=== PATIENT | female | born 1960 | race Caucasian/White ===

== ENCOUNTER 2016-09-18 09:10 | Inpatient (IN) | payer MEDICAID ==
[~2016-09-18] VITALS: Ht 170.2 cm; Wt 150.8 kg
[2016-09-19] MEDS ORDERED: NEOSTIGMINE 3 MG/3 ML SYR IV ONE (09:10)
[2016-09-19] MEDS ORDERED: PROPOFOL 200 MG/20 ML AMP IV ONE (09:10)
[2016-09-19] MEDS ORDERED: NORMOSOL R INJ 1,000 ML IV ONE (09:10)
[2016-09-19] MEDS ORDERED: LACTATED RINGER'S 1000 ML INJ 1,000 ML IV ONE (09:10)
[2016-09-19] MEDS ORDERED: BUPIVACAINE HCL PF 0.5% 30 ML VIAL ONE (12:40)
[2016-09-19] MEDS ORDERED: GELFOAM SIZE 100 ONE (12:41)
[2016-09-19] MEDS ORDERED: THROMBIN (TOPICAL) 5,000 UNIT VIAL ONE (12:41)
--- NOTE | 2016-09-19 12:58 | PD.HP.UP ---
H&P Update Note The Pre-Admit History and Physical Examination regarding the above named patient was reviewed (including, but not limited to, vital signs, heart, lungs, co-morbid conditions), and upon re-examination it is noted that: the patient's condition has not significantly changed since the last examination. Justo Mendoza MD Sep 19, 2016 12:58
[2016-09-19] MEDS ORDERED: METOPROLOL TARTRATE 25 MG TAB PO PRN (14:00)
[2016-09-19] MEDS ORDERED: INSULIN HUMAN REGULAR 1,000 UNITS/10 ML VIAL SQ PRN (14:00)
[2016-09-19] MEDS: DEXT 5%-NACL 0.9% 1000 ML INJ 1,000 ML IV SCH ×2 (14:00→22:00)
[2016-09-19] MEDS ORDERED: LACTATED RINGER'S 1000 ML IV SCH (14:00)
[2016-09-19] MEDS ORDERED: ceFAZolin 1,000 MG/NS 100 ML IV SCH ×2 (14:00)
[2016-09-19] MEDS ORDERED: METRONIDAZOLE 500 MG/100 ML ISONTONIC SOLN IV SCH (14:00)
[2016-09-19] MEDS ORDERED: SODIUM CHLORID 0.9% 500 ML IV SCH (14:00)
--- NOTE | 2016-09-19 14:07 | EKG ---
Date Performed: 09/19/2016 Time Performed: 12:53:55 PTAGE: 56 years EKG: SINUS TACHYCARDIA ABNORMAL RHYTHM ECG COMPARED TO PRIOR ELECTROCARDIOGRAM, Rate has increas ed. PREVIOUS TRACING : 06/14/2016 19.20 DOCTOR: Ean Nobles Interpretating Date/Time 09/19/2016 14:05:34
[2016-09-19] MEDS ORDERED: APREPITANT 40 MG CAP ONE (14:35)
[2016-09-19] MEDS ORDERED: ONDANSETRON HCL 4 MG/2 ML VIAL ONE (14:36)
[2016-09-19] MEDS ORDERED: MIDAZOLAM HCL 5 MG/5 ML VIAL ONE (14:36)
[2016-09-19] MEDS ORDERED: FAMOTIDINE 20 MG/2 ML VIAL ONE (14:36)
[2016-09-19] MEDS ORDERED: ACETAMINOPHEN 1000 MG/100 ML VIAL IV ONE (14:36)
[2016-09-19] MEDS ORDERED: ceFAZolin INJ 1,000 MG VIAL IV ONE (16:51)
[2016-09-19] MEDS ORDERED: HYDROmorphone HCL PF 2 MG/ML VIAL ONE (17:06)
[2016-09-19] MEDS ORDERED: fentaNYL CITRATE 250 MCG/5 ML AMP ONE (18:32)
[2016-09-19 19:00] VITALS: BP 130/68; PULSE 79; RESP 21; TEMP 97.8; O2SAT 97
[2016-09-19] MEDS ORDERED: POTASSIUM CHLOR 40 MEQ PREMIX 100 ML IV PRN (19:00)
[2016-09-19] MEDS ORDERED: ENALAPRILAT 2.5 MG/2 ML VIAL IV PRN (19:00)
[2016-09-19] MEDS ORDERED: SODIUM CHLORIDE 0.9% FLUSH 5 ML FLUSH IVF PRN (19:00)
[2016-09-19] MEDS ORDERED: ACETAMINOPHEN/HYDROcodone 325 MG/5 MG TAB PO PRN (19:00)
[2016-09-19] MEDS ORDERED: ENALAPRILAT 1.25 MG/ML VIAL IV PRN (19:00)
[2016-09-19] MEDS ORDERED: Post-op Orders (for Pharmacy) MISC XX ONE (19:00)
[2016-09-19] MEDS ORDERED: POTASSIUM CHLOR 20 MEQ PREMIX 100 ML IV PRN (19:00)
[2016-09-19] MEDS ORDERED: ACETAMINOPHEN 325 MG TAB PO PRN (19:00)
[2016-09-19] MEDS ORDERED: NALOXONE HCL 0.4 MG/ML AMP IV PRN (19:00)
[2016-09-19] MEDS ORDERED: BENZOCAINE 6 MG/MENTHOL 10 MG LOZENGE SUCK-ON PRN (19:00)
[2016-09-19] MEDS ORDERED: DO NOT ADM ANY ANTICOAGULANT DRUGS XX PRN (19:01)
[2016-09-19] MEDS ORDERED: *morphine SULFATE 8 MG/ML PERIprocedure ONLY ONE (19:46)
[2016-09-19] MEDS: D5-NS + KCL 20 MEQ INJ 1,000 ML IV SCH (20:00)
[2016-09-19] MEDS: MORPHINE SULFATE 30 MG/30 ML PCA IV SCH (20:22)
[2016-09-19] MEDS: ONDANSETRON HCL 4 MG/2 ML VIAL IV PRN (20:54)
[2016-09-19] MEDS: METOCLOPRAMIDE HCL 10 MG/2 ML VIAL IVS SCH (20:55)
[2016-09-19] MEDS: SODIUM CHLORIDE 0.9% FLUSH 5 ML FLUSH IVF SCH (20:56)
[2016-09-19 22:00] VITALS: PULSE 72; RESP 21
[2016-09-19] MEDS: PCA - TOTAL MG MORPHINE DELIVERED PER SHIFT SCH (22:00)
[2016-09-19 23:00] VITALS: BP 119/59; PULSE 73; PULSE 76; RESP 16; TEMP 98.3; O2SAT 97
[2016-09-19] MEDS: metroNIDAZOLE 500 MG INJ 100 ML IV SCH (23:03)
[2016-09-20] VITALS (28 sets, daily range): BP systolic 105–152; BP diastolic 66–84; PULSE 54–92; RESP 17–19; TEMP 97.5–98.2; O2SAT 94–97
[2016-09-20] MEDS: KETOROLAC TROMETHAMINE 30 MG/ML (IVP) VIAL IVP PRN ×2 (00:53→14:07)
[2016-09-20] MEDS: D5-NS + KCL 20 MEQ INJ 1,000 ML IV SCH ×3 (00:57→14:41)
[2016-09-20] MEDS: ONDANSETRON HCL 4 MG/2 ML VIAL IV PRN (03:40)
[2016-09-20 04:10] LABS: BASOPHIL # 0.1 TH/MM3 (0-0.2); BASOPHIL % 0.5 % (0.0-2.0); HEMATOCRIT 40.7 % (35.0-46.0); HEMO FLAGS DIFF FINAL; LYMPH % 3.4 % (9.0-44.0); LYMPHOCYTE # 0.4 TH/MM3 (1.0-4.8); MEAN CORPUSCULAR HEMOGLOBIN 30.7 PG (27.0-34.0); MEAN CORPUSCULAR HGB CONC 32.7 % (32.0-36.0); MONO % 3.3 % (0.0-8.0); NEUT % 92.8 % (16.0-70.0); PLATELET COUNT 163 TH/MM3 (150-450); RED BLOOD COUNT 4.33 MIL/MM3 (4.00-5.30); RED CELL DISTRIBUTION WIDTH 14.8 % (11.6-17.2); WHITE BLOOD COUNT 10.8 TH/MM3 (4.0-11.0)
[2016-09-20 04:34] LABS: BICARBONATE 25.3 MEQ/L (21.0-32.0); POTASSIUM 4.6 MEQ/L (3.5-5.1)
[2016-09-20] MEDS: DEXT 5%-NACL 0.9% 1000 ML INJ 1,000 ML IV SCH ×3 (05:38→22:00)
[2016-09-20] MEDS: metroNIDAZOLE 500 MG INJ 100 ML IV SCH ×2 (05:38→14:39)
[2016-09-20] MEDS: PCA - TOTAL MG MORPHINE DELIVERED PER SHIFT SCH ×3 (05:39→21:14)
[2016-09-20] MEDS: MORPHINE SULFATE 30 MG/30 ML PCA IV SCH (07:17)
[2016-09-20] MEDS: METOCLOPRAMIDE HCL 10 MG/2 ML VIAL IVS SCH ×2 (08:35→21:14)
[2016-09-20] MEDS: PANTOPRAZOLE SODIUM 40 MG VIAL IVP SCH (08:35)
[2016-09-20] MEDS: SODIUM CHLORIDE 0.9% FLUSH 5 ML FLUSH IVF SCH ×2 (08:35→21:00)
[2016-09-20] MEDS: PANTOPRAZOLE SOD 40 MG DELAYED RELEASE TAB PO SCH (08:42)
--- NOTE | 2016-09-20 20:54 | HHI.PR ---
Subjective Remarks C/R Surg POD #1 afebrile, VSS UO good Objective - Vital Signs Date Time Temp Pulse Resp B/P Pulse Ox O2 Delivery O2 Flow Rate FiO2 09/20/16 18:00 71 09/20/16 15:12 19 09/20/16 15:00 98.2 130/84 94 09/19/16 19:58 Nasal Cannula 4 Result Diagram: 09/20/16 0330 09/20/16 0330 Objective Remarks PE alert Abd - soft, wound dry A/P Assessment and Plan Imp: stable post-op OOB decr IVF start PO tx to floor Justo Mendoza MD Sep 20, 2016 20:54
[2016-09-20] MEDS: ALVIMOPAN 12 MG CAPSULE PO SCH (21:14)
[2016-09-21] VITALS (21 sets, daily range): BP systolic 140–174; BP diastolic 66–89; PULSE 55–93; RESP 17–20; TEMP 97.9–98.7; O2SAT 92–95
[2016-09-21 05:47] LABS: RED BLOOD COUNT 3.87 MIL/MM3 (4.00-5.30); WHITE BLOOD COUNT 10.4 TH/MM3 (4.0-11.0)
[2016-09-21 05:48] LABS: AUTOMATED NEUTROPHIL # 8.3 TH/MM3 (1.8-7.7); BASOPHIL # 0.1 TH/MM3 (0-0.2); BASOPHIL % 0.7 % (0.0-2.0); EOSINOPHIL # 0.4 TH/MM3 (0-0.4); EOSINOPHIL % 4.1 % (0.0-4.0); HEMATOCRIT 36.6 % (35.0-46.0); HEMO FLAGS DIFF FINAL; LYMPH % 10.5 % (9.0-44.0); LYMPHOCYTE # 1.1 TH/MM3 (1.0-4.8); MEAN CELL VOLUME 94.4 FL (80.0-100.0); MEAN CORPUSCULAR HEMOGLOBIN 31.4 PG (27.0-34.0); MEAN CORPUSCULAR HGB CONC 33.3 % (32.0-36.0); NEUT % 79.7 % (16.0-70.0); PLATELET COUNT 150 TH/MM3 (150-450); RED CELL DISTRIBUTION WIDTH 14.9 % (11.6-17.2)
[2016-09-21] MEDS: PCA - TOTAL MG MORPHINE DELIVERED PER SHIFT SCH (06:00)
[2016-09-21] MEDS: DEXT 5%-NACL 0.9% 1000 ML INJ 1,000 ML IV SCH ×3 (06:00→22:00)
--- NOTE | 2016-09-21 06:06 | MP ---
cc: NONA CASTANON M.D. DATE OF PROCEDURE September 19, 2016 PREOPERATIVE DIAGNOSIS History of colon cancer with liver metastasis. PROCEDURE 1. Exploratory laparotomy with segmental hepatectomy of segment 8. 2. Two wedge excisions, metastasis segment 7. POSTOPERATIVE DIAGNOSIS 1. Three liver metastases. 2. History of colon cancer. 3. Postop adhesions. SURGEON Dr. Castanon PROCEDURE The patient was placed in the supine position. After adequate general anesthesia, her abdomen was prepped with Betadine solution and draped in the usual sterile fashion. The abdomen was opened through a right intercostal incision, dividing the rectus muscles with electrocautery. Adhesions were noted quite densely adherent to the parietal peritoneum and these were sharply taken down with both sharp and blunt dissection. Exploration finally identified the edge of the liver and adhesions were released mobilizing the liver. Several adhesions between the liver and the diaphragm were also taken down mobilizing the right lobe of the liver. Palpation revealed a rather large metastasis in the anterior segment of segment 8 as well as two smaller lesions in the posterior segment of segment 7. No other lesions were palpated throughout the liver. There was a very hard nodule in the falciform attached to a loop of small bowel and this was dissected free and sent for frozen section which showed only fibrous tissue, no sign of any malignancy. The remainder of the abdomen was palpated and felt to be pretty unremarkable for any metastatic disease. There were fairly dense adhesions throughout the small bowel loops. First our attention was turned to the two smaller lesions in segment 7 and these were elliptically excised cauterizing the base of the lesions with electrocautery. There did appear to be fairly adequate resection of these small lesions, each one measuring 1-2 cm in diameter. Next, the larger lesion in the anterior segment of section 8 was dressed and an elliptical incision was made around the tumor mass with an least a 1-cm margin, excising through the liver with electrocautery. The lesion did appear to fracture into several pieces. The margin below the lesion was obtained with healthy, normal liver tissue being visualized after complete piecemeal excision. The base of the lesion was again cauterized rather extensively for hemostasis. After adequate debridement, no visible tumor was present in the excision site. Tisseel was then sprayed over the liver edges for additional hemostasis. The abdomen was then irrigated copiously with normal saline, adequate hemostasis achieved. The subcostal incision was closed anatomically in two layers using #1 PDS sutures to reapproximate the respective fascial layers. The subcutaneous tissue was irrigated copiously and the skin closed with a row of surgical lois. The wound area washed with normal saline and dried, sterile dressing of Telfa and gauze applied. The patient tolerated the procedure quite well and was brought to the recovery room in stable condition. Sponge and needle counts were correct at the end of the procedure. MD NIRAV Stearns/SHALINI /10:55 PM /5:54 AM
[2016-09-21 06:10] LABS: BICARBONATE 28.9 MEQ/L (21.0-32.0); POTASSIUM 4.4 MEQ/L (3.5-5.1)
[2016-09-21] MEDS: PANTOPRAZOLE SODIUM 40 MG VIAL IVP SCH (09:00)
[2016-09-21] MEDS: SODIUM CHLORIDE 0.9% FLUSH 5 ML FLUSH IVF SCH ×2 (09:03→21:49)
[2016-09-21] MEDS: METOCLOPRAMIDE HCL 10 MG/2 ML VIAL IVS SCH ×2 (09:04→21:49)
[2016-09-21] MEDS: PANTOPRAZOLE SOD 40 MG DELAYED RELEASE TAB PO SCH (09:04)
[2016-09-21] MEDS: ALVIMOPAN 12 MG CAPSULE PO SCH ×2 (09:04→21:49)
[2016-09-21] MEDS ORDERED: diphenhydrAMINE HCL 25 MG CAP PO ONE (10:45)
[2016-09-21] MEDS: ACETAMINOPHEN/HYDROcodone 325 MG/5 MG TAB PO PRN ×2 (10:53→16:26)
[2016-09-21] MEDS: D5-NS + KCL 20 MEQ INJ 1,000 ML IV SCH ×3 (11:00→23:07)
--- NOTE | 2016-09-21 19:42 | HHI.PR ---
Subjective Remarks C/R Surg POD #2 afebrile, VSS UO good Objective - Vital Signs Date Time Temp Pulse Resp B/P Pulse Ox O2 Delivery O2 Flow Rate FiO2 09/21/16 18:00 93 09/21/16 15:45 98.2 17 157/89 94 09/19/16 19:58 Nasal Cannula 4 Result Diagram: 09/21/16 0514 09/21/16 0514 Objective Remarks PE alert Abd - soft, wound dry, min tympany A/P Assessment and Plan Imp: OOB decr IVF start PO, adv dc Justo Hoskins MD Sep 21, 2016 19:42
[2016-09-22 00:56] VITALS: BP 138/80; PULSE 87; RESP 20; TEMP 97.8; O2SAT 93
[2016-09-22] MEDS: ACETAMINOPHEN/HYDROcodone 325 MG/5 MG TAB PO PRN (06:35)
[2016-09-22 06:45] VITALS: BP 140/78; PULSE 82; RESP 20; TEMP 97.9; O2SAT 92
[2016-09-22 07:00] VITALS: BP 142/84; PULSE 78; PULSE 80; RESP 17; TEMP 99.1; O2SAT 95
[2016-09-22 08:00] VITALS: PULSE 70
[2016-09-22 09:00] VITALS: PULSE 82
[2016-09-22] MEDS: METOCLOPRAMIDE HCL 10 MG/2 ML VIAL IVS SCH (09:00)
[2016-09-22] MEDS: PANTOPRAZOLE SODIUM 40 MG VIAL IVP SCH (09:00)
[2016-09-22] MEDS: PANTOPRAZOLE SOD 40 MG DELAYED RELEASE TAB PO SCH (09:37)
[2016-09-22] MEDS: ALVIMOPAN 12 MG CAPSULE PO SCH (09:38)
[2016-09-22 10:00] VITALS: PULSE 91
[2016-09-22] MEDS ORDERED: HYDR-3516 PO (10:21)
--- NOTE | 2016-10-24 10:41 | MD ---
cc: AIMEE MONET M.D., ANDREW H. M.D. ADMISSION DATE: 09/19/2016 DISCHARGE DATE: 09/22/2016 ADMISSION DIAGNOSIS History of colon cancer with liver metastasis. PROCEDURE September 19, 2016, exploratory laparotomy with segmental hepatectomy segment eight of the liver, two wedge excisions hepatic metastasis segment seven of the liver. POSTOPERATIVE DIAGNOSIS History of colon cancer, three hepatic metastasis. HISTORY OF PRESENT ILLNESS Ms. Flores is a 56-year-old female who had been found to have a cancer of the rectosigmoid with liver metastasis. During the first surgery one of the lesions was resected. She went on postop chemotherapy and has been doing quite well, noting shrinkage of the remaining metastasis but has never really disappeared. Recently two new metastasis have been identified in the apex of the liver. No other metastatic disease has been identified in the abdomen. The patient was admitted at this time for exploratory laparotomy and hepatic resection. Please see the admitting history and physical for more complete past medical and surgical history. PERTINENT PHYSICAL A very pleasant heavy-set female in no acute distress. Abdomen was really soft and doughy, not really distended, previous transverse incision was well-healed. No induration or thickening. No masses noted. Anal inspection revealed benign canal. Digital exam revealed good tone. No masses or tenderness palpable. HOSPITAL COURSE After admission, the patient was taken to the operating room on September 19, 2016, at which point she underwent an exploratory laparotomy, lysis of adhesions, segmental resection of metastasis from segment eight and two wedge excisions from segment seven. She had fair amount of adhesions in the parietal peritoneum and one nodule in the falciform ligament which proved not to be a metastasis. She tolerated the procedure quite well. Postoperatively she was initially stabilized in the intensive care unit. Her GI tract function returned quite promptly and her diet was advanced accordingly. She was able to ambulate with some assistance. The patient was eating well, tolerating oral pain medication and considered ready for discharge home on September 22, 2016. Final pathology report revealed segments of liver with extensively necrotic well-differentiated mucin producing adenocarcinoma. Margins were indeterminate due to the piecemeal excision of the specimen. DISCHARGE INSTRUCTIONS The patient was discharged eating a regular diet. She was encouraged to ambulate daily avoiding any heavy lifting or straining. All preop medications were to be resumed. The patient will be seen in the office in one weeks' time for routine follow-up. Any problems prior to the scheduled office visit she was instructed to call for more urgent attention. MD NIRAV Stearns/SANDY /2:11 PM /10:21 AM
== END 2016-09-22 12:01 | disposition home or self-care (01) | DRG 422 ==
LOC: HSDI 09-19 12:22 → HCIN 09-19 20:12
PROVIDERS: ADMIT Colon & Rectal Surgery; ATTEND Colon & Rectal Surgery
PROC: 0FN00ZZ Release Liver, Open Approach (ICD-10-PCS; 2016-09-19)
PROC: 0FB00ZX Excision of Liver, Open Approach, Diagnostic (ICD-10-PCS; principal; 2016-09-19 16:24)
DX: C78.7 Secondary malignant neoplasm of liver and intrahepatic bile duct (principal); I10 Essential (primary) hypertension; K66.0 Peritoneal adhesions (postprocedural) (postinfection); K21.9 Gastro-esophageal reflux disease without esophagitis; Z85.038 Personal history of other malignant neoplasm of large intestine; Z88.1 Allergy status to other antibiotic agents; Z91.040 Latex allergy status; Z92.21 Personal history of antineoplastic chemotherapy
CPT/HCPCS: 80048; 85025; 86850; 86900; 86901; 86920; 88305; 88307; 93005; 94150; C9113; J0131; J0690; J1170; J1885; J2250; J2270; J2405; J2710; J2765; J3010; J3480; J7042; J7120; J8501

== ENCOUNTER 2016-10-23 06:25 | Day surgery (SDC) | payer MEDICAID ==
[~2016-10-23] VITALS: Ht 170.2 cm; Wt 144.0 kg
[~2016-10-23 06:25] MED LIST: HYDR-3516 PO
[2016-10-23] MEDS ORDERED: AMLO5TAB2 PO (06:45)
[2016-10-23 06:54] VITALS: BP 135/112; PULSE 97; RESP 20; TEMP 99.4; O2SAT 95
[2016-10-23] MEDS ORDERED: SODIUM CHLORIDE 0.9% 1000 ML IV SCH (07:00)
[2016-10-23] MEDS ORDERED: CHLORHEXIDINE GLUCONATE 2 % 1 PACK (2 CLOTHS) TOPICAL SCH (07:00)
[2016-10-23] MEDS ORDERED: ceFAZolin 2 GM PREMIX 50 ML - implanted port/tunneled catheter insertion IV SCH (07:00)
[2016-10-23] MEDS ORDERED: VANCOMYCIN 1000 MG/NS 250 ML - implanted port/tunneled catheter IV SCH ×2 (07:00)
[2016-10-23] MEDS ORDERED: POVIDONE IODINE 5% (ANTISEPSIS KIT) 4 APPLICATIONS EACH NARE SCH (07:00)
[2016-10-23 07:25] LABS: AUTOMATED NEUTROPHIL # 7.5 TH/MM3 (1.8-7.7); BASOPHIL # 0.1 TH/MM3 (0-0.2); BASOPHIL % 0.9 % (0.0-2.0); EOSINOPHIL # 0.3 TH/MM3 (0-0.4); EOSINOPHIL % 2.8 % (0.0-4.0); HEMATOCRIT 44.4 % (35.0-46.0); HEMO FLAGS DIFF FINAL; LYMPH % 20.7 % (9.0-44.0); LYMPHOCYTE # 2.3 TH/MM3 (1.0-4.8); MEAN CORPUSCULAR HEMOGLOBIN 29.5 PG (27.0-34.0); MEAN CORPUSCULAR HGB CONC 33.1 % (32.0-36.0); MONO % 6.5 % (0.0-8.0); NEUT % 69.1 % (16.0-70.0); PLATELET COUNT 233 TH/MM3 (150-450); RED BLOOD COUNT 4.99 MIL/MM3 (4.00-5.30); RED CELL DISTRIBUTION WIDTH 14.9 % (11.6-17.2); WHITE BLOOD COUNT 10.9 TH/MM3 (4.0-11.0)
[2016-10-23 07:37] LABS: APTT (PATIENT) 27.1 SEC (24.3-30.1); INTERNATIONAL NORMALIZED RATIO 0.9 RATIO; PROTHROMBIN TIME - PATIENT 9.9 SEC (9.8-11.6)
[2016-10-23] MEDS ORDERED: fentaNYL CITRATE 250 MCG/5 ML AMP ONE (07:53)
[2016-10-23] MEDS ORDERED: MIDAZOLAM HCL 5 MG/5 ML VIAL ONE (07:53)
[2016-10-23] MEDS ORDERED: LIDOCAINE 1%/EPINEPHrine 1:100,000 SOLN 30 ML VIAL ONE (08:24)
[2016-10-23] MEDS ORDERED: HYDROmorphone HCL PF 2 MG/ML VIAL ONE (08:48)
[2016-10-23] MEDS ORDERED: MIDAZOLAM HCL 2 MG/2 ML VIAL ONE (09:01)
[2016-10-23] MEDS ORDERED: ONDANSETRON HCL 4 MG/2 ML VIAL ONE (09:35)
[2016-10-23 09:40] VITALS: BP 144/90; PULSE 98; RESP 18; RESP 20; TEMP 97.6; TEMP 97.8; O2SAT 92
[2016-10-23 09:55] VITALS: BP 129/95; PULSE 95; RESP 18; O2SAT 97
[2016-10-23 10:25] VITALS: BP 152/87; PULSE 91; RESP 18; O2SAT 94
[2016-10-23 10:45] VITALS: BP 164/94; PULSE 67; RESP 18; TEMP 97.6; O2SAT 99
--- NOTE | 2016-10-23 10:56 | PD.RAD ---
Post Procedure Progress Note Pre Procedure Diagnosis: (1) Colon cancer Post Procedure Diagnosis: (1) Colon cancer Procedure Date: Oct 23, 2016 Supervising Radiologist: Barrett Love Anesthesia: Conscious Sedation Plan of Activity Patient to Unit: ROPU Patient Condition: Good See PACS Report for procedural detail/treatment Central Venous Access Device Procedure 1 Left Internal Jugular Infusaport single lumen Barrett Love MD Oct 23, 2016 10:56
[2016-10-23] MEDS ORDERED: SODIUM CHLORIDE 0.9% FLUSH 5 ML FLUSH IVF PRN (11:00)
== END 2016-10-23 11:55 | disposition home or self-care (01) ==
LOC: HROP 06:25 → HRIP 06:26 → HROP 11:55
PROVIDERS: ATTEND Internal Medicine Hematology & Oncology
DX: C18.9 Malignant neoplasm of colon, unspecified (principal); C78.7 Secondary malignant neoplasm of liver and intrahepatic bile duct; I10 Essential (primary) hypertension
CPT/HCPCS: 36561; 76937; 77001; 85025; 85610; 85730; 99152; 99153; C1769; C1788; C1887; C1894; J0690; J1170; J1642; J2250; J2405; J3010; J3370; J7030; J7050

== ENCOUNTER 2017-01-18 14:59 | Observation (INO) | payer MEDICAID, OTHER ==
[~2017-01-18] VITALS: Ht 170.2 cm; Wt 141.0 kg
[~2017-01-18 14:59] MED LIST changes: -DIPH2.5T14 PO; -IOHEXOL 350 MG/ML 10 ML VIAL (for RAD DIAG) IV ONE; -LACTCHW3 CHEW; -LEVA750T PO; -LISI10TA3 PO; -LOPE2TAB PO; -OXYC-395 PO; -PANT40TA3 PO
[2017-01-18 15:01] VITALS: BP 142/81; PULSE 84; RESP 16; TEMP 97.7; O2SAT 99
[2017-01-18] MEDS ORDERED: SODIUM CHLOR 0.9% 1000 ML INJ 1,000 ML IV ONE (15:55)
--- NOTE | 2017-01-18 16:01 | PD ---
HPI Chief Complaint: General Weakness Time Seen by Provider: 16:00 Travel History International Travel<30 days: No Contact w/Intl Traveler<30days: No Traveled to known affect area: No History of Present Illness HPI 56-year-old female presents to the emergency department for evaluation of generalized weakness, shortness of breath, abdominal pain that started 9 days ago. She reports chills, but no fevers. She states that she has "lung pain" with deep breathing. Patient had CT abdomen/pelvis done today at [facility]. She has a history of colon adenocarcinoma the descending colon with metastasis to the liver. She was diagnosed on June 2015. She underwent hemicolectomy in June 2015. 2 liver lesions were noted during this surgery at that time, one of the lesions was removed. She had resection of the liver lesions on September 2016. Patient has past medical history of cholecystectomy, colon cancer with metastases to the liver, hernia repair, tubal ligation, hypertension. She is currently on lisinopril. She is undergoing chemotherapy, but not radiation. Patient states she has chronic shortness of breath due to chemotherapy. She states it is getting worse, but attributes this to increasing chemotherapy. She reports pleuritic pain. She also states she is having new left upper abdominal pain. She vomited approximately one week ago, stopped vomiting since. No diarrhea or constipation. No blood in her stool. She does report history of DVT and her leg. Patient's oncologist is Dr. Francisco. [facility] Past Medical History Hx Anticoagulant Therapy: No ADHD: Yes Arthritis: Yes Asthma: No Autoimmune Disease: No Blood Disorders: No Anxiety: Yes Depression: Yes Heart Rhythm Problems: No Cancer: Yes (COLON WITH METS TO LIVER ) Cardiomyopathy: Yes Cardiovascular Problems: Yes (HTN ) High Cholesterol: No Chemotherapy: Yes (LAST 01/07) Chest Pain: No Congestive Heart Failure: No COPD: No Cerebrovascular Accident: No Diabetes: No Diminished Hearing: No Deep Vein Thrombosis: Yes (RIGHT LEG) Endocrine: No Gastrointestinal Disorders: Yes (Irritable bowel syndrome, COLON RESECTION) GERD: Yes Glaucoma: No Genitourinary: Yes (tumor on liver) Headaches: Yes Hepatitis: No Hiatal Hernia: No Hypertension: Yes Immune Disorder: No Kidney Stones: No Musculoskeletal: Yes (THORACIC, LUMBAR DISCOMFORT, JOINT PAIN) Neurologic: No Psychiatric: Yes (DEPRESSION) Reproductive: No Respiratory: No Migraines: Yes Myocardial Infarction: No Radiation Therapy: No Renal Failure: No Seizures: No Sickle Cell Disease: No Sleep Apnea: No Ulcer: No PNEUMOCCOCAL Vaccine (Year): 2 ?: Not Menopausal: Yes : 9 Para: 5 Miscarriage: 1 : 3 Tubal Ligation: Yes Past Surgical History Abdominal Surgery: Yes (COLON RESECTION -REMOVE TUMOR WITH REPAIR HERNIA) AICD: No Appendectomy: No Arteriovenous Shunt: No Body Medical Devices: RIGHT IMPLANTED PORT Cardiac Surgery: No Cholecystectomy: Yes Ear Surgery: No Endocrine Surgery: No Eye Surgery: No Genitourinary Surgery: No Gynecologic Surgery: Yes (D&C, tubal ligation) Insulin Pump: No Joint Replacement: No Oral Surgery: No Pacemaker: No Thoracic Surgery: Yes (RIGHT IMPLANTED PORT- RIGHT UPPER CHEST , removed Jul 23, OF PORT) Other Surgery: Yes Social History Alcohol Use: No Tobacco Use: No Substance Use: No Allergies-Medications (Allergen,Severity, Reaction): Coded Allergies: Latex (Verified Allergy, Severe, ITCHY,RASH, 01/18/17) Glidden (Verified Allergy, Severe, HIVES, 01/18/17) Erythromycin (Verified Allergy, Mild, RASH, 01/18/17) Uncoded Allergies: CARD BOARD (Allergy, Severe, CONTACT DERMATITIS, 05/08/16) Reported Meds & Prescriptions Reported Meds & Active Scripts Active Reported Lisinopril 10 Mg Tab 10 Mg PO DAILY Review of Systems Except as stated in HPI: all other systems reviewed are Neg Physical Exam Narrative GENERAL: Well-nourished, well-developed female patient, ambulatory. Afebrile. SKIN: Focused skin assessment warm/dry. HEAD: Normocephalic. Atraumatic. EYES: No scleral icterus. No injection or drainage. NECK: Supple, trachea midline. No JVD or lymphadenopathy. CARDIOVASCULAR: Regular rate and rhythm without murmurs, gallops, or rubs. Bilateral radial and pedal pulses 2+. RESPIRATORY: Breath sounds equal bilaterally. No accessory muscle use. Lungs sounds are clear to auscultation. GASTROINTESTINAL: Abdomen soft and nondistended. Patient has epigastric and left upper quadrant tenderness to palpation. MUSCULOSKELETAL: No cyanosis, or edema. BACK: Nontender without obvious deformity. No CVA tenderness. Data Data Last Documented VS Vital Signs Date Time Temp Pulse Resp B/P Pulse Ox O2 Delivery O2 Flow Rate FiO2 01/18/17 17:30 91 20 141/78 96 01/18/17 15:01 97.7 Orders Electrocardiogram (01/18/17 15:55) Complete Blood Count With Diff (01/18/17 15:55) Comprehensive Metabolic Panel (01/18/17 15:55) Magnesium (Mg) (01/18/17 15:55) B-Type Natriuretic Peptide (01/18/17 15:55) Ckmb (Isoenzyme) Profile (01/18/17 15:55) Troponin I (01/18/17 15:55) Urinalysis - C+S If Indicated (01/18/17 15:55) Chest, Single Ap (01/18/17 15:55) Ecg Monitoring (01/18/17 15:55) Iv Access Insert/Monitor (01/18/17 15:55) Oximetry (01/18/17 15:55) Sodium Chloride 0.9% Flush (Ns Flush) (01/18/17 16:00) Sodium Chlor 0.9% 1000 Ml Inj (Ns 1000 M (01/18/17 15:55) Ondansetron Inj (Zofran Inj) (01/18/17 16:15) Morphine Inj (Morphine Inj) (01/18/17 16:15) Lipase (01/18/17 16:05) D-Dimer (01/18/17 17:37) Ventilation & Perfusion Scan (01/18/17 ) Act Partial Throm Time (Ptt) (01/18/17 17:38) Prothrombin Time / Inr (Pt) (01/18/17 17:38) Potassium Chloride (Kcl) (01/18/17 18:45) Morphine Inj (Morphine Inj) (01/18/17 19:15) Labs Laboratory Tests Test 01/18/17 01/18/17 16:05 18:45 White Blood Count 6.1 TH/MM3 Red Blood Count 4.32 MIL/MM3 Hemoglobin 13.1 GM/DL Hematocrit 38.9 % Mean Corpuscular Volume 90.1 FL Mean Corpuscular Hemoglobin 30.3 PG Mean Corpuscular Hemoglobin 33.6 % Concent Red Cell Distribution Width 18.4 % Platelet Count 168 TH/MM3 Mean Platelet Volume 8.3 FL Neutrophils (%) (Auto) 62.2 % Lymphocytes (%) (Auto) 30.7 % Monocytes (%) (Auto) 5.3 % Eosinophils (%) (Auto) 0.9 % Basophils (%) (Auto) 0.9 % Neutrophils # (Auto) 3.8 TH/MM3 Lymphocytes # (Auto) 1.9 TH/MM3 Monocytes # (Auto) 0.3 TH/MM3 Eosinophils # (Auto) 0.1 TH/MM3 Basophils # (Auto) 0.1 TH/MM3 CBC Comment DIFF FINAL Differential Comment Prothrombin Time 10.4 SEC Prothromb Time International 0.9 RATIO Ratio Activated Partial 25.2 SEC Thromboplast Time D-Dimer Quantitative (PE/DVT) 9.09 MG/L FEU Sodium Level 141 MEQ/L Potassium Level 3.0 MEQ/L Chloride Level 105 MEQ/L Carbon Dioxide Level 23.9 MEQ/L Anion Gap 12 MEQ/L Blood Urea Nitrogen 13 MG/DL Creatinine 1.15 MG/DL Estimat Glomerular Filtration 49 ML/MIN Rate Random Glucose 107 MG/DL Calcium Level 8.8 MG/DL Magnesium Level 2.0 MG/DL Total Bilirubin 0.9 MG/DL Aspartate Amino Transf 24 U/L (AST/SGOT) Alanine Aminotransferase 32 U/L (ALT/SGPT) Alkaline Phosphatase 123 U/L Total Creatine Kinase 37 U/L Troponin I LESS THAN 0.02 NG/ML B-Type Natriuretic Peptide 14 PG/ML Total Protein 7.9 GM/DL Albumin 3.5 GM/DL Lipase 120 U/L Urine Color YELLOW Urine Turbidity CLEAR Urine pH 5.5 Urine Specific [place] 1.035 Urine Protein 30 mg/dL Urine Glucose (UA) NEG mg/dL Urine Ketones NEG mg/dL Urine Occult Blood NEG Urine Nitrite NEG Urine Bilirubin NEG Urine Urobilinogen LESS THAN 2.0 MG/DL Urine Leukocyte Esterase NEG Urine WBC 5 /hpf Urine Squamous Epithelial 11 /hpf Cells Microscopic Urinalysis Comment CULT NOT INDICATED MDM Medical Decision Making Medical Screen Exam Complete: Yes Emergency Medical Condition: Yes Medical Record Reviewed: Yes Interpretation(s) Last Impressions Chest X-Ray 01/18/17 6203 Signed Impressions: Service Date/Time: Saturday, January 18, 2017 16:39 - CONCLUSION: No acute disease Jim Hidalgo MD VQ scan - CONCLUSION: Homogeneous perfusion. Study is low probability for pulmonary embolus. Differential Diagnosis Pneumonia versus electrolyte abnormality versus ACS versus diverticulitis versus colon cancer versus PE Narrative Course 56-year-old female presents to the emergency department for shortness of breath , pleuritic pain, cough, abdominal pain. Patient has CT abdomen/pelvis done today with IV contrast that shows New 7 mm nodule in the posterior medial left lung base. EKG, CBC, CMP, magnesium, lipase, BNP, CK, troponin, UA are ordered and pending. Chest x-ray is ordered and pending. Patient is given normal saline 1 L IV bolus, Zofran 4 mg IV, Morphine 4 mg IV. EKG shows sinus rhythm, heart rate 76, no acute ST changes. CBC shows no acute abnormality. CMP shows hypokalemia 3.0, creatinine 1.15. Magnesium is 2.0. Lipase is 120. BNP is 14. CK is 37. Troponin is less than 0.02. UA is negative for acute infection. Chest x-ray shows no acute disease. Coags unremarkable. D-dimer is 9.09. VQ scan is ordered and pending due to patient having IV contrast today. Patient is given another morphine 4 mg IV for intractable abdominal pain. The patient's oncologist, Dr. Torres, who believed that he was a good idea. He states that she has a lot of pain issues. He has no more testing that he would like to add at this time. VQ scan is low probability for pulmonary embolus on. Patient will be brought in for intractable abdominal pain. The patient is agreeable to this plan. Diagnosis Primary Impression: Abdominal pain Qualified Code: R10.12 - Left upper quadrant pain Additional Impressions: Colon cancer Qualified Code: C18.9 - Malignant neoplasm of colon, unspecified part of colon Pleuritic chest pain Admitting Information Admitting Physician Requests: Rhina Salgado January 18, 2017 16:00
[2017-01-18 16:13] VITALS: O2SAT 96
[2017-01-18] MEDS ORDERED: MORPHINE SULFATE 4 MG/ML INJ IV ONE (16:15)
[2017-01-18] MEDS ORDERED: ONDANSETRON HCL 4 MG/2 ML VIAL IV PUSH ONE (16:15)
[2017-01-18] MEDS: SODIUM CHLORIDE 0.9% FLUSH 10 ML FLUSH IVF PRN ×2 (16:34→19:27)
[2017-01-18 16:44] LABS: AUTOMATED NEUTROPHIL # 3.8 TH/MM3 (1.8-7.7); BASOPHIL # 0.1 TH/MM3 (0-0.2); BASOPHIL % 0.9 % (0.0-2.0); EOSINOPHIL # 0.1 TH/MM3 (0-0.4); EOSINOPHIL % 0.9 % (0.0-4.0); HEMATOCRIT 38.9 % (35.0-46.0); HEMO FLAGS DIFF FINAL; LYMPH % 30.7 % (9.0-44.0); LYMPHOCYTE # 1.9 TH/MM3 (1.0-4.8); MEAN CELL VOLUME 90.1 FL (80.0-100.0); MEAN CORPUSCULAR HEMOGLOBIN 30.3 PG (27.0-34.0); MEAN CORPUSCULAR HGB CONC 33.6 % (32.0-36.0); MONO % 5.3 % (0.0-8.0); NEUT % 62.2 % (16.0-70.0); PLATELET COUNT 168 TH/MM3 (150-450); RED BLOOD COUNT 4.32 MIL/MM3 (4.00-5.30); RED CELL DISTRIBUTION WIDTH 18.4 % (11.6-17.2); WHITE BLOOD COUNT 6.1 TH/MM3 (4.0-11.0)
--- NOTE | 2017-01-18 16:52 | RADRPT ---
EXAM DATE/TIME: 01/18/2017 16:39 [facility] COMPARISON: [id number] PLCMT, POWERPORT, W US, LEFT, October 23, 2016, 8:07. INDICATIONS : Patient states she has had chest pain and shortness of breath since beginning chemotherapy treatment. MEDICAL HISTORY : Carcinoma, colon. Metastatic, liver. Gastroesophageal reflux disease. SURGICAL HISTORY : Cholecystectomy. Infusaport. ENCOUNTER: Initial ACUITY: 2 months PAIN SCORE: 4/10 LOCATION: Bilateral chest FINDINGS: A single view of the chest demonstrates the lungs to be symmetrically aerated without evidence of mas s, infiltrate or effusion. The cardiomediastinal contours are unremarkable. Osseous structures are intact. Left chest [id number] is noted. CONCLUSION: No acute disease Jim Hidalgo MD on January 18, 2017 at 16:47 Board Certified Radiologist. This report was verified electronically.
[2017-01-18 17:14] LABS: ALT (GPT) 32 U/L (10-53); ANION GAP 12 MEQ/L (5-15); AST (GOT) 24 U/L (15-37); BICARBONATE 23.9 MEQ/L (21.0-32.0); BLOOD UREA NITROGEN 13 MG/DL (7-18); CHLORIDE 105 MEQ/L (98-107); GLOMERULAR FILTRATION RATE 49 ML/MIN (>89); SODIUM (NA) 141 MEQ/L (136-145)
[2017-01-18 17:19] LABS: ALKALINE PHOSPHATASE 123 U/L (45-117); TOTAL BILIRUBIN ADULT 0.9 MG/DL (0.2-1.0)
[2017-01-18 17:22] LABS: CREATINE KINASE 37 U/L (26-192)
[2017-01-18 17:30] VITALS: BP 141/78; PULSE 91; RESP 20; O2SAT 96
[2017-01-18] MEDS ORDERED: LISI10TA3 PO (18:06)
[2017-01-18 18:08] LABS: APTT (PATIENT) 25.2 SEC (24.3-30.1); INTERNATIONAL NORMALIZED RATIO 0.9 RATIO; PROTHROMBIN TIME - PATIENT 10.4 SEC (9.8-11.6)
[2017-01-18] MEDS ORDERED: POTASSIUM CHLORIDE 20 MEQ CONTROLLED RELEASE TAB PO ONE (18:45)
[2017-01-18 19:06] LABS: BLOOD, URINE NEG (NEG); COMMENT (UR) CULT NOT INDICATED; CULTURE IF INDICATED CULT NOT INDICATED; GLUCOSE,URINE NEG (NEG); KETONE, URINE NEG (NEG); NITRITE,URINE NEG (NEG); PH, URINE 5.5 (5.0-8.5); SQUAMOUS EPITHELIAL CELL URINE 11 /hpf (0-5); URINE COLOR YELLOW (YELLW/STRAW)
[2017-01-18] MEDS ORDERED: MORPHINE SULFATE 4 MG/ML INJ IV PUSH ONE (19:15)
--- NOTE | 2017-01-18 21:38 | RADRPT ---
EXAM DATE/TIME: 01/18/2017 20:06 [facility] COMPARISON: CHEST SINGLE AP, January 18, 2017, 16:39. INDICATIONS : Dyspnea for 9 days. History of deep venous thrombosis. DOSE: 1.05 mCi Tc99m DTPA 8.7 mCi Tc99m MAA MEDICAL HISTORY : Carcinoma, colon. Hypertension. Deep venous thrombosis. Chemotherapy SURGICAL HISTORY : Cholecystectomy. Tubal ligation. hemicolectomy ENCOUNTER: Subsequent ACUITY: 1 week PAIN SCALE: 0/10 LOCATION: chest TECHNIQUE: Following five minutes of tidal breathing of DTPA aerosol, planar images of the lungs were performed in eight projections. The patient was then injected with MAA, and eight-view perfusion scan was perf ormed. FINDINGS: There is a homogeneous pattern of aerosol delivery to the periphery of both lungs. No focal ventilat ory defects are seen. The perfusion lung scan demonstrates a homogenous pattern of uptake in both lungs. No segmental or s ubsegmental defects are seen. CONCLUSION: Homogeneous perfusion. Study is low probability for pulmonary embolus. Jim Kahn MD on January 18, 2017 at 21:36 Board Certified Radiologist. This report was verified electronically.
--- NOTE | 2017-01-18 22:07 | HHI.HP ---
[facility] Padmini Lopez MD Admission Diagnosis intractable abdominal pain, pleuritic chest pain Diagnoses: (1) Intractable pain Diagnosis: Principal (2) Colon cancer Diagnosis: Principal (3) Renal insufficiency Diagnosis: Principal (4) Hypokalemia Diagnosis: Principal (5) HTN (hypertension) Diagnosis: Principal Travel History International Travel<30 Days: No Contact w/Intl Traveler <30 Da: No Traveled to Known Affected Are: No History of Present Illness This 56-year-old female with a PMH of Metastatic Colon Adenocarcinoma s/p Hemicolectomy, Anxiety, Depression, HTN and h/o DVT who presented to the ER w/ complaints of abdominal pain, SOB and chest pain x9 days. Denies fevers, chills , cough, nausea, vomiting or diarrhea. Reports chest pain worse w/ inspiration. Follows w/ Dr. Francisco, currently on Chemotherapy, seen in office w/ complaints of diarrhea and generalized weakness following chemo, plan at that time was to hold off on further chemo until repeat CT in 2wks. Now w/ progressive symptoms. On arrival, BP 142/81, HR 84, O2 sats 99% on RA, Afebrile. CBC unremarkable. K+ 3.0, s/p replacement in ER. Creatinine 1.15, previously 1.00 on 01/08/17. Lipase normal. UA negative. D-dimer 9. CXR with no acute findings. CT Abd/Pelvis w/ new 7 mm nodule posterior medial left lung base. VQ scan with low probability for PE. Dr. Francisco consulted by ER physician , no further intervention at this time. S/p Morphine x2 doses in ER w/ some improvement. Review of Systems Except as stated in HPI: all other systems reviewed are Neg ROS: 14 point review of systems otherwise negative. Past Family Social History Past Medical History PMH: Metastatic Colon Adenocarcinoma s/p Hemicolectomy, Anxiety, Depression, HTN and h/o DVT Past Surgical History PAST SURGICAL HISTORY: Hemicolectomy, Port, D&C, Tubal Ligation Allergies: Coded Allergies: Latex (Verified Allergy, Severe, ITCHY,RASH, 5/5/17) [place] (Verified Allergy, Severe, HIVES, 01/18/17) Erythromycin (Verified Allergy, Mild, RASH, 01/18/17) Uncoded Allergies: CARD BOARD (Allergy, Severe, CONTACT DERMATITIS, 05/08/16) Family History PAST FAMILY HISTORY: Reviewed. No h/o DM or CAD Social History PAST SOCIAL HISTORY: Negative for alcohol, tobacco or drugs. Physical Exam Vital Signs Vital Signs Date Time Temp Pulse Resp B/P Pulse Ox O2 Delivery O2 Flow Rate FiO2 01/18/17 17:30 91 20 141/78 96 01/18/17 16:50 18 01/18/17 16:13 96 01/18/17 15:01 97.7 84 16 142/81 99 Physical Exam PE: GENERAL: Middle-aged white female in no acute distress. HEENT: PERRLA, EOMI. No scleral icterus or conjunctival pallor. No lid lag or facial droop. CARDIOVASCULAR: Regular rate and rhythm. No obvious murmurs to auscultation. No chest tenderness to palpation. RESPIRATORY: No obvious rhonchi or wheezing. Clear to auscultation. Breath sounds equal bilaterally. GASTROINTESTINAL: Abdomen soft, mild epigastric tenderness to palpation, nondistended. BS normal. MUSCULOSKELETAL: Extremities without clubbing, cyanosis, or edema. No obvious deformities. NEUROLOGICAL: Awake, alert and oriented x4. No focal neurologic deficits. Moving both upper and lower extremities spontaneously. Laboratory Laboratory Tests Test 01/18/17 01/18/17 16:05 18:45 White Blood Count 6.1 Red Blood Count 4.32 Hemoglobin 13.1 Hematocrit 38.9 Mean Corpuscular Volume 90.1 Mean Corpuscular Hemoglobin 30.3 Mean Corpuscular Hemoglobin 33.6 Concent Red Cell Distribution Width 18.4 Platelet Count 168 Mean Platelet Volume 8.3 Neutrophils (%) (Auto) 62.2 Lymphocytes (%) (Auto) 30.7 Monocytes (%) (Auto) 5.3 Eosinophils (%) (Auto) 0.9 Basophils (%) (Auto) 0.9 Neutrophils # (Auto) 3.8 Lymphocytes # (Auto) 1.9 Monocytes # (Auto) 0.3 Eosinophils # (Auto) 0.1 Basophils # (Auto) 0.1 CBC Comment DIFF FINAL Differential Comment Prothrombin Time 10.4 Prothromb Time International 0.9 Ratio Activated Partial 25.2 Thromboplast Time D-Dimer Quantitative (PE/DVT) 9.09 Sodium Level 141 Potassium Level 3.0 Chloride Level 105 Carbon Dioxide Level 23.9 Anion Gap 12 Blood Urea Nitrogen 13 Creatinine 1.15 Estimat Glomerular Filtration 49 Rate Random Glucose 107 Calcium Level 8.8 Magnesium Level 2.0 Total Bilirubin 0.9 Aspartate Amino Transf 24 (AST/SGOT) Alanine Aminotransferase 32 (ALT/SGPT) Alkaline Phosphatase 123 Total Creatine Kinase 37 Troponin I LESS THAN 0.02 B-Type Natriuretic Peptide 14 Total Protein 7.9 Albumin 3.5 Lipase 120 Urine Color YELLOW Urine Turbidity CLEAR Urine pH 5.5 Urine Specific [place] 1.035 Urine Protein 30 Urine Glucose (UA) NEG Urine Ketones NEG Urine Occult Blood NEG Urine Nitrite NEG Urine Bilirubin NEG Urine Urobilinogen LESS THAN 2.0 Urine Leukocyte Esterase NEG Urine WBC 5 Urine Squamous Epithelial 11 Cells Microscopic Urinalysis Comment CULT NOT INDICATED Result Diagram: 01/18/17 1605 01/18/17 1605 Assessment and Plan Problem List: (1) Intractable pain ICD Code: R52 Status: Acute (2) Colon cancer ICD Code: C18.9 Status: Acute (3) Renal insufficiency ICD Code: N28.9 Status: Acute (4) Hypokalemia ICD Code: E87.6 Status: Acute (5) HTN (hypertension) ICD Code: I10 Status: Acute Assessment and Plan A/P: 1. Intractable Pain: c/o diffuse abdominal pain pleuritic chest pain x9 days, s/p Morphine IV x2 in ER w/ some improvement, however developed mild rash. Switch to Dilaudid IV, Benadryl prn. D-dimer elevated, concern for PE w/ h/o DVT and underlying malignancy, however VQ Scan low probability for PE, images reviewed by me. Initial trop negative, check serial cardiac enzymes to eval for underlying ischemia, however unlikely as pain pleuritic in nature. CXR w/ no acute findings, images reviewed by me. 2. Colon CA: Currently on chemo, following w/ Dr. Francisco. CT Abd/Pelvis w/ new 7mm nodule posterior medial left lung base. Dr. Francisco consulted by ER physician , no new plan at this time. 3. Renal Insufficiency: Creatinine 1.15, previously 1.00 on 01/08/17. U/a negative for UTI. IVF for hydration, repeat labs in am. 4. Hypokalemia: K+ 3.0, s/p replacement in ER, will recheck and replace as needed. 5. DVT Prophylaxis: SCD/Teds. 6. Social work for d/c planning as needed. 7. Case discussed w/ ER physician at length. Problem Qualifiers (1) Colon cancer: Qualified Code: C18.9 - Malignant neoplasm of colon, unspecified part of colon Florencia Centeno MD January 18, 2017 22:07
[2017-01-18] MEDS ORDERED: SODIUM CHLORIDE 0.9% FLUSH 10 ML FLUSH IV FLUSH PRN (22:15)
[2017-01-18] MEDS ORDERED: ACETAMINOPHEN 325 MG TAB PO PRN (22:15)
[2017-01-18] MEDS ORDERED: HYDROmorphone HCL PF 1 MG/ML VIAL IV PRN (22:15)
[2017-01-18] MEDS ORDERED: diphenhydrAMINE HCL 50 MG/ML VIAL IV PUSH PRN (22:15)
[2017-01-18] MEDS ORDERED: BISACODYL 10 MG SUPP RECTAL PRN (22:15)
[2017-01-18] MEDS: SODIUM CHLOR 0.9% 1000 ML INJ 1,000 ML IV SCH (22:50)
[2017-01-18] MEDS: ONDANSETRON HCL 4 MG/2 ML VIAL IVP PRN (22:51)
[2017-01-18 22:53] VITALS: BP 141/89; PULSE 73; RESP 16; O2SAT 97
[2017-01-19] VITALS (7 sets, daily range): BP systolic 106–135; BP diastolic 63–92; PULSE 62–115; RESP 18–21; TEMP 97–98.4; O2SAT 95–100
[2017-01-19 05:37] LABS: AUTOMATED NEUTROPHIL # 3.8 TH/MM3 (1.8-7.7); BASOPHIL % 0.4 % (0.0-2.0); EOSINOPHIL # 0.1 TH/MM3 (0-0.4); EOSINOPHIL % 1.1 % (0.0-4.0); HEMATOCRIT 34.5 % (35.0-46.0); HEMO FLAGS DIFF FINAL; LYMPH % 25.2 % (9.0-44.0); LYMPHOCYTE # 1.4 TH/MM3 (1.0-4.8); MEAN CELL VOLUME 91.3 FL (80.0-100.0); MEAN CORPUSCULAR HEMOGLOBIN 31.1 PG (27.0-34.0); MONO % 4.9 % (0.0-8.0); NEUT % 68.4 % (16.0-70.0); PLATELET COUNT 136 TH/MM3 (150-450); RED BLOOD COUNT 3.78 MIL/MM3 (4.00-5.30); RED CELL DISTRIBUTION WIDTH 18.3 % (11.6-17.2); WHITE BLOOD COUNT 5.6 TH/MM3 (4.0-11.0)
[2017-01-19 06:20] LABS: ALKALINE PHOSPHATASE 100 U/L (45-117); ALT (GPT) 30 U/L (10-53); ANION GAP 11 MEQ/L (5-15); AST (GOT) 28 U/L (15-37); BLOOD UREA NITROGEN 12 MG/DL (7-18); CHLORIDE 109 MEQ/L (98-107); GLOMERULAR FILTRATION RATE 56 ML/MIN (>89); POTASSIUM 3.3 MEQ/L (3.5-5.1); SODIUM (NA) 143 MEQ/L (136-145); TOTAL BILIRUBIN ADULT 0.8 MG/DL (0.2-1.0)
[2017-01-19] MEDS ORDERED: POTASSIUM CHLORIDE 20 MEQ CONTROLLED RELEASE TAB PO ONE (07:30)
[2017-01-19] MEDS: LISINOPRIL 10 MG TAB PO SCH (08:58)
[2017-01-19] MEDS: SODIUM CHLORIDE 0.9% FLUSH 10 ML FLUSH IV FLUSH SCH ×2 (08:58→23:32)
[2017-01-19] MEDS: SODIUM CHLOR 0.9% 1000 ML INJ 1,000 ML IV SCH (08:59)
--- NOTE | 2017-01-19 09:03 | HHI.PR ---
Subjective Remarks "My lungs hurt." Pt being followed for abdominal pain and diarrhea. Diarrhea was reported to be present from 01/08/17 when she had her last chemo treatment. Pt reported having productive cough with yellowish/green sputum Shortness of breath "whenever I do anything." Abdominal pain is "constant" and rated 6/10. Pain medication has helped as pt noted "my pain was higher yesterday." Pt stated she had a "rash develop" after receiving Dilaudid. Pt stated she is "weak" and her endurance os good "for about 10 minutes." Pt endorsed nausea without emesis. Pt reported taking Imodium ad at home "as directed." No other issues were noted or reported. Objective Vitals Vital Signs Date Time Temp Pulse Resp B/P Pulse Ox O2 Delivery O2 Flow Rate FiO2 01/19/17 08:00 97.8 70 18 135/77 97 01/19/17 04:49 98.2 75 18 119/68 100 01/19/17 00:14 98.4 115 21 132/92 96 01/18/17 22:53 73 16 141/89 97 Room Air 01/18/17 17:30 91 20 141/78 96 01/18/17 16:50 18 01/18/17 16:13 96 01/18/17 15:01 97.7 84 16 142/81 99 Result Diagram: 01/19/17 0436 01/19/17 0430 Imaging Last Impressions Chest X-Ray 01/18/17 1555 Signed Impressions: Service Date/Time: Wednesday, January 18, 2017 16:39 - CONCLUSION: No acute disease Jim Hidalgo MD Lung Scan- Nuclear Medicine 01/18/17 0000 Signed Impressions: Service Date/Time: Wednesday, January 18, 2017 20:06 - CONCLUSION: Homogeneous perfusion. Study is low probability for pulmonary embolus. Jim Kahn MD Objective Remarks GENERAL: pt encountered laying a bed. Not in acute distress. SKIN: Warm and dry. HEAD: Normocephalic. EYES: No scleral icterus. No injection or drainage. NECK: Supple, trachea midline. No JVD or lymphadenopathy. CARDIOVASCULAR: Regular rate and rhythm without murmurs, gallops, or rubs. RESPIRATORY: Breath sounds equal bilaterally. No accessory muscle use. GASTROINTESTINAL: Abdomen soft, generalized tenderness noted with pain elicited upon palpation of Right upper quadrant, nondistended. MUSCULOSKELETAL: No cyanosis, or edema. PSYCHIATRIC: Pt A&Ox3, cooperative, not evidencing over signs/symptoms of anxiety, depression, or psychosis. Pt voiced frustration over the length of time she has had diarrhea. Procedures None in past 24 hours. Medications and IVs Current Medications Medications (Trade) Dose Ordered Sig/Lana Route Start Time Stop Time Status Last Admin (NS Flush) 2 ml UNSCH PRN IV FLUSH 01/18/17 22:15 (NS Flush) 2 ml BID IV FLUSH 01/19/17 09:00 (Zofran Inj) 4 mg Q6H PRN IVP 01/18/17 22:15 01/18/17 22:51 (Dulcolax Supp) 10 mg DAILY PRN RECTAL 01/18/17 22:15 (Tylenol) 650 mg Q6H PRN PO 01/18/17 22:15 (Dilaudid Pf Inj) 1 mg Q3H PRN IV 01/18/17 22:15 01/18/17 22:51 Oxycodone HCl 10 mg 10 mg Q4H PRN PO 01/18/17 22:15 (NS 1000 ml Inj) 1,000 ml @ 100 mls/hr Q10H IV 01/18/17 22:15 01/18/17 22:50 (Benadryl Inj) 25 mg Q6H PRN IV PUSH 01/18/17 22:15 (Prinivil) 10 mg DAILY PO 01/19/17 09:00 Urinary Catheter: No Vascular Central Line Catheter: No A/P Problem List: (1) Intractable pain ICD Code: R52 Status: Acute (2) Colon cancer ICD Code: C18.9 Status: Acute (3) Renal insufficiency ICD Code: N28.9 Status: Acute (4) Hypokalemia ICD Code: E87.6 Status: Acute (5) HTN (hypertension) ICD Code: I10 Status: Acute (6) Upper respiratory tract infection ICD Code: J06.9 Status: Acute (7) Dehydration, mild ICD Code: E86.0 Status: Acute Assessment and Plan A/P: 1. Intractable Abdominal Pain: -due to rash that developed after Dilaudid IV administration, pt is being switched to oxycodone 10 mg q 4 H PRN. -C- Diff testing ordered. 2. Colon CA: Currently on chemo, following w/ Dr. Francisco. CT Abd/Pelvis w/ new 7mm nodule posterior medial left lung base. Dr. Francisco consulted by ER physician , no new plan at this time. -Dr. Francisco/oncology to be consulted 3. Dehydration: Creatinine 1.15, previously 1.00 on 01/08/17. U/a negative for UTI. IVF for hydration, repeat labs in am. -Creatinine improved to 1.02 this am, continue IVF and monitor with repeat labs 4. Hypokalemia: K+ 3.0, s/p replacement in ER, will recheck and replace as needed. -K+ improved to 3.3, replace per protocol, check am labs. 5. Upper respiratory tract infection/pleuritic chest pain: D-dimer elevated, concern for PE w/ h/o DVT and underlying malignancy, however VQ Scan low probability for PE. Initial trop negative, check serial cardiac enzymes to evaluate for underlying ischemia, CXR completed upon ED admission w/ no acute findings -serial cardiac enzymes were not elevated over night. -sputum culture ordered, given pt's immunocompromised status, pt to be started on Levaquin 750 IV daily. 6. Hypertension: continue home lisinopril 10 mg daily, pt's pressure improved overnight. 7. DVT Prophylaxis: SCD/Teds. Written by Ron Baez PA-C, acting as scribe for Dr. Lopez on 01/19/17 at 09: 39. This note was transcribed by scribe Ron Baez PA-C. I, Dr. Hannah Lopez personally performed the history, physical exam, and medical decision making; and confirmed the accuracy of the information in the transcribed note. Authenticated by Dr. Hannah Lopez on 01/19/17 at 09:39. . Discharge Planning Social work for d/c planning as needed. Problem Qualifiers (1) Colon cancer: Qualified Code: C18.9 - Malignant neoplasm of colon, unspecified part of colon (2) Upper respiratory tract infection: Qualified Code: J06.9 - Viral upper respiratory tract infection Ron Baez Jr. January 19, 2017 09:03 Hannah Lopez MD January 19, 2017 10:45
--- NOTE | 2017-01-19 10:07 | EKG ---
Date Performed: 01/18/2017 Time Performed: 18:30:39 PTAGE: 56 years EKG: Sinus rhythm LOW QRS VOLTAGE IN PRECORDIAL LEADS BORDERLINE ECG PREVIOUS TRACING : 09/19/2016 12.53 DOCTOR: Joel Hsieh Interpretating Date/Time 01/19/2017 10:05:36
[2017-01-19] MEDS ORDERED: LOPERAMIDE HCL 2 MG CAP PO PRN (10:30)
[2017-01-19] MEDS: LEVOFLOXACIN 750 MG PREMIX INJ 150 ML IV SCH (10:37)
[2017-01-19] MEDS: ONDANSETRON HCL 4 MG/2 ML VIAL IVP PRN (10:37)
[2017-01-19] MEDS: PANTOPRAZOLE SOD 40 MG DELAYED RELEASE TAB PO SCH (12:37)
[2017-01-19] MEDS: DIPHENOXYLATE/ATROPINE 2.5 MG/0.025 MG TAB PO SCH ×3 (12:37→23:32)
--- NOTE | 2017-01-19 13:00 | PD.CONS ---
HPI History of Present Illness This is a 56 year old female with a PMH of Metastatic Colon Adenocarcinoma to the liver s/p [place] [address] Mendoza, exploratory laparotomy with segmental hepatectomy and wedge excision X 2, one in 2014 and last one was in 2017, Anxiety, Depression, HTN and h/o DVT who presented to the ER w/ complaints of abdominal pain, SOB and chest pain. She reports abdomen pain across the upper region, this is on off aggravated by PO intake. She reports nausea. She also repots persistent severe diarrhea since 01/08. This varies from 3-7 loose stools a day, severity depends on how much she eats. Denies fevers, chills, cough, vomiting, melena, or hematochezia. States, she normally has diarrhea with chemo then subsides and she will be fine till the next round of chemo, this time, there was no stopping and nothing she did made a difference. She endorses heart burn. She normally takes Tums at home. Colonoscopy was done in 2014. She follows w/ Dr. Francisco, currently on Chemotherapy, CXR with no acute findings. CT Abd/Pelvis w/ new 7 mm nodule posterior medial left lung base. VQ scan with low probability for PE. Dr. Francisco consulted by ER physician, no further intervention at this time. (David Selby) PFSH Past Medical History PMH: Metastatic Colon Adenocarcinoma s/p Hemicolectomy, Anxiety, Depression, HTN and h/o DVT Past Surgical History PAST SURGICAL HISTORY: Hemicolectomy, Port, D&C, Tubal Ligation exploratory laparotomy with segmental hepatectomy and wedge excision X 2, one in 2014 and last one was in 2017 (David Selby) Coded Allergies: Latex (Verified Allergy, Severe, ITCHY,RASH, 01/18/17) [place] (Verified Allergy, Severe, HIVES, 01/18/17) Erythromycin (Verified Allergy, Mild, RASH, 01/18/17) Uncoded Allergies: CARD BOARD (Allergy, Severe, CONTACT DERMATITIS, 05/08/16) Medications Current Medications Medications (Trade) Dose Ordered Sig/Lana Route Start Time Stop Time Status Last Admin (NS Flush) 2 ml UNSCH PRN IV FLUSH 01/18/17 22:15 (NS Flush) 2 ml BID IV FLUSH 01/19/17 09:00 01/19/17 08:58 (Zofran Inj) 4 mg Q6H PRN IVP 01/18/17 22:15 01/19/17 10:37 (Dulcolax Supp) 10 mg DAILY PRN RECTAL 01/18/17 22:15 (Tylenol) 650 mg Q6H PRN PO 01/18/17 22:15 Oxycodone HCl 10 mg 10 mg Q4H PRN PO 01/18/17 22:15 01/19/17 09:15 (NS 1000 ml Inj) 1,000 ml @ 100 mls/hr Q10H IV 01/18/17 22:15 01/19/17 08:59 (Benadryl Inj) 25 mg Q6H PRN IV PUSH 01/18/17 22:15 Lisinopril 10 mg 10 mg DAILY PO 01/19/17 09:00 01/19/17 08:58 (Levaquin 750 Mg Premix Inj) 150 ml @ 100 mls/hr Q24H IV 01/19/17 09:00 01/19/17 10:37 (Imodium) 2 mg UNSCH PRN PO 01/19/17 10:30 (Protonix) 40 mg DAILY PO 01/19/17 11:15 01/19/17 12:37 (Lomotil Tab) 1 tab Q6HR PO 01/19/17 12:00 01/19/17 12:37 Family History uncle had gastric cancer Social History PAST SOCIAL HISTORY: Negative for alcohol, tobacco or drugs. (David Selby ) Review of Systems Constitutional: COMPLAINS OF: Fatigue, DENIES: Fever Endocrine: DENIES: Polyuria Eyes: DENIES: Photosensitivity Ears, nose, mouth, throat: DENIES: Hoarseness Respiratory: COMPLAINS OF: Shortness of breath Cardiovascular: DENIES: Lower Extremity Edema Gastrointestinal: COMPLAINS OF: Abdominal pain, Diarrhea, Nausea, Heartburn, DENIES: Black stools, Bloody stools, Constipation, Vomiting, Difficulty Swallowing, Anorexia, Odynophagia, Swelling of Abdomen, Hematemesis Genitourinary: DENIES: Hematuria Musculoskeletal: DENIES: Back pain Integumentary: DENIES: Jaundice Hematologic/lymphatic: DENIES: Bruising Immunologic/allergic: DENIES: Eczema Neurologic: DENIES: Abnormal gait Psychiatric: DENIES: Anxiety (David Selby) GI Exam Vitals I&O Vital Signs Date Time Temp Pulse Resp B/P Pulse Ox O2 Delivery O2 Flow Rate FiO2 01/19/17 12:20 97.9 62 18 125/68 95 01/19/17 08:00 97.8 70 18 135/77 97 01/19/17 04:49 98.2 75 18 119/68 100 01/19/17 00:14 98.4 115 21 132/92 96 01/18/17 22:53 73 16 141/89 97 Room Air 01/18/17 17:30 91 20 141/78 96 01/18/17 16:50 18 01/18/17 16:13 96 01/18/17 15:01 97.7 84 16 142/81 99 Imaging Last Impressions Chest X-Ray 01/18/17 1555 Signed Impressions: Service Date/Time: Wednesday, January 18, 2017 16:39 - CONCLUSION: No acute disease Jim Hidalgo MD Lung Scan-V Nuclear Medicine 01/18/17 0000 Signed Impressions: Service Date/Time: Wednesday, January 18, 2017 20:06 - CONCLUSION: Homogeneous perfusion. Study is low probability for pulmonary embolus. Jim Kahn MD Laboratory Test 01/18/17 01/18/17 01/18/17 01/19/17 16:05 18:45 22:30 04:30 White Blood Count 6.1 TH/MM3 Red Blood Count 4.32 MIL/MM3 Hemoglobin 13.1 GM/DL Hematocrit 38.9 % Mean Corpuscular Volume 90.1 FL Mean Corpuscular Hemoglobin 30.3 PG Mean Corpuscular Hemoglobin 33.6 % Concent Red Cell Distribution Width 18.4 % Platelet Count 168 TH/MM3 Mean Platelet Volume 8.3 FL Neutrophils (%) (Auto) 62.2 % Lymphocytes (%) (Auto) 30.7 % Monocytes (%) (Auto) 5.3 % Eosinophils (%) (Auto) 0.9 % Basophils (%) (Auto) 0.9 % Neutrophils # (Auto) 3.8 TH/MM3 Lymphocytes # (Auto) 1.9 TH/MM3 Monocytes # (Auto) 0.3 TH/MM3 Eosinophils # (Auto) 0.1 TH/MM3 Basophils # (Auto) 0.1 TH/MM3 CBC Comment DIFF FINAL Differential Comment Prothrombin Time 10.4 SEC Prothromb Time International 0.9 RATIO Ratio Activated Partial 25.2 SEC Thromboplast Time D-Dimer Quantitative (PE/DVT) 9.09 MG/L FEU Sodium Level 141 MEQ/L 143 MEQ/L Potassium Level 3.0 MEQ/L 3.3 MEQ/L Chloride Level 105 MEQ/L 109 MEQ/L Carbon Dioxide Level 23.9 MEQ/L 23.0 MEQ/L Anion Gap 12 MEQ/L 11 MEQ/L Blood Urea Nitrogen 13 MG/DL 12 MG/DL Creatinine 1.15 MG/DL 1.02 MG/DL Estimat Glomerular Filtration 49 ML/MIN 56 ML/MIN Rate Random Glucose 107 MG/DL 117 MG/DL Calcium Level 8.8 MG/DL 8.5 MG/DL Magnesium Level 2.0 MG/DL Total Bilirubin 0.9 MG/DL 0.8 MG/DL Aspartate Amino Transf 24 U/L 28 U/L (AST/SGOT) Alanine Aminotransferase 32 U/L 30 U/L (ALT/SGPT) Alkaline Phosphatase 123 U/L 100 U/L Total Creatine Kinase 37 U/L Troponin I LESS THAN 0.02 LESS THAN 0.02 LESS THAN 0.02 NG/ML NG/ML NG/ML B-Type Natriuretic Peptide 14 PG/ML Total Protein 7.9 GM/DL 6.4 GM/DL Albumin 3.5 GM/DL 2.9 GM/DL Lipase 120 U/L Urine Color YELLOW Urine Turbidity CLEAR Urine pH 5.5 Urine Specific [place] 1.035 Urine Protein 30 mg/dL Urine Glucose (UA) NEG mg/dL Urine Ketones NEG mg/dL Urine Occult Blood NEG Urine Nitrite NEG Urine Bilirubin NEG Urine Urobilinogen LESS THAN 2.0 MG/DL Urine Leukocyte Esterase NEG Urine WBC 5 /hpf Urine Squamous Epithelial 11 /hpf Cells Microscopic Urinalysis Comment CULT NOT INDICATED Test 01/19/17 04:36 White Blood Count 5.6 TH/MM3 Red Blood Count 3.78 MIL/MM3 Hemoglobin 11.7 GM/DL Hematocrit 34.5 % Mean Corpuscular Volume 91.3 FL Mean Corpuscular Hemoglobin 31.1 PG Mean Corpuscular Hemoglobin 34.0 % Concent Red Cell Distribution Width 18.3 % Platelet Count 136 TH/MM3 Mean Platelet Volume 7.9 FL Neutrophils (%) (Auto) 68.4 % Lymphocytes (%) (Auto) 25.2 % Monocytes (%) (Auto) 4.9 % Eosinophils (%) (Auto) 1.1 % Basophils (%) (Auto) 0.4 % Neutrophils # (Auto) 3.8 TH/MM3 Lymphocytes # (Auto) 1.4 TH/MM3 Monocytes # (Auto) 0.3 TH/MM3 Eosinophils # (Auto) 0.1 TH/MM3 Basophils # (Auto) 0.0 TH/MM3 CBC Comment DIFF FINAL Differential Comment Physical Examination HEENT: normocephalic; atraumatic; no jaundice. Throat is clear. NECK: Neck is supple, no JVD, no lymphadenopathy. CHEST: Chest is clear to auscultation and percussion. CARDIAC: Regular rate and rhythm with no murmur gallop or rubs. ABDOMEN: Soft, nondistended,obese, upper gastric tenderness ; no hepatosplenomegaly; bowel sounds are present in all four quadrants. EXTREMITIES: No clubbing, cyanosis, or edema. SKIN: Normal; no rash; no jaundice. PROTECTIVE SERVICES OFFICER: No focal deficits; alert and oriented times three. (David Selby CHAIR PAD MAKER) Assessment and Plan Plan - Diarrhea/abdomen pain- persistent severe diarrhea since 01/08. This varies from 3-7 loose stools a day, severity depends on how much she eats. Denies fevers, chills, cough, vomiting, melena, or hematochezia. States, she normally has diarrhea with chemo then subsides and she will be fine till the next round of chemo, this time, there was no stopping and nothing she did made a difference. abdomen pain across the upper region, this is on off aggravated by PO intake CT Abd/Pelvis w/ new 7 mm nodule posterior medial left lung base.Colonoscopy was done in 2014 - heart burn. She normally takes Tums at home - Possible mets to the lungs- CT above, oncology following - Metastatic Colon Adenocarcinoma to the liver s/p Hemico[place]omy [place] [address] Mendoza, exploratory laparotomy with segmental hepatectomy and wedge excision X 2, one in 2014 and last one was in 2017,She follows w/ Dr. Francisco, currently on Chemotherapy - Hypokalemia- replaced by attending - HTN per attending Plan: - DANIELLE - Stool studies - If above negative, consider EGD/colonoscopy next week - Supportive care - Patient seen and examined by Dr. Taylor and myself and this note is written on his behalf. (David Selby) Physician Comments Seen and examined with BATOOL, reports two liquid stools today. Crampy abdominal pain. Stool studies ordered. If -ve egd/colonoscopy on saturday. Thank you ( Carol Taylor MD) David Selby January 19, 2017 13:00 Carol Taylor MD January 19, 2017 14:27
--- NOTE | 2017-01-19 13:43 | MB ---
cc: AIMEE MONET M.D. DATE OF CONSULTATION: 01/19/2017. REASON FOR CONSULTATION: Oncology was consulted to render opinion regarding a patient with metastatic colon cancer admitted with diarrhea and abdominal pain. ATTENDING PHYSICIAN: Dr. Centeno. HISTORY OF PRESENT ILLNESS: The patient is a 56-year-old obese female with a history of metastatic colon cancer currently under chemotherapy who presented to the hospital with complaint of increased abdominal pain and diarrhea. She is currently receiving FOLFIRI chemotherapy. She just completed the fifth cycle about ten days ago. When I saw her in clinic about ten days ago, she was complaining of diarrhea. 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 She also stopped taking the Imodium stating that it did not help relieve her diarrhea. She described her pain as mostly upper abdomen. It waxes and wanes and it seems to be worse when she drinks water as she will have increased diarrhea with drinking water. She also has nausea. She had emesis two days after chemotherapy but it has not recurred. She also has baseline shortness of breath and occasional cough bringing up clear greenish sputum occasionally. She denies any dysuria or hematuria. She denies any headache or visual changes. Denies any focal numbness or weakness. PAST MEDICAL HISTORY: 1. Metastatic colon cancer. 2. Anxiety and depression. 3. Obesity. 4. Hypertension. 5. Colitis. 6. Hemorrhoids. PAST SURGICAL HISTORY: 1. Cholecystectomy. 2. Colon resection in 2014. Last colonoscopy April of 2016. 3. Hernia repair. 4. Bilateral tubal ligation. 5. D&C. 6. Port placement. FAMILY HISTORY: Noncontributory. SOCIAL HISTORY: Denies any tobacco or alcohol use. ALLERGIES: 1. ERYTHROMYCIN. 2. LATEX. 3. STRAWBERRIES. CURRENT MEDICATIONS: 1. Imodium. 2. Lisinopril. 3. Levaquin. REVIEW OF SYSTEMS: CONSTITUTIONAL: Denies any fever, chills, night sweats, weight loss. EYES: Denies any blurry vision or double vision. ENT: Denies any mouth sores or voice changes. CARDIOVASCULAR: Denies any chest pressure or palpitations. RESPIRATORY: Baseline shortness of breath and cough occasionally productive of clear greenish sputum. GI: As above. : Denies any dysuria or hematuria. MUSCULOSKELETAL: Negative. HEMATOLOGIC: As above. ENDOCRINE: Negative. DERMATOLOGIC: Negative. PSYCHIATRIC: Anxiety. NEUROLOGIC: Negative. PHYSICAL EXAMINATION: VITAL SIGNS: Temperature 97.8, blood pressure 135/77, 02 saturation 97% on room air. GENERAL: She is alert and oriented times three and in no acute distress. She is obese. HEAD, EYES, EARS, NOSE, THROAT: Atraumatic, normocephalic. Pupils equal, round, reactive to light. Extraocular muscles intact. No scleral icterus. OROPHARYNX: Dry mucosa. No lesions. NECK: No thyromegaly. No palpable mass. LYMPHATIC: No palpable cervical, clavicular, axillary or inguinal lymph nodes. CARDIOVASCULAR: Regular S1 and S2. No murmur. LUNGS: Clear to auscultation. No wheezing or rhonchi. ABDOMEN: Abdomen soft and tender in the upper abdomen. Positive bowel sounds. I could not palpate liver or spleen. EXTREMITIES: No cyanosis or clubbing. No edema. No calf tenderness. BACK: No paravertebral tenderness. SKIN: No rash or petechiae. NEUROLOGIC EXAM: Nonfocal. LABORATORY DATA: Reviewed. ASSESSMENT: 1. Persistent abdominal pain. This has been going on for several weeks. She describes it as pain in the upper abdomen that waxes and wane. She also has had diarrhea up to eight times a day. She did not try the Lomotil that I gave her. She also stopped using the Imodium. CT of abdomen and pelvis did not show any acute changes. There is no recurrent disease in the liver. I am wondering if she has gastritis. Will get a stool study. Will start her on a proton pump inhibitor and Lomotil. Will consult GI for further evaluation. 2. Metastatic colon cancer. She was diagnosed with colon adenocarcinoma of the descending colon with metastases to the liver in 2014. KRAS mutated. She underwent hemicolectomy in June of 2015. Pathology showed a 7 cm moderately differentiated mucinous adenocarcinoma invading through the colonic wall into the pericolonic soft tissue. Eighteen lymph nodes were negative. Two liver lesions were noted during surgery. She was treated with FOLFOX chemotherapy with poor tolerance. She was then switched to Xeloda. She underwent resection of the liver mass in September of 2014. The small lesions in segment 7 of the liver and the larger lesion in segment 8 were removed. She was then started back on FOLFIRI. Her CT of the abdomen and pelvis did not show any recurrent disease in the liver. However, there is a small 7 mm lesion in the left lung which seems a little bigger compared to May of 2016. No other new lesions noted. This will need to be monitored closely. I do not think this is the cause of her abdominal pain. 3. Hypertension, stable. 4. Chronic headache. The last MRI in July did not show any metastatic disease. 5. History of right chest wall pain but that has resolved since the liver masses were removed. 6. History of colitis. 7. Arthritis, stable. PLAN: 1. Discussed with the patient as above. 2. Get stool studies. 3. Start Lomotil and proton pump inhibitor. 4. Consult GI. Thank you, Dr. Centeno, for asking me to see this patient. Will follow with you. MD ALEXANDR Villeda/DAMIEN /10:51 AM /1:25 PM ALEE
[2017-01-19 18:33] LABS: C. DIFF EPI 027 PRESUMPTIVE NEGATIVE (NEGATIVE); C. DIFF TOXIN PCR NEGATIVE (NEGATIVE)
[2017-01-20] MEDS: ONDANSETRON HCL 4 MG/2 ML VIAL IVP PRN ×2 (02:52→14:23)
[2017-01-20] MEDS: SODIUM CHLOR 0.9% 1000 ML INJ 1,000 ML IV SCH ×2 (02:53→16:15)
[2017-01-20 04:00] VITALS: BP 114/59; PULSE 71; RESP 19; TEMP 98.6; O2SAT 97
[2017-01-20 05:50] LABS: AUTOMATED NEUTROPHIL # 1.9 TH/MM3 (1.8-7.7); BASOPHIL % 0.6 % (0.0-2.0); EOSINOPHIL # 0.1 TH/MM3 (0-0.4); EOSINOPHIL % 1.9 % (0.0-4.0); HEMATOCRIT 32.3 % (35.0-46.0); HEMO FLAGS DIFF FINAL; LYMPH % 46.3 % (9.0-44.0); LYMPHOCYTE # 2.1 TH/MM3 (1.0-4.8); MEAN CELL VOLUME 92.8 FL (80.0-100.0); MEAN CORPUSCULAR HEMOGLOBIN 30.1 PG (27.0-34.0); MEAN CORPUSCULAR HGB CONC 32.5 % (32.0-36.0); MONO % 7.4 % (0.0-8.0); NEUT % 43.8 % (16.0-70.0); PLATELET COUNT 116 TH/MM3 (150-450); RED BLOOD COUNT 3.48 MIL/MM3 (4.00-5.30); RED CELL DISTRIBUTION WIDTH 18.8 % (11.6-17.2); WHITE BLOOD COUNT 4.4 TH/MM3 (4.0-11.0)
[2017-01-20 06:01] LABS: BICARBONATE 21.8 MEQ/L (21.0-32.0); POTASSIUM 3.1 MEQ/L (3.5-5.1)
[2017-01-20] MEDS: DIPHENOXYLATE/ATROPINE 2.5 MG/0.025 MG TAB PO SCH ×2 (06:07→19:23)
[2017-01-20] MEDS ORDERED: POTASSIUM CHLORIDE 20 MEQ CONTROLLED RELEASE TAB PO ONE (08:00)
[2017-01-20 08:17] VITALS: BP 132/81; PULSE 83; RESP 18; TEMP 98.4; O2SAT 98
[2017-01-20] MEDS: LEVOFLOXACIN 750 MG PREMIX INJ 150 ML IV SCH (08:30)
[2017-01-20] MEDS: SODIUM CHLORIDE 0.9% FLUSH 10 ML FLUSH IV FLUSH SCH ×2 (08:30→21:00)
[2017-01-20] MEDS: PANTOPRAZOLE SOD 40 MG DELAYED RELEASE TAB PO SCH (08:30)
[2017-01-20] MEDS: LISINOPRIL 10 MG TAB PO SCH (08:30)
--- NOTE | 2017-01-20 09:44 | PD.ONC.PN ---
Subjective Subjective Remarks Afebrile overnight Abdominal pain improved Diarrhea continues Overall feeling a little better Objective Data Date Time Temp Pulse Resp B/P Pulse Ox O2 Delivery O2 Flow Rate FiO2 01/20/17 08:17 98.4 83 18 132/81 98 01/20/17 06:08 18 01/20/17 04:00 98.6 71 19 114/59 97 01/19/17 23:22 97.9 67 19 133/63 97 01/19/17 19:03 97.0 78 19 106/63 95 01/19/17 15:00 125/68 01/19/17 12:20 97.9 62 18 125/68 95 Result Diagram: 01/20/17 0438 01/20/17 0438 Laboratory Results Laboratory Tests Test 01/19/17 01/20/17 16:25 04:38 Stool C. difficile Toxin (PCR) NEGATIVE Stl C. difficile Toxin PRESUMPTIVE Epiderm 027 NEGATIVE White Blood Count 4.4 TH/MM3 Red Blood Count 3.48 MIL/MM3 Hemoglobin 10.5 GM/DL Hematocrit 32.3 % Mean Corpuscular Volume 92.8 FL Mean Corpuscular Hemoglobin 30.1 PG Mean Corpuscular Hemoglobin 32.5 % Concent Red Cell Distribution Width 18.8 % Platelet Count 116 TH/MM3 Mean Platelet Volume 8.2 FL Neutrophils (%) (Auto) 43.8 % Lymphocytes (%) (Auto) 46.3 % Monocytes (%) (Auto) 7.4 % Eosinophils (%) (Auto) 1.9 % Basophils (%) (Auto) 0.6 % Neutrophils # (Auto) 1.9 TH/MM3 Lymphocytes # (Auto) 2.1 TH/MM3 Monocytes # (Auto) 0.3 TH/MM3 Eosinophils # (Auto) 0.1 TH/MM3 Basophils # (Auto) 0.0 TH/MM3 CBC Comment DIFF FINAL Differential Comment Sodium Level 141 MEQ/L Potassium Level 3.1 MEQ/L Chloride Level 110 MEQ/L Carbon Dioxide Level 21.8 MEQ/L Anion Gap 9 MEQ/L Blood Urea Nitrogen 7 MG/DL Creatinine 1.09 MG/DL Estimat Glomerular Filtration 52 ML/MIN Rate Random Glucose 105 MG/DL Calcium Level 8.0 MG/DL Culture Results Microbiology Date/Time Procedure Status Source Growth 01/19/17 16:15 Cancelled Sputum Expectorated Sputum 01/19/17 16:25 Received Stool Stool Pending 01/19/17 16:25 Cryptosporidium Exam Received Stool Stool Pending 01/19/17 16:25 Stool Pus (JUNG) Received Stool Stool Pending 01/19/17 16:25 Giardia Antigen (JUNG) Received Stool Stool Pending Administered Medications Medications (Trade) Dose Ordered Sig/Lana Route PRN Reason Start Time Stop Time Status Last Admin Dose Admin Sodium Chloride (NS Flush) 2 ml BID IV FLUSH 01/19/17 09:00 01/19/17 23:32 Ondansetron HCl (Zofran Inj) 4 mg Q6H PRN IVP NAUSEA OR VOMITING 01/18/17 22:15 01/20/17 02:52 Oxycodone HCl 10 mg 10 mg Q4H PRN PO PAIN 3-10 01/18/17 22:15 01/20/17 04:10 Sodium Chloride (NS 1000 ml Inj) 1,000 ml @ 100 mls/hr Q10H IV 01/18/17 22:15 01/20/17 02:53 Diphenhydramine HCl (Benadryl Inj) 25 mg Q6H PRN IV PUSH ITCHING/RASH 01/18/17 22:15 01/19/17 16:13 Lisinopril 10 mg 10 mg DAILY PO 01/19/17 09:00 01/20/17 08:30 Levofloxacin/ Dextrose (Levaquin 750 Mg Premix Inj) 150 ml @ 100 mls/hr Q24H IV 01/19/17 09:00 01/20/17 08:30 Pantoprazole Sodium (Protonix) 40 mg DAILY PO 01/19/17 11:15 01/20/17 08:30 Diphenoxylate HCl/ Atropine (Lomotil Tab) 1 tab Q6HR PO 01/19/17 12:00 01/20/17 06:07 Objective Remarks GENERAL: Middle aged obese female lying in bed in [facility]. SKIN: Warm and dry. HEAD: Normocephalic. +Alopecia EYES: No injection or drainage. NECK: Supple, trachea midline. CARDIOVASCULAR: +S1/S2. RESPIRATORY: Clear anteriorly. GASTROINTESTINAL: Abdomen soft, non-distended. Tender to palpation. EXTREMITIES: No cyanosis. NEUROLOGICAL: No obvious focal deficit. Awake, alert, and oriented x3. Assessment/Plan Problem List: (1) Metastatic colorectal cancer Status: Chronic Plan: -- Last chemo was 01/08 with FOLFIRI and Avastin -- CT scan on 01/18 showed a new 7mm lesion in the L lung base. Hx/Workup: Her original diagnosis was in the fall of 2014. She was KRAS mutation +. She underwent a hemicolectomy in 06/2015. Pathology showed 7 cm moderately differentiated adenocarcinoma invading through the colonic wall into the pericolonic soft tissue. She had 2 liver lesions that were noted during surgery. Initially she was treated with FOLFOX chemotherapy, but switched to Xeloda after poor tolerance. She underwent resection of the liver mass in September 2015. She was at that time started back on chemotherapy with FOLFIRI. A recent CT abdomen and pelvis did not show any recurrent disease in the liver. There is a 7 mm lesion in the left lung that is being closely monitored. (2) Abdominal pain Status: Acute Plan: -- Stool studies pending -- Improving -- Persistent diarrhea Assessment 56-year-old female with history of metastatic colon cancer presents to the emergency room with shortness of breath, abdominal pain and persistent diarrhea. Plan 1. Await stool study results 2. May need scope if stool studies negative 3. Monitor CBC 4. Future chemo will be planned as an outpatient Attending Statement The exam, history, and the medical decision-making described in the above note were completed with the assistance of the mid-level provider. I reviewed and agree with the findings presented. I attest that I had a [id number] encounter with the patient on the same day, and personally performed and documented my assessment and findings in the medical record. Abdominal pain and diarrhea has improved. Decreased lomotil. Gi workup ongoing. Problem Qualifiers (1) Abdominal pain: Qualified Code: R10.12 - Left upper quadrant pain Flavia Freitas January 20, 2017 09:44 Nikhil Francisco MD January 20, 2017 12:47
--- NOTE | 2017-01-20 09:48 | HHI.PR ---
Subjective Remarks "My pain is better than yesterday." She reported pain being in the epigastric and left upper quadrant. Pt being followed for intractable abdominal pain and diarrhea. She reported being able to eat yesterday "to settle my stomach" and later on " got sick". Pt reported it had been the first time she ate since . Pt said she had 4-5 bouts of diarrhea yesterday, She denied having bloody stool yesterday. Pt reported she was seen by Dr. Francisco (oncology) yesterday, Pt denied fever, body aches and chills. Pleuritic chest pain denied this morning. Pt denied shortness of breath and cough. No other issues noted or reported by pt. Objective Vitals Vital Signs Date Time Temp Pulse Resp B/P Pulse Ox O2 Delivery O2 Flow Rate FiO2 01/20/17 08: 98.4 83 18 132/81 98 01/20/17 06:08 18 01/20/17 04:00 98.6 71 19 114/59 97 01/19/17 23:22 97.9 67 19 133/63 97 01/19/17 19:03 97.0 78 19 106/63 95 01/19/17 15:00 125/68 01/19/17 12:20 97.9 62 18 125/68 95 I/O 01/19/17 01/19/17 01/19/17 01/20/17 01/20/17 01/20/17 07:00 15:00 23:00 07:00 15:00 23:00 Intake Total 850 ml Output Total 800 ml Balance 50 ml Intake Oral 500 ml IV Total 350 ml Output Urine Total 500 ml Stool Total 300 ml Result Diagram: 01/20/17 0438 01/20/17 0438 Other Results Microbiology Date/Time Procedure Status Source Growth 01/19/17 16:15 Cancelled Sputum Expectorated Sputum 01/19/17 16:25 Received Stool Stool Pending 01/19/17 16:25 Cryptosporidium Exam Received Stool Stool Pending 01/19/17 16:25 Stool Pus (JUNG) Received Stool Stool Pending 01/19/17 16:25 Giardia Antigen (JUNG) Received Stool Stool Pending Vital Signs Date Time Temp Pulse Resp B/P Pulse Ox O2 Delivery O2 Flow Rate FiO2 01/20/17 08:17 98.4 83 18 132/81 98 01/20/17 06:08 18 01/20/17 04:00 98.6 71 19 114/59 97 01/19/17 23:22 97.9 67 19 133/63 97 01/19/17 19:03 97.0 78 19 106/63 95 01/19/17 15:00 125/68 01/19/17 12:20 97.9 62 18 125/68 95 Imaging Last Impressions Chest X-Ray 01/18/17 1555 Signed Impressions: Service Date/Time: Wednesday, January 18, 2017 16:39 - CONCLUSION: No acute disease Jim Hidalgo MD Lung Scan-VQ Nuclear Medicine 01/18/17 0000 Signed Impressions: Service Date/Time: Wednesday, January 18, 2017 20:06 - CONCLUSION: Homogeneous perfusion. Study is low probability for pulmonary embolus. Jim Kahn MD Objective Remarks GENERAL: pt encountered laying a bed. Not in acute distress. SKIN: Warm and dry. HEAD: Normocephalic. EYES: No scleral icterus. No injection or drainage. NECK: Supple, trachea midline. No JVD or lymphadenopathy. CARDIOVASCULAR: Regular rate and rhythm without murmurs, gallops, or rubs. RESPIRATORY: Breath sounds equal bilaterally. No accessory muscle use. GASTROINTESTINAL: Abdomen soft, generalized tenderness noted with pain elicited upon palpation of Right upper quadrant, nondistended. MUSCULOSKELETAL: No cyanosis, or edema. PSYCHIATRIC: Pt A&Ox3, cooperative, not evidencing over signs/symptoms of anxiety and depression. Pt voiced some apprehension when informed she may need to have EGD/colonoscopy if stool samples are negative.. Procedures None in past 24 hours. Medications and IVs Current Medications Medications (Trade) Dose Ordered Sig/Lana Route Start Time Stop Time Status Last Admin (NS Flush) 2 ml UNSCH PRN IV FLUSH 01/18/17 22:15 (NS Flush) 2 ml BID IV FLUSH 01/19/17 09:00 01/19/17 23:32 (Zofran Inj) 4 mg Q6H PRN IVP 01/18/17 22:15 01/20/17 02:52 (Dulcolax Supp) 10 mg DAILY PRN RECTAL 01/18/17 22:15 (Tylenol) 650 mg Q6H PRN PO 01/18/17 22:15 Oxycodone HCl 10 mg 10 mg Q4H PRN PO 01/18/17 22:15 01/20/17 04:10 (NS 1000 ml Inj) 1,000 ml @ 100 mls/hr Q10H IV 01/18/17 22:15 01/20/17 02:53 (Benadryl Inj) 25 mg Q6H PRN IV PUSH 01/18/17 22:15 01/19/17 16:13 Lisinopril 10 mg 10 mg DAILY PO 01/19/17 09:00 01/20/17 08:30 (Levaquin 750 Mg Premix Inj) 150 ml @ 100 mls/hr Q24H IV 01/19/17 09:00 01/20/17 08:30 (Imodium) 2 mg UNSCH PRN PO 01/19/17 10:30 (Protonix) 40 mg DAILY PO 01/19/17 11:15 01/20/17 08:30 (Lomotil Tab) 1 tab Q6HR PO 01/19/17 12:00 01/20/17 06:07 Urinary Catheter: No Vascular Central Line Catheter: No A/P Problem List: (1) Intractable pain ICD Code: R52 Status: Acute (2) Colon cancer ICD Code: C18.9 Status: Acute (3) Renal insufficiency ICD Code: N28.9 Status: Acute (4) Hypokalemia ICD Code: E87.6 Status: Acute (5) HTN (hypertension) ICD Code: I10 Status: Acute (6) Upper respiratory tract infection ICD Code: J06.9 Status: Acute (7) Dehydration, mild ICD Code: E86.0 Status: Acute Assessment and Plan 1. Intractable Abdominal Pain: -due to rash that developed after Dilaudid IV administration, pt is being switched to oxycodone 10 mg q 4 H PRN. -C- Diff testing ordered. -C-Difficile PCR testing negative. Additional stool testing is pending. Per GI note, if stool studies are negative pt may undergo EGD/colonoscopy on Saturday. 2. Colon CA: Currently on chemo, following w/ Dr. Francisco. CT Abd/Pelvis w/ new 7mm nodule posterior medial left lung base. Dr. Francisco consulted by ER physician , no new plan at this time. -Dr. Francisco/oncology to be consulted -Dr. Francisco saw pt on 01/19/17, note on chart. 3. Dehydration: Creatinine 1.15, previously 1.00 on 01/08/17. U/a negative for UTI. IVF for hydration, repeat labs in am. -Creatinine improved to 1.02 this am, continue IVF and monitor with repeat labs Labs personally reviewed on 01/21/16. Pt's creatinine seems to range between normal to as high as 1.15. She evidenced increase this morning to 1.09. Continue to follow. 4. Hypokalemia: K+ 3.0, s/p replacement in ER, will recheck and replace as needed. -K+ improved to 3.3, replace per protocol, check am labs. Labs personally reviewed and pt evidenced decrease in K+ to 3.1 this morning. Suspect decrease is related to her ongoing diarrhea (4-5 bouts yesterday). Continue replacement. check am labs. 5. Upper respiratory tract infection/pleuritic chest pain: D-dimer elevated, concern for PE w/ h/o DVT and underlying malignancy, however VQ Scan low probability for PE. Initial trop negative, check serial cardiac enzymes to evaluate for underlying ischemia, CXR completed upon ED admission w/ no acute findings -serial cardiac enzymes were not elevated over night. -sputum culture ordered, given pt's immunocompromised status, pt to be started on Levaquin 750 IV daily. -Levaquin 750 IV continues 6. Hypertension: continue home lisinopril 10 mg daily, pt's pressure improved overnight. 7. DVT Prophylaxis: SCD/Teds. Written by Ron Baez PA-C, acting as scribe for Dr. Lopez on 01/20/17 at 09: 42. This note was transcribed by scribe Ron Baez PA-C. I, Dr. Hannah Lopez personally performed the history, physical exam, and medical decision making; and confirmed the accuracy of the information in the transcribed note. Authenticated by Dr. Hannah Lopez on 01/20/17 at 09:42. . Discharge Planning Social work for d/c planning as needed. Problem Qualifiers (1) Colon cancer: Qualified Code: C18.9 - Malignant neoplasm of colon, unspecified part of colon (2) Upper respiratory tract infection: Qualified Code: J06.9 - Viral upper respiratory tract infection Ron Baez Jr. January 20, 2017 09:48 Hannah Lopez MD January 20, 2017 17:10
[2017-01-20 11:57] VITALS: BP 127/73; PULSE 87; RESP 18; TEMP 98.4; O2SAT 94
[2017-01-20] MEDS ORDERED: PEG (High)/E-LYTE SOLN 4000 ML BTL PO ONE (13:00)
[2017-01-20] MEDS: MAGNESIUM CITRATE SOLN 300 ML BTL PO SCH ×2 (16:13→19:15)
--- NOTE | 2017-01-20 16:37 | HHI.GIFU ---
Subjective Remarks Pt seated in chair, drinking Mg Citrate. She says she still has abd pain unchanged, diarrhea, nausea. No vomiting. (Matilde Williamson) Objective Vitals I&O Vital Signs Date Time Temp Pulse Resp B/P Pulse Ox O2 Delivery O2 Flow Rate FiO2 01/20/17 11:57 98.4 87 18 127/73 94 01/20/17 08:17 98.4 83 18 132/81 98 01/20/17 06:08 18 01/20/17 04:00 98.6 71 19 114/59 97 01/19/17 23:22 97.9 67 19 133/63 97 01/19/17 19:03 97.0 78 19 106/63 95 I/O 01/19/17 01/19/17 01/19/17 01/20/17 01/20/17 01/20/17 07:00 15:00 23:00 07:00 15:00 23:00 Intake Total 850 ml Output Total 800 ml Balance 50 ml Intake Oral 500 ml IV Total 350 ml Output Urine Total 500 ml Stool Total 300 ml Laboratory Laboratory Tests Test 01/20/17 04:38 White Blood Count 4.4 Red Blood Count 3.48 Hemoglobin 10.5 Hematocrit 32.3 Mean Corpuscular Volume 92.8 Mean Corpuscular Hemoglobin 30.1 Mean Corpuscular Hemoglobin 32.5 Concent Red Cell Distribution Width 18.8 Platelet Count 116 Mean Platelet Volume 8.2 Neutrophils (%) (Auto) 43.8 Lymphocytes (%) (Auto) 46.3 Monocytes (%) (Auto) 7.4 Eosinophils (%) (Auto) 1.9 Basophils (%) (Auto) 0.6 Neutrophils # (Auto) 1.9 Lymphocytes # (Auto) 2.1 Monocytes # (Auto) 0.3 Eosinophils # (Auto) 0.1 Basophils # (Auto) 0.0 CBC Comment DIFF FINAL Differential Comment Sodium Level 141 Potassium Level 3.1 Chloride Level 110 Carbon Dioxide Level 21.8 Anion Gap 9 Blood Urea Nitrogen 7 Creatinine 1.09 Estimat Glomerular Filtration 52 Rate Random Glucose 105 Calcium Level 8.0 Date/Time Procedure Status Source Growth 01/19/17 16:25 Cryptosporidium Exam Resulted Stool Stool Pending 01/19/17 16:25 Stool Pus (JUNG) - Final Resulted Stool Stool FEW WBC'S 01/19/17 16:25 Giardia Antigen (JUNG) Resulted Stool Stool Pending 01/19/17 16:25 - Final Complete Stool Stool 01/19/17 16:15 Cancelled Sputum Expectorated Sputum Imaging Last Impressions Chest X-Ray 01/18/17 1555 Signed Impressions: Service Date/Time: Wednesday, January 18, 2017 16:39 - CONCLUSION: No acute disease Jim Hidalgo MD Lung Scan-VQ Nuclear Medicine 01/18/17 0000 Signed Impressions: Service Date/Time: Wednesday, January 18, 2017 20:06 - CONCLUSION: Homogeneous perfusion. Study is low probability for pulmonary embolus. Jim Kahn MD Physical Exam HEENT: EOMI; normocephalic; atraumatic; no jaundice. CHEST: Chest is clear to auscultation and percussion. CARDIAC: Regular rate and rhythm with no murmur gallop or rubs. ABDOMEN: Soft, obese, epigastric TTP; no hepatosplenomegaly; bowel sounds are present in all four quadrants. EXTREMITIES: No clubbing, cyanosis, or edema. SKIN: Normal; no rash; no jaundice. OUTSIDE INDUSTRIAL SALES REPRESENTATIVE: No focal deficits; alert and oriented times three. (Matilde Williamson [facility]) Assessment and Plan Plan - Diarrhea/abdomen pain- persistent severe diarrhea since 01/08. This varies from 3-7 loose stools a day, severity depends on how much she eats. Denies fevers, chills, cough, vomiting, melena, or hematochezia. States, she normally has diarrhea with chemo then subsides and she will be fine till the next round of chemo, this time, there was no stopping and nothing she did made a difference. abdomen pain across the upper region, this is on off aggravated by PO intake CT Abd/Pelvis w/ new 7 mm nodule posterior medial left lung base.Colonoscopy was done in 2014 - heart burn. She normally takes Tums at home - Possible mets to the lungs- CT above, oncology following - Metastatic Colon Adenocarcinoma to the liver s/p Hemicolectomy [place] [address] Mendoza, exploratory laparotomy with segmental hepatectomy and wedge excision X 2, one in 2014 and last one was in 2017,She follows w/ Dr. Francisco, currently on Chemotherapy - Hypokalemia- replaced by attending - HTN per attending Plan: - EGD/colonoscopy tomorrow - clears today - Mg Citrate - NPO after midnight - obtain consents - await Stool studies - Supportive care - further recommendations after results of above - Patient seen and examined by Dr. Taylor and myself and this note is written on his behalf. (Matilde Williamson) Physician Comments Seen and examined with EXHIBIT DESIGNER, egd/colonoscopy tomorrow. Stool studies -ve. ( Carol Taylor MD) Matilde Williamson January 20, 2017 16:37 Carol Taylor MD January 20, 2017 17:35
[2017-01-20 17:33] VITALS: BP 112/65; PULSE 101; RESP 18; TEMP 98.4; O2SAT 98
[2017-01-20 20:00] VITALS: BP 128/82; PULSE 103; RESP 20; TEMP 97.6; O2SAT 98
[2017-01-21] VITALS (7 sets, daily range): BP systolic 102–136; BP diastolic 51–84; PULSE 74–96; RESP 16–23; TEMP 97.8–99; O2SAT 96–100
[2017-01-21] MEDS: LEVOFLOXACIN 750 MG PREMIX INJ 150 ML IV SCH (09:07)
--- NOTE | 2017-01-21 09:32 | PD.ONC.PN ---
Subjective Subjective Remarks Has diarrhea due to bowel prep. Abdominal pain slightly better. Objective Data Date Time Temp Pulse Resp B/P Pulse Ox O2 Delivery O2 Flow Rate FiO2 01/21/17 07:58 98.6 74 16 136/67 98 01/21/17 04:00 98.2 96 20 126/80 98 01/21/17 00:14 97.8 95 20 121/79 98 01/20/17 20:00 97.6 103 20 128/82 98 01/20/17 17:33 98.4 101 18 112/65 98 01/20/17 15:24 20 01/20/17 11:57 98.4 87 18 127/73 94 Result Diagram: 01/20/17 0438 01/20/17 0438 Culture Results Microbiology Date/Time Procedure Status Source Growth 01/19/17 16:15 Cancelled Sputum Expectorated Sputum 01/19/17 16:25 - Final Complete Stool Stool 01/19/17 16:25 Cryptosporidium Exam Resulted Stool Stool Pending 01/19/17 16:25 Stool Pus (JUNG) - Final Resulted Stool Stool FEW WBC'S 01/19/17 16:25 Giardia Antigen (JUNG) Resulted Stool Stool Pending 01/21/17 06:39 Gram Stain Received Sputum Expectorated Sputum Pending 01/21/17 06:39 Sputum Culture Received Sputum Expectorated Sputum Pending Administered Medications Medications (Trade) Dose Ordered Sig/Lana Route PRN Reason Start Time Stop Time Status Last Admin Dose Admin Sodium Chloride (NS Flush) 2 ml BID IV FLUSH 01/19/17 09:00 01/19/17 23:32 Ondansetron HCl (Zofran Inj) 4 mg Q6H PRN IVP NAUSEA OR VOMITING 01/18/17 22:15 01/20/17 14:23 Oxycodone HCl 10 mg 10 mg Q4H PRN PO PAIN 3-10 01/18/17 22:15 01/20/17 19:17 Sodium Chloride (NS 1000 ml Inj) 1,000 ml @ 100 mls/hr Q10H IV 01/18/17 22:15 01/20/17 16:15 Diphenhydramine HCl (Benadryl Inj) 25 mg Q6H PRN IV PUSH ITCHING/RASH 01/18/17 22:15 01/19/17 16:13 Lisinopril 10 mg 10 mg DAILY PO 01/19/17 09:00 01/20/17 08:30 Levofloxacin/ Dextrose (Levaquin 750 Mg Premix Inj) 150 ml @ 100 mls/hr Q24H IV 01/19/17 09:00 01/21/17 09:07 Pantoprazole Sodium (Protonix) 40 mg DAILY PO 01/19/17 11:15 01/20/17 08:30 Objective Remarks GENERAL: Well-nourished, well-developed patient. Obese. SKIN: Warm and dry. HEAD: Normocephalic. EYES: No scleral icterus. No injection or drainage. NECK: Supple, trachea midline. No JVD or lymphadenopathy. LYMPHATIC: No adenopathy. CARDIOVASCULAR: Regular rate and rhythm without murmurs. RESPIRATORY: Breath sounds equal bilaterally. No accessory muscle use. GASTROINTESTINAL: Abdomen soft, Tender upper abdomen, no rebound pain, +BS. EXTREMITIES: No cyanosis, or edema. MUSCULOSKELETAL: Adequate muscle tone. NEUROLOGICAL: No obvious focal deficit. Awake, alert, and oriented x3. PSYCHIATRIC: Appropriate mood and affect; insight and judgment normal. Assessment/Plan Problem List: (1) Metastatic colorectal cancer Status: Chronic Plan: -- Last chemo was 01/08 with FOLFIRI and Avastin -- CT scan on 01/18 showed a new 7mm lesion in the L lung base which is slightly bigger. Hx/Workup: Her original diagnosis was in the fall of 2014. She was KRAS mutation +. She underwent a hemicolectomy in 06/2015. Pathology showed 7 cm moderately differentiated adenocarcinoma invading through the colonic wall into the pericolonic soft tissue. She had 2 liver lesions that were noted during surgery. Initially she was treated with FOLFOX chemotherapy, but switched to Xeloda after poor tolerance. She underwent resection of the liver mass in September 2015. She was at that time started back on chemotherapy with FOLFIRI. A recent CT abdomen and pelvis did not show any recurrent disease in the liver. There is a 7 mm lesion in the left lung that is being closely monitored. (2) Abdominal pain Status: Acute Plan: -- Stool studies negative. -- Improving -- Await EGD/colonoscopy today. Assessment 56-year-old female with history of metastatic colon cancer presents to the emergency room with shortness of breath, abdominal pain and persistent diarrhea. Plan 1. Await EGD and colonoscopy today. 2. Monitor CBC 3. Future chemo will be planned as an outpatient Problem Qualifiers (1) Abdominal pain: Qualified Code: R10.12 - Left upper quadrant pain Nikhil Francisco MD January 21, 2017 09:32
[2017-01-21] MEDS ORDERED: PROPOFOL 200 MG/20 ML AMP IV ONE (10:33)
--- NOTE | 2017-01-21 11:03 | GIPROC ---
[facility] [address] [facility]. [facility], [address] COLONOSCOPY PROCEDURE REPORT EXAM DATE: 01/21/2017 PATIENT NAME: Palma Flores MR #: [id number] BIRTHDATE: 1960 ENDOSCOPIST: Alessandra Maya MD ORDER #: [id number] MESH WORKER: Eladio Gaytan Hogan, Darren, and Ella Hoff STATUS: inpatient INDICATIONS: The patient is a 56 yr old female here for a colonoscopy due to diarrhea, abdominal pain PROCEDURE PERFORMED: Colonoscopy with biopsy MEDICATIONS: Per Anesthesia and None. PREP QUALITY: good PREP TYPE:GoLytely ESTIMATED BLOOD LOSS: None CONSENT: The patient understands the risks and benefits of the procedure and understands that these risks include, but are not limited to: sedation, allergic reaction, infection, perforation and/or bleeding. Alternative means of evaluation and treatment include, among others: physical exam, x-rays, and/or surgical intervention. The patient elects to proceed with this endoscopic procedure. medical equipment was checked for proper function. Hand hygiene and appropriate measures for infection prevention was taken. After the risks, benefits and alternatives of the procedure were thoroughly explained, Informed consent was verified, confirmed and timeout was successfully executed by the treatment team. A digital exam revealed external hemorrhoids The Pentax EC-[id number] endoscope was introduced through the anus and advanced to the terminal ileum which was intubated for a short distance. The instrument was then slowly withdrawn as the colon was fully examined. COLON FINDINGS: Ulcers on IC valve-biopsy ulcers in ascending colon biopsy diverticulosis sigmoid,descending random biopsy from descending colon-biopsy, some bleeding a clip was applied, no further bleeding surgical changes in sigmoid semisoild stool in right colon. Retroflexed views revealed internal hemorrhoids and Retroflexed views revealed small internal hemorrhoids The scope was then completely withdrawn from the patient and the procedure terminated. PROCEDURE WITHDRAWAL TIME:11minutes ADVERSE EVENTS: There were no complications. IMPRESSIONS: 1. Ulcers on IC valve-biopsy ulcers in ascending colon biopsy diverticulosis sigmoid,descending random biopsy from descending colon-biopsy, some bleeding a clip was applied, no further bleeding surgical changes in sigmoid semisoild stool in right colon 2. Retroflexed views revealed internal hemorrhoids 3. Retroflexed views revealed small internal hemorrhoids 4. Revealed external hemorrhoids RECOMMENDATIONS: 1. Await biopsy results. Biopsy results will not be ready for 7-10 days. If you don't hear from us in two weeks, call our office for results. 2. Probiotics from any [facility] or health food store 3. Yearly rectal exams RECALL: Colonoscopy, pending biopsy results Alessandra Maya MD eSigned: Alessandra Maya MD 01/21/2017 11:03 AM cc: PATIENT NAME: Palma Flores MR#: [id number]
[2017-01-21] MEDS ORDERED: DO NOT ADM ANY ANTICOAGULANT DRUGS PRN (11:05)
--- NOTE | 2017-01-21 11:07 | GIPROC ---
[facility] [address] [facility]. [facility], [address] EGD PROCEDURE REPORT EXAM DATE: 01/21/2017 PATIENT NAME: Palma Flores MR #: [id number] BIRTHDATE: 1960 ATTENDING: Alessandra Maya MD ORDER #: [id number] ROVING WINDER: Danny Ponce Glinsky, Jason, and Ella Hoff STATUS: inpatient INDICATIONS: The patient is a 56 yr old female here for an EGD due to nausea, vomiting, diarrhea PROCEDURE PERFORMED: EGD w/ biopsy MEDICATIONS: Per Anesthesia and None. TOPICAL ANESTHETIC: none CONSENT: The patient understands the risks and benefits of the procedure and understands that these risks include, but are not limited to: sedation, allergic reaction, infection, perforation and/or bleeding. Alternative means of evaluation and treatment include, among others: physical exam, x-rays, and/or surgical intervention. The patient elects to proceed with this endoscopic procedure. medical equipment was checked for proper function. Hand hygiene and appropriate measures for infection prevention was taken. After the risks, benefits and alternatives of the procedure were thoroughly explained, Informed consent was verified, confirmed and timeout was successfully executed by the treatment team. The patient was anesthetized with topical anesthesia and the EC-[id number] (Pedi C) endoscope was introduced through the mouth and advanced to the second portion of the duodenum. Retroflexed views revealed a hiatal hernia The gastroscope was then slowly withdrawn and removed. Gastritis antrum-biopsy erosive esophagitis grade B-biopsy duodenum normal-biopsy. ADVERSE EVENTS: There were no complications. IMPRESSIONS: 1. Gastritis antrum-biopsy erosive esophagitis grade B-biopsy duodenum normal-biopsy 2. Retroflexed views revealed a hiatal hernia RECOMMENDATIONS: 1. Await biopsy results. Biopsy results will not be ready for 7-10 days. If you don't hear from us in two weeks, call our office for biopsy results. 2. Anti-reflux regimen 3. Continue PPI 4. Avoid NSAIDS PATIENT CONDITION: stable DISPOSITION: Inpatient REPEAT EXAM: EGD pending biopsy results Alessandra Maya MD eSigned: Alessandra Maya MD 01/21/2017 11:07 AM cc:
[2017-01-21] MEDS: SODIUM CHLORIDE 0.9% FLUSH 10 ML FLUSH IV FLUSH SCH (11:56)
[2017-01-21] MEDS: PANTOPRAZOLE SOD 40 MG DELAYED RELEASE TAB PO SCH (11:57)
[2017-01-21] MEDS: DIPHENOXYLATE/ATROPINE 2.5 MG/0.025 MG TAB PO SCH (11:57)
[2017-01-21] MEDS ORDERED: ONDANSETRON HCL 4 MG/2 ML VIAL IV PUSH ONE (12:00)
[2017-01-21] MEDS: LISINOPRIL 10 MG TAB PO SCH (12:41)
[2017-01-21] MEDS ORDERED: LEVA750T PO (13:30)
[2017-01-21] MEDS ORDERED: PANT40TA3 PO (13:30)
[2017-01-21] MEDS ORDERED: LOPE2TAB PO (13:30)
[2017-01-21] MEDS ORDERED: LACTCHW3 CHEW (13:30)
[2017-01-21] MEDS ORDERED: OXYC-395 PO (13:30)
[2017-01-21] MEDS ORDERED: DIPH2.5T14 PO (13:30)
--- NOTE | 2017-01-21 13:39 | HHI.PR ---
Subjective Remarks Follow up for abdominal pain, diarrhea. The patient is seen s/p EGD/colonoscopy , she was able to tolerate a sandwich post procedure. She reports some continued diffuse abdominal pain and nausea but no vomiting. She had diarrhea overnight secondary to the bowel prep. No fevers/chills. She has no other medical complaints at this time. Objective Vitals Vital Signs Date Time Temp Pulse Resp B/P Pulse Ox O2 Delivery O2 Flow Rate FiO2 01/21/17 12:40 131/84 01/21/17 11:43 99.0 86 22 109/67 100 01/21/17 11:20 97.7 70 14 140/68 100 Nasal Cannula 2 01/21/17 11:15 69 14 132/65 100 Nasal Cannula 2 01/21/17 11:09 97.7 72 14 126/60 100 Nasal Cannula 2 01/21/17 07:58 98.6 74 16 136/67 98 01/21/17 04:00 98.2 96 20 126/80 98 01/21/17 00:14 97.8 95 20 121/79 98 01/20/17 20:00 97.6 103 20 128/82 98 01/20/17 17:33 98.4 101 18 112/65 98 01/20/17 15:24 20 I/O 01/20/17 01/20/17 01/20/17 01/21/17 01/21/17 01/21/17 07:00 15:00 23:00 07:00 15:00 23:00 Intake Total 1169 ml 600 ml Balance 1169 ml 600 ml Intake Oral 580 ml 0 ml IV Total 589 ml Other 600 ml # Voids 4 # Bowel Movements 4 Result Diagram: 01/20/17 0438 01/20/17 0438 Imaging Last Impressions Chest X-Ray 01/18/17 1555 Signed Impressions: Service Date/Time: Wednesday, January 18, 2017 16:39 - CONCLUSION: No acute disease Jim Hidalgo MD Lung Scan- Nuclear Medicine 01/18/17 0000 Signed Impressions: Service Date/Time: Wednesday, January 18, 2017 20:06 - CONCLUSION: Homogeneous perfusion. Study is low probability for pulmonary embolus. Jim Kahn MD Objective Remarks GENERAL: Well-developed, well-nourished middle aged female patient in [facility]. SKIN: Warm and dry. HEAD: Atraumatic. Normocephalic. EYES: Pupils equal and round. No scleral icterus. No injection or drainage. ENT: No nasal bleeding or discharge. Mucous membranes pink and moist. NECK: Trachea midline. CARDIOVASCULAR: Regular rate and rhythm. No murmur appreciated. RESPIRATORY: No accessory muscle use. Clear to auscultation. Breath sounds equal bilaterally. GASTROINTESTINAL: Abdomen soft, non-tender, nondistended. Hepatic and splenic margins not palpable. MUSCULOSKELETAL: Extremities without clubbing, cyanosis, or edema. No obvious deformities. NEUROLOGICAL: Awake and alert. No obvious cranial nerve deficits. Motor grossly within normal limits. Normal speech. PSYCHIATRIC: Appropriate mood and affect; insight and judgment normal. Procedures 01/21/17 - S/p EGD/colonoscopy showed gastritis, erosive esophagitis grade B, hiatal hernia, ulcers at IC valve, diverticulosis, internal/external hemorrhoids. GI recommends continue PPI, avoid NSAIDs, probiotics. Medications and IVs Current Medications Medications (Trade) Dose Ordered Sig/Lana Route Start Time Stop Time Status Last Admin (NS Flush) 2 ml UNSCH PRN IV FLUSH 01/18/17 22:15 (NS Flush) 2 ml BID IV FLUSH 01/19/17 09:00 01/21/17 11:56 (Zofran Inj) 4 mg Q6H PRN IVP 01/18/17 22:15 01/20/17 14:23 (Dulcolax Supp) 10 mg DAILY PRN RECTAL 01/18/17 22:15 (Tylenol) 650 mg Q6H PRN PO 01/18/17 22:15 Oxycodone HCl 10 mg 10 mg Q4H PRN PO 01/18/17 22:15 01/21/17 12:55 (NS 1000 ml Inj) 1,000 ml @ 100 mls/hr Q10H IV 01/18/17 22:15 01/20/17 16:15 (Benadryl Inj) 25 mg Q6H PRN IV PUSH 01/18/17 22:15 01/19/17 16:13 Lisinopril 10 mg 10 mg DAILY PO 01/19/17 09:00 01/21/17 12:41 (Levaquin 750 Mg Premix Inj) 150 ml @ 100 mls/hr Q24H IV 01/19/17 09:00 01/21/17 09:07 (Imodium) 2 mg UNSCH PRN PO 01/19/17 10:30 (Protonix) 40 mg DAILY PO 01/19/17 11:15 01/21/17 11:57 (Lomotil Tab) 1 tab BID PO 01/20/17 21:00 01/21/17 11:57 Miscellaneous Information ALL NURSING DEPARTME... UNSCH PRN .XX 01/21/17 11:05 01/22/17 11:04 A/P Problem List: (1) Intractable pain ICD Code: R52 Status: Acute (2) Colon cancer ICD Code: C18.9 Status: Acute (3) Renal insufficiency ICD Code: N28.9 Status: Acute (4) Hypokalemia ICD Code: E87.6 Status: Acute (5) HTN (hypertension) ICD Code: I10 Status: Acute (6) Upper respiratory tract infection ICD Code: J06.9 Status: Acute (7) Dehydration, mild ICD Code: E86.0 Status: Acute Assessment and Plan 56-year-old female with a PMH of Metastatic Colon Adenocarcinoma s/p Hemicolectomy, Anxiety, Depression, HTN and h/o DVT who presented to the ER w/ complaints of abdominal pain, SOB and chest pain x9 days. Intractable Abdominal Pain: -due to rash that developed after Dilaudid IV administration, pt switched to oxycodone 10 mg q4h PRN. -C- Diff negative -Additional stool testing negative to date. -Consulted GI -S/p EGD/colonoscopy 01/21 - showed gastritis, erosive esophagitis grade B, hiatal hernia, ulcers at IC valve, diverticulosis, internal/external hemorrhoids -GI recommends continue PPI, avoid NSAIDs, probiotics -Diet advanced to regular, patient tolerated well, no vomiting, abdominal pain improved with pain medications -stable for discharge Colon CA: Currently on chemo, following w/ Dr. Francisco. CT Abd/Pelvis w/ new 7mm nodule posterior medial left lung base. Dr. Francisco consulted by ER physician, no new plan at this time. -Dr. Francisco/oncology consulted, plan for further chemo as outpatient -f/up with colorectal surgeon Dr. Mendoza Dehydration: Creatinine 1.15, previously 1.00 on 01/08/17. U/a negative for UTI. -Given IVF for hydration -Creatinine improved to 1.02, labs reviewed by me -Resolved, patient tolerating oral intake Hypokalemia: K+ 3.0, s/p replacement in ER, will recheck and replace as needed. -K+ improved to 3.3, replaced -Labs continued to show decreased K 3.1 likely secondary to diarrhea from bowel prep -Given additional po KCl replacement Upper respiratory tract infection/pleuritic chest pain: D-dimer elevated, concern for PE w/ h/o DVT and underlying malignancy, however VQ Scan low probability for PE. CXR images reviewed, unremarkable. -ACS ruled out with negative serial cardiac enzymes x3 and EKG without acute ischemic changes -sputum culture ordered, given pt's immunocompromised status, given IV Levaquin 750mg qd x3days, and discharged on po Levaquin for total of 5 days Hypertension: continue home lisinopril 10 mg daily, pt's BP much improved. DVT Prophylaxis: SCD/Teds. Written by Maricel Willis, acting as scribe for Dr. Lopez on 01/21/17 at 13:39. This note was transcribed by scribSusanna MYLES. I, Dr. Hannah Lopez personally performed the history, physical exam, and medical decision making; and confirmed the accuracy of the information in the transcribed note. Authenticated by Dr. Hannah Lopez on 01/21/17 at 13:39. Discharge Planning See discharge summary. Discussed with vocational case manager to assist with medications and discharge planning. Problem Qualifiers (1) Colon cancer: Qualified Code: C18.9 - Malignant neoplasm of colon, unspecified part of colon (2) Upper respiratory tract infection: Qualified Code: J06.9 - Viral upper respiratory tract infection Maricel Willis PA-C January 21, 2017 13:39 Hannah Lopez MD January 21, 2017 17:46
--- NOTE | 2017-01-21 14:20 | HHI.DCPOC ---
Discharge Care Plan Diagnosis: (1) Abdominal pain (2) Colon cancer (3) Dehydration, mild (4) Upper respiratory tract infection (5) Hypertension Goals to Promote Your Health * To prevent worsening of your condition and complications * To maintain your health at the optimal level Directions to Meet Your Goals Take your medications as prescribed Follow your dietary instruction Follow activity as directed Keep your appointments as scheduled Take your immunizations and boosters as scheduled If your symptoms worsen call your PCP, if no PCP go to Urgent Care Center or Emergency Room Smoking is Dangerous to Your Health. Avoid second hand smoke Call the 24-hour hour crisis hotline for domestic abuse at Maricel Willis PA-C January 21, 2017 14:20 Hannah Lopez MD January 21, 2017 18:14
--- NOTE | 2017-01-21 14:35 | HHI.DS ---
cc: Alessandra Maya MD; Nikhil Francisco MD; Padmini Lopez MD; Justo Mendoza MD Discharge Summary Admission Date January 18, 2017 at 9:50 pm Discharge Date: January 21, 2017 Admitting Diagnosis intractable abdominal pain, pleuritic chest pain (1) Abdominal pain ICD Code: R10.9 Diagnosis: Principal (2) Intractable pain ICD Code: R52 Diagnosis: Principal (3) Dehydration, mild ICD Code: E86.0 Diagnosis: Principal (4) Colon cancer ICD Code: C18.9 Diagnosis: Secondary (5) Renal insufficiency ICD Code: N28.9 Diagnosis: Secondary (6) Hypokalemia ICD Code: E87.6 Diagnosis: Secondary (7) HTN (hypertension) ICD Code: I10 Diagnosis: Secondary (8) Upper respiratory tract infection ICD Code: J06.9 Diagnosis: Secondary Procedures 01/21/17 - S/p EGD/colonoscopy showed gastritis, erosive esophagitis grade B, hiatal hernia, ulcers at IC valve, diverticulosis, internal/external hemorrhoids. GI recommends continue PPI, avoid NSAIDs, probiotics. Brief History - From Admission This 56-year-old female with a PMH of Metastatic Colon Adenocarcinoma s/p Hemicolectomy, Anxiety, Depression, HTN and h/o DVT who presented to the ER w/ complaints of abdominal pain, SOB and chest pain x9 days. Denies fevers, chills , cough, nausea, vomiting or diarrhea. Reports chest pain worse w/ inspiration. Follows w/ Dr. Francisco, currently on Chemotherapy, seen in office w/ complaints of diarrhea and generalized weakness following chemo, plan at that time was to hold off on further chemo until repeat CT in 2wks. Now w/ progressive symptoms. On arrival, BP 142/81, HR 84, O2 sats 99% on RA, Afebrile. CBC unremarkable. K+ 3.0, s/p replacement in ER. Creatinine 1.15, previously 1.00 on 01/08/17. Lipase normal. UA negative. D-dimer 9. CXR with no acute findings. CT Abd/Pelvis w/ new 7 mm nodule posterior medial left lung base. VQ scan with low probability for PE. Dr. Francisco consulted by ER physician , no further intervention at this time. S/p Morphine x2 doses in ER w/ some improvement. CBC/BMP: 01/20/17 0438 01/20/17 0438 Significant Findings Laboratory Tests Test 01/18/17 01/18/17 01/18/17 01/19/17 16:05 18:45 22:30 04:30 Red Cell Distribution Width 18.4 % (11.6-17.2) D-Dimer Quantitative (PE/DVT) 9.09 MG/L FEU (0.00-0.50) Potassium Level 3.0 MEQ/L 3.3 MEQ/L (3.5-5.1) (3.5-5.1) Creatinine 1.15 MG/DL 1.02 MG/DL (0.50-1.00) (0.50-1.00) Estimat Glomerular Filtration 49 ML/MIN (>89) 56 ML/MIN (>89) Rate Random Glucose 107 MG/DL 117 MG/DL (74-106) (74-106) Alkaline Phosphatase 123 U/L (45-117) Troponin I LESS THAN 0.02 LESS THAN 0.02 LESS THAN 0.02 NG/ML NG/ML NG/ML (0.02-0.05) (0.02-0.05) (0.02-0.05) Urine Protein 30 mg/dL (NEG-TRACE) Chloride Level 109 MEQ/L (98-107) Albumin 2.9 GM/DL (3.4-5.0) Test 01/19/17 01/20/17 04:36 04:38 Red Blood Count 3.78 MIL/MM3 3.48 MIL/MM3 (4.00-5.30) (4.00-5.30) Hematocrit 34.5 % 32.3 % (35.0-46.0) (35.0-46.0) Red Cell Distribution Width 18.3 % 18.8 % (11.6-17.2) (11.6-17.2) Platelet Count 136 TH/MM3 116 TH/MM3 (150-450) (150-450) Hemoglobin 10.5 GM/DL (11.6-15.3) Lymphocytes (%) (Auto) 46.3 % (9.0-44.0) Potassium Level 3.1 MEQ/L (3.5-5.1) Chloride Level 110 MEQ/L (98-107) Creatinine 1.09 MG/DL (0.50-1.00) Estimat Glomerular Filtration 52 ML/MIN (>89) Rate Calcium Level 8.0 MG/DL (8.5-10.1) Imaging Last Impressions Chest X-Ray 01/18/17 1555 Signed Impressions: Service Date/Time: Wednesday, January 18, 2017 16:39 - CONCLUSION: No acute disease Jim Hidalgo MD Lung Scan-VQ Nuclear Medicine 01/18/17 0000 Signed Impressions: Service Date/Time: Wednesday, January 18, 2017 20:06 - CONCLUSION: Homogeneous perfusion. Study is low probability for pulmonary embolus. Jim Kahn MD PE at Discharge GENERAL: Well-developed, well-nourished middle aged female patient in [facility]. SKIN: Warm and dry. HEAD: Atraumatic. Normocephalic. EYES: Pupils equal and round. No scleral icterus. No injection or drainage. ENT: No nasal bleeding or discharge. Mucous membranes pink and moist. NECK: Trachea midline. CARDIOVASCULAR: Regular rate and rhythm. No murmur appreciated. RESPIRATORY: No accessory muscle use. Clear to auscultation. Breath sounds equal bilaterally. GASTROINTESTINAL: Abdomen soft, non-tender, nondistended. Hepatic and splenic margins not palpable. MUSCULOSKELETAL: Extremities without clubbing, cyanosis, or edema. No obvious deformities. NEUROLOGICAL: Awake and alert. No obvious cranial nerve deficits. Motor grossly within normal limits. Normal speech. PSYCHIATRIC: Appropriate mood and affect; insight and judgment normal. Hospital Course 56-year-old female with a PMH of Metastatic Colon Adenocarcinoma s/p Hemicolectomy, Anxiety, Depression, HTN and h/o DVT who presented to the ER w/ complaints of abdominal pain, SOB and chest pain x9 days. Intractable Abdominal Pain, Diarrhea: -due to rash that developed after Dilaudid IV administration, pt switched to oxycodone 10 mg q4h PRN. -C- Diff negative -Additional stool testing negative to date. -started on Lomotil bid scheduled in addition to Imodium prn -Consulted GI -S/p EGD/colonoscopy 01/21 - showed gastritis, erosive esophagitis grade B, hiatal hernia, ulcers at IC valve, diverticulosis, internal/external hemorrhoids -GI recommends continue PPI, avoid NSAIDs, probiotics -Diet advanced to regular, patient tolerated well, no vomiting, abdominal pain improved with pain medications -stable for discharge Colon CA: Currently on chemo, following w/ Dr. Francisco. CT Abd/Pelvis w/ new 7mm nodule posterior medial left lung base. Dr. Francisco consulted by ER physician, no new plan at this time. -Dr. Francisco/oncology consulted, plan for further chemo as outpatient -f/up with colorectal surgeon Dr. Mendoza Dehydration: Creatinine 1.15, previously 1.00 on 01/08/17. U/a negative for UTI. -Given IVF for hydration -Creatinine improved to 1.02, labs reviewed by me -Resolved, patient tolerating oral intake Hypokalemia: K+ 3.0, s/p replacement in ER, will recheck and replace as needed. -K+ improved to 3.3, replaced -Labs continued to show decreased K 3.1 likely secondary to diarrhea from bowel prep -Given additional po KCl replacement Upper respiratory tract infection/pleuritic chest pain: D-dimer elevated, concern for PE w/ h/o DVT and underlying malignancy, however VQ Scan low probability for PE. CXR images reviewed, unremarkable. -ACS ruled out with negative serial cardiac enzymes x3 and EKG without acute ischemic changes -sputum culture ordered, given pt's immunocompromised status, given IV Levaquin 750mg qd x3days, and discharged on po Levaquin for total of 5 days Hypertension: continue home lisinopril 10 mg daily, pt's BP much improved. DVT Prophylaxis: SCD/Teds. Discharge Planning See discharge summary. Discussed with case work aide to assist with medications and discharge planning. I spent 35 minutes [id number] with the patient or on the ramsey discussing the patient's disposition, prognosis, and plan of care with her caregivers. Over half the time spent was devoted to counseling the patient regarding placement in coordinating care with caregivers and case management Written by Maricel Willis, acting as scribe for Dr. Lopez on 01/21/17 at 13:39. This note was transcribed by lazaroibSusanna MYLES. I, Dr. Hannah Lopez personally performed the history, physical exam, and medical decision making; and confirmed the accuracy of the information in the transcribed note. Authenticated by Dr. Hannah Lopez on 01/21/17 at 13:39. Pt Condition on Discharge: Stable Discharge Disposition: Discharge Home Discharge Time: > 30 minutes Discharge Instructions DIET: Follow Instructions for: As Tolerated, No Restrictions Activities you can perform: Regular-No Restrictions Follow up Referrals: Colorectal Surgery - 1 Week with Justo Mendoza MD Gastroenterology - 1 Week with Alessandra Maya MD Oncology with Nikhil Francisco MD PCP Follow-up - 1 Week with Padmini Lopez MD New Medications: Lactobacillus Acidophilus (Lactinex) 1 Chew 1 TAB CHEW BID Nutritional Supplement #30 Ref 0 TAB Levofloxacin (Levaquin) 750 Mg Tab 750 MG PO DAILY Infection #2 Ref 0 TAB Diphenoxylate-Atropine (Diphenoxylate-Atropine) 2.5-0.025 Mg Tab 1 TAB PO BID Pain Management #30 TAB Loperamide (Loperamide) 2 Mg Tab 2 MG PO UNSCH PRN DIARRHEA #30 TAB Oxycodone (Oxycodone) 10 Mg Tab 10 MG PO Q4H PRN PAIN 3-10 #20 TAB Pantoprazole (Pantoprazole) 40 Mg Tab 40 MG PO DAILY GERD #30 TAB Continued Medications: Lisinopril (Lisinopril) 10 Mg Tab 10 MG PO DAILY #30 Ref 0 TAB Maricel Willis PA-C January 21, 2017 14:35 Hannah Lopez MD January 21, 2017 18:15
== END 2017-01-21 20:17 | disposition home or self-care (01) ==
LOC: NEPC 14:59 → NEDA 21:50 → NEPGCP 23:54
PROVIDERS: ADMIT Hospitalist; ATTEND Hospitalist
DX: K52.9 Noninfective gastroenteritis and colitis, unspecified (principal); K64.8 Other hemorrhoids; K64.4 Residual hemorrhoidal skin tags; K57.30 Diverticulosis of large intestine without perforation or abscess without bleeding; K63.3 Ulcer of intestine; K22.10 Ulcer of esophagus without bleeding; K44.9 Diaphragmatic hernia without obstruction or gangrene; C18.9 Malignant neoplasm of colon, unspecified; C78.7 Secondary malignant neoplasm of liver and intrahepatic bile duct; F90.9 Attention-deficit hyperactivity disorder, unspecified type; R21 Rash and other nonspecific skin eruption; R51 Headache; T40.2X5A Adverse effect of other opioids, initial encounter; R07.81 Pleurodynia; F41.9 Anxiety disorder, unspecified; F32.9 Major depressive disorder, single episode, unspecified; I42.9 Cardiomyopathy, unspecified; N28.9 Disorder of kidney and ureter, unspecified; E87.6 Hypokalemia; E66.9 Obesity, unspecified; M19.90 Unspecified osteoarthritis, unspecified site; J06.9 Acute upper respiratory infection, unspecified; E86.0 Dehydration; I10 Essential (primary) hypertension; R06.02 Shortness of breath; K21.9 Gastro-esophageal reflux disease without esophagitis; Z88.1 Allergy status to other antibiotic agents; Z86.718 Personal history of other venous thrombosis and embolism; Z90.49 Acquired absence of other specified parts of digestive tract; Z91.040 Latex allergy status; Z92.21 Personal history of antineoplastic chemotherapy; Z91.018 Allergy to other foods
CPT/HCPCS: 00740; 43239; 45380; 71010; 78582; 80048; 80053; 81001; 82550; 83690; 83735; 83880; 84484; 85025; 85379; 85610; 85730; 87070; 87205; 87328; 87493; 87506; 88305; 93005; 96361; 96374; 96375; 96376; 99285; A9540; A9567; G0378; J1170; J1200; J1956; J2270; J2405; J7030; 87329

== ENCOUNTER → 2017-01-18 | Outpatient (CLI) | payer MEDICAID, OTHER ==
[~2017-01-18] MED LIST changes: +AMLO5TAB2 PO; +DIPH2.5T14 PO; -HYDR-3516 PO; +IOHEXOL 350 MG/ML 10 ML VIAL (for RAD DIAG) IV ONE; +LACTCHW3 CHEW; +LEVA750T PO; +LISI10TA3 PO; +LOPE2TAB PO; +OXYC-395 PO; +PANT40TA3 PO
--- NOTE | 2017-01-18 15:30 | RADRPT ---
EXAM DATE/TIME: 01/18/2017 14:42 [facility] COMPARISON: CT ABDOMEN & PELVIS W CONTRAST, October 28, 2015, 13:24. INDICATIONS : Colon cancer with metastatic disease of liver IV CONTRAST: 96 cc Omnipaque 350 (iohexol) IV ORAL CONTRAST: Prescribed oral contrast ingested. RADIATION DOSE: 16.97 CTDIvol (mGy) MEDICAL HISTORY : Carcinoma, colon. SURGICAL HISTORY : None. ENCOUNTER: Initial ACUITY: >1 yr PAIN SCALE: 9/10 LOCATION: Right upper quadrant abdomen TECHNIQUE: Volumetric scanning of the abdomen and pelvis was performed. Using automated exposure control and ad justment of the mA and/or kV according to patient size, radiation dose was kept as low as reasonably achievable to obtain optimal diagnostic quality images. FINDINGS: LOWER LUNGS: There are 2 small nodular densities in the left lung base. A lesion in the lateral left lung base rasheeda ear slightly smaller than on previous exam. There is a new lesion in the posterior medial left lung b ase. LIVER: Diffuse decreased attenuation which may be steatosis. There is a vague low density area in the yoly lateral aspect of the right lobe which is very similar in size to that seen on previous exam. No defi nite new lesions. No biliary ductal dilatation. Gallbladder surgically absent. SPLEEN: Normal size without lesion. PANCREAS: Within normal limits. KIDNEYS: Normal in size and shape. There is no mass, stone or hydronephrosis. ADRENAL GLANDS: Stable tiny nodule in the apex of the left adrenal. VASCULAR: There is no aortic aneurysm. BOWEL/MESENTERY: The stomach, small bowel, and colon demonstrate no acute abnormality. There is no free intraperitone al air or fluid. ABDOMINAL WALL: Within normal limits. RETROPERITONEUM: There is no lymphadenopathy. BLADDER: No wall thickening or mass. REPRODUCTIVE: Within normal limits. INGUINAL: There is no lymphadenopathy or hernia. MUSCULOSKELETAL: Within normal limits for patient age. CONCLUSION: New 7 mm nodule in the posterior medial left lung base. Jim Hidalgo MD on January 18, 2017 at 15:22 Board Certified Radiologist. This report was verified electronically.
== END ==
LOC: HRAD 11:51
PROVIDERS: ATTEND Internal Medicine Hematology & Oncology
DX: C18.9 Malignant neoplasm of colon, unspecified (principal); C78.7 Secondary malignant neoplasm of liver and intrahepatic bile duct
CPT/HCPCS: 74177; Q9967

== ENCOUNTER → 2017-04-30 | Outpatient (CLI) | payer MEDICAID ==
[~2017-04-30] MED LIST changes: -AMLO5TAB2 PO; +AMOX500C PO; +LACTCHW3 CHEW; +LISI10TA3 PO; +LOPE2TAB PO; +MEDR4PAK PO; +PANT40TA3 PO; +TRAM50TA PO
== END ==
LOC: PLAB 08:44
PROVIDERS: ATTEND Internal Medicine Gastroenterology
DX: K52.9 Noninfective gastroenteritis and colitis, unspecified (principal)
CPT/HCPCS: 36415; 85652

== ENCOUNTER 2017-06-08 15:08 | Emergency (ER) | payer OTHER, MEDICAID ==
[~2017-06-08] VITALS: Ht 170.2 cm; Wt 141.4 kg
[~2017-06-08 15:08] MED LIST changes: -AMOX500C PO; -MEDR4PAK PO; -TRAM50TA PO
[2017-06-08 15:10] VITALS: BP 133/86; PULSE 98; RESP 20; TEMP 98; O2SAT 98
--- NOTE | 2017-06-08 15:50 | PD ---
HPI Chief Complaint: Cold / Flu Symptoms Time Seen by Provider: 15:40 Travel History International Travel<30 days: No Contact w/Intl Traveler<30days: No Traveled to known affect area: No History of Present Illness HPI 57-year-old female presents emergency department for evaluation of right ear pain and cough 4 days. Patient reports she had nasal congestion, sore throat for the last week which has now progressed into a nonproductive cough and right ear pain. She denies fever or chills. She denies chest pain, shortness of breath, abdominal pain. Symptom severity is mild. No aggravating or alleviating factors. PFSH Past Medical History Hx Anticoagulant Therapy: No ADHD: Yes Arthritis: Yes Asthma: No Autoimmune Disease: No Blood Disorders: No Anxiety: Yes Depression: Yes Heart Rhythm Problems: No Cancer: Yes (COLON WITH METS TO LIVER ) Cardiomyopathy: Yes Cardiovascular Problems: Yes (HTN ) High Cholesterol: No Chemotherapy: Yes (LAST 01/07) Chest Pain: No Congestive Heart Failure: No COPD: No Cerebrovascular Accident: No Diabetes: No Diminished Hearing: No Deep Vein Thrombosis: Yes (RIGHT LEG) Endocrine: No Gastrointestinal Disorders: Yes (Irritable bowel syndrome, COLON RESECTION) GERD: Yes Glaucoma: No Genitourinary: Yes (tumor on liver) Headaches: Yes Hepatitis: No Hiatal Hernia: No Hypertension: Yes Immune Disorder: No Kidney Stones: No Musculoskeletal: Yes (THORACIC, LUMBAR DISCOMFORT, JOINT PAIN) Neurologic: No Psychiatric: Yes (DEPRESSION) Reproductive: No Respiratory: No Migraines: Yes Myocardial Infarction: No Radiation Therapy: No Renal Failure: No Seizures: No Sickle Cell Disease: No Sleep Apnea: No Ulcer: No PNEUMOCCOCAL Vaccine (Year): 2 ?: Not Menopausal: Yes : 9 Para: 5 Miscarriage: 1 : 3 Tubal Ligation: Yes Past Surgical History Abdominal Surgery: Yes (COLON RESECTION -REMOVE TUMOR WITH REPAIR HERNIA) AICD: No Appendectomy: No Arteriovenous Shunt: No Body Medical Devices: RIGHT IMPLANTED PORT Cardiac Surgery: No Cholecystectomy: Yes Ear Surgery: No Endocrine Surgery: No Eye Surgery: No Genitourinary Surgery: No Gynecologic Surgery: Yes (D&C, tubal ligation) Insulin Pump: No Joint Replacement: No Oral Surgery: No Pacemaker: No Thoracic Surgery: Yes (RIGHT IMPLANTED PORT- RIGHT UPPER CHEST , removed Jul 23, OF PORT) Other Surgery: Yes Social History Alcohol Use: No Tobacco Use: No Substance Use: No Allergies-Medications (Allergen,Severity, Reaction): Coded Allergies: hydromorphone (Unverified Allergy, Severe, Rash, 06/08/17) latex (Unverified Allergy, Severe, ITCHY,RASH, 06/08/17) morphine (Unverified Allergy, Severe, Rash, 06/08/17) strawberry (Unverified Allergy, Severe, HIVES, 06/08/17) erythromycin base (Unverified Allergy, Mild, RASH, 06/08/17) Uncoded Allergies: CARD BOARD (Allergy, Severe, CONTACT DERMATITIS, 05/08/16) Reported Meds & Prescriptions Reported Meds & Active Scripts Active Lactinex (Lactobacillus Acidophilus) 1 Chew 1 Tab CHEW BID Pantoprazole (Pantoprazole Sodium) 40 Mg Tab 40 Mg PO DAILY Loperamide (Loperamide HCl) 2 Mg Tab 2 Mg PO UNSCH PRN Reported Lisinopril 10 Mg Tab 10 Mg PO DAILY Review of Systems Except as stated in HPI: all other systems reviewed are Neg General / Constitutional: No: Fever Eyes: No: Visual changes HENT: Positive: Earache, No: Headaches Respiratory: Positive: Cough Physical Exam Narrative GENERAL: Well-nourished, well-developed patient. SKIN: Focused skin assessment warm/dry. HEAD: Normocephalic. EYES: No scleral icterus. No injection or drainage. EARS: Right TM erythema, bulging, loss of landmarks. No perforation. No canal swelling or drainage. No mastoid tenderness or erythema. THROAT: Mild pharyngeal erythema without swelling, exudate. Uvula is midline. NECK: Supple, trachea midline. No JVD or lymphadenopathy. No meningismus CARDIOVASCULAR: Regular rate and rhythm without murmurs, gallops, or rubs. RESPIRATORY: Breath sounds equal bilaterally. No accessory muscle use. No wheezing rales or rhonchi. GASTROINTESTINAL: Abdomen soft, non-tender, nondistended. MUSCULOSKELETAL: No cyanosis, or edema. BACK: Nontender without obvious deformity. No CVA tenderness. Data Data Last Documented VS Vital Signs Date Time Temp Pulse Resp B/P (MAP) Pulse Ox O2 Delivery O2 Flow Rate FiO2 06/08/17 15:10 98.0 98 20 133/86 (102) 98 MDM Medical Decision Making Medical Screen Exam Complete: Yes Emergency Medical Condition: Yes Differential Diagnosis AOM, URI, pneumonia/bronchitis Narrative Course 57-year-old female presents emergency department for evaluation of right ear pain and cough 4 days. Patient reports she had nasal congestion, sore throat for the last week which has now progressed into a nonproductive cough and right ear pain. She denies fever or chills. She is well-appearing. Her vital signs are stable. She is afebrile. On exam she has mild right TM erythema with bulging and loss of landmarks. There is no perforation. No mastoid tenderness. Her lung sounds are clear. There is no tonsillar swelling, erythema or exudate. Patient will be treated for acute otitis media. Patient verbalizes understanding and agrees to plan Diagnosis Primary Impression: Otitis media Qualified Codes: H66.91 - Otitis media, unspecified, right ear Referrals: Primary Care Physician Additional Instructions: Take the antibiotics as prescribed. Take tzjj-[id number] cough medicine as needed. Follow-up with her primary doctor for recheck. Scripts Amoxicillin (Amoxicillin) 500 Mg Cap 500 MG PO TID for Infection for 10 Days, CAP 0 Refills Prov: Fabby Ortiz 06/08/17 Disposition: 01 DISCHARGE HOME Condition: Stable Fabby Ortiz Jun 08, 2017 15:50
[2017-06-08] MEDS ORDERED: AMOX500C PO (15:51)
== END 2017-06-08 16:00 | disposition home or self-care (01) ==
LOC: PHEFT 15:08
DX: H66.91 Otitis media, unspecified, right ear (principal); I10 Essential (primary) hypertension
CPT/HCPCS: 99283

== ENCOUNTER 2017-06-14 12:07 | Day surgery (SDC) | payer OTHER, MEDICAID ==
[~2017-06-14 12:07] MED LIST changes: +AMOX500C PO
[2017-06-14] MEDS ORDERED: IOHEXOL 350 MG/ML 50 ML BTL (for RAD DIAG) OTHER ONE (12:08)
--- NOTE | 2017-06-14 14:33 | RADRPT ---
EXAM DATE/TIME: 06/14/2017 12:34 [facility] COMPARISON: CT THORAX W CONTRAST, March 08, 2017, 13:22. INDICATIONS : Colon cancer, evaluate for metastatic disease. RADIATION DOSE: 8.76 CTDIvol (mGy) MEDICAL HISTORY : Hypertension. Cardiovascular disease Carcinoma, colon. SURGICAL HISTORY : Tubal ligation. Cholecystectomy. ENCOUNTER: Subsequent ACUITY: 1 month PAIN SCALE: 0/10 LOCATION: chest TECHNIQUE: Volumetric scanning of the chest was performed. Using automated exposure control and adjustment of t he mA and/or kV according to patient size, radiation dose was kept as low as reasonably achievable to obtain optimal diagnostic quality images. DICOM format image data is available electronically for r eview and comparison. Follow-up recommendations for detected pulmonary nodules are based at a minimum on nodule size and pa tient risk factors according to Fleischner Society Guidelines. FINDINGS: LUNGS: There has been interval progression of disease with enlargement of previously noted bilateral pulmona ry nodules and new nodules particularly in the lower lobes. Reference nodule in the left upper lobe m easures 0.9 x 0.8 cm with central necrosis in comparison to 0.6 x 0.6 cm some prior exam. Reference n odule in the right upper lobe measures 0.8 x 0.8 cm in comparison to 0.5 x 0.5 cm on prior exam. Refe rence nodule in the left lower lobe measures 1.2 x 1.3 cm in comparison to 0.7 x 0.8 cm on prior exam . Reference nodule in the right lower lobe measures 1.3 x 1.0 cm and was not present on prior exam. PLEURAE: There is no pleural thickening or pleural effusion. MEDIASTINUM: Heart is grossly unremarkable. There is no gross mediastinal adenopathy. AXILLAE: Within normal limits. No lymphadenopathy. MUSCULOSKELETAL: Within normal limits for patient age. No significant focal lytic or blastic bony lesions. MISCELLANEOUS: Visualized portions of the liver demonstrate diffusely decreased hepatic attenuation consistent with fatty infiltration. Previously noted dominant mass in segment 4 of the liver has increased in the int erval measuring 5.8 x 5.8 cm in comparison to 4.3 x 4.4 centers on prior exam. There are additional e nhancing masses in both left and right lobes of the liver. A segment 2 mass now measures 3.0 x 2.8 cm . Mild interval enlargement of a small pericardial node now measuring 1.1 x 1.5 cm in comparison to 0 .9 x 1.3 cm on prior exam. CONCLUSION: 1. Interval progression of metastatic disease with increasing and enlarging pulmonary nodules and rasheeda arent hepatic metastasis, as above. Augustine Brown MD on June 14, 2017 at 14:22 Board Certified Radiologist. This report was verified electronically.
--- NOTE | 2017-06-24 18:26 | RADRPT ---
EXAM DATE/TIME: 06/14/2017 13:36 [facility] COMPARISON: [id number] PLCMT, POWERPORT, W US, LEFT, October 23, 2016, 8:07. INDICATIONS : Patient with history of metastatic colon cancer in need of [id number]-[id number] evaluation. MEDICAL HISTORY : Adenocarcinoma of desecnding colon with metastases to the liver, Colitis, HTN, DVT, Migraines, Chemot herapy SURGICAL HISTORY : Right Port placement and removal, Left port placement, Cholecystectomy, Colonoscopy, Colon resection, Liver lesions resected, Descending colon biopsy ENCOUNTER: Subsequent ACUITY: 4-6 months PAIN SCORE: 0/10 FLUORO TIME: 0.3 minutes IMAGE SERIES: 1 ACCESS SITE: Left Port CONTRAST: 1.) 5 cc Omnipaque (iohexol) 350 PROCEDURE : 1. Access of [id number]. 2. Port patency injection. The risks, benefits and alternatives to the procedure were explained and verbal and written consent w as obtained. The patient was placed supine. The port was prepped in sterile fashion. Full sterile t echnique was used, including cap, mask, sterile gloves and gown, and a large sterile sheet. Hand hyg iene and 2% chlorhexidine prep was utilized per protocol for cutaneous antisepsis with appropriate y time for site. The previously placed port was accessed and positive contrast was injected for evaluation. Injection demonstrates the port to be an intravascular position at the junction of the brachiocephalic veins. This has migrated proximally to significant degree since placement. CONCLUSION: 1. Intravascular port with proximal migration as above Barrett Love MD on June 24, 2017 at 18:24 Board Certified Radiologist. This report was verified electronically.
== END 2017-06-14 14:15 | disposition home or self-care (01) ==
LOC: HRAD 12:07 → HRIP 12:08 → HRAD 14:15
PROVIDERS: ATTEND Internal Medicine Hematology & Oncology
DX: Z45.2 Encounter for adjustment and management of vascular access device (principal); R91.8 Other nonspecific abnormal finding of lung field; C18.9 Malignant neoplasm of colon, unspecified; C78.7 Secondary malignant neoplasm of liver and intrahepatic bile duct; I10 Essential (primary) hypertension; Z86.718 Personal history of other venous thrombosis and embolism
CPT/HCPCS: 36598; 71250; J1642; Q9967

== ENCOUNTER 2017-06-28 11:56 | Emergency (ER) | payer MEDICAID, OTHER ==
[~2017-06-28] VITALS: Ht 170.2 cm; Wt 150.0 kg
[2017-06-28 11:59] VITALS: BP 170/100; PULSE 96; RESP 20; TEMP 98.4; O2SAT 95
[2017-06-28 14:01] VITALS: BP 134/91; PULSE 82; RESP 21; TEMP 98; O2SAT 96
[2017-06-28] MEDS ORDERED: ONDANSETRON HCL 4 MG/2 ML VIAL IV PUSH ONE (15:00)
[2017-06-28] MEDS ORDERED: LISINOPRIL 10 MG TAB PO ONE (15:00)
[2017-06-28] MEDS ORDERED: PANTOPRAZOLE SOD 40 MG DELAYED RELEASE TAB PO ONE (15:00)
--- NOTE | 2017-06-28 16:08 | RADRPT ---
EXAM DATE/TIME: 06/28/2017 15:48 [facility] COMPARISON: CT ABDOMEN & PELVIS W/O CONTRAST, June 01, 2015, 20:02. INDICATIONS : Low back pain, sore throat. ORAL CONTRAST: No oral contrast ingested. RADIATION DOSE: 8.54 CTDIvol (mGy) MEDICAL HISTORY : Cardiovascular disease. Hypertension. Carcinoma, colon.DVT, cardiomyapathy, mets to liver, rad tx. SURGICAL HISTORY : Cholecystectomy. Tubal ligation. ENCOUNTER: Initial ACUITY: 1 day PAIN SCALE: 8/10 LOCATION: low back TECHNIQUE: Volumetric scanning of the abdomen and pelvis was performed. Using automated exposure control and ad justment of the mA and/or kV according to patient size, radiation dose was kept as low as reasonably achievable to obtain optimal diagnostic quality images. DICOM format image data is available electro nically for review and comparison. FINDINGS: The lung base is are clear. There is moderate fatty replacement to the liver. The spleen, pancreas and adrenals unremarkable Right and left kidneys are unremarkable Bowel and mesentery appear normal. There is as small midline hernia containing some bowel. In the pelvis the uterus is prominent.. There is no free fluid. There are no inflammatory changes. Review of bone windows reveals extensive degenerative changes in the lower lumbar spine predominantly facets at L4-5 and L5-S1. Degenerative changes about both SI joints. CONCLUSION: Degenerative changes in the lower lumbar spine. I don't see evidence for an inflammatory process in the abdomen or pelvis.. Ham Anguiano MD FACR on June 28, 2017 at 16:05 Board Certified Radiologist. This report was verified electronically.
[2017-06-28 16:12] LABS: AUTOMATED NEUTROPHIL # 6.3 TH/MM3 (1.8-7.7); BASOPHIL % 0.5 % (0.0-2.0); EOSINOPHIL # 0.2 TH/MM3 (0-0.4); EOSINOPHIL % 2.5 % (0.0-4.0); HEMATOCRIT 43.1 % (35.0-46.0); HEMO FLAGS DIFF FINAL; LYMPH % 12.6 % (9.0-44.0); MEAN CELL VOLUME 87.7 FL (80.0-100.0); MEAN CORPUSCULAR HEMOGLOBIN 27.9 PG (27.0-34.0); MEAN CORPUSCULAR HGB CONC 31.9 % (32.0-36.0); MONO % 6.9 % (0.0-8.0); NEUT % 77.5 % (16.0-70.0); PLATELET COUNT 224 TH/MM3 (150-450); RED BLOOD COUNT 4.92 MIL/MM3 (4.00-5.30); RED CELL DISTRIBUTION WIDTH 15.7 % (11.6-17.2); WHITE BLOOD COUNT 8.1 TH/MM3 (4.0-11.0)
[2017-06-28 16:15] LABS: BICARBONATE 26.8 MEQ/L (21.0-32.0); POTASSIUM 4.2 MEQ/L (3.5-5.1)
[2017-06-28 16:21] LABS: BLOOD, URINE NEG (NEG); COMMENT (UR) CULT NOT INDICATED; CULTURE IF INDICATED CULT NOT INDICATED; GLUCOSE,URINE NEG (NEG); HYALINE CAST, URINE 3 /lpf (RARE); KETONE, URINE NEG (NEG); MUCUS URINE FEW /lpf (OCC); NITRITE,URINE NEG (NEG); PH, URINE 5.5 (5.0-8.5); SQUAMOUS EPITHELIAL CELL URINE 8 /hpf (0-5); URINE COLOR YELLOW (YELLW/STRAW)
--- NOTE | 2017-06-28 16:22 | PD ---
HPI Chief Complaint: Pain: Acute or Chronic Time Seen by Provider: 14:54 Travel History International Travel<30 days: No Contact w/Intl Traveler<30days: No Traveled to known affect area: No History of Present Illness HPI So 57-year-old woman who presents to the emergency department complaining of back and flank pain. Symptoms started yesterday. More the left than the right. She is a history of metastatic colon cancer with known hepatic metastases. She takes tramadol at home. She just started radiation therapy to the liver about 4-5 days ago. States she otherwise has been feeling well. No other complaints. History Past Medical History Narrative Medical Metastatic colon CA Liver and lung metastasis Hypertension Influenza Vaccination: No PNEUMOCCOCAL Vaccine (Year): 2 Menopausal: Yes : 9 Para: 5 Social History Alcohol Use: No Tobacco Use: No Allergies-Medications (Allergen,Severity, Reaction): Coded Allergies: hydromorphone (Unverified Allergy, Severe, Rash, 06/28/17) latex (Unverified Allergy, Severe, ITCHY,RASH, 06/28/17) morphine (Unverified Allergy, Severe, Rash, 06/28/17) strawberry (Unverified Allergy, Severe, HIVES, 06/28/17) erythromycin base (Unverified Allergy, Mild, RASH, 06/28/17) hydrocodone (Verified Allergy, Unknown, 06/28/17) oxycodone (Verified Allergy, Unknown, 06/28/17) Uncoded Allergies: CARD BOARD (Allergy, Severe, CONTACT DERMATITIS, 05/08/16) Reported Meds & Prescriptions Reported Meds & Active Scripts Active Amoxicillin 500 Mg Cap 500 Mg PO TID 10 Days Lactinex (Lactobacillus Acidophilus) 1 Chew 1 Tab CHEW BID Pantoprazole (Pantoprazole Sodium) 40 Mg Tab 40 Mg PO DAILY Loperamide (Loperamide HCl) 2 Mg Tab 2 Mg PO UNSCH PRN Reported Lisinopril 10 Mg Tab 10 Mg PO DAILY Review of Systems Except as stated in HPI: all other systems reviewed are Neg Physical Exam Narrative GENERAL: Well-appearing 57-year-old woman, no acute distress. SKIN: Focused skin assessment warm/dry. HEAD: Atraumatic. Normocephalic. EYES: Pupils equal and round. No scleral icterus. No injection or drainage. ENT: No nasal bleeding or discharge. Mucous membranes pink and moist. NECK: Trachea midline. No JVD. CARDIOVASCULAR: Regular rate and rhythm. No murmur appreciated. RESPIRATORY: No accessory muscle use. Clear to auscultation. Breath sounds equal bilaterally. GASTROINTESTINAL: Abdomen soft, non-tender, nondistended. Hepatic and splenic margins not palpable. MUSCULOSKELETAL: No obvious deformities. No clubbing. No cyanosis. No edema. NEUROLOGICAL: Awake and alert. No obvious cranial nerve deficits. Motor grossly within normal limits. Normal speech. PSYCHIATRIC: Appropriate mood and affect; insight and judgment normal. Data Data Last Documented VS Vital Signs Date Time Temp Pulse Resp B/P (MAP) Pulse Ox O2 Delivery O2 Flow Rate FiO2 06/28/17 16:49 76 19 132/84 (100) 96 Nasal Cannula 2.00 06/28/17 14:01 98.0 Orders Orders Fentanyl Inj (Fentanyl Inj) (06/28/17 15:00) Ondansetron Inj (Zofran Inj) (06/28/17 15:00) Iv Access Insert/Monitor (06/28/17 14:59) Lisinopril (Prinivil) (06/28/17 15:00) Pantoprazole (Protonix) (06/28/17 15:00) Basic Metabolic Panel (Bmp) (06/28/17 15:00) Complete Blood Count With Diff (06/28/17 15:00) Urinalysis - C+S If Indicated (06/28/17 15:00) Ct Abd/Pel W/O Iv Contrast (06/28/17 ) Fentanyl Inj (Fentanyl Inj) (06/28/17 16:30) Ketorolac Inj (Toradol Inj) (06/28/17 16:30) Labs Laboratory Tests Test 06/28/17 15:35 White Blood Count 8.1 TH/MM3 Red Blood Count 4.92 MIL/MM3 Hemoglobin 13.7 GM/DL Hematocrit 43.1 % Mean Corpuscular Volume 87.7 FL Mean Corpuscular Hemoglobin 27.9 PG Mean Corpuscular Hemoglobin Concent 31.9 % Red Cell Distribution Width 15.7 % Platelet Count 224 TH/MM3 Mean Platelet Volume 8.1 FL Neutrophils (%) (Auto) 77.5 % Lymphocytes (%) (Auto) 12.6 % Monocytes (%) (Auto) 6.9 % Eosinophils (%) (Auto) 2.5 % Basophils (%) (Auto) 0.5 % Neutrophils # (Auto) 6.3 TH/MM3 Lymphocytes # (Auto) 1.0 TH/MM3 Monocytes # (Auto) 0.6 TH/MM3 Eosinophils # (Auto) 0.2 TH/MM3 Basophils # (Auto) 0.0 TH/MM3 CBC Comment DIFF FINAL Differential Comment Urine Color YELLOW Urine Turbidity HAZY Urine pH 5.5 Urine Specific [place] 1.021 Urine Protein TRACE mg/dL Urine Glucose (UA) NEG mg/dL Urine Ketones NEG mg/dL Urine Occult Blood NEG Urine Nitrite NEG Urine Bilirubin NEG Urine Urobilinogen LESS THAN 2.0 MG/DL Urine Leukocyte Esterase NEG Urine WBC 2 /hpf Urine Squamous Epithelial Cells 8 /hpf Urine Hyaline Casts 3 /lpf Urine Mucus FEW /lpf Microscopic Urinalysis Comment CULT NOT INDICATED Blood Urea Nitrogen 11 MG/DL Creatinine 0.95 MG/DL Random Glucose 99 MG/DL Calcium Level 9.4 MG/DL Sodium Level 138 MEQ/L Potassium Level 4.2 MEQ/L Chloride Level 104 MEQ/L Carbon Dioxide Level 26.8 MEQ/L Anion Gap 7 MEQ/L Estimat Glomerular Filtration Rate 61 ML/MIN MDM Medical Decision Making Medical Screen Exam Complete: Yes Emergency Medical Condition: Yes Interpretation(s) LABS: CBC is unremarkable. BMP is unremarkable. UA is unremarkable. CT abdomen and pelvis overall negative. Some degenerative changes in the lumbar spine. Differential Diagnosis Back pain, liver pain, abdominal pain, other Narrative Course Medical decision-making 57-year-old woman presents to the emergency department complaining of back pain. We'll check CT for stone, labs, reassess. Suspect is related to her known hepatic metastases. Diagnosis Primary Impression: Colon cancer Additional Instructions: Take Medrol Dosepak as prescribed. Take tramadol as needed for pain. Follow-up with your oncologist, and your radiation oncologist. Return to the emergency department for any new or worsening symptoms. Med/Other Pt SpecificInfo: Prescription(s) given Scripts Tramadol (Tramadol) 50 Mg Tab 100 MG PO Q6H Y for PAIN, #21 TAB 0 Refills Prov: Jhonny Coleman MD 06/28/17 Methylprednisolone Dosepak (Medrol Dosepak) 4 Mg Dspk 4 MG PO DIRECTED, #1 DSPK 0 Refills Per Pharmacist direction Prov: Jhonny Coleman MD 06/28/17 Disposition: 01 DISCHARGE HOME Condition: Stable Jhonny Coleman MD Jun 28, 2017 16:22
[2017-06-28] MEDS ORDERED: KETOROLAC TROMETHAMINE 30 MG/ML (IVP) VIAL IV PUSH ONE (16:30)
[2017-06-28 16:49] VITALS: BP 132/84; PULSE 76; RESP 19; O2SAT 96
[2017-06-28] MEDS ORDERED: TRAM50TA PO (17:09)
[2017-06-28] MEDS ORDERED: MEDR4PAK PO (17:09)
[2017-06-28 17:59] VITALS: BP 126/70; PULSE 81; RESP 18; O2SAT 94
[2017-06-28 18:00] VITALS: BP 126/70
== END 2017-06-28 18:01 | disposition home or self-care (01) ==
LOC: NEPD 11:56
DX: C18.9 Malignant neoplasm of colon, unspecified (principal); C78.7 Secondary malignant neoplasm of liver and intrahepatic bile duct; C78.00 Secondary malignant neoplasm of unspecified lung; I10 Essential (primary) hypertension
CPT/HCPCS: 74176; 80048; 81001; 85025; 96374; 96375; 96376; 99285; J1885; J2405; J3010

== ENCOUNTER 2017-09-26 15:22 | Emergency (ER) | payer MEDICAID, OTHER ==
[~2017-09-26] VITALS: Ht 170.2 cm; Wt 138.0 kg
[~2017-09-26 15:22] MED LIST changes: +LOPE2CAP14 PO; -LOPE2TAB PO; +MEDR4PAK PO; +TRAM50TA PO
[2017-09-26] MEDS ORDERED: IOHEXOL 350 MG/ML 10 ML VIAL (for RAD DIAG) IVCONTRAST ONE (15:23)
[2017-09-26 15:24] VITALS: BP 141/71; PULSE 116; RESP 20; TEMP 98.8; O2SAT 99
--- NOTE | 2017-09-26 15:43 | PD ---
HPI Chief Complaint: Abdominal Pain Time Seen by Provider: 15:35 Travel History International Travel<30 days: No Contact w/Intl Traveler<30days: No Traveled to known affect area: No History of Present Illness HPI 57-year-old female came to the emergency room with history of abdominal pain and shortness of breath. Patient has history of liver cancer with metastases. She is going through chemotherapy and radiotherapy. Given her symptoms or radiation oncologist asked her to come to the emergency room. Patient seemed anxious and in moderate distress. She was tachycardic upon arrival. Patient describes the pain starting from the left lower quadrant traveling all the way up across her epigastrium into the right upper quadrant. It is sharp in nature. No aggravating or relieving factors identified. PFSH Past Medical History Narrative Medical List of her past medical, surgical, social and family history is reviewed from the nursing note. Hx Anticoagulant Therapy: No ADHD: Yes Arthritis: Yes Asthma: No Autoimmune Disease: No Blood Disorders: No Anxiety: Yes Depression: Yes Heart Rhythm Problems: No Cancer: Yes (COLON WITH METS TO LIVER ) Cardiomyopathy: Yes Cardiovascular Problems: Yes (HTN ) High Cholesterol: No Chemotherapy: Yes Chest Pain: No Congestive Heart Failure: No COPD: No Cerebrovascular Accident: No Diabetes: No Diminished Hearing: No Deep Vein Thrombosis: Yes (RIGHT LEG) Endocrine: No Gastrointestinal Disorders: Yes (Irritable bowel syndrome, COLON RESECTION, gerd, DIRECTICLOSES) GERD: Yes Glaucoma: No Genitourinary: Yes (tumor on liver) Headaches: Yes Hepatitis: No Hiatal Hernia: No Hypertension: Yes Immune Disorder: No Kidney Stones: No Musculoskeletal: Yes (THORACIC, LUMBAR DISCOMFORT, JOINT PAIN) Neurologic: No Psychiatric: Yes (DEPRESSION) Reproductive: No Respiratory: No Migraines: Yes Myocardial Infarction: No Radiation Therapy: Yes Renal Failure: No Seizures: No Sickle Cell Disease: No Sleep Apnea: No Ulcer: No PNEUMOCCOCAL Vaccine (Year): 2 Menopausal: Yes : 9 Para: 5 Miscarriage: 1 : 3 Tubal Ligation: Yes Past Surgical History Abdominal Surgery: Yes (COLON RESECTION -REMOVE TUMOR WITH REPAIR HERNIA) AICD: No Appendectomy: No Arteriovenous Shunt: No Body Medical Devices: RIGHT IMPLANTED PORT Cardiac Surgery: No Cholecystectomy: Yes Ear Surgery: No Endocrine Surgery: No Eye Surgery: No Genitourinary Surgery: No Gynecologic Surgery: Yes (D&C, tubal ligation) Insulin Pump: No Joint Replacement: No Oral Surgery: No Pacemaker: No Thoracic Surgery: Yes (RIGHT IMPLANTED PORT- RIGHT UPPER CHEST , removed Jul 23 OF PORT) Other Surgery: Yes (LIVER RESECTION) Social History Alcohol Use: No Tobacco Use: No Substance Use: No Allergies-Medications (Allergen,Severity, Reaction): Coded Allergies: hydromorphone (Unverified Allergy, Severe, Rash, 06/28/17) latex (Unverified Allergy, Severe, ITCHY,RASH, 06/28/17) morphine (Unverified Allergy, Severe, Rash, 06/28/17) strawberry (Unverified Allergy, Severe, HIVES, 06/28/17) erythromycin base (Unverified Allergy, Mild, RASH, 06/28/17) hydrocodone (Verified Allergy, Unknown, 06/28/17) oxycodone (Verified Allergy, Unknown, 06/28/17) Uncoded Allergies: CARD BOARD (Allergy, Severe, CONTACT DERMATITIS, 05/08/16) Comments List of her allergies reviewed from the nursing note. Reported Meds & Prescriptions Reported Meds & Active Scripts Active Pantoprazole (Pantoprazole Sodium) 40 Mg Tab 40 Mg PO DAILY Reported Lisinopril 10 Mg Tab 10 Mg PO DAILY Narrative Medication List of her home medications reviewed from the nursing note. Review of Systems Except as stated in HPI: all other systems reviewed are Neg Respiratory: Positive: Shortness of Breath Gastrointestinal: Positive: Abdominal Pain Physical Exam Narrative GENERAL: Awake, alert, morbidly obese, anxious, moderate distress SKIN: Focused skin assessment warm/dry. HEAD: Atraumatic. Normocephalic. EYES: Pupils equal and round. No scleral icterus. No injection or drainage. ENT: No nasal bleeding or discharge. Mucous membranes pink and moist. NECK: Trachea midline. No JVD. CARDIOVASCULAR: Regular rate and rhythm. No murmur appreciated. RESPIRATORY: No accessory muscle use. Clear to auscultation. Breath sounds equal bilaterally. GASTROINTESTINAL: Abdomen soft, non-tender, nondistended. Hepatic and splenic margins not palpable. MUSCULOSKELETAL: No obvious deformities. No clubbing. No cyanosis. No edema. NEUROLOGICAL: Awake and alert. No obvious cranial nerve deficits. Motor grossly within normal limits. Normal speech. PSYCHIATRIC: Appropriate mood and affect; insight and judgment normal. Data Data Last Documented VS Vital Signs Date Time Temp Pulse Resp B/P (MAP) Pulse Ox O2 Delivery O2 Flow Rate FiO2 09/26/17 19:01 09/26/17 18:38 87 25 98 Room Air 09/26/17 15:24 98.8 Orders Orders Complete Blood Count With Diff (09/26/17 15:58) Comprehensive Metabolic Panel (09/26/17 15:58) Lipase (09/26/17 15:58) Prothrombin Time / Inr (Pt) (09/26/17 15:58) Urinalysis - C+S If Indicated (09/26/17 15:58) Ct Abd/Pel W Iv Contrast(Rout) (09/26/17 15:58) Iv Access Insert/Monitor (09/26/17 15:58) Ecg Monitoring (09/26/17 15:58) Oximetry (09/26/17 15:58) Sodium Chloride 0.9% Flush (Ns Flush) (09/26/17 16:00) Electrocardiogram (09/26/17 15:58) Ketorolac Inj (Toradol Inj) (09/26/17 16:00) Ct Pulmonary Angiogram (09/26/17 ) Troponin I (09/26/17 15:58) Urine Culture (09/26/17 16:15) Nitrofurantoin Monohyd Macrocr (Macrobid (09/26/17 17:45) Iohexol 350 Inj (Omnipaque 350 Inj) (09/26/17 15:23) Ed Discharge Order (09/26/17 18:22) Labs Laboratory Tests Test 09/26/17 16:15 09/26/17 16:30 Urine Color YELLOW Urine Turbidity HAZY Urine pH 5.0 Urine Specific [place] 1.015 Urine Protein TRACE mg/dL Urine Glucose (UA) NEG mg/dL Urine Ketones NEG mg/dL Urine Occult Blood NEG Urine Nitrite NEG Urine Bilirubin NEG Urine Urobilinogen 2.0 MG/DL Urine Leukocyte Esterase SMALL Urine RBC 1 /hpf Urine WBC 7 /hpf Urine Squamous Epithelial Cells 23 /hpf Urine Bacteria MANY /hpf Urine Hyaline Casts 3 /lpf Urine Mucus FEW /lpf Microscopic Urinalysis Comment CULTURE INDICATED White Blood Count 6.9 TH/MM3 Red Blood Count 3.54 MIL/MM3 Hemoglobin 12.4 GM/DL Hematocrit 36.3 % Mean Corpuscular Volume 102.7 FL Mean Corpuscular Hemoglobin 34.9 PG Mean Corpuscular Hemoglobin Concent 34.0 % Red Cell Distribution Width 21.6 % Platelet Count 174 TH/MM3 Mean Platelet Volume 7.7 FL Neutrophils (%) (Auto) 75.8 % Lymphocytes (%) (Auto) 14.4 % Monocytes (%) (Auto) 8.3 % Eosinophils (%) (Auto) 0.4 % Basophils (%) (Auto) 1.1 % Neutrophils # (Auto) 5.2 TH/MM3 Lymphocytes # (Auto) 1.0 TH/MM3 Monocytes # (Auto) 0.6 TH/MM3 Eosinophils # (Auto) 0.0 TH/MM3 Basophils # (Auto) 0.1 TH/MM3 CBC Comment DIFF FINAL Differential Comment Prothrombin Time 10.1 SEC Prothromb Time International Ratio 1.0 RATIO Blood Urea Nitrogen 15 MG/DL Creatinine 1.51 MG/DL Random Glucose 114 MG/DL Total Protein 8.1 GM/DL Albumin 3.3 GM/DL Calcium Level 8.8 MG/DL Alkaline Phosphatase 126 U/L Aspartate Amino Transf (AST/SGOT) 25 U/L Alanine Aminotransferase (ALT/SGPT) 22 U/L Total Bilirubin 1.3 MG/DL Sodium Level 135 MEQ/L Potassium Level 4.1 MEQ/L Chloride Level 101 MEQ/L Carbon Dioxide Level 25.1 MEQ/L Anion Gap 9 MEQ/L Estimat Glomerular Filtration Rate 36 ML/MIN Troponin I LESS THAN 0.02 NG/ML Lipase 140 U/L MDM Medical Decision Making Medical Screen Exam Complete: Yes Emergency Medical Condition: Yes Medical Record Reviewed: Yes Interpretation(s) Twelve-lead EKG was reviewed by me. Normal sinus rhythm, normal axis, nonspecific ST-T wave changes. Heart rate of 86 bpm. Differential Diagnosis PE, intra-abdominal tumor worsening, electrolyte abnormality Narrative Course 6:47 PM blood test results of back and within normal limits. CT scan of her abdomen and pelvis shows the liver tumor that is not significantly larger in size than before. Patient has lung metastases that looks slightly worse than before. No PE. I'm comfortable discharging her home. She needs to follow up with her oncologist. Procedures EKG Prior to Arrival: No Diagnosis Primary Impression: Abdominal pain Qualified Codes: R10.9 - Unspecified abdominal pain Additional Impression: Chronic pain not due to malignancy Referrals: Primary Care Physician Additional Instructions: Follow-up with your oncologist. Take your pain medications at home. Return to ER if condition worsens or any other new concerns. Med/Other Pt SpecificInfo: No Change to Meds Disposition: 01 DISCHARGE HOME Condition: Stable Carol Morgan MD Sep 26, 2017 15:43
[2017-09-26] MEDS ORDERED: KETOROLAC TROMETHAMINE 30 MG/ML (IVP) VIAL IVP ONE (16:00)
[2017-09-26] MEDS ORDERED: SODIUM CHLORIDE 0.9% FLUSH 10 ML FLUSH IV FLUSH PRN (16:00)
[2017-09-26 16:47] VITALS: BP 115/68; PULSE 99; RESP 28; O2SAT 100
[2017-09-26 16:53] LABS: AUTOMATED NEUTROPHIL # 5.2 TH/MM3 (1.8-7.7); BASOPHIL # 0.1 TH/MM3 (0-0.2); BASOPHIL % 1.1 % (0.0-2.0); EOSINOPHIL % 0.4 % (0.0-4.0); HEMATOCRIT 36.3 % (35.0-46.0); HEMOGLOBIN 12.4 GM/DL (11.6-15.3); LYMPH % 14.4 % (9.0-44.0); MEAN CELL VOLUME 102.7 FL (80.0-100.0); MEAN CORPUSCULAR HEMOGLOBIN 34.9 PG (27.0-34.0); MEAN PLATELET VOLUME 7.7 FL (7.0-11.0); MONO % 8.3 % (0.0-8.0); MONOCYTE # 0.6 TH/MM3 (0-0.9); NEUT % 75.8 % (16.0-70.0); PLATELET COUNT 174 TH/MM3 (150-450); RED BLOOD COUNT 3.54 MIL/MM3 (4.00-5.30); RED CELL DISTRIBUTION WIDTH 21.6 % (11.6-17.2); WHITE BLOOD COUNT 6.9 TH/MM3 (4.0-11.0)
[2017-09-26 16:57] LABS: BACTERIA, URINE MANY /hpf; BILIRUBIN, URINE NEG (NEG); BLOOD, URINE NEG (NEG); GLUCOSE,URINE NEG (NEG); HYALINE CAST, URINE 3 /lpf (RARE); KETONE, URINE NEG (NEG); MUCUS URINE FEW /lpf (OCC); NITRITE,URINE NEG (NEG); SQUAMOUS EPITHELIAL CELL URINE 23 /hpf (0-5); URINE COLOR YELLOW (YELLW/STRAW); URINE LEUKOCYTE ESTERASE SMALL (NEG)
[2017-09-26 17:02] LABS: PROTHROMBIN TIME - PATIENT 10.1 SEC (9.8-11.6)
[2017-09-26 17:07] LABS: ALBUMIN 3.3 GM/DL (3.4-5.0); AST (GOT) 25 U/L (15-37); BICARBONATE 25.1 MEQ/L (21.0-32.0); BLOOD UREA NITROGEN 15 MG/DL (7-18); CALCIUM 8.8 MG/DL (8.5-10.1); CHLORIDE 101 MEQ/L (98-107); CREATININE 1.51 MG/DL (0.50-1.00); GLOMERULAR FILTRATION RATE 36 ML/MIN (>89); GLUCOSE,RANDOM 114 MG/DL (74-106); LIPASE 140 U/L (73-393); SODIUM (NA) 135 MEQ/L (136-145)
[2017-09-26 17:09] LABS: ALT (GPT) 22 U/L (10-53)
[2017-09-26 17:12] LABS: ALKALINE PHOSPHATASE 126 U/L (45-117); TOTAL BILIRUBIN ADULT 1.3 MG/DL (0.2-1.0); TOTAL PROTEIN 8.1 GM/DL (6.4-8.2); TROPONIN I LESS THAN 0.02 NG/ML (0.02-0.05)
[2017-09-26] MEDS ORDERED: NITROFURANTOIN MONOHYD MACROCR 100 MG CAP PO ONE (17:45)
--- NOTE | 2017-09-26 18:05 | RADRPT ---
EXAM DATE/TIME: 09/26/2017 17:47 [facility] COMPARISON: CT THORAX W/O CONTRAST, June 14, 2017, 12:34. INDICATIONS : Short of breath, embolism. IV CONTRAST: 85 cc Omnipaque 350 (iohexol) IV RADIATION DOSE: 23.38 CTDIvol (mGy) MEDICAL HISTORY : Carcinoma, colon. Hypertension. Cardiovascular diseaseMets to liver SURGICAL HISTORY : Cholecystectomy. Tubal ligation. ENCOUNTER: Initial ACUITY: 1 day PAIN SCALE: 4/10 LOCATION: Bilateral chest TECHNIQUE: Volumetric scanning of the chest was performed using a pulmonary embolism protocol MIP images were re constructed. Using automated exposure control and adjustment of the mA and/or kV according to patien t size, radiation dose was kept as low as reasonably achievable to obtain optimal diagnostic quality images. DICOM format image data is available electronically for review and comparison. Follow-up recommendations for detected pulmonary nodules are based at a minimum on nodule size and pa tient risk factors according to Fleischner Society Guidelines. FINDINGS: PULMONARY ARTERIES: No filling defects are seen in the pulmonary arteries through the segmental level. LUNGS: There are scattered pulmonary nodules measuring up to 16 mm in size. The nodules are larger than befo re. For example, 16 mm nodule the right lung base previously measured 13 mm. I don't see any convinci ngly new nodules. Mild emphysema again noted. No acute pneumonia. No pleural effusion or pneumothorax . PLEURAE: There is no pleural thickening or pleural effusion. MEDIASTINUM: There is good visualization of the great vessels of the middle mediastinum. No evidence of mediastin al or hilar adenopathy/mass. MUSCULOSKELETAL: No acute bony abnormality demonstrated. MISCELLANEOUS: The visualized upper abdominal organs demonstrate no acute abnormality. CONCLUSION: 1. No pulmonary embolus. 2. Scattered metastatic pulmonary nodules are slightly larger in the interim. Jim Kahn MD on September 26, 2017 at 18:00 Board Certified Radiologist. This report was verified electronically.
--- NOTE | 2017-09-26 18:18 | RADRPT ---
EXAM DATE/TIME: 09/26/2017 17:47 [facility] COMPARISON: MRI ABDOMEN W & W/O CONTRAST, September 25, 2017, 10:27. CT ABDOMEN & PELVIS W/O CONTRAST, June 28, 2017, 15:48. MRI ABDOMEN W & W/O CONTRAST, May 24, 2017, 7:59. CT THORAX W CONTRAST, February, 13:22. INDICATIONS : Diffuse abdomen pain on left flank side. IV CONTRAST: 85 cc Omnipaque 350 (iohexol) IV ORAL CONTRAST: No oral contrast ingested. RADIATION DOSE: 26.56 CTDIvol (mGy) MEDICAL HISTORY : Hypertension. Carcinoma, colon. DVT, Mets to liver SURGICAL HISTORY : Cholecystectomy. Tubal ligation. ENCOUNTER: Initial ACUITY: 1 day PAIN SCALE: 5/10 LOCATION: Left lower quadrant TECHNIQUE: Volumetric scanning of the abdomen and pelvis was performed. Using automated exposure control and ad justment of the mA and/or kV according to patient size, radiation dose was kept as low as reasonably achievable to obtain optimal diagnostic quality images. DICOM format image data is available electro nically for review and comparison. FINDINGS: Scattered metastatic lesions of the liver ranging between 0.8 and 5.4 cm in size are noted. Most of t he larger liver lesions are larger than before. The ulnar lesion of the right hepatic lobe is new com pared to the May comparison MRI. The peritoneal nodule anterior to the liver down measures 16 m m, 15 mm back in May. There are necrotic lymph nodes in the minda hepatis measuring up to 3.8 c m in size, not significantly changed. No obstruction or acute inflammatory changes are seen at the gastrointestinal tract. A ventral hernia slightly above the umbilicus containing a short segment of small bowel again noted. No associated ac yuan complication. Patient has had previous sigmoid colon resection and anastomosis. 1 cm nodule the left adrenal gland is stable. CONCLUSION: 1. Metastatic disease of the liver is slightly worse since last fall. 2. The peritoneal nodule anterior to the liver is minimally larger in the interim. 3. Necrotic lymphadenopathy in the minda hepatis is not significantly changed. 4. No obstruction or acute inflammatory changes are demonstrated. Jim Kahn MD on September 26, 2017 at 18:10 Board Certified Radiologist. This report was verified electronically.
[2017-09-26 18:38] VITALS: PULSE 87; RESP 25; O2SAT 98
--- NOTE | 2017-09-27 16:28 | EKG ---
Date Performed: 09/26/2017 Time Performed: 16:52:14 PTAGE: 57 years EKG: Sinus rhythm NORMAL ECG PREVIOUS TRACING : 01/18/2017 18.30 Since previous tracing, no significant change noted DOCTOR: Tee Rosas Interpretating Date/Time 09/27/2017 16:27:58
== END 2017-09-26 19:11 | disposition home or self-care (01) ==
LOC: NEPE 15:22
DX: R10.9 Unspecified abdominal pain (principal); G89.29 Other chronic pain; C78.7 Secondary malignant neoplasm of liver and intrahepatic bile duct; C78.00 Secondary malignant neoplasm of unspecified lung; F32.9 Major depressive disorder, single episode, unspecified; I10 Essential (primary) hypertension; Z86.718 Personal history of other venous thrombosis and embolism; Z85.038 Personal history of other malignant neoplasm of large intestine
CPT/HCPCS: 71275; 74177; 80053; 81001; 83690; 84484; 85025; 85610; 87086; 93005; 96374; 99285; J1885; Q9967

== ENCOUNTER 2017-10-10 21:15 | Emergency (ER) | payer OTHER ==
[~2017-10-10] VITALS: Ht 170.2 cm; Wt 137.0 kg
[~2017-10-10 21:15] MED LIST changes: -AMOX500C PO; -LACTCHW3 CHEW; -LOPE2CAP14 PO; -MEDR4PAK PO; -TRAM50TA PO
[2017-10-10 21:23] VITALS: BP 120/72; PULSE 102; RESP 20; TEMP 99.7; O2SAT 96
[2017-10-10] MEDS ORDERED: TRIF0.27 PO (21:31)
[2017-10-10] MEDS ORDERED: ACETAMINOPHEN 325 MG TAB PO ONE (21:45)
--- NOTE | 2017-10-10 22:20 | RADRPT ---
EXAM DATE/TIME: 10/10/2017 22:04 [facility] COMPARISON: CT PULMONARY ANGIOGRAM, September 26, 2017, 17:47. CHEST SINGLE AP, January 18, 2017, 16:39. INDICATIONS : Fever and productive cough starting yesterday. MEDICAL HISTORY : Carcinoma, colon. Hypertension. Cardiovascular diseaseMets to liver SURGICAL HISTORY : Cholecystectomy. Tubal ligation. ENCOUNTER: Initial ACUITY: 2 days PAIN SCORE: 0/10 LOCATION: Bilateral chest FINDINGS: Mild atelectasis/infiltrate and probable tiny effusion seen left lung base. Scattered pulmonary nodul es. No pneumothorax. Heart size stable, normal. Left internal jugular [id number] catheter are again seen, tip in the anderson perior vena cava. CONCLUSION: Mild left base consolidation. Scattered bilateral pulmonary nodules. Jim Kahn MD on October 10, 2017 at 22:15 Board Certified Radiologist. This report was verified electronically.
[2017-10-10 22:28] VITALS: TEMP 98.6
[2017-10-10 23:21] VITALS: PULSE 104; RESP 18; O2SAT 96
[2017-10-10] MEDS ORDERED: ZITHTAB PO (23:22)
[2017-10-10] MEDS ORDERED: VENTAER INH (23:22)
--- NOTE | 2017-10-10 23:33 | PD ---
HPI Chief Complaint: Cold / Flu Symptoms Time Seen by Provider: 21:40 Travel History International Travel<30 days: No Contact w/Intl Traveler<30days: No Traveled to known affect area: No History of Present Illness HPI 57-year-old female with 2 days of cough congestion low-grade temperature elevation and family members with similar symptoms. Patient is being treated for stage IV colorectal cancer and is in the process of her second 5 days series of chemotherapy. Patient states that she continues to have metastatic disease. Patient is under the care of Dr. Francisco and nurse practitioner Flavia Esquivel and is the process of being transitioned over to the care of oncologist Dr. Ventura as well as ongoing care with Dr. Mendoza cancer colorectal surgeon. Patient had initial diagnosis and surgery in 2014. Patient has had recent MRI a PET scan that shows progression of disease. Patient does not report any pleuritic chest pain shortness of breath hemoptysis or lower extremity pain or swelling. Recent any underwent pulmonary CTA that was negative for PE but showed ongoing metastatic disease. Patient notes that she has had chronic crackles to the left base for several months. Patient has been on azithromycin in the past but not recently without any adverse or ill effects. Patient is a non-tobacco smoker. Patient has for over 10 myalgias and arthralgias. Patient did not have the flu vaccine. PFSH Past Medical History Narrative Medical Arthritis anxiety depression stage IV colorectal cancer hypertension; nursing notes reviewed Hx Anticoagulant Therapy: No ADHD: Yes Arthritis: Yes Asthma: No Autoimmune Disease: No Blood Disorders: No Anxiety: Yes Depression: Yes Heart Rhythm Problems: No Cancer: Yes (COLON WITH METS TO LIVER AND LUNGS) Cardiomyopathy: Yes Cardiovascular Problems: Yes (HTN ) High Cholesterol: No Chemotherapy: Yes Chest Pain: No Congestive Heart Failure: No COPD: No Cerebrovascular Accident: No Diabetes: No Diminished Hearing: No Diverticulitis: Yes Deep Vein Thrombosis: Yes (RIGHT LEG) Endocrine: No Gastrointestinal Disorders: Yes (Irritable bowel syndrome, COLON RESECTION,) GERD: Yes Glaucoma: No Genitourinary: Yes (tumor on liver) Headaches: Yes Hepatitis: No Hiatal Hernia: No Hypertension: Yes Immune Disorder: No Kidney Stones: No Musculoskeletal: Yes (THORACIC, LUMBAR DISCOMFORT, JOINT PAIN) Neurologic: No Psychiatric: Yes Reproductive: No Respiratory: No Immunizations Current: No Migraines: Yes Myocardial Infarction: No Radiation Therapy: Yes Renal Failure: No Seizures: No Sickle Cell Disease: No Sleep Apnea: No Ulcer: No Influenza Vaccination: No PNEUMOCCOCAL Vaccine (Year): 2 ?: Not LMP: 10 years Menopausal: Yes : 9 Para: 5 Miscarriage: 1 : 3 Tubal Ligation: Yes Past Surgical History Abdominal Surgery: Yes (COLON RESECTION -REMOVE TUMOR WITH REPAIR HERNIA) AICD: No Appendectomy: No Arteriovenous Shunt: No Body Medical Devices: RIGHT IMPLANTED PORT Cardiac Surgery: No Cholecystectomy: Yes Ear Surgery: No Endocrine Surgery: No Eye Surgery: No Genitourinary Surgery: No Gynecologic Surgery: Yes (D&C, tubal ligation) Insulin Pump: No Joint Replacement: No Oral Surgery: No Pacemaker: No Thoracic Surgery: Yes (RIGHT IMPLANTED PORT- RIGHT UPPER CHEST , removed Jul 23, OF PORT) Other Surgery: Yes (LIVER RESECTION) Social History Alcohol Use: No Tobacco Use: No (QUIT 06/2015) Substance Use: No Allergies-Medications (Allergen,Severity, Reaction): Coded Allergies: hydromorphone (Unverified Allergy, Severe, Rash, 10/10/17) latex (Unverified Allergy, Severe, ITCHY,RASH, 10/10/17) morphine (Unverified Allergy, Severe, Rash, 10/10/17) strawberry (Unverified Allergy, Severe, HIVES, 10/10/17) erythromycin base (Unverified Allergy, Mild, RASH, 10/10/17) hydrocodone (Verified Allergy, Unknown, 10/10/17) oxycodone (Verified Allergy, Unknown, 10/10/17) Uncoded Allergies: CARD BOARD (Allergy, Severe, CONTACT DERMATITIS, 05/08/16) Comments denies macrolide or azithromycin allergy Reported Meds & Prescriptions Reported Meds & Active Scripts Active Ventolin Hfa 18 GM Inh (Albuterol Sulfate) 90 Mcg/Act Aer 1-2 Puff INH Q4-6H PRN Zithromax Z-Sudarshan (Azithromycin) 250 Mg Dspk 250 Mg PO DIRECTED 500 MG (2 tabs) day 1, then 1 tab days 2-5. Pantoprazole (Pantoprazole Sodium) 40 Mg Tab 40 Mg PO DAILY Reported Lonsurf (Trifluridine-Tipiracil) 20-8.19 Mg Tab 1 Tab PO BID Lisinopril 10 Mg Tab 10 Mg PO DAILY Review of Systems Except as stated in HPI: all other systems reviewed are Neg General / Constitutional: Positive: Fever, No: Chills HENT: Positive: Sore Throat, No: Congestion Cardiovascular: No: Chest Pain or Discomfort, Palpitations, Diaphoresis Respiratory: Positive: Cough, Wheezing, No: Shortness of Breath Gastrointestinal: No: Nausea, Vomiting, Diarrhea, Abdominal Pain Genitourinary: No: Dysuria, Flank Pain Musculoskeletal: Positive: Myalgias, Arthralgias, No: Edema, Pain Skin: No Rash Neurologic: No: Weakness, Dizziness, Syncope Psychiatric: Positive: Anxiety Hematologic/Lymphatic: No: Easy Bruising Physical Exam Narrative GENERAL: Well-developed well-nourished female in no acute distress no respiratory distress; temperature 99.7; heart rate 104 SKIN: Warm and dry. HEAD: Normocephalic. EYES: No scleral icterus. No injection or drainage. ENT: Mucous membranes moist edentulous posterior pharynx no redness no induration no edema no exudative change airway is patent NECK: Supple, trachea midline. No JVD or lymphadenopathy. CARDIOVASCULAR: Regular rate and rhythm without murmurs, gallops, or rubs. RESPIRATORY: Breath sounds equal bilaterally. No accessory muscle use. GASTROINTESTINAL: Abdomen soft, non-tender, nondistended. MUSCULOSKELETAL: No cyanosis, or edema. BACK: Nontender without obvious deformity. No CVA tenderness. Data Data Last Documented VS Vital Signs Date Time Temp Pulse Resp B/P (MAP) Pulse Ox O2 Delivery O2 Flow Rate FiO2 10/10/17 23:21 104 18 96 Room Air 10/10/17 22:28 98.6 10/10/17 21:23 120/72 (88) Orders Orders Influenzae A/B Antigen (10/10/17 21:45) Chest, Pa & Lat (10/10/17 ) Acetaminophen (Tylenol) (10/10/17 21:45) Ed Discharge Order (10/10/17 23:34) Azithromycin (Zithromax) (10/10/17 23:45) MDM Medical Decision Making Medical Screen Exam Complete: Yes Emergency Medical Condition: Yes Medical Record Reviewed: Yes Interpretation(s) Influenza A/B antigen: Negative Last Impressions Chest X-Ray 10/10/17 0000 Signed Impressions: Service Date/Time: September 22:04 - CONCLUSION: Mild left base consolidation. Scattered bilateral pulmonary nodules. Jim Kahn MD Vital Signs Date Time Temp Pulse Resp B/P (MAP) Pulse Ox O2 Delivery O2 Flow Rate FiO2 10/10/17 22:28 98.6 10/10/17 21:23 99.7 102 20 120/72 (88) 96 Differential Diagnosis Influenza, viral syndrome, pneumonia, sepsis Narrative Course Patient given acetaminophen times one dose specimen collected for influenza and chest x-ray ordered Left base atelectasis/infiltrate possible lung consolidation patient reports feels clinically improved is aware of the test is negative states that she has chronic crackles to the left base which is not new; review of patient's previous pulmonary CTA nodules no infiltrate or effusion reported patient with mild emphysema changes. Patient feels well desirous of being discharged to home has taken azithromycin in the past without adverse reaction is afebrile here is encouraged to increase fluid hydration denies any pleuritic chest pain or shortness of breath or hemoptysis. Will provide patient with prescription of Z-Sudarshan and albuterol inhaler is encouraged to keep follow-up appointment with primary care provider and oncologist times one day tomorrow. Patient encouraged to use acetaminophen as needed for fever 100.4F or greater is encouraged to monitor temperature every 4 hours with thermometer. Diagnosis Primary Impression: Bronchitis Additional Impression: Lung consolidation Referrals: Primary Care Physician 1 day Patient Instructions: General Instructions Additional Instructions: Increase fluid hydration Follow-up with her primary care provider and oncologist times one day Monitor temperature every 4 hours with thermometer take acetaminophen/Tylenol every 4 hours as needed for fever 100.4F or greater May take ibuprofen/Advil/Motrin 600 mg as often as every 6 hours up to 800 mg as often as every 8 hours as tolerated for fever 100.4F or greater do not take this medication if you're taking Aleve/Naprosyn/naproxen/Anaprox Return to the emergency department for any concerns or change in condition No work times one day Med/Other Pt SpecificInfo: Prescription(s) given Scripts Albuterol 18 GM Inh (Ventolin Hfa 18 GM Inh) 90 Mcg/Act Aer 1-2 PUFF INH Q4-6H Y for WHEEZING, #1 INHALER 0 Refills Prov: Kristin Wolf MD 10/10/17 Azithromycin (Zithromax Z-Sudarshan) 250 Mg Dspk 250 MG PO DIRECTED for Infection, #1 DSPK 0 Refills 500 MG (2 tabs) day 1, then 1 tab days 2-5. Prov: Kristin Wolf MD 10/10/17 Disposition: 01 DISCHARGE HOME Condition: Stable Kristin Wolf MD Oct 10, 2017 23:33
[2017-10-10] MEDS ORDERED: AZITHROMYCIN 250 MG TAB PO ONE (23:45)
== END 2017-10-10 23:49 | disposition home or self-care (01) ==
LOC: PHEFT 21:15
DX: J40 Bronchitis, not specified as acute or chronic (principal); J18.1 Lobar pneumonia, unspecified organism; C19 Malignant neoplasm of rectosigmoid junction; C78.7 Secondary malignant neoplasm of liver and intrahepatic bile duct; C78.00 Secondary malignant neoplasm of unspecified lung; F90.9 Attention-deficit hyperactivity disorder, unspecified type; F32.9 Major depressive disorder, single episode, unspecified; I10 Essential (primary) hypertension; K58.9 Irritable bowel syndrome, unspecified; K21.9 Gastro-esophageal reflux disease without esophagitis; I42.9 Cardiomyopathy, unspecified; Z86.718 Personal history of other venous thrombosis and embolism; Z87.891 Personal history of nicotine dependence
CPT/HCPCS: 71046; 87804; 99284

== ENCOUNTER 2017-10-23 09:00 | Emergency (ER) | payer MEDICAID ==
[~2017-10-23] VITALS: Ht 170.2 cm; Wt 135.0 kg
[~2017-10-23 09:00] MED LIST changes: +TRIF0.27 PO; +VENTAER INH; +ZITHTAB PO
[2017-10-23 09:16] VITALS: BP 130/85; PULSE 93; RESP 16; TEMP 98.2; O2SAT 98
--- NOTE | 2017-10-23 09:38 | PD ---
HPI Chief Complaint: Cold / Flu Symptoms Time Seen by Provider: 09:21 Travel History International Travel<30 days: No Contact w/Intl Traveler<30days: No Traveled to known affect area: No History of Present Illness HPI This 57-year-old female was here 2 weeks ago. At that time she was diagnosed with bronchitis. She is feeling any better. She has had nausea and lightheadedness. She has persistent cough. She has a history of stage IV lung cancer which is metastatic to her liver and lungs. She is concerned that one month ago she ate a couple of mouthfuls of water for. She has had colon cancer since May 2015. She currently takes Lonsurf daily. She has been on that since July. She is currently not taking the lonsurf. She took it for 5 days and now is off for 16. PFSH Past Medical History Hx Anticoagulant Therapy: No ADHD: Yes Arthritis: Yes Asthma: No Autoimmune Disease: No Blood Disorders: No Anxiety: Yes Depression: Yes Heart Rhythm Problems: No Cancer: Yes (COLON WITH METS TO LIVER AND LUNGS) Cardiomyopathy: Yes Cardiovascular Problems: Yes (HTN ) High Cholesterol: No Chemotherapy: No Chest Pain: No Congestive Heart Failure: No COPD: No Cerebrovascular Accident: No Diabetes: No Diminished Hearing: No Diverticulitis: Yes Deep Vein Thrombosis: Yes (RIGHT LEG) Endocrine: No Gastrointestinal Disorders: Yes (Irritable bowel syndrome, COLON RESECTION,) GERD: Yes Glaucoma: No Genitourinary: Yes (tumor on liver) Headaches: Yes Hepatitis: No Hiatal Hernia: No Heparin Induced Thrombocytopen: No Hypertension: Yes Immune Disorder: No Implanted Vascular Access Dvce: No Kidney Stones: No Medical other: No Musculoskeletal: Yes (THORACIC, LUMBAR DISCOMFORT, JOINT PAIN) Neurologic: No Psychiatric: Yes Reproductive: No Respiratory: No Immunizations Current: No Migraines: Yes Myocardial Infarction: No Radiation Therapy: Yes Renal Failure: No Seizures: No Sickle Cell Disease: No Sleep Apnea: No Ulcer: No PNEUMOCCOCAL Vaccine (Year): 2 ?: Not Menopausal: Yes : 9 Para: 5 Miscarriage: 1 : 3 Tubal Ligation: Yes Past Surgical History Abdominal Surgery: Yes (COLON RESECTION -REMOVE TUMOR WITH REPAIR HERNIA) AICD: No Appendectomy: No Arteriovenous Shunt: No Body Medical Devices: RIGHT IMPLANTED PORT Cardiac Surgery: No Cholecystectomy: Yes Ear Surgery: No Endocrine Surgery: No Eye Surgery: No Genitourinary Surgery: No Gynecologic Surgery: Yes (D&C, tubal ligation) Insulin Pump: No Joint Replacement: No Neurologic Surgery: No Oral Surgery: No Pacemaker: No Thoracic Surgery: Yes (RIGHT IMPLANTED PORT- RIGHT UPPER CHEST , removed Jul 23, ROMOVAL OF PORT) Other Surgery: Yes (LIVER RESECTION) Social History Alcohol Use: No Tobacco Use: No (QUIT 06/2015) Substance Use: No Allergies-Medications (Allergen,Severity, Reaction): Coded Allergies: hydromorphone (Unverified Allergy, Severe, Rash, 10/23/17) latex (Unverified Allergy, Severe, ITCHY,RASH, 10/23/17) morphine (Unverified Allergy, Severe, Rash, 10/23/17) strawberry (Unverified Allergy, Severe, HIVES, 10/23/17) erythromycin base (Unverified Allergy, Mild, RASH, 10/23/17) hydrocodone (Verified Allergy, Unknown, 10/23/17) oxycodone (Verified Allergy, Unknown, 10/23/17) Uncoded Allergies: CARD BOARD (Allergy, Severe, CONTACT DERMATITIS, 05/08/16) Reported Meds & Prescriptions Reported Meds & Active Scripts Active Ventolin Hfa 18 GM Inh (Albuterol Sulfate) 90 Mcg/Act Aer 1-2 Puff INH Q4-6H PRN Pantoprazole (Pantoprazole Sodium) 40 Mg Tab 40 Mg PO DAILY Reported Lonsurf (Trifluridine-Tipiracil) 20-8.19 Mg Tab 1 Tab PO BID Lisinopril 10 Mg Tab 10 Mg PO DAILY Review of Systems General / Constitutional: Positive: Chills Eyes: No: Diploplia, Blurred Vision HENT: No: Headaches Cardiovascular: No: Chest Pain or Discomfort, Palpitations Respiratory: Positive: Cough Gastrointestinal: Positive: Nausea, Diarrhea, Abdominal Pain, No: Vomiting Genitourinary: No: Frequency, Dysuria Musculoskeletal: No: Myalgias Skin: No Rash, No Itching Physical Exam Narrative GENERAL: Well-developed female SKIN: Focused skin assessment warm/dry. HEAD: Atraumatic. Normocephalic. EYES: Pupils equal and round. No scleral icterus. No injection or drainage. ENT: No nasal bleeding or discharge. Mucous membranes pink and moist. NECK: Trachea midline. No JVD. CARDIOVASCULAR: Regular rate and rhythm. No murmur appreciated. RESPIRATORY: No accessory muscle use. Clear to auscultation. Breath sounds equal bilaterally. GASTROINTESTINAL: Abdomen soft, non-tender, nondistended. Hepatic and splenic margins not palpable. MUSCULOSKELETAL: No obvious deformities. No clubbing. No cyanosis. No edema. NEUROLOGICAL: Awake and alert. No obvious cranial nerve deficits. Motor grossly within normal limits. Normal speech. PSYCHIATRIC: Appropriate mood and affect; insight and judgment normal. Data Data Last Documented VS Vital Signs Date Time Temp Pulse Resp B/P (MAP) Pulse Ox O2 Delivery O2 Flow Rate FiO2 10/23/17 09:22 16 98 Room Air 10/23/17 09:16 98.2 93 130/85 (100) Orders Orders Complete Blood Count With Diff (10/23/17 09:32) Comprehensive Metabolic Panel (10/23/17 09:32) Chest, Single Ap (10/23/17 09:32) Sodium Chlor 0.9% 1000 Ml Inj (Ns 1000 M (10/23/17 09:45) Urinalysis - C+S If Indicated (10/23/17 09:32) Ondansetron Inj (Zofran Inj) (10/23/17 09:45) Albuterol-Ipratropium Neb (Duoneb Neb) (10/23/17 09:39) Potassium Chloride (Kcl) (10/23/17 10:15) Labs Laboratory Tests Test 10/23/17 09:30 White Blood Count 1.9 TH/MM3 Red Blood Count 2.80 MIL/MM3 Hemoglobin 9.8 GM/DL Hematocrit 28.3 % Mean Corpuscular Volume 101.3 FL Mean Corpuscular Hemoglobin 35.1 PG Mean Corpuscular Hemoglobin Concent 34.6 % Red Cell Distribution Width 17.1 % Platelet Count 75 TH/MM3 Mean Platelet Volume 7.9 FL Neutrophils (%) (Auto) 54.5 % Lymphocytes (%) (Auto) 33.8 % Monocytes (%) (Auto) 8.7 % Eosinophils (%) (Auto) 2.4 % Basophils (%) (Auto) 0.6 % Neutrophils # (Auto) 1.1 TH/MM3 Lymphocytes # (Auto) 0.6 TH/MM3 Monocytes # (Auto) 0.2 TH/MM3 Eosinophils # (Auto) 0.0 TH/MM3 Basophils # (Auto) 0.0 TH/MM3 CBC Comment AUTO DIFF Blood Urea Nitrogen 14 MG/DL Creatinine 0.93 MG/DL Random Glucose 123 MG/DL Total Protein 7.4 GM/DL Albumin 3.0 GM/DL Calcium Level 8.7 MG/DL Alkaline Phosphatase 140 U/L Aspartate Amino Transf (AST/SGOT) 19 U/L Alanine Aminotransferase (ALT/SGPT) 21 U/L Total Bilirubin 1.0 MG/DL Sodium Level 139 MEQ/L Potassium Level 3.1 MEQ/L Chloride Level 107 MEQ/L Carbon Dioxide Level 25.4 MEQ/L Anion Gap 7 MEQ/L Estimat Glomerular Filtration Rate 63 ML/MIN MDM Medical Decision Making Medical Screen Exam Complete: Yes Emergency Medical Condition: Yes Medical Record Reviewed: Yes Differential Diagnosis Differential includes progressive carcinoma, viral syndrome, adverse medication reaction Narrative Course Her hemoglobin is 9.8 with a white count of 1.9. Platelet count 75,000. These values are all lower than they were most recent blood work. Her total neutrophil count is 1.1. I have reviewed the side effects of lonserf and a lot of her abdominal complaints may well be secondary to this. I have advised that she needs to follow-up with her oncologist. She is not taking the medication right now and I told her she should not take it until she sees the oncologist Diagnosis Primary Impression: Adverse drug reaction Additional Instructions: Follow-up with the oncologist before resuming the lonserf Disposition: 01 DISCHARGE HOME Condition: Stable Raul Altman MD Oct 23, 2017 09:38
[2017-10-23] MEDS ORDERED: RESP: ALBUTEROL 2.5 MG/IPRATROPIUM 0.5 MG NEB (SCH) ONE (09:39)
[2017-10-23] MEDS ORDERED: ONDANSETRON HCL 4 MG/2 ML VIAL IV PUSH ONE (09:45)
[2017-10-23] MEDS ORDERED: SODIUM CHLOR 0.9% 1000 ML INJ 1,000 ML IV ONE (09:45)
[2017-10-23 09:53] LABS: AUTOMATED NEUTROPHIL # 1.1 TH/MM3 (1.8-7.7); BASOPHIL % 0.6 % (0.0-2.0); EOSINOPHIL % 2.4 % (0.0-4.0); HEMATOCRIT 28.3 % (35.0-46.0); HEMOGLOBIN 9.8 GM/DL (11.6-15.3); LYMPH % 33.8 % (9.0-44.0); LYMPHOCYTE # 0.6 TH/MM3 (1.0-4.8); MEAN CELL VOLUME 101.3 FL (80.0-100.0); MEAN CORPUSCULAR HEMOGLOBIN 35.1 PG (27.0-34.0); MEAN CORPUSCULAR HGB CONC 34.6 % (32.0-36.0); MEAN PLATELET VOLUME 7.9 FL (7.0-11.0); MONO % 8.7 % (0.0-8.0); MONOCYTE # 0.2 TH/MM3 (0-0.9); NEUT % 54.5 % (16.0-70.0); PLATELET COUNT 75 TH/MM3 (150-450); RED CELL DISTRIBUTION WIDTH 17.1 % (11.6-17.2); WHITE BLOOD COUNT 1.9 TH/MM3 (4.0-11.0)
[2017-10-23 09:59] LABS: CHLORIDE 107 MEQ/L (98-107); SODIUM (NA) 139 MEQ/L (136-145)
[2017-10-23 10:02] LABS: CALCIUM 8.7 MG/DL (8.5-10.1)
[2017-10-23 10:03] LABS: BICARBONATE 25.4 MEQ/L (21.0-32.0); BLOOD UREA NITROGEN 14 MG/DL (7-18); GLUCOSE,RANDOM 123 MG/DL (74-106)
--- NOTE | 2017-10-23 10:04 | RADRPT ---
EXAM DATE/TIME: 10/23/2017 09:45 [facility] COMPARISON: CHEST SINGLE AP, January 18, 2017, 16:39. INDICATIONS : Cough, nausea, lightheadedness x 2 weeks. Was seen here 2 weeks ago & diagnonsed with bronchitis per patient. MEDICAL HISTORY : Arthritis. Deep venous thrombosis. Gastroesophageal reflux disease. Carcinoma, colon with mets to liver & lung. Hypertension. IBS. Radiation therapy. Cardiomyopathy. Diverticulitis. SURGICAL HISTORY : Tubal ligation. section. Cholecystectomy. Colon resection. liver resection, hernia, D&C. [place] ENCOUNTER: [facility] ACUITY: 2 weeks PAIN SCORE: 0/10 LOCATION: chest FINDINGS: A single view of the chest demonstrates the lungs to be symmetrically aerated without evidence of mas s, infiltrate or effusion. [id number] on the left. Tip in the superior vena cava brachiocephalic vein junction. The cardiomediastinal contours are unremarkable. Osseous structures are intact. CONCLUSION: Negative for acute process. Ham Anguiano MD FACR on October 23, 2017 at 10:01 Board Certified Radiologist. This report was verified electronically.
[2017-10-23 10:06] LABS: ALT (GPT) 21 U/L (10-53); AST (GOT) 19 U/L (15-37); CREATININE 0.93 MG/DL (0.50-1.00); GLOMERULAR FILTRATION RATE 63 ML/MIN (>89)
[2017-10-23 10:08] LABS: TOTAL PROTEIN 7.4 GM/DL (6.4-8.2)
[2017-10-23 10:09] LABS: ALKALINE PHOSPHATASE 140 U/L (45-117)
[2017-10-23] MEDS ORDERED: POTASSIUM CHLORIDE 10 MEQ CONTROLLED RELEASE TAB PO ONE (10:15)
[2017-10-23 10:34] VITALS: BP 129/83
[2017-10-23 11:29] LABS: BANDS 5 % (0-6); LYMPHOCYTES 34 % (9-44); METAMYELOCYTES 1 % (0-1); MONOCYTES 4 % (0-8); NEUTROPHIL # MANUAL DIFF 1.1 TH/MM3 (1.8-7.7); POLYS (SEG NEUTROPHILS) 53 % (16-70)
== END 2017-10-23 10:41 | disposition home or self-care (01) ==
LOC: PHED 09:00
DX: R11.0 Nausea (principal); T50.995A Adverse effect of other drugs, medicaments and biological substances, initial encounter; C18.9 Malignant neoplasm of colon, unspecified; C78.7 Secondary malignant neoplasm of liver and intrahepatic bile duct; C78.00 Secondary malignant neoplasm of unspecified lung; I10 Essential (primary) hypertension; I42.9 Cardiomyopathy, unspecified; F32.9 Major depressive disorder, single episode, unspecified; M19.90 Unspecified osteoarthritis, unspecified site; Z86.718 Personal history of other venous thrombosis and embolism; Z88.5 Allergy status to narcotic agent; Z88.1 Allergy status to other antibiotic agents; Z79.899 Other long term (current) drug therapy
CPT/HCPCS: 71045; 80053; 85007; 85027; 96361; 96374; 99284; J2405; J7030

== ENCOUNTER 2017-10-28 13:48 | Day surgery (SDC) | payer MEDICAID ==
[~2017-10-28 13:48] MED LIST changes: -ZITHTAB PO
[2017-10-28 14:30] VITALS: BP 139/77; PULSE 93; RESP 20; TEMP 98.5; O2SAT 98
--- NOTE | 2017-10-29 16:43 | RADRPT ---
EXAM DATE/TIME: 10/28/2017 14:14 [facility] COMPARISON : INDICATIONS : Consultation for Liver mass ablation OBJECTIVE: Temperature: 98.5 Heart Rate: 93 Blood Pressure: 144/91 Respiratory: 16 Oximetry: 96 PNEUMONIA VACCINE: HISTORY OF PRESENT ILLNESS: 57-year-old female diagnosed with metastatic colon CA approximately 20 half years ago status post par tial colectomy with apparent resection of one of 2 known hepatic metastases. The she was subsequently treated with FOLFOX chemotherapy which apparently she tolerated poorly and subsequently switched as Xeloda completed in August 2016. She subsequently underwent surgical resection of 2 small lesions i n segments 7 and 8 of the liver with positive resection margins. Subsequently, she refused further ch emotherapy because of side effects with followup demonstrating 3 new hepatic metastases with new smal l lung nodules. She subsequently completed SBRT radiation to dose of 5000 cGy in June 2017. Follow up imaging demonstrates interval progression of disease in the liver with new peripheral 1.2 cm mass in segment 8, interval enlargement of medial segment 2 mass to 3.2 cm from 2.6 cm and interval enlarg ement of dominant segment 5 mass measuring 6 cm in comparison to 5.3 cm on prior exam. Periportal frederick nopathy is stable. There is a new anterior peritoneal nodule which measures 16 mm. Incidentally, inte rval progression of limited pulmonary metastasis was also noted. PAST MEDICAL HISTORY : 1. Hypertension. Colon cancer PAST SURGICAL HISTORY : colon resection (2014) liver resection (2015) tubal ligation (2003) cholecystectomy (2002) SOCIAL HISTORY : No alcohol use. Tobacco;former. DilaudidHydrocodone Morphine Latex Erythromycin 1. lisinopril 10 mg mg q.d. 2. pantoprozol 40 mg q.d. 3. advil (pain) lonsurf (chemo) PHYSICAL EXAMINATION: General: No acute distress Abdomen: Soft, nontender nondistended IMAGING STUDIES: Multiple prior CT and MRI exams where reviewed. Specifically, MRI examination dated 05/24/2017 and 09/25 of the abdomen and CT examination of the chest dated 03/08/2017 and 09/26/2017. Again, there are multiple hepatic masses, limited periportal adenopathy and pulmonary nodules with interval progressio n of disease in the liver, as above. The pulmonary nodules have also increased although are small in number and ranging in size up to 1.5 cm. ASSESSMENT: 57-year-old female with progressive metastatic disease primarily to the liver and limited although pr ogressive metastatic disease to the lungs. There is one sub-2 cm segment 8 mass with interval enlarge ment of segment 5 and segment 2 masses as well as a new sub-2 cm anterior peritoneal nodule. Patient is highly functioning and highly motivated to pursue additional treatment. Extensive conversation regarding locoregional treatment particularly in light of potentially progress juan metastatic disease in the lungs. She is reportedly being considered for new chemotherapy which ma y help with the pulmonary metastases. It is reasonable to pursue a locoregional ablative approach to debulk the hepatic metastatic disease. Depending on response and evolution of pulmonary metastases, m ay followup with radio embolization of the liver. Extensive discussion of risks and benefits of normal ablation. All questions were answered PLAN: Tentative plan for microwave ablation. TIME SPENT: 20 minutes Augustine Brown MD on October 29, 2017 at 13:22 Board Certified Radiologist. This report was verified electronically.
== END 2017-10-28 15:30 | disposition home or self-care (01) ==
LOC: HROP 13:48 → HRIP 13:53 → HROP 15:30
PROVIDERS: ATTEND Radiology Radiation Oncology
DX: C18.9 Malignant neoplasm of colon, unspecified (principal)
CPT/HCPCS: 99213; G0463

== ENCOUNTER 2017-11-19 07:03 | Day surgery (SDC) | payer MEDICAID, OTHER ==
[~2017-11-19] VITALS: Ht 170.2 cm; Wt 141.8 kg
[2017-11-19 07:39] VITALS: BP 140/91; PULSE 125; RESP 20; TEMP 97.4; O2SAT 94
[2017-11-19] MEDS ORDERED: INSULIN HUMAN REGULAR 1,000 UNITS/10 ML VIAL SQ PRN (07:45)
[2017-11-19] MEDS ORDERED: POVIDONE IODINE 5% (ANTISEPSIS KIT) 4 APPLICATIONS EACH NARE PRN (07:45)
[2017-11-19] MEDS ORDERED: SODIUM CHLORID 0.9% 500 ML IV PRN (07:45)
[2017-11-19] MEDS ORDERED: CHLORHEXIDINE GLUCONATE 2 % 1 PACK (2 CLOTHS) TOPICAL PRN (07:45)
[2017-11-19] MEDS ORDERED: LACTATED RINGER'S 1000 ML IV PRN (07:45)
[2017-11-19] MEDS ORDERED: METOPROLOL TARTRATE 25 MG TAB PO PRN (07:45)
[2017-11-19] MEDS ORDERED: ceFAZolin 2 GM PREMIX 50 ML IV SCH (07:45)
[2017-11-19] MEDS ORDERED: SODIUM CHLOR 0.9% 1000 ML INJ 1,000 ML IV SCH (08:00)
[2017-11-19] MEDS ORDERED: ALEV220T14 PO (08:00)
[2017-11-19] MEDS ORDERED: LIDOCAINE HCL 1% 20 ML VIAL ONE (08:28)
[2017-11-19 08:37] LABS: AUTOMATED NEUTROPHIL # 5.6 TH/MM3 (1.8-7.7); BASOPHIL # 0.1 TH/MM3 (0-0.2); BASOPHIL % 1.2 % (0.0-2.0); EOSINOPHIL # 0.2 TH/MM3 (0-0.4); EOSINOPHIL % 2.3 % (0.0-4.0); HEMATOCRIT 30.6 % (35.0-46.0); HEMOGLOBIN 10.3 GM/DL (11.6-15.3); LYMPH % 10.6 % (9.0-44.0); LYMPHOCYTE # 0.7 TH/MM3 (1.0-4.8); MEAN CELL VOLUME 104.7 FL (80.0-100.0); MEAN CORPUSCULAR HEMOGLOBIN 35.3 PG (27.0-34.0); MEAN CORPUSCULAR HGB CONC 33.8 % (32.0-36.0); MEAN PLATELET VOLUME 7.7 FL (7.0-11.0); MONO % 6.9 % (0.0-8.0); MONOCYTE # 0.5 TH/MM3 (0-0.9); PLATELET COUNT 142 TH/MM3 (150-450); RED BLOOD COUNT 2.92 MIL/MM3 (4.00-5.30); RED CELL DISTRIBUTION WIDTH 15.7 % (11.6-17.2)
[2017-11-19 08:53] LABS: BICARBONATE 27.6 MEQ/L (21.0-32.0); CALCIUM 8.5 MG/DL (8.5-10.1); CREATININE 1.26 MG/DL (0.50-1.00)
== END 2017-11-19 09:30 | disposition home or self-care (01) ==
LOC: HRAD 07:03 → HRIP 07:04 → HRAD 09:30
PROVIDERS: ATTEND Radiology Radiation Oncology
DX: C18.9 Malignant neoplasm of colon, unspecified (principal); C78.7 Secondary malignant neoplasm of liver and intrahepatic bile duct; C78.00 Secondary malignant neoplasm of unspecified lung
CPT/HCPCS: 80048; 85025; 85610; 85730; 99211; G0463

== ENCOUNTER 2017-12-05 08:47 | Day surgery (SDC) | payer OTHER ==
[2017-12-05] VITALS (11 sets, daily range): BP systolic 91–131; BP diastolic 63–83; PULSE 89–134; RESP 18–24; TEMP 96.6–98.7; O2SAT 91–97
[~2017-12-05] VITALS: Ht 170.2 cm; Wt 125.9 kg
[~2017-12-05 08:47] MED LIST changes: +ALEV220T14 PO; -TRIF0.27 PO; -VENTAER INH
[2017-12-05] MEDS ORDERED: IOHEXOL 350 MG/ML 10 ML VIAL (for RAD DIAG) IVCONTRAST ONE ×2 (08:48)
[2017-12-05 09:37] LABS: AUTOMATED NEUTROPHIL # 11.1 TH/MM3 (1.8-7.7); BASOPHIL # 0.1 TH/MM3 (0-0.2); BASOPHIL % 0.5 % (0.0-2.0); EOSINOPHIL # 0.2 TH/MM3 (0-0.4); EOSINOPHIL % 1.6 % (0.0-4.0); HEMATOCRIT 37.1 % (35.0-46.0); HEMOGLOBIN 12.5 GM/DL (11.6-15.3); LYMPH % 6.9 % (9.0-44.0); LYMPHOCYTE # 0.9 TH/MM3 (1.0-4.8); MEAN CELL VOLUME 100.9 FL (80.0-100.0); MEAN CORPUSCULAR HGB CONC 33.7 % (32.0-36.0); MEAN PLATELET VOLUME 7.6 FL (7.0-11.0); MONO % 5.3 % (0.0-8.0); MONOCYTE # 0.7 TH/MM3 (0-0.9); NEUT % 85.7 % (16.0-70.0); PLATELET COUNT 242 TH/MM3 (150-450); RED BLOOD COUNT 3.68 MIL/MM3 (4.00-5.30); RED CELL DISTRIBUTION WIDTH 15.4 % (11.6-17.2)
[2017-12-05] MEDS ORDERED: LACTATED RINGER'S 1000 ML IV PRN (09:45)
[2017-12-05] MEDS ORDERED: SODIUM CHLORID 0.9% 500 ML IV PRN (09:45)
[2017-12-05] MEDS ORDERED: METOPROLOL TARTRATE 25 MG TAB PO PRN (09:45)
[2017-12-05] MEDS ORDERED: SODIUM CHLOR 0.9% 1000 ML INJ 1,000 ML IV SCH ×2 (09:45→10:15)
[2017-12-05] MEDS ORDERED: CHLORHEXIDINE GLUCONATE 2 % 1 PACK (2 CLOTHS) TOPICAL PRN (09:45)
[2017-12-05] MEDS ORDERED: POVIDONE IODINE 5% (ANTISEPSIS KIT) 4 APPLICATIONS EACH NARE PRN (09:45)
[2017-12-05 09:48] LABS: PROTHROMBIN TIME - PATIENT 10.2 SEC (9.8-11.6)
[2017-12-05 09:49] LABS: BICARBONATE 24.3 MEQ/L (21.0-32.0); CALCIUM 9.2 MG/DL (8.5-10.1); CREATININE 1.19 MG/DL (0.50-1.00)
[2017-12-05] MEDS ORDERED: ceFAZolin 2 GM PREMIX 50 ML IV SCH (10:15)
--- NOTE | 2017-12-05 11:00 | RADRPT ---
EXAM DATE/TIME: 12/05/2017 10:33 [facility] COMPARISON: CT PULMONARY ANGIOGRAM, September 26, 2017, 17:47. INDICATIONS : Shortness of breath. IV CONTRAST: 96 cc Omnipaque 350 (iohexol) IV RADIATION DOSE: 23.45 CTDIvol (mGy) MEDICAL HISTORY : Carcinoma, colon. Metastatic, liver. Hypertension. SURGICAL HISTORY : None. ENCOUNTER: Initial ACUITY: 1 day PAIN SCALE: 0/10 LOCATION: chest TECHNIQUE: Volumetric scanning of the chest was performed using a pulmonary embolism protocol MIP images were re constructed. Using automated exposure control and adjustment of the mA and/or kV according to patien t size, radiation dose was kept as low as reasonably achievable to obtain optimal diagnostic quality images. DICOM format image data is available electronically for review and comparison. Follow-up recommendations for detected pulmonary nodules are based at a minimum on nodule size and pa tient risk factors according to Fleischner Society Guidelines. FINDINGS: PULMONARY ARTERIES: No filling defects are seen in the pulmonary arteries through the segmental level. Main pulmonary art joesph measures 3.4 cm. LUNGS: Redemonstration of multiple bilateral pulmonary nodules which have increased in size since prior exam . For reference, a nodule in the right lung base previously measured 1.6 cm now measures 2.3 cm. Maira cent nodules in the left lung base previous measuring 1.5 and 1.4 cm now measure 2.0 and 1.5 cm. Biba silar airspace consolidation likely reflects compressive atelectasis. PLEURAE: Moderate bilateral pleural effusions new since prior exam. MEDIASTINUM: No significant new mediastinal adenopathy. Heart is grossly unremarkable without significant pericard ial effusion. MUSCULOSKELETAL: Within normal limits for patient age. MISCELLANEOUS: The visualized upper abdominal organs demonstrate no acute abnormality. CONCLUSION: 1. Augustine Brown MD on December 05, 2017 at 10:39 Board Certified Radiologist. This report was verified electronically.
[2017-12-05] MEDS ORDERED: ACETAMINOPHEN/HYDROcodone 325 MG/5 MG TAB PO ONE ×3 (13:15→17:00)
[2017-12-05] MEDS ORDERED: MIDAZOLAM HCL 2 MG/2 ML VIAL ONE (14:46)
[2017-12-05] MEDS ORDERED: ONDANSETRON HCL 4 MG/2 ML VIAL ONE (14:49)
[2017-12-05] MEDS ORDERED: LIDOCAINE HCL 1% 20 ML VIAL ONE (15:43)
--- NOTE | 2017-12-05 16:03 | RADRPT ---
EXAM DATE/TIME: 12/05/2017 15:32 [facility] COMPARISON: No previous studies available for comparison. INDICATIONS : Status post thoracentesis. MEDICAL HISTORY : Arthritis. Deep venous thrombosis. Gastroesophageal reflux disease. Carcinoma, colon with mets to radha er & lung. Hypertension. IBS. Radiation therapy. Cardiomyopathy. Diverticulitis. SURGICAL HISTORY : Tubal ligation. section. Cholecystectomy. Colon resection. liver resection, hernia, D&C. Inf [place]. ENCOUNTER: Subsequent ACUITY: 1 day PAIN SCORE: 2/10 LOCATION: chest FINDINGS: A single frontal expiratory view of the chest was performed. The lungs are symmetrically aerated wit h minimal patchy airspace disease in the left lower lung zone. No evidence of pneumothorax. Mediast inal structures are in the midline. The cardio-mediastinal contours and bronchopulmonary markings are unremarkable for an expiratory exam . Osseous structures are intact. CONCLUSION: 1. No pneumothorax following bilateral thoracentesis. 2. Mild airspace disease in the left lower lung zone, likely compressive atelectasis combined with kn own lower lobe pulmonary nodules. Augustine Brown MD on December 05, 2017 at 15:59 Board Certified Radiologist. This report was verified electronically.
--- NOTE | 2017-12-05 16:23 | RADRPT ---
EXAM DATE/TIME: 12/05/2017 14:59 [facility] COMPARISON: No previous studies available for comparison. EXTERNAL COMPARISON: [facility], PET/CT TUMOR , Mar 29 2017, July 27, 2016, August 01, 2015. INDICATIONS : Right pleural effusion. MEDICAL HISTORY : Diverticullitis. Irritable bowel syndrome. Arthritis. Colon cancer with mets to liver and lungs. Thyr oid disease. Migraines. Syncope. Cardiomyopathy. HTN. DVT, right leg. SOB. Dyspnea. GERD. Sciatica. D epression. ADHD. Anxiety. SURGICAL HISTORY : Cholecystectomy Tubal ligation. Right implanted port- right upper chest. Removal of port. Colon rese ction. Hernia repair. D&C. Liver resection. Radiation therapy. ENCOUNTER: Initial ACUITY: 2 days PAIN SCORE: 3/10 LOCATION: Right chest FLUID: Total volume of 450 cc of clear, yellow fluid was removed. Fluid was discarded. Thoracentesis was therapeutic only. TECHNIQUE: 1. Ultrasound guidance for thoracentesis. 2. Thoracentesis. The risks, benefits, and alternatives to ultrasound guided thoracentesis were explained to the patien t in lay simple terms, including the risk of bleeding and infection. Written and verbal informed con sent was obtained. Appropriate area for thoracentesis was marked under ultrasound guidance with the patient in the uprig ht position. Overlying skin was prepped and draped in the usual sterile fashion and with local anest hetic, a dermatotomy was made with an 11 blade scalpel. A 6 [place] thoracentesis catheter was placed in the pleural space and fluid was removed. Catheter was then removed and a sterile dressing applie d. There were no immediate complications. The patient tolerated the procedure well and the left the ultrasound suite in stable condition. Chest radiograph is to be obtained. CONCLUSION: Uncomplicated ultrasound guided thoracentesis. Augustine Brown MD on December 05, 2017 at 16:21 Board Certified Radiologist. This report was verified electronically.
--- NOTE | 2017-12-05 16:23 | RADRPT ---
EXAM DATE/TIME: 12/05/2017 15:12 [facility] COMPARISON: No previous studies available for comparison. EXTERNAL COMPARISON: [facility], PET/CT TUMOR, Mar 29 2017, July 27, 2016, August 01, 2015. INDICATIONS : Left pleural effusion. MEDICAL HISTORY : Diverticullitis. Irritable bowel syndrome. Arthritis. Colon cancer with mets to liver and lungs. Thyr oid disease. Migraines. Syncope. Cardiomyopathy. HTN. DVT, right leg. SOB. Dyspnea. GERD. Sciatica. D epression. ADHD. Anxiety. SURGICAL HISTORY : Cholecystectomy Tubal ligation. Right implanted port- right upper chest. Removal of port. Colon rese ction. Hernia repair. D&C. Liver resection. Radiation therapy. ENCOUNTER: Initial ACUITY: 2 days PAIN SCORE: 3/10 LOCATION: Left chest FLUID: Total volume of 550 cc of clear, yellow fluid was removed. Fluid was discarded. Thoracentesis was therapeutic only. TECHNIQUE: 1. Ultrasound guidance for thoracentesis. 2. Thoracentesis. The risks, benefits, and alternatives to ultrasound guided thoracentesis were explained to the patien t in lay simple terms, including the risk of bleeding and infection. Written and verbal informed con sent was obtained. Appropriate area for thoracentesis was marked under ultrasound guidance with the patient in the uprig ht position. Overlying skin was prepped and draped in the usual sterile fashion and with local anest hetic, a dermatotomy was made with an 11 blade scalpel. A 6 [place] thoracentesis catheter was placed in the pleural space and fluid was removed. Catheter was then removed and a sterile dressing applie d. There were no immediate complications. The patient tolerated the procedure well and the left the ultrasound suite in stable condition. Chest radiograph is to be obtained. CONCLUSION: Uncomplicated ultrasound guided thoracentesis. Augustine Brown MD on December 05, 2017 at 16:21 Board Certified Radiologist. This report was verified electronically.
[2017-12-05] MEDS ORDERED: POTASSIUM CHLORIDE 20 MEQ CONTROLLED RELEASE TAB PO ONE (18:15)
--- NOTE | 2017-12-05 18:18 | HHI.HP ---
HPI Service [facility] Primary Care Physician Sophia Bryan MD Admission Diagnosis Intractable pain Diagnoses: (1) Metastatic colon cancer to liver (2) Pleural effusion (3) Intractable pain (4) Abnormal CT of the abdomen Chief Complaint: Shoulder pain Travel History International Travel<30 Days: No Contact w/Intl Traveler <30 Da: No Traveled to Known Affected Are: No History of Present Illness 57-year-old female with PMH significant for metastatic colon cancer with mets to liver, HTN, colitis, hemorrhoids, anxiety, and depression. She presents to IR department for microwave ablation of liver mass. Patient however did not have ablation done due to shortness of breath, and tachycardia. She underwent CT of the chest which revealed moderate bilateral pleural effusions. Patient underwent bilateral thoracentesis by . She has also experienced a significant amount of pain in the decision has been made to admit patient due to intractable pain. Patient is seen and examined in PACU with family at bedside. She reports that her pain is across the back of bilateral shoulders left worse than right. She describes pain as stabbing and feeling as if there is a knife cutting her. Pain is worsened with movement, she also reports pain is worse with deep breaths. At home she was taking Aleve for pain as needed however due to planned procedure has been unable to take this for the past several days. She denies any dizziness, lightheadedness, fevers, chills, nausea , vomiting, or diarrhea. She also denies any abdominal pain or discomfort after receiving pain medication. She voices concerns over new CT scan findings and would like to know if microwave ablation of the liver will still be done. Review of Systems Except as stated in HPI: all other systems reviewed are Neg Past Family Social History Past Medical History Metastatic colon cancer with metastases to liver Hypertension Anxiety and depression Hemorrhoids Colitis Migraines Obesity Past Surgical History Cholecystectomy Implant - Port, [place], 10/2016 Biopsy in 2014 Colon ca in 2014 Colon resection in 2014 Colonoscopy in 2014 - 05/09/16 Hernia repair in 2014 Tubal ligation in 2003 Cholecystectomy in 2002 Reported Medications Reported Meds & Active Scripts Active Pantoprazole (Pantoprazole Sodium) 40 Mg Tab 40 Mg PO DAILY Reported Aleve Arthritis (Naproxen Sodium) 220 Mg Tab 220 Mg PO DAILY Lisinopril 10 Mg Tab 10 Mg PO DAILY Allergies: Coded Allergies: hydromorphone (Unverified Allergy, Severe, Rash, 12/05/17) latex (Unverified Allergy, Severe, ITCHY,RASH, 12/05/17) morphine (Unverified Allergy, Severe, Rash, 12/05/17) strawberry (Unverified Allergy, Severe, HIVES, 12/05/17) erythromycin base (Unverified Allergy, Mild, RASH, 12/05/17) oxycodone (Verified Allergy, Unknown, 12/05/17) HEADACHE NAUSEA Uncoded Allergies: CARD BOARD (Allergy, Severe, CONTACT DERMATITIS, 05/08/16) Physical Exam Vital Signs Vital Signs Date Time Temp Pulse Resp B/P (MAP) Pulse Ox O2 Delivery O2 Flow Rate FiO2 12/05/17 16:30 95 24 111/72 (85) 97 12/05/17 16:15 96 24 111/73 (86) 97 12/05/17 16:00 97 24 97/73 (81) 96 12/05/17 15:45 97.6 101 18 91/68 (76) 96 12/05/17 11:08 Blow By 4.00 Nasal Cannula 12/05/17 10:55 98.7 105 18 131/83 (99) 91 12/05/17 09:20 93 Room Air 12/05/17 09:08 97.9 134 20 125/80 (95) 93 Physical Exam GENERAL: This is an obese female, well-developed patient. SKIN: No rashes, ecchymoses or lesions. Cool and dry. HEAD: Atraumatic. Normocephalic. EYES: Pupils equal round and reactive. Extraocular motions intact. No scleral icterus. No injection or drainage. ENT: Nose without bleeding, purulent drainage or septal hematoma. Throat without erythema, tonsillar hypertrophy or exudate. Uvula midline. Airway patent. NECK: Trachea midline. No JVD Supple, nontender. CARDIOVASCULAR: Regular rate and rhythm without murmurs, gallops, or rubs. RESPIRATORY: Clear to auscultation. Breath sounds equal bilaterally. No wheezes , rales, or rhonchi. GASTROINTESTINAL: Abdomen soft, non-tender, nondistended. No guarding. MUSCULOSKELETAL: Extremities without clubbing, cyanosis, or edema. No joint tenderness, effusion, or edema noted. No calf tenderness. NEUROLOGICAL: Awake and alert. Cranial nerves II through XII intact. Motor and sensory grossly within normal limits. Moves all extremities spontaneously. Upper extremity strength limited secondary to pain. Normal speech. Laboratory Laboratory Tests Test 12/05/17 09:20 White Blood Count 13.0 Red Blood Count 3.68 Hemoglobin 12.5 Hematocrit 37.1 Mean Corpuscular Volume 100.9 Mean Corpuscular Hemoglobin 34.0 Mean Corpuscular Hemoglobin Concent 33.7 Red Cell Distribution Width 15.4 Platelet Count 242 Mean Platelet Volume 7.6 Neutrophils (%) (Auto) 85.7 Lymphocytes (%) (Auto) 6.9 Monocytes (%) (Auto) 5.3 Eosinophils (%) (Auto) 1.6 Basophils (%) (Auto) 0.5 Neutrophils # (Auto) 11.1 Lymphocytes # (Auto) 0.9 Monocytes # (Auto) 0.7 Eosinophils # (Auto) 0.2 Basophils # (Auto) 0.1 CBC Comment DIFF FINAL Differential Comment Prothrombin Time 10.2 Prothromb Time International Ratio 1.0 Activated Partial Thromboplast Time 24.0 Blood Urea Nitrogen 10 Creatinine 1.19 Random Glucose 127 Calcium Level 9.2 Sodium Level 138 Potassium Level 3.4 Chloride Level 103 Carbon Dioxide Level 24.3 Anion Gap 11 Estimat Glomerular Filtration Rate 47 Result Diagram: 12/05/1720 12/05/1720 Imaging Last Impressions Thoracentesis Ultrasound 12/05/17 0000 Signed Impressions: Service Date/Time: November 14:59 - CONCLUSION: Uncomplicated ultrasound guided thoracentesis. Augustine Brown MD Chest X-Ray 12/05/17 0000 Signed Impressions: Service Date/Time: November 15:32 - CONCLUSION: 1. No pneumothorax following bilateral thoracentesis. 2. Mild airspace disease in the left lower lung zone, likely compressive atelectasis combined with known lower lobe pulmonary nodules. Augustine Brown MD CT Angiography 12/05/17 0000 Signed Impressions: Service Date/Time: November 10:33 - CONCLUSION: 1. MD Bert Dee VTE Risk Assessment Iggyrini VTE Risk Assessment: No/Low Risk (score <= 1) Caprini Risk Assessment Model Point Value = 1 Point Value = 2 Point Value = 3 Point Value = 5 Age 41-60 Minor surgery BMI > 25 kg/m2 Swollen legs Varicose veins or History of unexplained or recurrent spontaneous Oral contraceptives or hormone replacement Sepsis (< 1 month) Serious lung disease, including pneumonia (< 1 month) Abnormal pulmonary function Acute myocardial infarction Congestive heart failure (< 1 month) History of inflammatory bowel disease Medical patient at bed rest Age 61-74 Arthroscopic surgery Major open surgery (> 45 min) Laparoscopic surgery (> 45 min) Malignancy Confined to bed (> 72 hours) Immobilizing plaster cast Central venous access Age >= 75 History of VTE Family history of VTE Factor V Leiden Prothrombin [id number] Lupus anticoagulant Anticardiolipin antibodies Elevated serum homocysteine Heparin-induced thrombocytopenia Other congenital or acquired thrombophilia Stroke (< 1 month) Elective arthroplasty Hip, pelvis, or leg fracture Acute spinal cord injury (< 1 month) Prophylaxis Regimen Total Risk Factor Score Risk Level Prophylaxis Regimen 0-1 Low Early ambulation 2 Moderate Order ONE of the following: *Sequential Compression Device (SCD) *Heparin 5000 units SQ BID 3-4 Higher Order ONE of the following medications: *Heparin 5000 units SQ TID *Enoxaparin/Lovenox 40 mg SQ daily (WT < 150 kg, CrCl > 30 mL/min) *Enoxaparin/Lovenox 30 mg SQ daily (WT < 150 kg, CrCl > 10-29 mL/min) *Enoxaparin/Lovenox 30 mg SQ BID (WT < 150 kg, CrCl > 30 mL/min) AND/OR *Sequential Compression Device (SCD) 5 or more Highest Order ONE of the following medications: *Heparin 5000 units SQ TID (Preferred with Epidurals) *Enoxaparin/Lovenox 40 mg SQ daily (WT < 150 kg, CrCl > 30 mL/min) *Enoxaparin/Lovenox 30 mg SQ daily (WT < 150 kg, CrCl > 10-29 mL/min) *Enoxaparin/Lovenox 30 mg SQ BID (WT < 150 kg, CrCl > 30 mL/min) AND *Sequential Compression Device (SCD) Assessment and Plan Assessment and Plan 57-year-old female with past medical history of metastatic colon cancer with metastases to the liver who is undergone colon resection, as well as liver resections due to lesions. Patient also underwent chemotherapy which ended in August 2016. She has been under the care of and and was supposed to have migraine liver ablation today through interventional radiology, however due to tachycardia, intractable pain, and respiratory distress this was not done. Patient underwent CT scan which revealed pleural effusions which were subsequently drained by . Patient will be admitted for intractable pain. Metastatic colon cancer to liver Intractable pain -Planned for microwave ablation of liver lesion, not done today secondary to tachycardia and respiratory distress. -CT scan performed revealed remonstration of multiple bilateral pulmonary nodules which have increased in size since prior exam. Basilar airspace consolidation likely reflects compressive atelectasis, moderate bilateral pleural effusions which were new since prior exam. There is no new mediastinal adenopathy. -Underwent bilateral thoracentesis -Patient will be admitted to MedSur unit -Consult placed for Dr. Ventura -P.o. [place] 10 mg every 4 hours as needed for pain Respiratory distress Tachycardia - Likely related to pain -Following thoracentesis, heart rate in the 90s -On nasal cannula 2 L O2 saturation 97%. Hypertension -Blood pressure stable, will hold off on restarting lisinopril -Continue monitoring blood pressure and restarting lisinopril if needed Hypokalemia -Potassium 3.4, p.o. replacement GERD -Continue pantoprazole DVT prophylaxis-SCDs Discussed with Physician Certification 2 Midnight Certification Type: Admission for Inpatient Services Order for Inpatient Services The services are ordered in accordance with Medicare regulations or non- Medicare payer requirements, as applicable. In the case of services not specified as inpatient-only, they are appropriately provided as inpatient services in accordance with the 2-midnight benchmark. Estimated LOS (days): 3 days is the estimated time the patient will need to remain in the hospital, assuming treatment plan goals are met and no additional complications. Post-Hospital Plan: Home Maryan Cee Dec 05, 2017 18:18
[2017-12-05] MEDS ORDERED: ONDANSETRON HCL 4 MG/2 ML VIAL IV PUSH PRN (18:45)
[2017-12-05] MEDS: ACETAMINOPHEN/HYDROcodone 325 MG/10 MG TAB PO PRN (21:01)
[2017-12-06] VITALS: BP 112/67; PULSE 92; RESP 18; TEMP 96.8; O2SAT 97
[2017-12-06] MEDS: ACETAMINOPHEN/HYDROcodone 325 MG/10 MG TAB PO PRN ×5 (04:03→21:21)
[2017-12-06 08:00] VITALS: BP 105/67; PULSE 85; RESP 19; TEMP 96.7; O2SAT 94
[2017-12-06] MEDS: PANTOPRAZOLE SOD 40 MG DELAYED RELEASE TAB PO SCH ×2 (08:22→09:58)
--- NOTE | 2017-12-06 10:47 | HHI.PR ---
Subjective Remarks Follow-up for shortness of breathing secondary to bilateral pleural effusion Patient continues to complain of shortness of breathing. She also stated that yesterday night she abruptly lost left arm strength after the thoracentesis. She stated that she cannot move her left arm. I asked to be secondary to pain she stated no. Initially patient was not able to move her arm but as I continue to encourage her she was able to move it more. She denies any other focal neurological deficits. Denies any headache or visual changes. She has no other complaints. Her nurses at the bedside during the interview. Objective Vitals Vital Signs Date Time Temp Pulse Resp B/P (MAP) Pulse Ox O2 Delivery O2 Flow Rate FiO2 12/06/17 08:00 96.7 85 19 105/67 (80) 94 12/06/17 06:00 18 12/06/17 00:00 96.8 92 18 112/67 (82) 97 12/05/17 21:00 Nasal Cannula 3.00 12/05/17 20:00 96.6 98 18 116/63 (80) 96 12/05/17 19:48 97 Nasal Cannula 2.00 12/05/17 18:00 89 22 122/75 (91) 97 12/05/17 17:30 92 22 119/79 (92) 97 12/05/17 17:00 93 22 124/73 (90) 97 12/05/17 16:30 95 24 111/72 (85) 97 12/05/17 16:15 96 24 111/73 (86) 97 12/05/17 16:00 97 24 97/73 (81) 96 12/05/17 15:45 97.6 101 18 91/68 (76) 96 12/05/17 11:08 Blow By 4.00 Nasal Cannula 12/05/17 10:55 98.7 105 18 131/83 (99) 91 I/O 12/05/17 12/05/17 12/05/17 12/06/17 12/06/17 12/06/17 07:00 15:00 23:00 07:00 15:00 23:00 Intake Total 240 ml Balance 240 ml Intake Oral 240 ml # Voids 1 Result Diagram: 12/05/1791912/05/17919 Objective Remarks GENERAL: In no acute distress. SKIN: Warm and dry. HEAD: Normocephalic. EYES: No scleral icterus. No injection or drainage. NECK: Supple, trachea midline. No JVD or lymphadenopathy. CARDIOVASCULAR: Regular rate and rhythm without murmurs, gallops, or rubs. RESPIRATORY: Breath sounds equal bilaterally. No accessory muscle use. GASTROINTESTINAL: Abdomen soft, nondistended, nontender. No peritoneal signs. Neuro: AAO X 3. Cranial nerves II through XII intact. 5 out of 5 upper and lower extremity strength. Initially patient would not lift her left arm but that improved when I encourage her to lift her arm. No pain with any range of motion. Medications and IVs Current Medications Sodium Chloride 1,000 ml @ 30 mls/hr Q24H IV ; Start 12/05/17 at 09:45; Stop at 09:44; Status DC Lactated Ringer's 1,000 ml @ 30 mls/hr Q24H PRN IV SEE LABEL COMMENTS; Start at 09:45; Stop 12/08/17 at 09:44 Sodium Chloride 500 ml @ 30 mls/hr [id number] PRN IV SEE LABEL COMMENTS; Start at 09:45; Stop 12/08/17 at 09:44 Metoprolol Tartrate (Lopressor) 25 mg [employer]TE[employer] PRN PO SEE LABEL COMMENTS; Start 12/05/17 at 09:45; Stop 12/08/17 at 09:44 Povidone Iodine (Betadine 5% Antisepsis Kit) 1 applic [employer]TE[employer] PRN EACH NARE SEE LABEL COMMENTS; Start 12/05/17 at 09:45; Stop 12/08/17 at 09:44 Chlorhexidine Gluconate (Chlorhexidine 2% Cloth) 3 pack [employer]TE[employer] PRN TOPICAL SEE LABEL COMMENTS; Start 12/05/17 at 09:45; Stop 12/08/17 at 09:44 Sodium Chloride 1,000 ml @ 30 mls/hr Q24H IV Last administered on 12/05/17at 21 :02; Start 12/05/17 at 10:15; Stop 12/06/17 at 10:14; Status DC Cefazolin Sodium/ Dextrose 50 ml @ 100 mls/hr [employer] IV ; Start 12/05/17 at 10:15; Stop 12/08/17 at 10:14 Iohexol (Omnipaque 350 Inj) 96 ml STK-MED ONCE IVCONTRAST Last administered on 12/05/17 08:48; Start 12/05/17 at 08:48; Stop 12/05/17 at 10:36; Status DC Acetaminophen/ Hydrocodone Bitart ([place] 5-325 Mg) 1 tab NOW ONCE PO Last administered on 12/05/17at 13:15; Start 12/05/17 at 13:15; Stop 12/05/17 at 13:16 ; Status DC Acetaminophen/ Hydrocodone Bitart ([place] 5-325 Mg) 1 tab NOW ONCE PO ; Start 12/05/17 at 14:00; Stop 12/05/17 at 14:00; Status DC Fentanyl Citrate (fentaNYL INJ) 100 mcg STK-MED ONCE .ROUTE Last administered on 12/05/17 14:46; Start 12/05/17 at 14:46; Stop 12/05/17 at 14:47; Status DC Midazolam HCl (Versed Inj) 2 mg STK-MED ONCE .ROUTE Last administered on at 14:46; Start 12/05/17 at 14:46; Stop 12/05/17 at 14:47; Status DC Ondansetron HCl (Zofran Inj) 4 mg STK-MED ONCE .ROUTE Last administered on 12/05 14:49; Start 12/05/17 at 14:49; Stop 12/05/17 at 14:50; Status DC Lidocaine HCl (Xylocaine 1% Inj) 40 ml STK-MED ONCE .ROUTE Last administered on 12/05/17 15:17; Start 12/05/17 at 15:43; Stop 12/05/17 at 15:44; Status DC Acetaminophen/ Hydrocodone Bitart ([place] 5-325 Mg) 1 tab NOW ONCE PO Last administered on 12/05/17at 17:00; Start 12/05/17 at 17:00; Stop 12/05/17 at 17:01 ; Status DC Acetaminophen/ Hydrocodone Bitart ([place] 10-325 Mg) 1 tab Q4H PRN PO PAIN SCALE 5 TO 10 Last administered on 12/06/17at 12:12; Start 12/05/17 at 18:15 Potassium Chloride (KCl) 20 meq ONCE ONCE PO Last administered on 12/05/17at 21 :02; Start 12/05/17 at 18:15; Stop 12/05/17 at 18:22; Status DC Pantoprazole Sodium (Protonix) 40 mg DAILY PO Last administered on 12/06/17at 09 :58; Start 12/06/17 at 09:00 Ondansetron HCl (Zofran Inj) 4 mg Q6HR PRN IV PUSH NAUSEA OR VOMITING Last administered on 12/06/17at 10:45; Start 12/05/17 at 18:45 Lorazepam (Ativan Inj) 1 mg ONCE ONCE IV PUSH ; Start 12/06/17 at 12:00; Stop 12/06/17 at 12:08; Status DC A/P Problem List: (1) Metastatic colon cancer to liver ICD Code: C18.9 - Malignant neoplasm of colon, unspecified; C78.7 - Secondary malignant neoplasm of liver and intrahepatic bile duct (2) Pleural effusion ICD Code: J90 - Pleural effusion, not elsewhere classified (3) Intractable pain ICD Code: R52 - Pain, unspecified Status: Acute (4) Abnormal CT of the abdomen ICD Code: R93.5 - Abnormal CT of the abdomen Status: Acute Assessment and Plan 57-year-old female with past medical history of metastatic colon cancer with metastases to the liver who is undergone colon resection, as well as liver resections due to lesions. Patient also underwent chemotherapy which ended in August 2016. She has been under the care of and and was supposed to have migraine liver ablation today through interventional radiology, however due to tachycardia, intractable pain, and respiratory distress this was not done. Patient underwent CT scan which revealed pleural effusions which were subsequently drained by . Patient will be admitted for intractable pain. Metastatic colon cancer to liver Intractable pain -Planned for microwave ablation of liver lesion, which was not done secondary to tachycardia and respiratory distress. -CT scan performed revealed remonstration of multiple bilateral pulmonary nodules which have increased in size since prior exam. Basilar airspace consolidation likely reflects compressive atelectasis, moderate bilateral pleural effusions which were new since prior exam. There is no new mediastinal adenopathy. -Underwent bilateral thoracentesis -Consult placed for Dr. Ventura pending recommendations. -P.o. [place] 10 mg every 4 hours as needed for pain Left sided arm weakness -Patient seems to be a poor historian. She stated that she had left-sided weakness but is able to lift her arm. Patient stated that this was abrupt and has been improving. Will get MRI of the brain to rule out for CVA. Bilateral pleural effusion -Status post thoracentesis. Respiratory distress -See treatment as above. -Following thoracentesis, heart rate in the 90s -On nasal cannula 2 L O2 saturation 97%. Hypertension -Blood pressure stable, will hold off on restarting lisinopril -Continue monitoring blood pressure and restarting lisinopril if needed Hypokalemia -Potassium 3.4, p.o. replacement GERD -Continue pantoprazole DVT prophylaxis-SCDs Discussed with Jessica Francisco MD Dec 06, 2017 10:47
[2017-12-06 12:00] VITALS: BP 127/74; PULSE 91; RESP 18; TEMP 97.7; O2SAT 94
[2017-12-06] MEDS ORDERED: LORazepam 2 MG/ML VIAL IV PUSH ONE (12:00)
[2017-12-06 16:00] VITALS: BP 117/65; PULSE 85; RESP 18; TEMP 97.6; O2SAT 95
--- NOTE | 2017-12-06 16:54 | RADRPT ---
EXAM DATE/TIME: 12/06/2017 16:07 [facility] COMPARISON: No previous studies available for comparison. INDICATIONS : Left arm weakness. MEDICAL HISTORY : Carcinoma, colon. Metastatic disease. Hypertension. SURGICAL HISTORY : Cholecystectomy. Colon resection. Tubal ligation. liver resection ENCOUNTER: Subsequent ACUITY: 2 day PAIN SCORE: 7/10 LOCATION: Left SHOULDER TECHNIQUE: Multiplanar, multisequence MRI of the brain was performed without contrast. FINDINGS: CEREBRUM: The ventricles are normal for age. No evidence of midline shift, mass lesion, hemorrhage or acute in farction. No extraaxial fluid collections are seen. The pituitary gland and suprasellar cistern are normal in configuration. WHITE MATTER: Moderate periventricular white matter changes are noted. POSTERIOR FOSSA: The cerebellum and brainstem are intact. The 4th ventricle is midline. The cerebellopontine angle is unremarkable. The cerebellar tonsils are normal in position. DIFFUSION IMAGING: No focal areas of restricted diffusion are seen. No evidence of acute infarction. EXTRACRANIAL: Large empty sella is noted with ballooning of the sella. CONCLUSION: Large empty sella otherwise negative for acute ischemic event. Ham Anguiano MD FACR on December 06, 2017 at 16:50 Board Certified Radiologist. This report was verified electronically.
--- NOTE | 2017-12-06 19:03 | PD.CONS ---
History of Present Illness Service Oncology Consult Requested By Primary team Reason for Consult Metastatic colon cancer Primary Care Physician Sophia Bryan MD Diagnoses: History of Present Illness Ms. Flores is a 57 year old lady with a history of metastatic colon adenocarcinoma who has previously received aggressive treatment under the direction of Dr. Francisco, Dr. Rosas and Dr. Mendoza. She originally presented in 2014 with abdominal pain and colonoscopy showed obstructing lesion at 80 cm. She underwent hemicolectomy in June 2015. At the time of surgery to liver lesions were noted. These were biopsied and returned as mucinous adenocarcinoma. These lesions were not noted on the preoperative CT scan. She was subsequently started on FOLFOX chemotherapy and poorly tolerated this medicine she also had progression of disease as well she was switched to Xeloda and was on this from January - August 2016. She underwent resection of the liver lesions in September 2016. The liver lesions extended to the resection margin. She was subsequently treated her with FOLFIRI and azalia. This kept her disease under control however she had poor tolerance to this medication regimen. At that point in time she developed disease in her lung. She has received radiation therapy to her liver lesions. She has also been treated Lonsurf with progression of disease on this medication. This was stopped in late September 2017. She presented for ablation procedure which was reschedule due to patient being on NSAID. She was found to be tachypnic and tachycaric and found to have pleural effusion. She is s/p thoracentesis with improvement in breathing. Patient reports that she is having left shoulder pain since procedure. She also has anxiety and depression associated with her diagnosis. Review of Systems Constitutional: COMPLAINS OF: Fatigue Musculoskeletal: COMPLAINS OF: Joint pain, Muscle aches Psychiatric: COMPLAINS OF: Anxiety, Depression Past Family Social History Allergies: Coded Allergies: hydromorphone (Unverified Allergy, Severe, Rash, 12/05/17) latex (Unverified Allergy, Severe, ITCHY,RASH, 12/05/17) morphine (Unverified Allergy, Severe, Rash, 12/05/17) strawberry (Unverified Allergy, Severe, HIVES, 12/05/17) erythromycin base (Unverified Allergy, Mild, RASH, 12/05/17) oxycodone (Verified Allergy, Unknown, 12/05/17) HEADACHE NAUSEA Uncoded Allergies: CARD BOARD (Allergy, Severe, CONTACT DERMATITIS, 05/08/16) Past Medical History Metastatic colon cancer Obesity Past Surgical History Cholecystectomy Implant - [place], [facility], 10/2016 Biopsy in 2014 Colon ca in 2014 Colon resection in 2014 Colonoscopy in 2014 - 05/09/16 Hernia repair in 2014 Tubal ligation in 2003 Cholecystectomy in 2002 Family History DM, lung cancer, heart disease Social History 5 children Good support from 3 adult children Physical Exam Vital Signs Vital Signs Date Time Temp Pulse Resp B/P (MAP) Pulse Ox O2 Delivery O2 Flow Rate FiO2 12/06/17 16:00 97.6 85 18 117/65 (82) 95 12/06/17 12:00 97.7 91 18 127/74 (91) 94 12/06/17 08:00 96.7 85 19 105/67 (80) 94 12/06/17 06:00 18 12/06/17 00:00 96.8 92 18 112/67 (82) 97 12/05/17 21:00 Nasal Cannula 3.00 12/05/17 20:00 96.6 98 18 116/63 (80) 96 12/05/17 19:48 97 Nasal Cannula 2.00 Physical Exam GENERAL: obese lady resting in bed, tearful SKIN: No rashes, ecchymoses or lesions. HEAD: Atraumatic. Normocephalic. No temporal or scalp tenderness. EYES: Pupils equal round and reactive. Extraocular motions intact. No scleral icterus. No injection or drainage. ENT: Nose without bleeding, purulent drainage or septal hematoma. Throat without erythema, tonsillar hypertrophy or exudate. Uvula midline. Airway patent. NECK: Trachea midline. No JVD or lymphadenopathy. Supple, nontender, no meningeal signs. CARDIOVASCULAR: Regular rate and rhythm without murmurs, gallops, or rubs. RESPIRATORY: Clear to auscultation. Breath sounds equal bilaterally. No wheezes , rales, or rhonchi. GASTROINTESTINAL: Abdomen soft, non-tender, nondistended. No hepato-splenomegaly , or palpable masses. No guarding. MUSCULOSKELETAL: Extremities without clubbing, cyanosis, or edema. No joint tenderness, effusion, or edema noted. No calf tenderness. Negative Homans sign bilaterally. NEUROLOGICAL: Awake and alert. Cranial nerves II through XII intact. Motor and sensory grossly within normal limits. Five out of 5 muscle strength in all muscle groups. Normal speech. Result Diagram: 12/05/1791912/05/17919 Assessment and Plan Assessment and Plan 1. Metastatic colon adenocarcinoma: Metastatic diseae to the liver and lungs. Progression of disease in the lungs. s/p multiple prior lines of treatment with progression of disease. She was due for debulking ablation of disease in liver. This is on hold due to progression of disease in the lungs. Long discussion with patient and with son the phone. Discussed that she has had multiple prior lines of therapy with progression of disease and poor tolerance to chemotherapy. Remaining options for systemic therapy include regorafenib vs irinotecan/azalia. Patient reports that she would like to continue to be as aggressive as possible. Discussed that in order to start on chemotherapy she would need to have improvement in performance status. Will plan to initiate therapy in the outpatient setting. Will also order foundation one testing in the outpatient setting. Also discussed with patient that she has had metastatic colon cancer for many years with minimal treatment lines remaining. She is not a candidate for immune therapy. Will continue to be aggressive with treatment provided performance status allows. Encouraged patient to have affairs in order as she is nearing the end of her disease course. Kiarra Ventura MD Dec 06, 2017 19:02
[2017-12-06 20:00] VITALS: BP 127/68; PULSE 88; RESP 18; TEMP 98; O2SAT 91
[2017-12-07] VITALS: BP 126/68; PULSE 92; RESP 17; TEMP 97.3; O2SAT 91
[2017-12-07 04:00] VITALS: BP 130/62; PULSE 91; RESP 17; TEMP 97.4; O2SAT 94
[2017-12-07] MEDS: ACETAMINOPHEN/HYDROcodone 325 MG/10 MG TAB PO PRN ×4 (04:15→18:26)
[2017-12-07 07:33] LABS: HEMATOCRIT 33.7 % (35.0-46.0); HEMOGLOBIN 11.1 GM/DL (11.6-15.3); MEAN CELL VOLUME 102.2 FL (80.0-100.0); MEAN CORPUSCULAR HEMOGLOBIN 33.7 PG (27.0-34.0); MEAN PLATELET VOLUME 7.7 FL (7.0-11.0); PLATELET COUNT 187 TH/MM3 (150-450); RED BLOOD COUNT 3.29 MIL/MM3 (4.00-5.30); RED CELL DISTRIBUTION WIDTH 15.6 % (11.6-17.2); WHITE BLOOD COUNT 6.3 TH/MM3 (4.0-11.0)
[2017-12-07 07:53] LABS: CALCIUM 8.4 MG/DL (8.5-10.1); CREATININE 0.85 MG/DL (0.50-1.00)
[2017-12-07 08:00] VITALS: BP 118/60; PULSE 90; RESP 17; TEMP 98.1; O2SAT 90
[2017-12-07] MEDS: PANTOPRAZOLE SOD 40 MG DELAYED RELEASE TAB PO SCH (08:36)
--- NOTE | 2017-12-07 09:56 | PD.ONC.PN ---
Subjective Subjective Remarks Afebrile Patient reports her breathing is much improved However she has some nausea today Feeling overwhelmed and scared for her future Objective Data Date Time Temp Pulse Resp B/P (MAP) Pulse Ox O2 Delivery O2 Flow Rate FiO2 12/07/17 08:00 98.1 90 17 118/60 (79) 90 12/07/17 04:00 97.4 91 17 130/62 (84) 94 12/07/17 00:00 97.3 92 17 126/68 (87) 91 12/06/17 21:23 91 Nasal Cannula 1.00 12/06/17 20:00 98.0 88 18 127/68 (87) 91 12/06/17 16:00 97.6 85 18 117/65 (82) 95 12/06/17 12:00 97.7 91 18 127/74 (91) 94 12/07/17 12/07/17 12/07/17 07:00 15:00 23:00 Intake Total 100 ml Balance 100 ml Result Diagram: 12/07/17 0707 12/07/17 0707 Laboratory Results Laboratory Tests Test 12/07/17 07:07 White Blood Count 6.3 TH/MM3 Red Blood Count 3.29 MIL/MM3 Hemoglobin 11.1 GM/DL Hematocrit 33.7 % Mean Corpuscular Volume 102.2 FL Mean Corpuscular Hemoglobin 33.7 PG Mean Corpuscular Hemoglobin Concent 33.0 % Red Cell Distribution Width 15.6 % Platelet Count 187 TH/MM3 Mean Platelet Volume 7.7 FL Blood Urea Nitrogen 11 MG/DL Creatinine 0.85 MG/DL Random Glucose 88 MG/DL Calcium Level 8.4 MG/DL Sodium Level 141 MEQ/L Potassium Level 3.6 MEQ/L Chloride Level 106 MEQ/L Carbon Dioxide Level 28.0 MEQ/L Anion Gap 7 MEQ/L Estimat Glomerular Filtration Rate 69 ML/MIN Administered Medications Medications (Trade) Dose Ordered Sig/Lana Route PRN Reason Start Time Stop Time Status Last Admin Dose Admin Acetaminophen/ Hydrocodone Bitart ([place] 10-325 Mg) 1 tab Q4H PRN PO PAIN SCALE 5 TO 10 12/05/17 18:15 12/07/17 08:39 Pantoprazole Sodium (Protonix) 40 mg DAILY PO 12/06/17 09:00 12/07/17 08:36 Ondansetron HCl (Zofran Inj) 4 mg Q6HR PRN IV PUSH NAUSEA OR VOMITING 12/05/17 18:45 12/06/17 10:45 Objective Remarks GENERAL: Obese tearful middle-aged female resting in bed in no obvious distress SKIN: Warm and dry. HEAD: Normocephalic. EYES: No injection or drainage. NECK: Supple, trachea midline. CARDIOVASCULAR: Regular rate and rhythm without murmurs. RESPIRATORY: Breath sounds equal bilaterally. No accessory muscle use. GASTROINTESTINAL: Abdomen soft, non-tender, nondistended. EXTREMITIES: No cyanosis, or edema. MUSCULOSKELETAL: Adequate muscle tone. NEUROLOGICAL: No obvious focal deficit. Awake, alert, and oriented x3. Assessment/Plan Problem List: (1) Metastatic colorectal cancer ICD Codes: C78.5 - Secondary malignant neoplasm of large intestine and rectum Status: Chronic Plan: --Patient has metastatic disease to liver and lung --Patient will need improvement in performance status prior to future chemotherapy --Will have physical therapy see her --The patient has been instructed to get her affairs in order due to the advancement of her disease Patient originally was diagnosed with colorectal cancer in the fall 2014. She underwent hemicolectomy in June 2015 and liver lesions were noted at that time. The patient has progressed on multiple lines of therapy. Most recently she was treated with Lonsurf and this was stopped in September 2017 after she was noted to have progression. She originally presented for an ablation procedure, however this had to be deferred because she was on NSAIDs. However when she presented for the procedure she was found to be tachypneic and tachycardic and was found to have a pleural effusion and was admitted for this reason. (2) Pleural effusion ICD Codes: J90 - Pleural effusion, not elsewhere classified Plan: --550 mL's was removed on 12/05 --Likely due to metastatic disease to liver Assessment 57-year-old female with history of metastatic colorectal cancer admitted with shortness of breath Plan 1. Consult physical therapy to evaluate and treat 2. Future chemotherapy will be discussed outpatient after performance status improves 3. Supportive care Attending Statement The exam, history, and the medical decision-making described in the above note were completed with the assistance of the mid-level provider. I reviewed and agree with the findings presented. I attest that I had a [id number] encounter with the patient on the same day, and personally performed and documented my assessment and findings in the medical record. Long discussion with patient and adult son Gurjit on the telephone. She has been treated with multiple prior lines of chemotherapy with both progression of disease and poor tolerance to therapy. She has most recently been on Lonsurf with progression of disease. Discussed that further treatment options include regorafenib vs irinotecan azalia. She has previously been treated with FOLFIRI. It appears from past documentation she received 5 cycles of this therapy with poor tolerance and this was stopped. Scans obtained after she had been of this regimen for several weeks showed small lung nodule. Feel that it would be reasonable in a patient who desires aggressive treatment with limited options to retry this drug. Another option would be regorafenib an modest improvement in PFS (1.9 vs 1.7 months) and OS (6.4 vs 5.0 months.) If we are able to get good control over her disease would consider further local therapy. Discussed that we are nearing the end of therapeutic options. She has progressed on 5FU/Xeloda, FOLFOX, Lonsurf, azalia. She is not a candidate for nivolumab/pembrolizumab as her tumor is POP. She is not a candidate for cetuximab/panitumumab as she is KRAS WT. Discussed above with patient and son. Discussed that we are nearing the end of treatment options. They wish to also try alternative regimens for including CBD oil. They have seen a medical marijuana physician in this area. This is a difficult and unfortunate situation in a young patient with an incurable disease. Flavia Freitas Dec 07, 2017 09:56 Kiarra Ventura MD Dec 07, 2017 11:26
[2017-12-07] MEDS ORDERED: HYDR-3583 PO (10:37)
[2017-12-07 11:22] VITALS: O2SAT 87
[2017-12-07 12:00] VITALS: BP 136/77; PULSE 91; RESP 17; TEMP 97.1; O2SAT 100
[2017-12-07] MEDS ORDERED: OXYGENDME NAS.CANULA (13:13)
[2017-12-07] MEDS ORDERED: DIATRIZOATE MEGLUM/DIATRIZOATE SOD 9 ML CUP PO ONE (14:00)
--- NOTE | 2017-12-07 14:35 | HHI.DCPOC ---
Discharge Care Plan Diagnosis: (1) Respiratory failure with hypoxia (2) Metastatic colorectal cancer (3) Pleural effusion Goals to Promote Your Health * To prevent worsening of your condition and complications * To maintain your health at the optimal level Directions to Meet Your Goals Take your medications as prescribed Follow your dietary instruction Follow activity as directed Keep your appointments as scheduled Take your immunizations and boosters as scheduled If your symptoms worsen call your PCP, if no PCP go to Urgent Care Center or Emergency Room Smoking is Dangerous to Your Health. Avoid second hand smoke Call the 24-hour hour crisis hotline for domestic abuse at Jessica Amaya MD Dec 07, 2017 14:35
--- NOTE | 2017-12-07 14:36 | HHI.DS ---
Discharge Summary Admission Date 12/05/2017 Discharge Date: Dec 07, 2017 Admitting Diagnosis Intractable pain (1) Metastatic colon cancer to liver ICD Code: C18.9 - Malignant neoplasm of colon, unspecified; C78.7 - Secondary malignant neoplasm of liver and intrahepatic bile duct Diagnosis: Principal (2) Pleural effusion ICD Code: J90 - Pleural effusion, not elsewhere classified Diagnosis: Principal (3) Intractable pain ICD Code: R52 - Pain, unspecified Diagnosis: Secondary Status: Acute (4) Abnormal CT of the abdomen ICD Code: R93.5 - Abnormal CT of the abdomen Diagnosis: Secondary Status: Acute Procedures See hospital course Brief History - From Admission 57-year-old female with PMH significant for metastatic colon cancer with mets to liver, HTN, colitis, hemorrhoids, anxiety, and depression. She presents to IR department for microwave ablation of liver mass. Patient however did not have ablation done due to shortness of breath, and tachycardia. She underwent CT of the chest which revealed moderate bilateral pleural effusions. Patient underwent bilateral thoracentesis by . She has also experienced a significant amount of pain in the decision has been made to admit patient due to intractable pain. Patient is seen and examined in PACU with family at bedside. She reports that her pain is across the back of bilateral shoulders left worse than right. She describes pain as stabbing and feeling as if there is a knife cutting her. Pain is worsened with movement, she also reports pain is worse with deep breaths. At home she was taking Aleve for pain as needed however due to planned procedure has been unable to take this for the past several days. She denies any dizziness, lightheadedness, fevers, chills, nausea , vomiting, or diarrhea. She also denies any abdominal pain or discomfort after receiving pain medication. She voices concerns over new CT scan findings and would like to know if microwave ablation of the liver will still be done. CBC/BMP: 12/07/17 0707 12/07/17 0707 Significant Findings Laboratory Tests Test 12/05/17 09:20 12/07/17 07:07 White Blood Count 13.0 TH/MM3 (4.0-11.0) Red Blood Count 3.68 MIL/MM3 (4.00-5.30) 3.29 MIL/MM3 (4.00-5.30) Mean Corpuscular Volume 100.9 FL (80.0-100.0) 102.2 FL (80.0-100.0) Neutrophils (%) (Auto) 85.7 % (16.0-70.0) Lymphocytes (%) (Auto) 6.9 % (9.0-44.0) Neutrophils # (Auto) 11.1 TH/MM3 (1.8-7.7) Lymphocytes # (Auto) 0.9 TH/MM3 (1.0-4.8) Activated Partial Thromboplast Time 24.0 SEC (24.3-30.1) Creatinine 1.19 MG/DL (0.50-1.00) Random Glucose 127 MG/DL (74-106) Potassium Level 3.4 MEQ/L (3.5-5.1) Estimat Glomerular Filtration Rate 47 ML/MIN (>89) 69 ML/MIN (>89) Hemoglobin 11.1 GM/DL (11.6-15.3) Hematocrit 33.7 % (35.0-46.0) Calcium Level 8.4 MG/DL (8.5-10.1) Imaging Last Impressions Brain MRI 12/06/17 0000 Signed Impressions: Service Date/Time: Wednesday, December 06, 2017 16:07 - CONCLUSION: Large empty sella otherwise negative for acute ischemic event. Ham Anguiano MD FACR Thoracentesis Ultrasound 12/05/17 0000 Signed Impressions: Service Date/Time: November 14:59 - CONCLUSION: Uncomplicated ultrasound guided thoracentesis. Augustine Brown MD Chest X-Ray 12/05/17 0000 Signed Impressions: Service Date/Time: November 15:32 - CONCLUSION: 1. No pneumothorax following bilateral thoracentesis. 2. Mild airspace disease in the left lower lung zone, likely compressive atelectasis combined with known lower lobe pulmonary nodules. Augustine Brown MD CT Angiography 12/05/17 0000 Signed Impressions: Service Date/Time: November 10:33 - CONCLUSION: 1. Augustine Brown MD PE at Discharge GENERAL: In no acute distress and she is not wearing her oxygen. SKIN: Warm and dry. HEAD: Normocephalic. EYES: No scleral icterus. No injection or drainage. NECK: Supple, trachea midline. No JVD or lymphadenopathy. CARDIOVASCULAR: Regular rate and rhythm without murmurs, gallops, or rubs. RESPIRATORY: Breath sounds equal bilaterally. No accessory muscle use. GASTROINTESTINAL: Abdomen soft, nondistended, nontender. No peritoneal signs. Neuro: AAO X 3. Cranial nerves II through XII intact. 5 out of 5 upper and lower extremity strength. Patient has full range of motion of her left arm with pain that seems to be mild at the end of the range of motion. Her strength is also intact bilaterally. Pt update on day of discharge Follow-up for metastatic colon cancer with pleural effusion Patient stated that she still has pain in her left shoulder. She did not complain about this to me yesterday when I asked her if she had pain in her shoulders and she stated that her left arm was weak. Patient stated that she is able to move her arm and with the pain medication shoulder pain is better. She denies any shortness of breathing. Denies any cough. She has no other complaints. I spoke to Dr. Ventura oncologist who stated that patient can be discharged after her CT scan is completed. Dr. Ventura stated that she just needs a new baseline for treatment. Order was placed for a walk test in which patient required oxygen. Discussed case with patient's nurse multiple times throughout the day. Hospital Course 57-year-old female with past medical history of metastatic colon cancer with metastases to the liver who is undergone colon resection, as well as liver resections due to lesions. Patient also underwent chemotherapy which ended in August 2016. She has been under the care of and and was supposed to have migraine liver ablation today through interventional radiology, however due to tachycardia, intractable pain, and respiratory distress this was not done. Patient underwent CT scan which revealed pleural effusions which were subsequently drained by . Patient will be admitted for intractable pain. Metastatic colon cancer to liver Intractable pain -Planned for microwave ablation of liver lesion, which was not done secondary to tachycardia and respiratory distress. -CT scan performed revealed remonstration of multiple bilateral pulmonary nodules which have increased in size since prior exam. Basilar airspace consolidation likely reflects compressive atelectasis, moderate bilateral pleural effusions which were new since prior exam. There is no new mediastinal adenopathy. -Underwent bilateral thoracentesis with drastic improvement in her breathing. - Dr. Ventura consulted and stated that patient has a poor prognosis. Patient wants aggressive treatment but needs to have a better clinical status before chemotherapy can be given. Left sided arm weakness -Patient seems to be a poor historian. She initially said that her left arm was weak and did not complain of pain. MRI of the brain was done which did not showed any CVA. The next day patient stated was more due to shoulder pain that was controlled with pain medication. Most likely secondary to the way patient is sleeping on her shoulder. Since there was no trauma to the area. But weakness resolved quickly. Bilateral pleural effusion -Status post thoracentesis. Most likely secondary to malignancy. See treatment as above. Respiratory distress -See treatment as above. -Following thoracentesis, heart rate in the 90s -On nasal cannula 2 L O2 saturation 97%. Breathing improved drastically after thoracentesis. This was most likely due to metastatic malignancy. Patient had a walk test in which home O2 was recommended. Hypertension -Blood pressure stable off antihypertensive medication. Recommend to DC lisinopril is normal off of antihypertensive medication. Hypokalemia -Potassium 3.4, p.o. replacement GERD -Continue pantoprazole Pt Condition on Discharge: Stable Discharge Disposition: Discharge Home Discharge Time: > 30 minutes Discharge Instructions DIET: Follow Instructions for: Heart Healthy Diet Activities you can perform: Regular-No Restrictions Follow up Referrals: Oncology - 1 Week with Kiarra Ventura MD PCP Follow-up - 1 Week New Medications: Oxygen (O2) (Oxygen (O2)) Device LITER CARRILLO.CANULA CONTINUOUS for Prevent Hypoxemia, #2 Oxygen Concentrator Portable Gaseous 2 L/min via Nasal Canula Continuous For 99 months Hydrocodone/Acetaminophen (Hydrocodone-Acetamin 10-325 mg) 10 Mg-325 Mg Tablet 1 TAB PO Q4H PRN for moderate to severe pain, #20 TAB 0 Refills Continued Medications: Naproxen Sodium (Aleve Arthritis) 220 Mg Tab 220 MG PO DAILY, TAB Pantoprazole (Pantoprazole) 40 Mg Tab 40 MG PO DAILY for GERD, #30 TAB Discontinued Medications: Lisinopril (Lisinopril) 10 Mg Tab 10 MG PO DAILY, #30 TAB 0 Refills Jessica Amaya MD Dec 07, 2017 14:36
[2017-12-07 15:42] LABS: ALBUMIN 2.6 GM/DL (3.4-5.0); DIRECT BILIRUBIN ADULT 0.3 MG/DL (0.0-0.2)
[2017-12-07 15:44] LABS: INDIRECT BILIRUBIN 0.5 MG/DL (0.0-0.8); TOTAL BILIRUBIN ADULT 0.8 MG/DL (0.2-1.0); TOTAL PROTEIN 7.2 GM/DL (6.4-8.2)
[2017-12-07 16:00] VITALS: BP 134/81; PULSE 88; RESP 18; TEMP 97.3; O2SAT 95
--- NOTE | 2017-12-07 18:59 | RADRPT ---
EXAM DATE/TIME: 12/07/2017 18:30 [facility] COMPARISON: CT ABDOMEN & PELVIS W CONTRAST, September 26, 2017, 17:47. INDICATIONS : Colon cancer Evaluate for liver metastases IV CONTRAST: 97 cc Omnipaque 350 (iohexol) IV ORAL CONTRAST: Prescribed oral contrast ingested. RADIATION DOSE: 25.30 CTDIvol (mGy) ; Patient body habitus MEDICAL HISTORY : Cardiovascular disease. Hypertension. Carcinoma, colon.Diverticulitis SURGICAL HISTORY : Cholecystectomy. Colon resection.Tubal ligation. ENCOUNTER: Initial ACUITY: 1 day PAIN SCALE: 0/10 LOCATION: Bilateral abdomen TECHNIQUE: Volumetric scanning of the abdomen and pelvis was performed. Using automated exposure control and ad justment of the mA and/or kV according to patient size, radiation dose was kept as low as reasonably achievable to obtain optimal diagnostic quality images. DICOM format image data is available electro nically for review and comparison. FINDINGS: New small bilateral pleural effusions. Metastatic disease to the liver that is stable. I don't see new lesions in the liver. The soft tissue mass abdominal wall is again seen and unchanged. The port a hepatis adenopathy is slightly larger. There are no new lymph nodes identified. The pancreas, adrenals and kidneys are unremarkable. Pelvic contents are unremarkable. CONCLUSION: Lesions in the liver appear relatively stable. Kev hepatis adenopathy is slightly larger. This may be technical. No new lesions are identified. Ham Anguiano MD FACR on December 07, 2017 at 18:51 Board Certified Radiologist. This report was verified electronically.
== END 2017-12-07 19:14 | disposition home or self-care (01) ==
LOC: HRIP 08:47 → HROP 08:47 → N07A 18:57 → HROP 12-07 19:14
PROVIDERS: ATTEND Family Medicine
DX: J90 Pleural effusion, not elsewhere classified (principal); C78.7 Secondary malignant neoplasm of liver and intrahepatic bile duct; C18.9 Malignant neoplasm of colon, unspecified; R16.0 Hepatomegaly, not elsewhere classified; F41.9 Anxiety disorder, unspecified; F32.9 Major depressive disorder, single episode, unspecified; I10 Essential (primary) hypertension; R06.02 Shortness of breath; R00.0 Tachycardia, unspecified; Z92.3 Personal history of irradiation; M25.512 Pain in left shoulder
CPT/HCPCS: 32555; 70551; 71045; 71275; 74177; 80048; 80076; 82378; 85025; 85027; 85610; 85730; 94618; 97162; C1729; J2060; J2250; J2405; J3010; J7030; Q9963; Q9967

== ENCOUNTER 2018-01-12 10:43 | Inpatient (IN) | payer MEDICAID, OTHER ==
[~2018-01-12] VITALS: Ht 170.2 cm; Wt 126.2 kg
[2018-01-12] VITALS (7 sets, daily range): BP systolic 111–131; BP diastolic 59–79; PULSE 94–135; RESP 16–28; TEMP 97.6–100.2; O2SAT 95–98
[~2018-01-12 10:43] MED LIST changes: +HYDR-3583 PO; -LISI10TA3 PO; +OXYGENDME NAS.CANULA
[2018-01-12] MEDS ORDERED: SODIUM CHLOR 0.9% 1000 ML INJ 300 ML IV ONE (11:03)
[2018-01-12] MEDS ORDERED: SODIUM CHLOR 0.9% 1000 ML INJ 1,000 ML IV ONE ×3 (11:03)
[2018-01-12] MEDS ORDERED: ACETAMINOPHEN 325 MG TAB PO ONE (11:15)
[2018-01-12] MEDS ORDERED: ONDANSETRON HCL 4 MG/2 ML VIAL IV PUSH ONE (11:15)
[2018-01-12 11:23] LABS: AUTOMATED NEUTROPHIL # 5.6 TH/MM3 (1.8-7.7); BASOPHIL % 0.6 % (0.0-2.0); EOSINOPHIL % 0.5 % (0.0-4.0); HEMATOCRIT 36.8 % (35.0-46.0); HEMOGLOBIN 12.2 GM/DL (11.6-15.3); LYMPH % 5.6 % (9.0-44.0); LYMPHOCYTE # 0.4 TH/MM3 (1.0-4.8); MEAN CELL VOLUME 90.4 FL (80.0-100.0); MEAN CORPUSCULAR HEMOGLOBIN 29.9 PG (27.0-34.0); MEAN PLATELET VOLUME 7.3 FL (7.0-11.0); MONO % 7.4 % (0.0-8.0); MONOCYTE # 0.5 TH/MM3 (0-0.9); NEUT % 85.9 % (16.0-70.0); PLATELET COUNT 173 TH/MM3 (150-450); RED BLOOD COUNT 4.07 MIL/MM3 (4.00-5.30); RED CELL DISTRIBUTION WIDTH 16.7 % (11.6-17.2); WHITE BLOOD COUNT 6.6 TH/MM3 (4.0-11.0)
--- NOTE | 2018-01-12 11:28 | RADRPT ---
EXAM DATE/TIME: 01/12/2018 11:13 [place] COMPARISON: CT PULMONARY ANGIOGRAM, December 05, 2017, 10:33. CHEST SINGLE AP, October 23, 2017, 9:45. INDICATIONS : Midchest pain and shortness of breath. MEDICAL HISTORY : None. SURGICAL HISTORY : Port. ENCOUNTER: Initial ACUITY: 2 weeks PAIN SCORE: 5/10 LOCATION: Bilateral chest FINDINGS: Bilateral pulmonary nodules are again seen. Blunting of bilateral costophrenic angles noted. Cardiome kylah. Left-sided portacatheter is noted and the tip overlies the expected location of the SVC. There are degenerative changes of the spine noted. Patchy left basilar airspace disease. CONCLUSION: Bilateral effusions and left basilar airspace disease. Fili Rojas MD on January 12, 2018 at 11:24 Board Certified Radiologist. This report was verified electronically.
[2018-01-12 11:34] LABS: PROTHROMBIN TIME - PATIENT 10.6 SEC (9.8-11.6)
[2018-01-12 11:51] LABS: ALBUMIN 2.5 GM/DL (3.4-5.0); ALT (GPT) 32 U/L (10-53); AST (GOT) 54 U/L (15-37); BICARBONATE 25.5 MEQ/L (21.0-32.0); BLOOD UREA NITROGEN 9 MG/DL (7-18); CALCIUM 7.7 MG/DL (8.5-10.1); CHLORIDE 104 MEQ/L (98-107); CREATININE 0.97 MG/DL (0.50-1.00); GLOMERULAR FILTRATION RATE 60 ML/MIN (>89); GLUCOSE,RANDOM 107 MG/DL (74-106); MAGNESIUM 1.8 MG/DL (1.5-2.5); SODIUM (NA) 138 MEQ/L (136-145)
[2018-01-12 11:53] LABS: LACTIC ACID SEPSIS PROTOCOL 2.1 mmol/L (0.4-2.0)
[2018-01-12 11:54] LABS: ALKALINE PHOSPHATASE 135 U/L (45-117); TOTAL BILIRUBIN ADULT 1.6 MG/DL (0.2-1.0); TOTAL PROTEIN 7.2 GM/DL (6.4-8.2)
[2018-01-12 12:08] LABS: BACTERIA, URINE MANY /hpf; BLOOD, URINE NEG (NEG); GLUCOSE,URINE NEG (NEG); HYALINE CAST, URINE 48 /lpf (RARE); KETONE, URINE NEG (NEG); MUCUS URINE MANY /lpf (OCC); NITRITE,URINE NEG (NEG); PH, URINE 5.5 (5.0-8.5); SQUAMOUS EPITHELIAL CELL URINE 19 /hpf (0-5); URINE COLOR YELLOW (YELLW/STRAW); URINE LEUKOCYTE ESTERASE TRACE (NEG)
[2018-01-12 12:12] LABS: BILIRUBIN, URINE NEG (NEG)
--- NOTE | 2018-01-12 12:19 | PD ---
HPI Chief Complaint: Cold / Flu Symptoms Time Seen by Provider: 10:53 Travel History International Travel<30 days: No Contact w/Intl Traveler<30days: No Traveled to known affect area: No History of Present Illness HPI 57-year-old female presents emergency department for multiple medical complaints. Particularly she is here for evaluation of nausea, vomiting, diarrhea, fever, cough, increased heart rate that started a few days ago. Patient states that today she just has not felt good and decided to come to the emergency department. Says she has some mild cough as well and says she "spit up blood" that was blood-tinged sputum this morning and scared her. She admits to having multiple days of increased cough. She is also complaining of a headache. Says that she has had shortness of breath as well however, states that this is more of a chronic issue. Says that she has some what feels like heartburn and says her muscles hurt all over. Says that this pain is intermittent has been worse over the last 2 weeks. She does not currently feel nauseous and is not actively vomiting. Says that she has a history of lung, liver and colon cancer and does follow up with her specialist regularly. Her last CT chest was at the end of November. PFSH Past Medical History Hx Anticoagulant Therapy: No ADHD: Yes Arthritis: Yes Asthma: No Autoimmune Disease: No Blood Disorders: No Anxiety: Yes Depression: Yes Heart Rhythm Problems: No Cancer: Yes Cardiomyopathy: Yes Cardiovascular Problems: No High Cholesterol: No Chemotherapy: Yes Chest Pain: No Congestive Heart Failure: No COPD: No Cerebrovascular Accident: No Diabetes: No Diminished Hearing: No Diverticulitis: Yes Deep Vein Thrombosis: Yes (RIGHT LEG) Endocrine: No Gastrointestinal Disorders: Yes (acute colotsis) GERD: Yes Glaucoma: No Genitourinary: No Headaches: Yes Hepatitis: No Hiatal Hernia: No Heparin Induced Thrombocytopen: No Hypertension: Yes Immune Disorder: No Implanted Vascular Access Dvce: No Kidney Stones: No Medical other: No Musculoskeletal: Yes (THORACIC, LUMBAR DISCOMFORT, JOINT PAIN) Neurologic: No Psychiatric: Yes Reproductive: No Respiratory: Yes Immunizations Current: No Migraines: Yes Myocardial Infarction: No Radiation Therapy: Yes Renal Failure: No Seizures: No Sickle Cell Disease: No Sleep Apnea: No Ulcer: No PNEUMOCCOCAL Vaccine (Year): 2 ?: Not Menopausal: Yes : 9 Para: 5 Miscarriage: 1 : 3 Tubal Ligation: Yes Past Surgical History Abdominal Surgery: Yes (COLON RESECTION -REMOVE TUMOR WITH REPAIR HERNIA) AICD: No Appendectomy: No Arteriovenous Shunt: No Body Medical Devices: RIGHT IMPLANTED PORT Cardiac Surgery: No Cholecystectomy: Yes Ear Surgery: No Endocrine Surgery: No Eye Surgery: No Genitourinary Surgery: No Gynecologic Surgery: Yes (D&C, tubal ligation) Insulin Pump: No Joint Replacement: No Neurologic Surgery: No Oral Surgery: No Pacemaker: No Thoracic Surgery: Yes (RIGHT IMPLANTED PORT- RIGHT UPPER CHEST , removed Jul 23, ROMOVAL OF PORT) Other Surgery: Yes (tuibal ligation, DNC, Gallbaladder removal, colon resention ) Social History Alcohol Use: No Tobacco Use: No (QUIT 06/2015) Substance Use: Yes ("medical THC daily") Allergies-Medications (Allergen,Severity, Reaction): Coded Allergies: hydromorphone (Unverified Allergy, Severe, Rash, 12/05/17) latex (Unverified Allergy, Severe, ITCHY,RASH, 12/05/17) morphine (Unverified Allergy, Severe, Rash, 12/05/17) strawberry (Unverified Allergy, Severe, HIVES, 12/05/17) erythromycin base (Unverified Allergy, Mild, RASH, 12/05/17) oxycodone (Verified Allergy, Unknown, 12/05/17) HEADACHE NAUSEA Uncoded Allergies: CARD BOARD (Allergy, Severe, CONTACT DERMATITIS, 05/08/16) Reported Meds & Prescriptions Reported Meds & Active Scripts Active Oxygen (O2) Device Liter CARRILLO.CANULA CONTINUOUS Oxygen Concentrator Portable Gaseous 2 L/min via Nasal Canula Continuous For 99 months Pantoprazole (Pantoprazole Sodium) 40 Mg Tab 40 Mg PO DAILY Reported Lisinopril 10 Mg Tab 10 Mg PO DAILY Prochlorperazine Maleate 10 Mg Tab 10 Mg PO Q6H PRN Imodium A-D (Loperamide HCl) 2 Mg Capsule 2 Mg PO Q6H PRN Stivarga (Regorafenib) 40 Mg Tablet 40 Mg PO DAILY [place] (Hydrocodone-Acetaminophen) 5 Mg-325 Mg Tab 1 Tab PO Q4H PRN Review of Systems Except as stated in HPI: all other systems reviewed are Neg Physical Exam Narrative GENERAL: Well-developed, obese, anxious and somewhat histrionic SKIN: Focused skin assessment warm/dry. HEAD: Atraumatic. Normocephalic. EYES: Pupils equal and round. No scleral icterus. No injection or drainage. ENT: No nasal bleeding or discharge. Mucous membranes pink and moist. NECK: Trachea midline. No JVD. No meningismus CARDIOVASCULAR: Regular rate and rhythm. No murmur appreciated. RESPIRATORY: No accessory muscle use. Clear to auscultation. Breath sounds equal bilaterally. GASTROINTESTINAL: Abdomen soft, nondistended. She has mild tender palpation which according to her is chronic. MUSCULOSKELETAL: No obvious deformities. No clubbing. No cyanosis. No edema. Homans sign negative bilaterally NEUROLOGICAL: Awake and alert. No obvious cranial nerve deficits. Motor grossly within normal limits. Normal speech. PSYCHIATRIC: Appropriate mood and affect; insight and judgment normal. Data Data Last Documented VS Vital Signs Date Time Temp Pulse Resp B/P (MAP) Pulse Ox O2 Delivery O2 Flow Rate FiO2 01/12/18 12:39 130 18 119/71 (87) 96 Nasal Cannula 2.00 01/12/18 11:34 100.2 Orders Orders Sepsis Workup Initiated (01/12/18 ) Electrocardiogram (01/12/18 11:03) Complete Blood Count With Diff (01/12/18 11:03) Comprehensive Metabolic Panel (01/12/18 11:03) Prothrombin Time / Inr (Pt) (01/12/18 11:03) Act Partial Throm Time (Ptt) (01/12/18 11:03) Lactic Acid Sepsis Protocol (01/12/18 11:03) Magnesium (Mg) (01/12/18 11:03) Lipase (01/12/18 11:03) Urinalysis - C+S If Indicated (01/12/18 11:03) Influenzae A/B Antigen (01/12/18 11:03) Blood Culture (01/12/18 11:03) Chest, Single Ap (01/12/18 11:03) Ecg Monitoring (01/12/18 11:03) Iv Access Insert/Monitor (01/12/18 11:03) Oximetry (01/12/18 11:03) Oxygen Administration (01/12/18 11:03) Acetaminophen (Tylenol) (01/12/18 11:15) Ondansetron Inj (Zofran Inj) (01/12/18 11:15) Sodium Chlor 0.9% 1000 Ml Inj (Ns 1000 M (01/12/18 11:03) Sodium Chlor 0.9% 1000 Ml Inj (Ns 1000 M (01/12/18 11:03) Sodium Chlor 0.9% 1000 Ml Inj (Ns 1000 M (01/12/18 11:03) Sodium Chlor 0.9% 1000 Ml Inj (Ns 1000 M (01/12/18 11:03) Urine Culture (01/12/18 11:24) Piperacil-Tazo 4.5 Gm Premix (Zosyn 4.5 (01/12/18 12:26) Vancomycin Inj (Vancomycin Inj) (01/12/18 12:26) Acetamin-Hydrocod 325-7.5 Mg ([place] 7.5 (01/12/18 13:00) Admit Order (Ed Use Only) (01/12/18 13:57) Labs Laboratory Tests Test 01/12/18 11:11 01/12/18 11:24 White Blood Count 6.6 TH/MM3 Red Blood Count 4.07 MIL/MM3 Hemoglobin 12.2 GM/DL Hematocrit 36.8 % Mean Corpuscular Volume 90.4 FL Mean Corpuscular Hemoglobin 29.9 PG Mean Corpuscular Hemoglobin Concent 33.0 % Red Cell Distribution Width 16.7 % Platelet Count 173 TH/MM3 Mean Platelet Volume 7.3 FL Neutrophils (%) (Auto) 85.9 % Lymphocytes (%) (Auto) 5.6 % Monocytes (%) (Auto) 7.4 % Eosinophils (%) (Auto) 0.5 % Basophils (%) (Auto) 0.6 % Neutrophils # (Auto) 5.6 TH/MM3 Lymphocytes # (Auto) 0.4 TH/MM3 Monocytes # (Auto) 0.5 TH/MM3 Eosinophils # (Auto) 0.0 TH/MM3 Basophils # (Auto) 0.0 TH/MM3 CBC Comment DIFF FINAL Differential Comment Prothrombin Time 10.6 SEC Prothromb Time International Ratio 1.0 RATIO Activated Partial Thromboplast Time 27.1 SEC Blood Urea Nitrogen 9 MG/DL Creatinine 0.97 MG/DL Random Glucose 107 MG/DL Total Protein 7.2 GM/DL Albumin 2.5 GM/DL Calcium Level 7.7 MG/DL Magnesium Level 1.8 MG/DL Alkaline Phosphatase 135 U/L Aspartate Amino Transf (AST/SGOT) 54 U/L Alanine Aminotransferase (ALT/SGPT) 32 U/L Total Bilirubin 1.6 MG/DL Sodium Level 138 MEQ/L Potassium Level 3.5 MEQ/L Chloride Level 104 MEQ/L Carbon Dioxide Level 25.5 MEQ/L Anion Gap 9 MEQ/L Estimat Glomerular Filtration Rate 60 ML/MIN Lactic Acid Level 2.1 mmol/L Lipase 74 U/L Urine Color YELLOW Urine Turbidity HAZY Urine pH 5.5 Urine Specific [place] 1.019 Urine Protein 30 mg/dL Urine Glucose (UA) NEG mg/dL Urine Ketones NEG mg/dL Urine Occult Blood NEG Urine Nitrite NEG Urine Bilirubin NEG Urine Urobilinogen 4.0 MG/DL Urine Leukocyte Esterase TRACE Urine RBC 1 /hpf Urine WBC 8 /hpf Urine Squamous Epithelial Cells 19 /hpf Urine Bacteria MANY /hpf Urine Hyaline Casts 48 /lpf Urine Mucus MANY /lpf Microscopic Urinalysis Comment CATH-CULTURE IND MDM Medical Decision Making Medical Screen Exam Complete: Yes Emergency Medical Condition: Yes Differential Diagnosis Sepsis, influenza, medication noncompliance, pleural effusion, pneumonia, upper respiratory infection Narrative Course 57-year-old female presents emergency department for evaluation of fever, nausea , vomiting, diarrhea and increased shortness of breath associated with cough that is been present for several days. Patient decided to come in today because she just does not feel good. She is also complaining of headache. She said that she had blood-tinged sputum this morning with coughing and this concerned her. Vital signs demonstrate blood pressure 131/79, heart rate 135, temperature 100.2. EKG shows sinus tachycardia at rate 122. No STEMI changes. Sepsis protocol initiated. Tylenol for fever. Administered IV fluids cautiously as chest x-ray demonstrates bilateral pleural effusions and patient is not mobile. Zosyn and vancomycin administered for developing pneumonia and urinary tract infection. Labs are significant for: White blood cell count 6.6, neutrophil percent 85.9, coag stable, lactic 2.1, hypocalcemic at 7.7. Patient be admitted for pneumonia and urinary tract infection. Suspect the patient may become septic if he does not get admitted and receive aggressive therapy. I spoke with Dr. Kincaid, resident who accepted this patient. She will be admitted under Dr. Mendez. Sepsis Criteria SIRS Criteria (2 or more): Heart rate over 90 Sepsis Criteria (SIRS+source): Infect source susp/known Diagnosis Primary Impression: Urinary tract infection Qualified Codes: N30.00 - Acute cystitis without hematuria Additional Impression: Pneumonia Qualified Codes: J18.1 - Lobar pneumonia, unspecified organism Condition: Stable Natali Celeste Jan 12, 2018 12:19
[2018-01-12] MEDS ORDERED: PIPERACIL-TAZO 4.5 GM PREMIX 100 ML IV STA (12:26)
[2018-01-12] MEDS ORDERED: VANCOMYCIN INJ 1,000 MG in SODIUM CHLOR 0.9% 250 ML INJ 250 ML IV STA (12:26)
[2018-01-12] MEDS ORDERED: ACETAMINOPHEN/HYDROcodone 325 MG/7.5 MG TAB PO ONE (13:00)
[2018-01-12] MEDS ORDERED: PROC10TA PO (13:09)
[2018-01-12] MEDS ORDERED: LOPE-1 PO (13:09)
[2018-01-12] MEDS ORDERED: REGO40TA PO (13:09)
[2018-01-12] MEDS ORDERED: LISI10TA3 PO (13:09)
[2018-01-12] MEDS ORDERED: NORC5TAB PO (13:09)
--- NOTE | 2018-01-12 13:59 | EKG ---
Date Performed: 01/12/2018 Time Performed: 11:56:04 PTAGE: 57 years EKG: SINUS TACHYCARDIA POSSIBLE RIGHT VENTRICULAR CONDUCTION DELAY ABNORMAL RHYTHM ECG PREVIOUS TRACING : 09/26/2017 16.52 Since the previous tracing, rate has increased DOCTOR: Fernando Kirby Interpretating Date/Time 01/12/2018 13:58:25
--- NOTE | 2018-01-12 14:10 | HHI.HP ---
HPI Service Family Medicine Primary Care Physician Sophia Bryan MD Admission Diagnosis UTI, PNA, r/o sepsis Diagnoses: International Travel<30 Days: No Contact w/Intl Traveler<30days: No Known Affected Area: No History of Present Illness 57 yo F with PMH of metastatic colon cancer, HTN, GERD who woke up this morning "not feeling well." Had cough productive of bloody mucous on day of admission. Checked her HR and it was 148. Came by evac. Also endorses dizziness (happens when standing up), nausea, diarrhea (no blood in stool) for several days. Pain in R and L flank, middle of chest for 2 weeks. Improved with Tums. She also states her BP has been fluctuating. As high as 156/109 and as low as 101/93. Subjective fever, chills for last 2 days. Was told she had fever of 101 in ambulance. Generalized achiness. Of note, 1 month prior she had pleural effusions that required thoracentesis. Review of Systems Constitutional: COMPLAINS OF: Fever, Weight loss (30 pound weight loss over last month), Chills, Dizziness Eyes: COMPLAINS OF: Blurred vision, DENIES: Eye pain, Double Vision Ears, nose, mouth, throat: DENIES: Throat pain, Running Nose Respiratory: COMPLAINS OF: Cough, Wheezing, Sputum production, Shortness of breath Cardiovascular: COMPLAINS OF: Chest pain, Palpitations, DENIES: Lower Extremity Edema Gastrointestinal: COMPLAINS OF: Abdominal pain, Diarrhea, Nausea, DENIES: Black stools, Bloody stools, Vomiting Genitourinary: DENIES: Hematuria, Dysuria Integumentary: DENIES: Rash Hematologic/lymphatic: DENIES: Bruising, Lymphadenopathy Neurologic: COMPLAINS OF: Headache (over last 3 days) Psychiatric: DENIES: Confusion Past Family Social History Past Medical History Metastatic colon cancer with liver, lung metastasis HTN Anxiety/Depression GERD History of colitis Past Surgical History Cholecystectomy Colon resection Tubal ligation Liver resection x 2 Reported Medications Reported Meds & Active Scripts Active Oxygen (O2) Device Liter CARRILLO.CANULA CONTINUOUS Oxygen Concentrator Portable Gaseous 2 L/min via Nasal Canula Continuous For 99 months Pantoprazole (Pantoprazole Sodium) 40 Mg Tab 40 Mg PO DAILY Reported Lisinopril 10 Mg Tab 10 Mg PO DAILY Prochlorperazine Maleate 10 Mg Tab 10 Mg PO Q6H PRN Imodium A-D (Loperamide HCl) 2 Mg Capsule 2 Mg PO Q6H PRN Stivarga (Regorafenib) 40 Mg Tablet 40 Mg PO DAILY [place] (Hydrocodone-Acetaminophen) 5 Mg-325 Mg Tab 1 Tab PO Q4H PRN Allergies: Coded Allergies: hydromorphone (Unverified Allergy, Severe, Rash, 12/05/17) latex (Unverified Allergy, Severe, ITCHY,RASH, 12/05/17) morphine (Unverified Allergy, Severe, Rash, 12/05/17) strawberry (Unverified Allergy, Severe, HIVES, 12/05/17) erythromycin base (Unverified Allergy, Mild, RASH, 12/05/17) oxycodone (Verified Allergy, Unknown, 12/05/17) HEADACHE NAUSEA Uncoded Allergies: CARD BOARD (Allergy, Severe, CONTACT DERMATITIS, 05/08/16) Family History AAA in mother lung cancer in father DM in brother Social History Previously smoked 0.5 ppd for 5 years No alcohol Medicinal marijuana Physical Exam Vital Signs Vital Signs Date Time Temp Pulse Resp B/P (MAP) Pulse Ox O2 Delivery O2 Flow Rate FiO2 01/12/18 12:39 130 18 119/71 (87) 96 Nasal Cannula 2.00 01/12/18 11:55 122 20 97 Nasal Cannula 2.00 01/12/18 11:34 100.2 135 28 131/79 (96) 95 Nasal Cannula 2.00 01/12/18 11:33 95 Nasal Cannula 2.00 01/12/18 11:33 18 95 Nasal Cannula 2.00 01/12/18 11:05 121 18 95 Nasal Cannula 2.00 Physical Exam GENERAL: This is a well-nourished, well-developed patient, in no apparent distress. SKIN: No rashes, ecchymoses or lesions. Cool and dry. HEAD: Atraumatic. Normocephalic. No temporal or scalp tenderness. EYES: Pupils equal round and reactive. Extraocular motions intact. No scleral icterus. No injection or drainage. ENT: Nose without bleeding, purulent drainage or septal hematoma. Throat without erythema, tonsillar hypertrophy or exudate. Uvula midline. Airway patent. NECK: Trachea midline. No JVD or lymphadenopathy. Supple, nontender, no meningeal signs. CARDIOVASCULAR: Rate in the 110's and regular rhythm without murmurs, gallops, or rubs. RESPIRATORY: Crackles appreciated in bibasilar lung butcher. Breath sounds equal bilaterally. No wheezes appreciated. GASTROINTESTINAL: Abdomen soft, nondistended. Palpable mass in the epigastric region that is TTP. Also tenderness in the RUQ. MUSCULOSKELETAL: Extremities without clubbing, cyanosis, or edema. No joint tenderness, effusion, or edema noted. No calf tenderness. Negative Homans sign bilaterally. NEUROLOGICAL: Awake and alert. Cranial nerves II through XII intact. Motor and sensory grossly within normal limits. Five out of 5 muscle strength in all muscle groups. Normal speech. Laboratory Laboratory Tests Test 01/12/18 11:11 01/12/18 11:24 White Blood Count 6.6 Red Blood Count 4.07 Hemoglobin 12.2 Hematocrit 36.8 Mean Corpuscular Volume 90.4 Mean Corpuscular Hemoglobin 29.9 Mean Corpuscular Hemoglobin Concent 33.0 Red Cell Distribution Width 16.7 Platelet Count 173 Mean Platelet Volume 7.3 Neutrophils (%) (Auto) 85.9 Lymphocytes (%) (Auto) 5.6 Monocytes (%) (Auto) 7.4 Eosinophils (%) (Auto) 0.5 Basophils (%) (Auto) 0.6 Neutrophils # (Auto) 5.6 Lymphocytes # (Auto) 0.4 Monocytes # (Auto) 0.5 Eosinophils # (Auto) 0.0 Basophils # (Auto) 0.0 CBC Comment DIFF FINAL Differential Comment Prothrombin Time 10.6 Prothromb Time International Ratio 1.0 Activated Partial Thromboplast Time 27.1 Blood Urea Nitrogen 9 Creatinine 0.97 Random Glucose 107 Total Protein 7.2 Albumin 2.5 Calcium Level 7.7 Magnesium Level 1.8 Alkaline Phosphatase 135 Aspartate Amino Transf (AST/SGOT) 54 Alanine Aminotransferase (ALT/SGPT) 32 Total Bilirubin 1.6 Sodium Level 138 Potassium Level 3.5 Chloride Level 104 Carbon Dioxide Level 25.5 Anion Gap 9 Estimat Glomerular Filtration Rate 60 Lactic Acid Level 2.1 Lipase 74 Urine Color YELLOW Urine Turbidity HAZY Urine pH 5.5 Urine Specific [place] 1.019 Urine Protein 30 Urine Glucose (UA) NEG Urine Ketones NEG Urine Occult Blood NEG Urine Nitrite NEG Urine Bilirubin NEG Urine Urobilinogen 4.0 Urine Leukocyte Esterase TRACE Urine RBC 1 Urine WBC 8 Urine Squamous Epithelial Cells 19 Urine Bacteria MANY Urine Hyaline Casts 48 Urine Mucus MANY Microscopic Urinalysis Comment CATH-CULTURE IND Date/Time Source Procedure Growth Status 01/12/18 11:10 Blood Peripheral Aerobic Blood Culture Pending Received 01/12/18 11:10 Blood Peripheral Anaerobic Blood Culture Pending Received 01/12/18 13:11 Nasal Aspirate Influenza Types A,B Antigen (JUNG) - Final NEGATIVE FOR FLU A AND B ANTIGEN.... Complete 01/12/18 11:24 Urine Catheterized Urine Urine Culture Pending Received Result Diagram: 01/12/18 1111 01/12/18 1111 Imaging Last 24 hours Impressions Chest X-Ray 01/12/18 1103 Signed Impressions: Service Date/Time: Friday, January 12, 2018 11:13 - CONCLUSION: Bilateral effusions and left basilar airspace disease. MD Bert Glass VTE Risk Assessment Bert VTE Risk Assessment: Mod/High Risk (score >= 2) Caprini Risk Assessment Model Point Value = 1 Point Value = 2 Point Value = 3 Point Value = 5 Age 41-60 Minor surgery BMI > 25 kg/m2 Swollen legs Varicose veins or History of unexplained or recurrent spontaneous Oral contraceptives or hormone replacement Sepsis (< 1 month) Serious lung disease, including pneumonia (< 1 month) Abnormal pulmonary function Acute myocardial infarction Congestive heart failure (< 1 month) History of inflammatory bowel disease Medical patient at bed rest Age 61-74 Arthroscopic surgery Major open surgery (> 45 min) Laparoscopic surgery (> 45 min) Malignancy Confined to bed (> 72 hours) Immobilizing plaster cast Central venous access Age >= 75 History of VTE Family history of VTE Factor V Leiden Prothrombin [id number] Lupus anticoagulant Anticardiolipin antibodies Elevated serum homocysteine Heparin-induced thrombocytopenia Other congenital or acquired thrombophilia Stroke (< 1 month) Elective arthroplasty Hip, pelvis, or leg fracture Acute spinal cord injury (< 1 month) Prophylaxis Regimen Total Risk Factor Score Risk Level Prophylaxis Regimen 0-1 Low Early ambulation 2 Moderate Order ONE of the following: *Sequential Compression Device (SCD) *Heparin 5000 units SQ BID 3-4 Higher Order ONE of the following medications: *Heparin 5000 units SQ TID *Enoxaparin/Lovenox 40 mg SQ daily (WT < 150 kg, CrCl > 30 mL/min) *Enoxaparin/Lovenox 30 mg SQ daily (WT < 150 kg, CrCl > 10-29 mL/min) *Enoxaparin/Lovenox 30 mg SQ BID (WT < 150 kg, CrCl > 30 mL/min) AND/OR *Sequential Compression Device (SCD) 5 or more Highest Order ONE of the following medications: *Heparin 5000 units SQ TID (Preferred with Epidurals) *Enoxaparin/Lovenox 40 mg SQ daily (WT < 150 kg, CrCl > 30 mL/min) *Enoxaparin/Lovenox 30 mg SQ daily (WT < 150 kg, CrCl > 10-29 mL/min) *Enoxaparin/Lovenox 30 mg SQ BID (WT < 150 kg, CrCl > 30 mL/min) AND *Sequential Compression Device (SCD) Assessment and Plan Assessment and Plan 57 yo F with PMH of metastatic colon cancer, HTN, GERD presenting to the ED with multiple complaints including blood tinged sputum, fever, nausea, diarrhea. Found to have UTI and CXR findings of pleural effusions. Also found to be tachycardic with an elevated lactic acid. Treated with Vancomycin and Zosyn in the ED. Admitted for further management. Code Status Full code Discussed Condition With Dr. Mode Kincaid Problem List: (1) Sepsis ICD Codes: A41.9 - Sepsis, unspecified organism Plan: Patient meeting SIRS criteria on admission with HR 135, Temp 101 ( obtained in ambulance, currently 100.2) Lactic acid 2.1 on admission No leukocytosis on admission Suspected source of UTI vs PNA Received Vancomycin, Zosyn in ED Gave 1 L NS bolus in ED Lactic acid sepsis protocol ordered by ED Continue Vancomycin and Zosyn Will proceed cautiously with IVF in setting of pleural effusions Blood, urine cultures pending (2) UTI (urinary tract infection) ICD Codes: N39.0 - Urinary tract infection, site not specified Plan: UA on admission significant for trace leukocyte esterase, many bacteria, 8 WBC Started on vancomycin, Zosyn in the ED Urine cultures pending (3) Pleural effusion ICD Codes: J90 - Pleural effusion, not elsewhere classified Plan: Chest x-ray on admission significant for bilateral effusions and left basilar airspace disease Of note, patient states that she recently had a thoracentesis for pleural effusions roughly 1 month ago rapid influenza test on admission is negative Started on vancomycin, Zosyn in the ED Legionella, pneumococcal urinary antigens pending Duo nebs as needed Blood cultures pending Currently requiring 2 L nasal cannula, which is baseline for her We will be cautious with IV fluids (4) Primary colon cancer with metastasis to other site ICD Codes: C18.9 - Malignant neoplasm of colon, unspecified Plan: Known history of colon cancer with metastasis to liver and lungs Had CT of the abdomen/pelvis on 12/07/[address] Ventura Continuing home Stivarga (5) Hypertension ICD Codes: I10 - Essential (primary) hypertension Plan: Known history of hypertension Normotensive in the ED Continue home lisinopril (6) GERD (gastroesophageal reflux disease) ICD Codes: K21.9 - Gastro-esophageal reflux disease without esophagitis Plan: Known history of GERD Continue home pantoprazole (7) FEN Plan: F: Received 1 L normal saline bolus in the ED, will hold further IV antibiotics at this time due to pleural effusions We will replace electrolytes as needed Regular diet Lovenox for DVT prophylaxis, Zofran 4 nausea/vomiting, [place] pain scale Physician Certification 2 Midnight Certification Type: Admission for Inpatient Services Order for Inpatient Services The services are ordered in accordance with Medicare regulations or non- Medicare payer requirements, as applicable. In the case of services not specified as inpatient-only, they are appropriately provided as inpatient services in accordance with the 2-midnight benchmark. Estimated LOS (days): 2 days is the estimated time the patient will need to remain in the hospital, assuming treatment plan goals are met and no additional complications. Post-Hospital Plan: Home Clinton Hinojosa MD R1 Jan 12, 2018 14:10
[2018-01-12] MEDS ORDERED: PROCHLORPERAZINE MALEATE 10 MG TAB PO PRN (14:30)
[2018-01-12] MEDS ORDERED: SODIUM CHLORIDE 0.9% FLUSH 10 ML FLUSH IV FLUSH PRN (14:45)
[2018-01-12] MEDS ORDERED: Vancomycin Consult Pharmacy 1 EA OTHER SCH (14:45)
[2018-01-12] MEDS ORDERED: ACETAMINOPHEN 325 MG TAB PO PRN ×2 (14:45→16:00)
[2018-01-12] MEDS ORDERED: RESP: ALBUTEROL 2.5 MG/IPRATROPIUM 0.5 MG NEB (PRN) INH (14:45)
[2018-01-12] MEDS ORDERED: NALOXONE HCL 0.4 MG/ML AMP IV PUSH PRN (16:00)
[2018-01-12] MEDS: ACETAMINOPHEN/HYDROcodone 325 MG/7.5 MG TAB PO PRN ×2 (16:47→21:47)
[2018-01-12] MEDS: ENOXAPARIN SODIUM 40 MG/0.4 ML SYRINGE SQ SCH (16:48)
[2018-01-12] MEDS: PIPERACIL-TAZO 4.5 GM PREMIX 100 ML IV SCH (20:55)
[2018-01-12] MEDS: SODIUM CHLORIDE 0.9% FLUSH 10 ML FLUSH IV FLUSH SCH (20:56)
[2018-01-12] MEDS: VANCOMYCIN INJ 2,000 MG in SODIUM CHLORID 0.9% 500 ML INJ 500 ML IV SCH (22:10)
[2018-01-12] MEDS: ONDANSETRON HCL 4 MG/2 ML VIAL IV PUSH PRN (22:11)
[2018-01-13] VITALS (8 sets, daily range): BP systolic 99–120; BP diastolic 52–82; PULSE 88–103; RESP 17–20; TEMP 98–99.1; O2SAT 96–98
[2018-01-13] MEDS: PIPERACIL-TAZO 4.5 GM PREMIX 100 ML IV SCH ×4 (02:46→22:26)
[2018-01-13] MEDS: ACETAMINOPHEN/HYDROcodone 325 MG/5 MG TAB PO PRN ×2 (02:47→08:45)
[2018-01-13] MEDS: ACETAMINOPHEN/HYDROcodone 325 MG/7.5 MG TAB PO PRN ×4 (02:57→22:40)
[2018-01-13 08:13] LABS: AUTOMATED NEUTROPHIL # 2.7 TH/MM3 (1.8-7.7); BASOPHIL % 1.1 % (0.0-2.0); EOSINOPHIL # 0.1 TH/MM3 (0-0.4); EOSINOPHIL % 1.4 % (0.0-4.0); HEMATOCRIT 32.2 % (35.0-46.0); HEMOGLOBIN 10.7 GM/DL (11.6-15.3); LYMPH % 13.7 % (9.0-44.0); LYMPHOCYTE # 0.5 TH/MM3 (1.0-4.8); MEAN CELL VOLUME 89.3 FL (80.0-100.0); MEAN CORPUSCULAR HEMOGLOBIN 29.6 PG (27.0-34.0); MEAN CORPUSCULAR HGB CONC 33.1 % (32.0-36.0); MEAN PLATELET VOLUME 7.4 FL (7.0-11.0); MONO % 10.6 % (0.0-8.0); MONOCYTE # 0.4 TH/MM3 (0-0.9); NEUT % 73.2 % (16.0-70.0); PLATELET COUNT 151 TH/MM3 (150-450); RED BLOOD COUNT 3.61 MIL/MM3 (4.00-5.30); RED CELL DISTRIBUTION WIDTH 16.7 % (11.6-17.2); WHITE BLOOD COUNT 3.7 TH/MM3 (4.0-11.0)
[2018-01-13 08:30] LABS: BICARBONATE 25.9 MEQ/L (21.0-32.0); CALCIUM 7.7 MG/DL (8.5-10.1)
[2018-01-13] MEDS: PANTOPRAZOLE SOD 40 MG DELAYED RELEASE TAB PO SCH (08:43)
[2018-01-13] MEDS: LISINOPRIL 10 MG TAB PO SCH (08:44)
[2018-01-13] MEDS: VANCOMYCIN INJ 2,000 MG in SODIUM CHLORID 0.9% 500 ML INJ 500 ML IV SCH ×2 (08:46→23:38)
[2018-01-13] MEDS: SODIUM CHLORIDE 0.9% FLUSH 10 ML FLUSH IV FLUSH SCH ×2 (08:48→22:28)
[2018-01-13] MEDS ORDERED: REGORAFENIB 40 MG PO SCH (09:00)
--- NOTE | 2018-01-13 11:56 | HHI.FPPN ---
Subjective Remarks Nursing reports the patient did well overnight but continues to have chemotherapy related diarrhea. Patient and nursing state that Imodium has helped this diarrhea in the past. Patient continues to have slight abdominal discomfort about the same as yesterday. Patient is requesting for Imodium for chemotherapy related diarrhea. She has had 2-3 episodes of poorly formed stool. She does have some nausea. Patient is also requesting bananas. She states they will not give her bananas since she has a latex allergy, however she has had no trouble with bananas at home she believes that bananas help her with her nausea and diarrhea. She denies fever, chills, chest pain, shortness of breath. (Mj Mendez MD R3) Objective Vitals Vital Signs Date Time Temp Pulse Resp B/P (MAP) Pulse Ox O2 Delivery O2 Flow Rate FiO2 01/13/18 11:06 97 Nasal Cannula 2.00 01/13/18 08:00 94 01/13/18 08:00 99.1 89 18 111/59 (76) 98 01/13/18 01:46 88 01/13/18 00:22 Nasal Cannula 2.00 01/13/18 00:00 98.6 99 18 110/52 (71) 98 01/12/18 23:31 94 01/12/18 20:09 98.5 99 16 111/59 (76) 98 01/12/18 16:00 97.6 119 19 125/78 (94) 95 01/12/18 12:39 130 18 119/71 (87) 96 Nasal Cannula 2.00 01/12/18 11:55 122 20 97 Nasal Cannula 2.00 I/O 01/12/18 01/12/18 01/12/18 01/13/18 01/13/18 01/13/18 07:00 15:00 23:00 07:00 15:00 23:00 Intake Total 100 ml 350 ml Balance 100 ml 350 ml Intake IV Total 100 ml 350 ml # Voids 1 (Mj Mendez MD R3) Result Diagram: 01/13/18 0745 01/13/18 0745 Objective Remarks GENERAL: This is a well-nourished, well-developed patient, in no apparent distress. SKIN: Cool and dry. HEAD: Atraumatic. Normocephalic. No temporal or scalp tenderness. EYES: Pupils equal round and reactive. Extraocular motions intact. No scleral icterus. No injection or drainage. ENT: Nose without bleeding, purulent drainage or septal hematoma. Throat without erythema, tonsillar hypertrophy or exudate. Uvula midline. Airway patent. NECK: Trachea midline. No JVD or lymphadenopathy. Supple, nontender, no meningeal signs. CARDIOVASCULAR: Regular rate and regular rhythm without murmurs, gallops, or rubs. RESPIRATORY: Improved lower bilateral breath sounds and equal bilaterally. No wheezes appreciated. GASTROINTESTINAL: Abdomen soft, nondistended. Palpable mass in the epigastric region that is TTP. Also tenderness in the RUQ, improved from yesterday. MUSCULOSKELETAL: Extremities without clubbing, cyanosis, or edema. No joint tenderness, effusion, or edema noted. No calf tenderness. Negative Homans sign bilaterally. NEUROLOGICAL: Awake and alert. Cranial nerves II through XII intact. Motor and sensory grossly within normal limits. Five out of 5 muscle strength in all muscle groups. Normal speech. (Mj Mendez MD R3) A/P Assessment and Plan 57 yo F with PMH of metastatic colon cancer, HTN, GERD presenting to the ED with multiple complaints including blood tinged sputum, fever, nausea, diarrhea. Found to have UTI and CXR findings of pleural effusions. Treatment as below. (Mj Mendez MD R3) Attending Attestation Patient seen and examined this morning with the medicine team. Please refer to history and physical examination for this admission for additional historical details, including past, family, social history and review of systems at the time of admission. This unfortunate 57-year-old female has metastatic colon cancer to liver and lung. She is admitted for nausea, dizziness, diarrhea, fever, chills and an episode of blood-tinged sputum plus tachycardia. She came via [facility]. She has had gallbladder surgery as well as colon and liver resections in the past. Her loose stools were present prior to admission. At home she takes Imodium and gets some relief by eating bananas which she tolerates well. This morning, she is still having frequent loose stools to the point where she loses stool when she coughs. She would like some Imodium and would like the ability to eat bananas. Because she has history of latex allergy, bananas have been held. Because she is on daily chemotherapy as well as on vancomycin and Zosyn, we will attempt to transfer her to the oncology floor. I agree with the physical exam as documented in the resident note, and with the plan. (Juana Mnedez MD) Problem List: (1) Sepsis ICD Codes: A41.9 - Sepsis, unspecified organism Status: Acute Plan: Improving. Vital stabilized Suspected source of UTI vs PNA; likely pneumonia Continue Vancomycin and Zosyn Blood culture negative 1 day urine cultures: Mixed giancarlo (2) Pleural effusion ICD Codes: J90 - Pleural effusion, not elsewhere classified Status: Acute Plan: Chest x-ray on admission significant for bilateral effusions and left basilar airspace disease Of note, patient states that she recently had a thoracentesis for pleural effusions roughly 1 month ago rapid influenza test on admission is negative Continue antibiotics as above. Legionella, pneumococcal urinary antigens negative Duo nebs as needed Currently requiring 2 L nasal cannula, which is baseline for her We will be cautious with IV fluids (3) Chemotherapy induced diarrhea ICD Codes: K52.1 - Toxic gastroenteritis and colitis; T45.1X5A - Adverse effect of antineoplastic and immunosuppressive drugs, initial encounter Status: Acute Plan: Continue home Imodium Probiotic, patient given instructions to obtain Kefir (4) Primary colon cancer with metastasis to other site ICD Codes: C18.9 - Malignant neoplasm of colon, unspecified Status: Chronic Plan: Known history of colon cancer with metastasis to liver and lungs Had CT of the abdomen/pelvis on 12/07/[address] Ventura Continuing home Stivarga (5) Hypertension ICD Codes: I10 - Essential (primary) hypertension Status: Chronic Plan: Known history of hypertension Normotensive in the ED Continue home lisinopril (6) GERD (gastroesophageal reflux disease) ICD Codes: K21.9 - Gastro-esophageal reflux disease without esophagitis Status: Chronic Plan: Known history of GERD Continue home pantoprazole (7) FEN Status: Acute Plan: F: Tolerating p.o., Careful with IV fluids given pleural effusions. We will replace electrolytes as needed Regular diet Lovenox for DVT prophylaxis, Zofran 4 nausea/vomiting, [place] pain scale (Mj Mendez MD R3) Mj Mendez MD R3 Jan 13, 2018 11:56 Juana Mendez MD Jan 13, 2018 12:23
[2018-01-13] MEDS: LOPERAMIDE HCL 2 MG CAP PO PRN ×2 (12:11→18:09)
[2018-01-13] MEDS: ENOXAPARIN SODIUM 40 MG/0.4 ML SYRINGE SQ SCH (18:10)
[2018-01-14] VITALS (15 sets, daily range): BP systolic 102–125; BP diastolic 55–88; PULSE 83–105; RESP 17–20; TEMP 97.5–98.9; O2SAT 92–99
[2018-01-14] MEDS: PIPERACIL-TAZO 4.5 GM PREMIX 100 ML IV SCH ×4 (02:25→21:00)
[2018-01-14] MEDS: LOPERAMIDE HCL 2 MG CAP PO PRN ×4 (03:40→23:09)
[2018-01-14] MEDS: ACETAMINOPHEN/HYDROcodone 325 MG/7.5 MG TAB PO PRN ×5 (03:40→23:17)
[2018-01-14 07:47] LABS: HEMOGLOBIN 10.2 GM/DL (11.6-15.3); MEAN CELL VOLUME 89.7 FL (80.0-100.0); MEAN CORPUSCULAR HEMOGLOBIN 29.5 PG (27.0-34.0); MEAN CORPUSCULAR HGB CONC 32.8 % (32.0-36.0); MEAN PLATELET VOLUME 7.7 FL (7.0-11.0); PLATELET COUNT 131 TH/MM3 (150-450); RED BLOOD COUNT 3.46 MIL/MM3 (4.00-5.30); RED CELL DISTRIBUTION WIDTH 16.7 % (11.6-17.2)
[2018-01-14] MEDS: LISINOPRIL 10 MG TAB PO SCH (07:57)
[2018-01-14] MEDS: PANTOPRAZOLE SOD 40 MG DELAYED RELEASE TAB PO SCH (07:57)
[2018-01-14] MEDS: ONDANSETRON HCL 4 MG/2 ML VIAL IV PUSH PRN ×3 (07:58→18:20)
[2018-01-14] MEDS: SODIUM CHLORIDE 0.9% FLUSH 10 ML FLUSH IV FLUSH SCH ×2 (07:58→21:01)
[2018-01-14 08:11] LABS: BICARBONATE 24.8 MEQ/L (21.0-32.0); CALCIUM 7.9 MG/DL (8.5-10.1); CREATININE 1.17 MG/DL (0.50-1.00)
[2018-01-14 08:45] LABS: BANDS 16 % (0-6); LYMPHOCYTES 10 % (9-44); MONOCYTES 12 % (0-8); MYELOCYTES 1 % (0-0); POLYS (SEG NEUTROPHILS) 58 % (16-70)
[2018-01-14] MEDS ORDERED: PHARMACY ORDERED LAB ONE (08:45)
[2018-01-14 08:46] LABS: TOXIC GRANULATION 1+ (NORMAL)
[2018-01-14] MEDS: VANCOMYCIN INJ 2,000 MG in SODIUM CHLORID 0.9% 500 ML INJ 500 ML IV SCH ×2 (09:08→09:14)
--- NOTE | 2018-01-14 10:27 | RADRPT ---
EXAM DATE/TIME: 01/14/2018 10:11 [facility] COMPARISON: CT PULMONARY ANGIOGRAM, December 05, 2017, 10:33. CHEST PA & LAT, October 10, 2017, 22:04. INDICATIONS : Pleural effusion. Patient complains of right side chest pain. MEDICAL HISTORY : Hypertension. Carcinoma, colon. Metastatic, liver. Hypertension SURGICAL HISTORY : None. ENCOUNTER: Subsequent ACUITY: 3 days PAIN SCORE: 8/10 LOCATION: Bilateral chest FINDINGS: Frontal and lateral views of the chest demonstrate a normal-sized cardiac silhouette. Left chest wall [id number] remains present with distal tip in the region of the SVC. Lungs are underinflated and there is blunting of the costophrenic sulci bilaterally, left greater than right. There is atelectasi s at the lung bases. Multiple bilateral pulmonary nodules remain present. Bones demonstrate no acute abnormality. CONCLUSION: 1. Small pleural-based opacities bilaterally, left greater than right. Findings are consistent with s mall pleural effusions with mild atelectasis at the lung bases. 2. Multiple bilateral pulmonary nodules remain present characteristic of metastatic disease. Jim Lr MD on January 14, 2018 at 10:21 Board Certified Radiologist. This report was verified electronically.
[2018-01-14] MEDS ORDERED: POTASSIUM CHLORIDE 20 MEQ CONTROLLED RELEASE TAB PO ONE (10:30)
--- NOTE | 2018-01-14 10:40 | HHI.FPPN ---
Subjective Remarks No acute events overnight. Patient's abdominal pain/diarrhea has improved since yesterday. Her breathing is been stable since admission, no significant improvement. She does endorse a decreased appetite but was able to eat yogurt, banana yesterday with no vomiting. Otherwise denies chest pain, worsening shortness of breath. (Clinton Hinojosa MD R1) Objective Vitals Vital Signs Date Time Temp Pulse Resp B/P (MAP) Pulse Ox O2 Delivery O2 Flow Rate FiO2 01/14/18 08:18 92 21 01/14/18 08:00 97.7 97 20 102/70 (81) 96 01/14/18 03:30 98.0 92 18 109/56 (73) 96 01/14/18 00:20 98.9 100 17 118/88 (98) 97 01/13/18 22:00 98.0 103 17 119/82 (94) 96 01/13/18 16:32 99.0 93 20 99/53 (68) 98 01/13/18 16:00 94 01/13/18 12:00 98.6 103 18 120/80 (93) 97 01/13/18 11:06 97 Nasal Cannula 2.00 I/O 01/13/18 01/13/18 01/13/18 01/14/18 01/14/18 01/14/18 07:00 15:00 23:00 07:00 15:00 23:00 Intake Total 350 ml 800 ml 850 ml Output Total 0 ml Balance 350 ml 800 ml 850 ml Intake Oral 800 ml 850 ml IV Total 350 ml Output Urine Total 0 ml # Voids 1 7 # Bowel Movements 4 0 (Clinton Hinojosa MD R1) Result Diagram: 01/14/18 0609 01/14/18 0609 Objective Remarks GENERAL: This is a well-nourished, well-developed patient, in no apparent distress. Nasal cannula in place SKIN: Cool and dry. CARDIOVASCULAR: Regular rate and regular rhythm without murmurs, gallops, or rubs. RESPIRATORY: Crackles appreciated in bilateral basilar lung butcher. No wheezes appreciated. GASTROINTESTINAL: Abdomen soft, nondistended. MUSCULOSKELETAL: Extremities without clubbing, cyanosis, or edema. No joint tenderness, effusion, or edema noted. NEUROLOGICAL: Awake and alert. Motor and sensory grossly within normal limits. Normal speech. (Clinton Hinojosa MD R1) A/P Assessment and Plan 57 yo F with PMH of metastatic colon cancer, HTN, GERD presenting to the ED with multiple complaints including blood tinged sputum, fever, nausea, diarrhea. Found to have UTI and CXR findings of pleural effusions. Treatment as below. Discharge Planning Symptoms are slowly improving, patient is no longer septic but goals of care are unclear at this time. (Clinton Hinojosa MD R1) Attending Attestation Patient seen and examined. Grandson visiting. Discussion regarding goals of care, and patient clearly would like to discuss quality of life issues and is very agreeable to meeting with palliative care. Case reviewed and discussed with the resident team. Agree with plan of care as discussed with me and documented in the resident note. (Juana Mendez MD) Problem List: (1) Sepsis ICD Codes: A41.9 - Sepsis, unspecified organism Status: Acute Plan: Currently resolved Suspected source of PNA in setting of pleural effusions on chest x-ray Continue Vancomycin and Zosyn Blood culture negative 1 day urine cultures: Mixed giancarlo (2) Pleural effusion ICD Codes: J90 - Pleural effusion, not elsewhere classified Status: Acute Plan: Chest x-ray on admission significant for bilateral effusions and left basilar airspace disease Of note, patient states that she recently had a thoracentesis for pleural effusions roughly 1 month ago Bibasilar crackles appreciated on exam on 01/14 Repeating chest x-ray on 01/14 Legionella, pneumococcal urinary antigens negative Duo nebs as needed Currently requiring 2 L nasal cannula, which is baseline for her We will be cautious with IV fluids (3) Chemotherapy induced diarrhea ICD Codes: K52.1 - Toxic gastroenteritis and colitis; T45.1X5A - Adverse effect of antineoplastic and immunosuppressive drugs, initial encounter Status: Acute Plan: Continue home Imodium Probiotic, patient given instructions to obtain Kefir Symptoms improved on 01/14 (4) Primary colon cancer with metastasis to other site ICD Codes: C18.9 - Malignant neoplasm of colon, unspecified Status: Chronic Plan: Known history of colon cancer with metastasis to liver and lungs Had CT of the abdomen/pelvis on 12/07/[address] Ventura Continuing home Stivarga Goals of care unclear at this point. Patient may continue to have pleural effusions secondary to her cancer. Will consider palliative consult if patient' s clinical status does not improve (5) Hypertension ICD Codes: I10 - Essential (primary) hypertension Status: Chronic Plan: Known history of hypertension Normotensive in the ED Continue home lisinopril (6) GERD (gastroesophageal reflux disease) ICD Codes: K21.9 - Gastro-esophageal reflux disease without esophagitis Status: Chronic Plan: Known history of GERD Continue home pantoprazole (7) FEN Status: Acute Plan: F: Tolerating p.o., Careful with IV fluids given pleural effusions. We will replace electrolytes as needed Regular diet Lovenox for DVT prophylaxis, Zofran 4 nausea/vomiting, [place] pain scale (Clinton Hinojosa MD R1) Clinton Hinojosa MD R1 January 14, 2018 10:40 Juana Mendez MD January 14, 2018 14:20
--- NOTE | 2018-01-14 14:51 | PD.CONS ---
Consult Service Palliative Care . Consult Requested By Dr. Hinojosa . Primary Care Physician Sophia Bryan MD . Reason for Consultation a. To assist with evaluation and management of symptoms including: pain, diarrhea, decreased appetite, shortness of breath. b. To assist medical decision maker(s) with: better understanding of current medical conditions; weighing benefits/burdens of medical treatment options; making medical treatment decisions. . HPI History of Present Illness Mrs. Flores is a 57 year old female with past medical history of metastatic colon cancer to liver and lung, GERD. anxiety/depression hypertension and colitis. Patient presented to [facility] on 01/12/18 with complaints of nausea without vomiting, diarrhea, cough, fever and increased heart rate. She reported mild cough that was becoming progressively worse in the days prior to presentation and spit up blood. Notes indicate she also had headache, chronic shortness of breath (unchanged), heartburn and muscle aches. Pain was reported as intermittent worsening over the past 2 weeks. Initial evaluation revealed: * VS: Temp 100.2, pulse 130, RR 18, BP 119/71, O2 sat 96% on 2 L via NC * WBC 6.6, hemoglobin 12.2 hematocrit 36.8, platelet count 173, neutrophil 85.9% * PT 10.6, INR 1.0, PTT 27.1 * BUN 9, creatinine 0.97, glucose 107, sodium 138, potassium 3.5, chloride 104, carbon dioxide 25.5, GFR 60 * Total protein 7.2, albumin 2.5 * Alkaline phosphatase 135, AST 54, ALT 32, total bilirubin 1.6 * Lactic acid 2.1 * Urinalysis with trace leukocyte esterase, bacteria and mucus, culture indicated. * EKG -sinus tachycardia, rate 122. * Chest [id number] effusions and left basilar airspace disease. * Blood, urine and sputum cultures negative to date. Patient was admitted with possible UTI, sepsis and pleural effusion. Started on Vancomycin and Zosyn in the emergency. Since admission breathing has remained stable, though no significant improvement. Notes indicate abdominal pain, diarrhea have improved. On 01/14/18, chest x-ray revealed small pleural-based opacities bilaterally left greater than right consistent with small effusions with mild atelectasis, multiple bilateral pulmonary nodules remain present characteristic of metastatic disease. [place] care was consulted to assist with clarification of medical treatment goals. . Function/Cognitive Trajectory Patient was ambulating independently prior to admission with occasional need to reach out for furniture. Was only able to tolerate room to room distance secondary to shortness of breath. Has a rolling walker for use as needed. She is now unable to do her grocery shopping or cook meals. . Review of Systems Constitutional: COMPLAINS OF: Fatigue, Weight loss (49 pounds in about 3 months ), Change in appetite (Decreased), Generalized weakness Endocrine: DENIES: Abnorml menstrual pattern, Heat/cold intolerance, Polydipsia , Polyuria, Polyphagia Ears, nose, mouth, throat: DENIES: Tinnitus, Hearing loss, Vertigo, Nasal discharge, Oral lesions, Throat pain, Hoarseness, Ear Pain, Running Nose, Epistaxis, Sinus Pain, Toothache, Odynophagia Respiratory: COMPLAINS OF: Cough, Hemoptysis, Shortness of breath Cardiovascular: COMPLAINS OF: Dyspnea on Exertion Gastrointestinal: COMPLAINS OF: Abdominal pain, Diarrhea, Nausea, Vomiting, Anorexia, Dyspepsia or heartburn, Bloating Genitourinary: DENIES: Abnormal vaginal bleeding, Dysmenorrhea, Dyspareunia, Sexual dysfunction, Urinary frequency, Urinary incontinence, Urgency, Hematuria , Dysuria, Nocturia, Vaginal discharge, Hesitancy, Dribbling, Decreased stream Musculoskeletal: COMPLAINS OF: Back pain Integumentary: DENIES: Abnormal pigmentation, Pruritus, Rash, Nail changes, Breast masses, Breast skin changes, Nipple discharge, Nodules, Tumors, Excessive dryness, Non-healing sores Hematologic/Lymphatics: COMPLAINS OF: Bruising Immunologic/Allergic: DENIES: Eczema, Urticaria Neurologic: COMPLAINS OF: Headache (now resolved), Poor Balance (Rolling walker as needed) Psychiatric: COMPLAINS OF: Anxiety, Depression Past Family Social History Coded Allergies: hydromorphone (Unverified Allergy, Severe, Rash, 12/05/17) latex (Unverified Allergy, Severe, ITCHY,RASH, 12/05/17) morphine (Unverified Allergy, Severe, Rash, 12/05/17) strawberry (Unverified Allergy, Severe, HIVES, 12/05/17) erythromycin base (Unverified Allergy, Mild, RASH, 12/05/17) oxycodone (Verified Allergy, Unknown, 12/05/17) HEADACHE NAUSEA Uncoded Allergies: CARD BOARD (Allergy, Severe, CONTACT DERMATITIS, 05/08/16) Past Medical History Metastatic colon cancer to liver and lung s/p colon resection chemo, radiation to liver and oral chemo. HTN Anxiety/Depression GERD History of colitis ADHD Arthritis Cardiomyopathy DVT right leg Headaches . Past Surgical History Cholecystectomy Colon resection with hernia repair Tubal ligation Liver resection x 2 Right Port placement and subsequent removal D & C Left chest port (non-functioning) remains in place. . Reported Medications Reported Meds & Active Scripts Active Oxygen (O2) Device Liter CARRILLO.CANULA CONTINUOUS Oxygen Concentrator Portable Gaseous 2 L/min via Nasal Canula Continuous For 99 months Pantoprazole (Pantoprazole Sodium) 40 Mg Tab 40 Mg PO DAILY Reported Lisinopril 10 Mg Tab 10 Mg PO DAILY Prochlorperazine Maleate 10 Mg Tab 10 Mg PO Q6H PRN Imodium A-D (Loperamide HCl) 2 Mg Capsule 2 Mg PO Q6H PRN Stivarga (Regorafenib) 40 Mg Tablet 40 Mg PO DAILY Willis (Hydrocodone-Acetaminophen) 5 Mg-325 Mg Tab 1 Tab PO Q4H PRN . Current Medications Medications (Trade) Dose Ordered Sig/Lana Route Start Time Stop Time Status Last Admin (Prinivil) 10 mg DAILY PO 01/13/18 09:00 01/14/18 07:57 (Protonix) 40 mg DAILY PO 01/13/18 09:00 01/14/18 07:57 (Compazine) 10 mg Q6H PRN PO 01/12/18 14:30 01/13/18 03:05 Patient Own Medication PT OWN MED: (Regorafenib (Stivar... DAILY PO 01/13/18 09:00 Future Hold (NS Flush) 2 ml UNSCH PRN IV FLUSH 01/12/18 14:45 (NS Flush) 2 ml BID IV FLUSH 01/12/18 21:00 01/14/18 07:58 Piperacillin Sod/ Tazobactam Sod 100 ml @ 200 mls/hr Q6H IV 01/12/18 20:00 01/14/18 07:58 Vancomycin HCl 2000 mg/Sodium Chloride 520 ml @ 257.5 mls/ hr Q12HR IV 01/12/18 21:00 Future Hold 01/13/18 23:38 Pharmacy Profile Note 0 ml @ 0 mls/hr UNSCH OTHER 01/12/18 14:45 (Duoneb Neb) 1 ampule Q4HR NEB PRN INH 01/12/18 14:45 (Tylenol) 650 mg Q4H PRN PO 01/12/18 14:45 (Zofran Inj) 4 mg Q6H PRN IV PUSH 01/12/18 14:45 01/14/18 12:44 (Lovenox Inj) 40 mg Q24H SQ 01/12/18 18:00 01/13/18 18:10 (Tylenol) 650 mg Q6H PRN PO 01/12/18 16:00 (Willis 5-325 Mg) 1 tab Q4H PRN PO 01/12/18 16:00 01/13/18 08:45 (Willis 7.5-325 Mg) 1 tab Q4H PRN PO 01/12/18 16:00 01/14/18 12:43 (Narcan Inj) 0.4 mg UNSCH PRN IV PUSH 01/12/18 16:00 (Imodium) 2 mg Q6H PRN PO 01/13/18 11:00 01/14/18 07:57 Family History Mother had AAA. Father had Lung Cancer. Brother with Diabetes. . Substance Use Tobacco: Previously smoked 0.5 ppd for 5 years, quit 06/2015. Alcohol: None. Prescription med abuse: None. Illicits: Medicinal marijuana oil daily. . Psychosocial History , has 4 sons (Gurjit, Maicol and ? adult live out of the home and Kenny - autistic age 17 lives at home) and 1 daughter (Adriana - age 14 lives in home). Unemployed. . Spiritual/Cultural Factors Evangelical elton. . Living Will: Never completed Health Care Surrogate: Copy in medical record Durable Power of Franchise Sales Representative: Never completed Health Care Surrogate(s): Designation of health care surrogate completed 06/02/15 names Gurjit Almaguer (son) as primary HCS and Maicol Colbert Sr. as alternate HCS. . Today's verbally stated goals: Goals remain aggressive including FULL CODE and continuation of oral treatment ( Stivarga). Family/friends goals: Family supports her goals for continued aggressive care stating "we are not there yet" when discussing code status. Ethical and Legal Issues Designation of health care surrogate completed 06/02/15 names Gurjit Almaguer (son) as primary HCS and Maicol Colbert Sr. as alternate HCS. . Physical Exam Vital Signs Date Time Temp Pulse Resp B/P (MAP) Pulse Ox O2 Delivery O2 Flow Rate FiO2 01/14/18 13:51 97.6 97 20 105/68 (80) 99 01/14/18 12:00 97.5 99 20 109/55 (73) 95 01/14/18 08:18 92 21 01/14/18 08:00 91 01/14/18 08:00 97.7 97 20 102/70 (81) 96 01/14/18 03:30 98.0 92 18 109/56 (73) 96 01/14/18 00:20 98.9 100 17 118/88 (98) 97 01/13/18 22:00 98.0 103 17 119/82 (94) 96 01/13/18 16:32 99.0 93 20 99/53 (68) 98 01/13/18 16:00 94 Exam CONSTITUTIONAL/GENERAL: This is an adequately nourished patient, in no apparent distress. TUBES/LINES/DRAINS: Oxygen via NC, left port (non functioning, not accessed), PIV left. SKIN: No jaundice, rashes, or lesions. Ecchymoses on upper extremities. No wounds seen anteriorly. Skin temperature appropriate. Not diaphoretic. HEAD: Atraumatic. Normocephalic. EYES: Pupils equal and round and reactive. ENT: Hearing grossly normal. Nose without bleeding or purulent drainage. No teeth. NECK: Trachea midline. CARDIOVASCULAR: Regular rate and rhythm without murmurs, gallops, or rubs. No JVD. RESPIRATORY/CHEST: Bilateral crackles. Breath sounds equal bilaterally. GASTROINTESTINAL: Abdomen soft, non-tender. Palpable hepatomegaly. No guarding. GENITOURINARY: Without palpable bladder distension. MUSCULOSKELETAL: Extremities without edema. No mottling or clubbing. LYMPHATICS: No palpable cervical or supraclavicular adenopathy. NEUROLOGICAL: Awake and alert. Motor and sensory grossly within normal limits. Follows commands. Cognitively sharp. Moves all extremities. PSYCHIATRIC: No obvious anxiety/depression. no apparent hallucinations or other psychotic thought process. . Diagnostic Tests Laboratory Laboratory Tests Test 01/12/18 11:11 01/12/18 11:24 01/12/18 16:44 4/30/18 07:45 White Blood Count 6.6 TH/MM3 (4.0-11.0) 3.7 TH/MM3 (4.0-11.0) Red Blood Count 4.07 MIL/MM3 (4.00-5.30) 3.61 MIL/MM3 (4.00-5.30) Hemoglobin 12.2 GM/DL (11.6-15.3) 10.7 GM/DL (11.6-15.3) Hematocrit 36.8 % (35.0-46.0) 32.2 % (35.0-46.0) Mean Corpuscular Volume 90.4 FL (80.0-100.0) 89.3 FL (80.0-100.0) Mean Corpuscular Hemoglobin 29.9 PG (27.0-34.0) 29.6 PG (27.0-34.0) Mean Corpuscular Hemoglobin Concent 33.0 % (32.0-36.0) 33.1 % (32.0-36.0) Red Cell Distribution Width 16.7 % (11.6-17.2) 16.7 % (11.6-17.2) Platelet Count 173 TH/MM3 (150-450) 151 TH/MM3 (150-450) Mean Platelet Volume 7.3 FL (7.0-11.0) 7.4 FL (7.0-11.0) Neutrophils (%) (Auto) 85.9 % (16.0-70.0) 73.2 % (16.0-70.0) Lymphocytes (%) (Auto) 5.6 % (9.0-44.0) 13.7 % (9.0-44.0) Monocytes (%) (Auto) 7.4 % (0.0-8.0) 10.6 % (0.0-8.0) Eosinophils (%) (Auto) 0.5 % (0.0-4.0) 1.4 % (0.0-4.0) Basophils (%) (Auto) 0.6 % (0.0-2.0) 1.1 % (0.0-2.0) Neutrophils # (Auto) 5.6 TH/MM3 (1.8-7.7) 2.7 TH/MM3 (1.8-7.7) Lymphocytes # (Auto) 0.4 TH/MM3 (1.0-4.8) 0.5 TH/MM3 (1.0-4.8) Monocytes # (Auto) 0.5 TH/MM3 (0-0.9) 0.4 TH/MM3 (0-0.9) Eosinophils # (Auto) 0.0 TH/MM3 (0-0.4) 0.1 TH/MM3 (0-0.4) Basophils # (Auto) 0.0 TH/MM3 (0-0.2) 0.0 TH/MM3 (0-0.2) CBC Comment DIFF FINAL DIFF FINAL Differential Comment Prothrombin Time 10.6 SEC (9.8-11.6) Prothromb Time International Ratio 1.0 RATIO Activated Partial Thromboplast Time 27.1 SEC (24.3-30.1) Blood Urea Nitrogen 9 MG/DL (7-18) 9 MG/DL (7-18) Creatinine 0.97 MG/DL (0.50-1.00) 1.00 MG/DL (0.50-1.00) Random Glucose 107 MG/DL (74-106) 89 MG/DL (74-106) Total Protein 7.2 GM/DL (6.4-8.2) Albumin 2.5 GM/DL (3.4-5.0) Calcium Level 7.7 MG/DL (8.5-10.1) 7.7 MG/DL (8.5-10.1) Magnesium Level 1.8 MG/DL (1.5-2.5) Alkaline Phosphatase 135 U/L (45-117) Aspartate Amino Transf (AST/SGOT) 54 U/L (15-37) Alanine Aminotransferase (ALT/SGPT) 32 U/L (10-53) Total Bilirubin 1.6 MG/DL (0.2-1.0) Sodium Level 138 MEQ/L (136-145) 140 MEQ/L (136-145) Potassium Level 3.5 MEQ/L (3.5-5.1) 3.6 MEQ/L (3.5-5.1) Chloride Level 104 MEQ/L (98-107) 107 MEQ/L (98-107) Carbon Dioxide Level 25.5 MEQ/L (21.0-32.0) 25.9 MEQ/L (21.0-32.0) Anion Gap 9 MEQ/L (5-15) 7 MEQ/L (5-15) Estimat Glomerular Filtration Rate 60 ML/MIN (>89) 58 ML/MIN (>89) Lactic Acid Level 2.1 mmol/L (0.4-2.0) 1.5 mmol/L (0.4-2.0) Lipase 74 U/L (73-393) Urine Color YELLOW (YELLW/STRAW) Urine Turbidity HAZY (CLEAR) Urine pH 5.5 (5.0-8.5) Urine Specific [place] 1.019 (1.002-1.035) Urine Protein 30 mg/dL (NEG-TRACE) Urine Glucose (UA) NEG mg/dL (NEG) Urine Ketones NEG mg/dL (NEG) Urine Occult Blood NEG (NEG) Urine Nitrite NEG (NEG) Urine Bilirubin NEG (NEG) Urine Urobilinogen 4.0 MG/DL (LESS THAN Urine Leukocyte Esterase TRACE (NEG) Urine RBC 1 /hpf (0-3) Urine WBC 8 /hpf (0-5) Urine Squamous Epithelial Cells 19 /hpf (0-5) Urine Bacteria MANY /hpf (NONE) Urine Hyaline Casts 48 /lpf (RARE) Urine Mucus MANY /lpf (OCC) Microscopic Urinalysis Comment CATH-CULTURE IND Test 01/14/18 06:09 01/14/18 07:45 White Blood Count 4.0 TH/MM3 (4.0-11.0) Red Blood Count 3.46 MIL/MM3 (4.00-5.30) Hemoglobin 10.2 GM/DL (11.6-15.3) Hematocrit 31.0 % (35.0-46.0) Mean Corpuscular Volume 89.7 FL (80.0-100.0) Mean Corpuscular Hemoglobin 29.5 PG (27.0-34.0) Mean Corpuscular Hemoglobin Concent 32.8 % (32.0-36.0) Red Cell Distribution Width 16.7 % (11.6-17.2) Platelet Count 131 TH/MM3 (150-450) Mean Platelet Volume 7.7 FL (7.0-11.0) CBC Comment AUTO DIFF Differential Total Cells Counted 100 Neutrophils % (Manual) 58 % (16-70) Band Neutrophils % 16 % (0-6) Lymphocytes % 10 % (9-44) Monocytes % 12 % (0-8) Eosinophils % 3 % (0-4) Neutrophils # (Manual) 3.0 TH/MM3 (1.8-7.7) Myelocytes 1 % (0-0) Differential Comment FINAL DIFF MANUAL Toxic Granulation 1+ (NORMAL) Platelet Estimate LOW (NORMAL) Platelet Morphology Comment NORMAL (NORMAL) Blood Urea Nitrogen 9 MG/DL (7-18) Creatinine 1.17 MG/DL (0.50-1.00) Random Glucose 92 MG/DL (74-106) Calcium Level 7.9 MG/DL (8.5-10.1) Sodium Level 141 MEQ/L (136-145) Potassium Level 3.0 MEQ/L (3.5-5.1) Chloride Level 107 MEQ/L (98-107) Carbon Dioxide Level 24.8 MEQ/L (21.0-32.0) Anion Gap 9 MEQ/L (5-15) Estimat Glomerular Filtration Rate 48 ML/MIN (>89) Vancomycin Level Trough 36.0 MCG/ML (5.0-10.0) Result Diagram: 01/14/18 0609 01/14/18 0609 Microbiology Microbiology Date/Time Source Procedure Growth Status 01/12/18 11:10 Blood Peripheral Aerobic Blood Culture - Preliminary NO GROWTH IN 2 DAYS Resulted 01/12/18 11:10 Blood Peripheral Anaerobic Blood Culture - Preliminary NO GROWTH IN 2 DAYS Resulted 01/12/18 11:00 Blood Peripheral Aerobic Blood Culture - Preliminary NO GROWTH IN 2 DAYS Resulted 01/12/18 11:00 Blood Peripheral Anaerobic Blood Culture - Preliminary NO GROWTH IN 2 DAYS Resulted 01/12/18 18:20 Sputum Expectorated Sputum Gram Stain - Final Complete 01/12/18 18:20 Sputum Expectorated Sputum Sputum Culture - Final HEAVY GROWTH NORMAL RESPIRATORY HECTOR Complete 01/12/18 13:11 Nasal Aspirate Influenza Types A,B Antigen (JUNG) - Final NEGATIVE FOR FLU A AND B ANTIGEN.... Complete 01/12/18 11:24 Urine Clean Catch Legionella Antigen - Final PRESUMPTIVE NEGATIVE FOR LEGIONELLA P... Complete 01/12/18 11:24 Urine Clean Catch Streptococcus pneumoniae Antigen (M - Final PRESUMPTIVE NEGATIVE FOR STREPTOCOCCU... Complete 01/12/18 11:24 Urine Catheterized Urine Urine Culture - Final 10-50,000 CFU/ML MIXED HECTOR... Complete Imaging Last Impressions Chest X-Ray 01/14/18 0000 Signed Impressions: Service Date/Time: Sunday, January 14, 2018 10:11 - CONCLUSION: 1. Small pleural-based opacities bilaterally, left greater than right. Findings are consistent with small pleural effusions with mild atelectasis at the lung bases. 2. Multiple bilateral pulmonary nodules remain present characteristic of metastatic disease. Jim Lr MD . Patient/Family Conference Present at Family Conference: Met with patient, son, daughter and grandson at bedside. . Family Conference Time (mins): 75 Family Conference Location: Bedside Issues Discussed: * Palliative care role, purpose, approach * Additional medical, psychosocial, and spiritual history * Patients general health, functional status, and cognitive changes in the months leading up to the current hospitalization * Patient/family understanding of the current medical problems * Patient/family understanding of prognosis * Patients goals of care as best understood from advance directives and/or conversations and/or values * Current medical treatment options and benefits/burdens of those options * Likely scenarios comparing ongoing aggressive care with a transition to comfort measures only * Questions answered to the best of my ability * Palliative care contact information provided Assessment and Plan Symptom Scale: (1) Decreased appetite 0-10 Scale: Unable to quantify Comment: eating bites of most meals, drinking fluids, Ensure with meals. (2) Diarrhea 0-10 Scale: 0 (3) Shortness of breath 0-10 Scale: Unable to quantify (4) Pain 0-10 Scale: 7 Comment: pain in bilateral sides, back and abdomen due to mets colon cancer to liver and bilateral lungs. Relieved with PRN Hydrocodone. Pertinent Non-Medical Issues Psychosocial: . Spiritual: Evangelical elton. Legal: Designation of health care surrogate completed 06/02/15 names Gurjit Almaguer as primary HCS and Maicol Colbert Se. as alternate HCS. She wants her sons to work together to make decisions. Ethical issues impacting care: No known concerns at this time. . Important Contacts * Gurjit Almaguer II, son/ [facility]: [phone] * Maicol Sayra, son/ HCS: [phone] or work [phone] . Prognosis Overall prognosis is poor given metastatic colon cancer to lung and liver. Hospice appropriate if goals are comfort oriented. . Code Status: Full Code Plan * Designation of health care surrogate completed 06/02/15 names Gurjit Almaguer (son ) as primary HCS and Maicol Colbert Sr. as alternate HCS. She verbalizes she wants her sons to work together to make decisions. * FULL CODE * Met with patient, son (Maicol), daughter (Sarah) and grandson (Maicol) at bedside. Patient speaks openly in front of her family about disease, symptoms, treatment and goals of medical care.Goals remain aggressive at this time including FULL CODE. Patient is open to conversation, verbalizes limited life expectancy if oral treatment doesn't "shrink the cancer." She indicates Dr. Ventura told her if this oral med doesn't work they only have one IV chemo option left, which may not be an option if her condition continues to decline. She also indicates Dr. Ventura told her she may only have months to live. Patient IS NOT ready to consider transition to comfort at this time. * Discussed with Dr. Ventura who confirms above conversation with patient. She supports continuation of treatment, patient has only been on oral treatment for about 3 weeks and would re-scan after 3 months to evaluate response. She also tells me if patient elected transition to comfort with hospice that is would be appropriate. * SYMPTOMS: * Dr. Ventura also reports patient has adverse effects from many meds and treatments since she has been caring for patient.* Pain: reports pain in her abdomen intermittent since cancer diagnosis, bilateral sides and back due to underlying mets colon cancer to liver and lung, declining functional and nutritional status. Allergic to Morphine, hydromorphone and Oxycodone. Tolerates current Hydrocodone 7.5mg PO every 4 hours PRN pain. Has had 3 doses today. Will monitor need and effect. Shortness of breath: due to lung mets, pleural effusions, pneumonia. On Antibiotic. On oxygen via NC. Small pleural effusion, does not appear she would benefit from thoracentesis at this time. Has PRN Duoneb available. Decreased appetite: due to malignancy. Drinking Ensure with meals, Eating only bites of most meals. Drinking fluids. Diarrhea: resolved per pt. Might consider (if ok with oncology) low dose Dexamethasone for pain, nausea management, may also increase appetite. * Palliative care number provided. * Palliative care will continue to follow to assist with clarification of medical treatment goals and symptom management as needed. . Thank you for the opportunity to participate in the care of Ms. Flores. Attestation To help prompt me to consider important information that might be impacting today's encounter and assessment, information from prior notes written by myself or my colleagues may have been "brought forward" into today's note. My signature on this note, however, is an attestation that I personally performed the exam, history, and/or decision-making noted today, and, unless otherwise indicated, the interactions with patient, family, and staff as well as the review of records all occurred today. I also attest that the listed assessment and stated plan reflect my best clinical judgment today based on the combination of historical information, prior notes, and today's exam/ interactions. When time spent is documented, it refers only to time spent today by the signer, or if indicated, combined time spent today by collaborating physician/nurse practitioner. Geena Diana January 14, 2018 14:51
[2018-01-14] MEDS: ENOXAPARIN SODIUM 40 MG/0.4 ML SYRINGE SQ SCH (18:19)
[2018-01-15] VITALS (16 sets, daily range): BP systolic 103–135; BP diastolic 56–95; PULSE 77–105; RESP 16–20; TEMP 97.9–98.6; O2SAT 94–100
[2018-01-15] MEDS: PIPERACIL-TAZO 4.5 GM PREMIX 100 ML IV SCH ×4 (03:14→21:29)
[2018-01-15] MEDS: ACETAMINOPHEN/HYDROcodone 325 MG/5 MG TAB PO PRN (03:28)
[2018-01-15 06:26] LABS: AUTOMATED NEUTROPHIL # 2.8 TH/MM3 (1.8-7.7); BASOPHIL % 0.8 % (0.0-2.0); EOSINOPHIL # 0.2 TH/MM3 (0-0.4); EOSINOPHIL % 3.7 % (0.0-4.0); HEMATOCRIT 31.3 % (35.0-46.0); HEMOGLOBIN 10.2 GM/DL (11.6-15.3); LYMPH % 18.3 % (9.0-44.0); LYMPHOCYTE # 0.8 TH/MM3 (1.0-4.8); MEAN CELL VOLUME 90.1 FL (80.0-100.0); MEAN CORPUSCULAR HEMOGLOBIN 29.4 PG (27.0-34.0); MEAN CORPUSCULAR HGB CONC 32.6 % (32.0-36.0); MEAN PLATELET VOLUME 7.2 FL (7.0-11.0); MONOCYTE # 0.5 TH/MM3 (0-0.9); NEUT % 66.2 % (16.0-70.0); PLATELET COUNT 131 TH/MM3 (150-450); RED BLOOD COUNT 3.48 MIL/MM3 (4.00-5.30); WHITE BLOOD COUNT 4.2 TH/MM3 (4.0-11.0)
[2018-01-15 06:51] LABS: CREATININE 1.28 MG/DL (0.50-1.00)
[2018-01-15] MEDS: PANTOPRAZOLE SOD 40 MG DELAYED RELEASE TAB PO SCH (08:07)
[2018-01-15] MEDS: LISINOPRIL 10 MG TAB PO SCH (08:08)
[2018-01-15] MEDS: ACETAMINOPHEN/HYDROcodone 325 MG/7.5 MG TAB PO PRN ×4 (08:09→21:28)
[2018-01-15] MEDS: SODIUM CHLORIDE 0.9% FLUSH 10 ML FLUSH IV FLUSH SCH ×2 (09:00→21:00)
[2018-01-15] MEDS: LOPERAMIDE HCL 2 MG CAP PO PRN ×3 (09:05→18:09)
--- NOTE | 2018-01-15 10:41 | HHI.FPPN ---
Subjective Remarks No acute events overnight. Patient continues to have some abdominal pain which is well-controlled on the [place] 7.5. She also continues to have diarrhea which is not as watery as when she was initially admitted. Palliative care and discussion with patient yesterday and she remains full code. She states that she has not been taking her oral chemo while in the hospital and is wondering if Dr. Ventura would prefer her to restart her chemotherapy now or wait until she is discharged from the hospital. She also states that she has been working well with PT and feels like she is able to move around with less shortness of breath. (Clinton Hinojosa MD R1) Objective Vitals Vital Signs Date Time Temp Pulse Resp B/P (MAP) Pulse Ox O2 Delivery O2 Flow Rate FiO2 01/15/18 10:09 99 Nasal Cannula 2.00 01/15/18 06:08 82 01/15/18 05:07 100 01/15/18 04:08 87 01/15/18 03:40 98.6 90 16 135/95 (108) 94 01/15/18 03:07 78 01/15/18 02:08 80 01/15/18 01:02 92 01/15/18 00:00 90 01/15/18 00:00 16 01/14/18 23:22 98.4 105 18 125/88 (100) 96 01/14/18 23:00 93 01/14/18 22:06 83 01/14/18 21:05 92 01/14/18 20:55 98.3 93 18 112/62 (79) 95 01/14/18 20:03 99 01/14/18 19:30 87 01/14/18 19:19 99 Nasal Cannula 2.00 01/14/18 18:13 97.6 90 18 106/66 (79) 99 01/14/18 13:51 97.6 97 20 105/68 (80) 99 01/14/18 12:00 97.5 99 20 109/55 (73) 95 I/O 01/14/18 01/14/18 01/14/18 01/15/18 01/15/18 01/15/18 07:00 15:00 23:00 07:00 15:00 23:00 Intake Total 850 ml 900 ml 100 ml Output Total 300 ml Balance 850 ml 600 ml 100 ml Intake Oral 850 ml 700 ml IV Total 200 ml 100 ml Output Urine Total 300 ml # Voids 7 4 2 # Bowel Movements 0 3 (Clinton Hinojosa MD R1) Result Diagram: 01/15/18 0616 01/15/18 06 Objective Remarks GENERAL: This is a well-nourished, well-developed patient, in no apparent distress. Nasal cannula in place SKIN: Cool and dry. CARDIOVASCULAR: Regular rate and regular rhythm without murmurs, gallops, or rubs. RESPIRATORY: Crackles appreciated in bilateral basilar lung butcher -stable from prior exam. No wheezes appreciated. GASTROINTESTINAL: Abdomen soft, nondistended. Mass appreciated in the epigastric region that is tender to palpation. Otherwise no significant tenderness in the abdominal exam MUSCULOSKELETAL: Extremities without clubbing, cyanosis, or edema. No joint tenderness, effusion, or edema noted. NEUROLOGICAL: Awake and alert. Motor and sensory grossly within normal limits. Normal speech. (Clinton Hinojosa MD R1) A/P Assessment and Plan 57 yo F with PMH of metastatic colon cancer, HTN, GERD presenting to the ED with multiple complaints including blood tinged sputum, fever, nausea, diarrhea. Found to have UTI and CXR findings of pleural effusions. Treatment as below. Discharge Planning Symptoms are slowly improving, patient is no longer septic. Likely need another day or 2 (Clinton Hinojosa MD R1) Attending Attestation Patient seen and examined. Her daughter is with her. Case reviewed and discussed with Dr. Hinojosa. Agree with plan of care as discussed with me and documented in the resident note. Patient is pleased that she was seen by palliative care and appreciates the coordination of care between Dr. Hinojosa and Dr. Ventura. (Juana Mendez MD) Problem List: (1) Sepsis ICD Codes: A41.9 - Sepsis, unspecified organism Status: Acute Plan: Currently resolved Suspected source of PNA in setting of pleural effusions on chest x-ray Continue Vancomycin and Zosyn Blood culture negative 2 day urine cultures: Mixed giancarlo (2) Pleural effusion ICD Codes: J90 - Pleural effusion, not elsewhere classified Status: Acute Plan: Chest x-ray on admission significant for bilateral effusions and left basilar airspace disease Of note, patient states that she recently had a thoracentesis for pleural effusions roughly 1 month ago Bibasilar crackles appreciated on exam on 01/14 Repeat chest x-ray on 01/14 showed stable effusions Legionella, pneumococcal urinary antigens negative Duo nebs as needed Currently requiring 2 L nasal cannula, which is baseline for her We will be cautious with IV fluids (3) Chemotherapy induced diarrhea ICD Codes: K52.1 - Toxic gastroenteritis and colitis; T45.1X5A - Adverse effect of antineoplastic and immunosuppressive drugs, initial encounter Status: Acute Plan: Continue home Imodium Probiotic, patient given instructions to obtain Kefir He continues to have diarrhea which was initially watery but is somewhat more formed now Will order C. difficile PCR to ensure it is not playing a role (4) Primary colon cancer with metastasis to other site ICD Codes: C18.9 - Malignant neoplasm of colon, unspecified Status: Chronic Plan: Known history of colon cancer with metastasis to liver and lungs Had CT of the abdomen/pelvis on 12/07/[address] Ventura Continuing home Stivarga Patient may continue to have pleural effusions secondary to her cancer. Palliative care consulted on 01/14. Further note the patient is not ready to consider transition to comfort care at this time. Palliative also suggested that low-dose dexamethasone for pain, nausea may be appropriate if okay with oncology I will call Dr. Ventura to run this by her and see if she agrees Patient is also not been taking her oral chemo for the last several days, will discuss this with Dr. Ventura about when and how to resume it (5) Hypertension ICD Codes: I10 - Essential (primary) hypertension Status: Chronic Plan: Known history of hypertension Normotensive in the ED Continue home lisinopril (6) GERD (gastroesophageal reflux disease) ICD Codes: K21.9 - Gastro-esophageal reflux disease without esophagitis Status: Chronic Plan: Known history of GERD Continue home pantoprazole (7) FEN Status: Acute Plan: F: Tolerating p.o., Careful with IV fluids given pleural effusions. We will replace electrolytes as needed Regular diet Lovenox for DVT prophylaxis, Zofran 4 nausea/vomiting, [place] pain scale (Clinton Hinojosa MD R1) Clinton Hinojosa MD R1 January 15, 2018 10:41 Juana Mendez MD January 15, 2018 12:37
[2018-01-15] MEDS: ENOXAPARIN SODIUM 40 MG/0.4 ML SYRINGE SQ SCH (18:05)
[2018-01-16] VITALS (12 sets, daily range): BP systolic 103–136; BP diastolic 67–94; PULSE 76–103; RESP 16–18; TEMP 97.7–98.4; O2SAT 94–97
[2018-01-16] MEDS: LOPERAMIDE HCL 2 MG CAP PO PRN ×4 (00:26→19:30)
[2018-01-16] MEDS: PIPERACIL-TAZO 4.5 GM PREMIX 100 ML IV SCH ×2 (03:01→08:02)
[2018-01-16] MEDS: ACETAMINOPHEN/HYDROcodone 325 MG/7.5 MG TAB PO PRN ×5 (03:01→19:30)
[2018-01-16 06:45] LABS: AUTOMATED NEUTROPHIL # 3.6 TH/MM3 (1.8-7.7); BASOPHIL % 0.8 % (0.0-2.0); EOSINOPHIL # 0.2 TH/MM3 (0-0.4); EOSINOPHIL % 3.9 % (0.0-4.0); HEMATOCRIT 30.9 % (35.0-46.0); HEMOGLOBIN 10.1 GM/DL (11.6-15.3); LYMPH % 16.7 % (9.0-44.0); LYMPHOCYTE # 0.9 TH/MM3 (1.0-4.8); MEAN CELL VOLUME 90.5 FL (80.0-100.0); MEAN CORPUSCULAR HEMOGLOBIN 29.7 PG (27.0-34.0); MEAN CORPUSCULAR HGB CONC 32.8 % (32.0-36.0); MEAN PLATELET VOLUME 7.9 FL (7.0-11.0); MONO % 9.3 % (0.0-8.0); MONOCYTE # 0.5 TH/MM3 (0-0.9); NEUT % 69.3 % (16.0-70.0); PLATELET COUNT 127 TH/MM3 (150-450); RED BLOOD COUNT 3.42 MIL/MM3 (4.00-5.30); RED CELL DISTRIBUTION WIDTH 16.9 % (11.6-17.2); WHITE BLOOD COUNT 5.2 TH/MM3 (4.0-11.0)
[2018-01-16 07:07] LABS: BICARBONATE 25.8 MEQ/L (21.0-32.0); CALCIUM 7.9 MG/DL (8.5-10.1); CREATININE 1.06 MG/DL (0.50-1.00)
[2018-01-16 07:08] LABS: RANDOM VANCOMYCIN 7.8 COMMENT
[2018-01-16] MEDS ORDERED: POTASSIUM CHLORIDE 20 MEQ CONTROLLED RELEASE TAB PO ONE (07:15)
[2018-01-16] MEDS: PANTOPRAZOLE SOD 40 MG DELAYED RELEASE TAB PO SCH (08:02)
[2018-01-16] MEDS: LISINOPRIL 10 MG TAB PO SCH (08:02)
[2018-01-16] MEDS: SODIUM CHLORIDE 0.9% FLUSH 10 ML FLUSH IV FLUSH SCH ×2 (08:07→20:31)
[2018-01-16] MEDS: ONDANSETRON HCL 4 MG/2 ML VIAL IV PUSH PRN (08:51)
[2018-01-16] MEDS: DEXAMETHASONE 0.5 MG TAB PO SCH (09:37)
--- NOTE | 2018-01-16 10:01 | HHI.FPPN ---
Subjective Remarks No acute events overnight. She states her nausea and pain are a little worse today. She feels like someone "punched her in the R lung". Her diarrhea is unchanged. She states she has a good appetite but is scared to eat due to the fear of being unable to make it to the restroom. (Clinton Hinojosa MD R1) Objective Vitals Vital Signs Date Time Temp Pulse Resp B/P (MAP) Pulse Ox O2 Delivery O2 Flow Rate FiO2 01/16/18 08:07 18 01/16/18 08:00 97.8 85 16 103/68 (80) 94 01/16/18 07:37 88 01/16/18 04:17 81 01/16/18 04:00 98.0 77 18 119/67 (84) 97 01/16/18 00:20 98.4 81 18 107/74 (85) 95 01/16/18 00:05 76 01/15/18 21:26 97.9 79 20 117/70 (86) 100 01/15/18 20:03 77 01/15/18 16:00 98.4 88 20 128/90 (103) 95 01/15/18 15:00 105 01/15/18 12:00 97.9 86 20 121/89 (100) 95 01/15/18 10:09 99 Nasal Cannula 2.00 I/O 01/15/18 01/15/18 01/15/18 01/16/18 01/16/18 01/16/18 06:59 14:59 22:59 06:59 14:59 22:59 Intake Total 100 ml 1100 ml Output Total 600 ml 300 ml Balance 100 ml 500 ml -300 ml Intake Oral 900 ml IV Total 100 ml 200 ml Output Urine Total 600 ml 300 ml # Voids 2 2 # Bowel Movements 3 (Clinton Hinojosa MD R1) Result Diagram: 01/16/18 0503 01/16/18 0503 Objective Remarks GENERAL: This is a well-nourished, well-developed patient, in no apparent distress. Nasal cannula in place. Occasionally teary eyed during the encounter. SKIN: Cool and dry. CARDIOVASCULAR: Regular rate and regular rhythm without murmurs, gallops, or rubs. RESPIRATORY: Crackles appreciated in bilateral basilar lung butcher -improved from prior exam. No wheezes appreciated. GASTROINTESTINAL: Abdomen soft, nondistended. Mass appreciated in the epigastric region that is tender to palpation. Otherwise no significant tenderness in the abdominal exam MUSCULOSKELETAL: Extremities without clubbing, cyanosis, or edema. No joint tenderness, effusion, or edema noted. NEUROLOGICAL: Awake and alert. Motor and sensory grossly within normal limits. Normal speech. (Clinton Hinojosa MD R1) A/P Assessment and Plan 57 yo F with PMH of metastatic colon cancer, HTN, GERD presenting to the ED with multiple complaints including blood tinged sputum, fever, nausea, diarrhea. CXR findings of pleural effusions. Treatment as below. Discharge Planning We are mainly managing symptoms at this point, some of which may not resolve due to her underlying condition. Possible DC today or tomorrow. (Clinotn Hinojosa MD R1) Attending Attestation Patient seen and examined. Case reviewed and discussed with the resident team. Agree with plan of care as discussed with me and documented in the resident note. (Juana Mendez MD) Problem List: (1) Sepsis ICD Codes: A41.9 - Sepsis, unspecified organism Status: Acute Plan: Currently resolved Suspected source of PNA in setting of pleural effusions on chest x-ray Has not shown signs of infection since admission. DCing Abx on 01/16 Blood culture negative 3 day Sputum culture grew normal resp giancarlo Urine cultures: Mixed giancarlo (2) Pleural effusion ICD Codes: J90 - Pleural effusion, not elsewhere classified Status: Acute Plan: Chest x-ray on admission significant for bilateral effusions and left basilar airspace disease Of note, patient states that she recently had a thoracentesis for pleural effusions roughly 1 month ago Bibasilar crackles appreciated on exam on 01/14 Repeat chest x-ray on 01/14 showed stable effusions Legionella, pneumococcal urinary antigens negative Duo nebs as needed Currently requiring 2 L nasal cannula, which is baseline for her We will be cautious with IV fluids (3) Chemotherapy induced diarrhea ICD Codes: K52.1 - Toxic gastroenteritis and colitis; T45.1X5A - Adverse effect of antineoplastic and immunosuppressive drugs, initial encounter Status: Acute Plan: Continue home Imodium Probiotic, patient given instructions to obtain Kefir C diff PCR is negative Starting Lactobacillus BID (4) Primary colon cancer with metastasis to other site ICD Codes: C18.9 - Malignant neoplasm of colon, unspecified Status: Chronic Plan: Known history of colon cancer with metastasis to liver and lungs Had CT of the abdomen/pelvis on 12/07/[address] Ventura Continuing home Stivarga Patient may continue to have pleural effusions secondary to her cancer. Palliative care consulted on 01/14. Further note the patient is not ready to consider transition to comfort care at this time. I spoke with Dr. Ventura on 01/15 and she agreed with starting Dexamethasone 2mg daily, also advised to hold off on PO chemo while in hospital and follow up with her in 1 week. (5) Hypertension ICD Codes: I10 - Essential (primary) hypertension Status: Chronic Plan: Known history of hypertension Normotensive in the ED, has had systolics running in the 100's-110's Continue home lisinopril (6) GERD (gastroesophageal reflux disease) ICD Codes: K21.9 - Gastro-esophageal reflux disease without esophagitis Status: Chronic Plan: Known history of GERD Continue home pantoprazole (7) FEN Status: Acute Plan: F: Tolerating p.o. - careful with IV fluids given pleural effusions. We will replace electrolytes as needed Regular diet Lovenox for DVT prophylaxis, Zofran 4 nausea/vomiting, [place] pain scale (Clinton Hinojosa MD R1) Clinton Hinojosa MD R1 January 16, 2018 10:01 Juana Mendez MD January 16, 2018 13:32
[2018-01-16] MEDS: LACTOBACILLUS ACIDOPHILUS TAB PO SCH ×2 (10:59→20:31)
--- NOTE | 2018-01-16 17:32 | HHI.HCPN ---
Reason for visit a. To assist with evaluation and management of symptoms including: pain, diarrhea, decreased appetite, shortness of breath. b. To assist medical decision maker(s) with: better understanding of current medical conditions; weighing benefits/burdens of medical treatment options; making medical treatment decisions. . Subjective/Interval History Patient seen and examined in room. Also present Liberty Pagan LCSW. Patient is sitting in chair. She tells us she is not having a good day and becomes tearful. She verbalizes frustration with persistent diarrhea, weakness, pain and general debility. She has persistent pain in bilateral sides, back and intermittent in abdomen. Rates pain 4/10. She reports overall good relief with current Hydrocodone 7.5 mg PO every 4 hours, she has had 6 doses in the past 24 hours. We talked about the option of long acting pain medication for better ATC pain control, she is hesitant at this time as she is very sensitive to medications. She reports the pain in her right side improved significantly after 1st dose of Dexamethasone which she is pleased with. Labs reviewed, appear stable: WBC 5.2, hemoglobin 10.1, platelet 127, potassium 3.2, creatinine 1.06. No new imaging. Patient goals remain aggressive at this time, she tells me she will probably be DC home 01/16/18. She is ready to go home, but knows she is requiring more assistance and this frustrates her. She wants to go home with home health and hopes to restart oral chemo upon DC. Plan for follow up with Dr. Ventura next week. . Family/friend interactions Son and grandson were present for a portion of her conversation. Advance Directives Living Will: Never completed Health Care Surrogate: Copy in medical record Durable Power of First Officer And Flight Instructor: Never completed Advance Directive Specifics Health Care Surrogate(s): Designation of health care surrogate completed 06/02/15 names Gurjit Almaguer (son) as primary HCS and Maicol Colbert Sr. as alternate HCS. . Significant change in goals: She tells me she will probably be DC home 01/16/18. She is ready to go home, but knows she is requiring more assistance and this frustrates her. She wants to go home with home health and hopes to restart oral chemo upon DC. Plan for follow up with Dr. Ventura next week. Objective Vital Signs Date Time Temp Pulse Resp B/P (MAP) Pulse Ox O2 Delivery O2 Flow Rate FiO2 01/16/18 16:22 97.7 95 18 124/81 (95) 97 01/16/18 16:01 16 01/16/18 13:12 89 01/16/18 10:57 97.9 92 18 135/83 (100) 96 01/16/18 08:00 97.8 85 16 103/68 (80) 94 01/16/18 07:37 88 01/16/18 04:17 81 01/16/18 04:00 98.0 77 18 119/67 (84) 97 01/16/18 00:20 98.4 81 18 107/74 (85) 95 01/16/18 00:05 76 01/15/18 21:26 97.9 79 20 117/70 (86) 100 01/15/18 20:03 77 Intake & Output 01/16/18 01/16/18 07:00 19:00 Output Total 300 ml Balance -300 ml Output Urine Total 300 ml Physical Exam CONSTITUTIONAL/GENERAL: This is an adequately nourished patient, in no apparent distress. TUBES/LINES/DRAINS: Oxygen via NC, left port (non functioning, not accessed), PIV left. SKIN: No jaundice, rashes, or lesions. Ecchymoses on upper extremities. No wounds seen anteriorly. Skin temperature appropriate. Not diaphoretic. CARDIOVASCULAR: Regular rate and rhythm without murmurs. RESPIRATORY/CHEST: Bilateral crackles. Breath sounds equal bilaterally. GASTROINTESTINAL: Abdomen soft, non-tender. No guarding. GENITOURINARY: Without palpable bladder distension. MUSCULOSKELETAL: Extremities without edema. No mottling or clubbing. NEUROLOGICAL: Awake and alert. Motor and sensory grossly within normal limits. Follows commands. Cognitively sharp. Moves all extremities. PSYCHIATRIC: No obvious anxiety/depression. no apparent hallucinations or other psychotic thought process. . Diagnostic Tests Laboratory Laboratory Tests Test 01/14/18 06:09 01/14/18 07:45 01/15/18 06:16 01/15/18 15:30 White Blood Count 4.0 TH/MM3 (4.0-11.0) 4.2 TH/MM3 (4.0-11.0) Red Blood Count 3.46 MIL/MM3 (4.00-5.30) 3.48 MIL/MM3 (4.00-5.30) Hemoglobin 10.2 GM/DL (11.6-15.3) 10.2 GM/DL (11.6-15.3) Hematocrit 31.0 % (35.0-46.0) 31.3 % (35.0-46.0) Mean Corpuscular Volume 89.7 FL (80.0-100.0) 90.1 FL (80.0-100.0) Mean Corpuscular Hemoglobin 29.5 PG (27.0-34.0) 29.4 PG (27.0-34.0) Mean Corpuscular Hemoglobin Concent 32.8 % (32.0-36.0) 32.6 % (32.0-36.0) Red Cell Distribution Width 16.7 % (11.6-17.2) 17.0 % (11.6-17.2) Platelet Count 131 TH/MM3 (150-450) 131 TH/MM3 (150-450) Mean Platelet Volume 7.7 FL (7.0-11.0) 7.2 FL (7.0-11.0) CBC Comment AUTO DIFF DIFF FINAL Differential Total Cells Counted 100 Neutrophils % (Manual) 58 % (16-70) Band Neutrophils % 16 % (0-6) Lymphocytes % 10 % (9-44) Monocytes % 12 % (0-8) Eosinophils % 3 % (0-4) Neutrophils # (Manual) 3.0 TH/MM3 (1.8-7.7) Myelocytes 1 % (0-0) Differential Comment FINAL DIFF MANUAL Toxic Granulation 1+ (NORMAL) Platelet Estimate LOW (NORMAL) Platelet Morphology Comment NORMAL (NORMAL) Blood Urea Nitrogen 9 MG/DL (7-18) 8 MG/DL (7-18) Creatinine 1.17 MG/DL (0.50-1.00) 1.28 MG/DL (0.50-1.00) Random Glucose 92 MG/DL (74-106) 89 MG/DL (74-106) Calcium Level 7.9 MG/DL (8.5-10.1) 8.0 MG/DL (8.5-10.1) Sodium Level 141 MEQ/L (136-145) 143 MEQ/L (136-145) Potassium Level 3.0 MEQ/L (3.5-5.1) 3.4 MEQ/L (3.5-5.1) Chloride Level 107 MEQ/L (98-107) 109 MEQ/L (98-107) Carbon Dioxide Level 24.8 MEQ/L (21.0-32.0) 29.0 MEQ/L (21.0-32.0) Anion Gap 9 MEQ/L (5-15) 5 MEQ/L (5-15) Estimat Glomerular Filtration Rate 48 ML/MIN (>89) 43 ML/MIN (>89) Vancomycin Level Trough 36.0 MCG/ML (5.0-10.0) Neutrophils (%) (Auto) 66.2 % (16.0-70.0) Lymphocytes (%) (Auto) 18.3 % (9.0-44.0) Monocytes (%) (Auto) 11.0 % (0.0-8.0) Eosinophils (%) (Auto) 3.7 % (0.0-4.0) Basophils (%) (Auto) 0.8 % (0.0-2.0) Neutrophils # (Auto) 2.8 TH/MM3 (1.8-7.7) Lymphocytes # (Auto) 0.8 TH/MM3 (1.0-4.8) Monocytes # (Auto) 0.5 TH/MM3 (0-0.9) Eosinophils # (Auto) 0.2 TH/MM3 (0-0.4) Basophils # (Auto) 0.0 TH/MM3 (0-0.2) Stool C. difficile Toxin (PCR) NEGATIVE (NEGATIVE) Stl C. difficile Toxin Epiderm 027 PRESUMPTIVE NEGATIVE Test 01/16/18 05:03 White Blood Count 5.2 TH/MM3 (4.0-11.0) Red Blood Count 3.42 MIL/MM3 (4.00-5.30) Hemoglobin 10.1 GM/DL (11.6-15.3) Hematocrit 30.9 % (35.0-46.0) Mean Corpuscular Volume 90.5 FL (80.0-100.0) Mean Corpuscular Hemoglobin 29.7 PG (27.0-34.0) Mean Corpuscular Hemoglobin Concent 32.8 % (32.0-36.0) Red Cell Distribution Width 16.9 % (11.6-17.2) Platelet Count 127 TH/MM3 (150-450) Mean Platelet Volume 7.9 FL (7.0-11.0) Neutrophils (%) (Auto) 69.3 % (16.0-70.0) Lymphocytes (%) (Auto) 16.7 % (9.0-44.0) Monocytes (%) (Auto) 9.3 % (0.0-8.0) Eosinophils (%) (Auto) 3.9 % (0.0-4.0) Basophils (%) (Auto) 0.8 % (0.0-2.0) Neutrophils # (Auto) 3.6 TH/MM3 (1.8-7.7) Lymphocytes # (Auto) 0.9 TH/MM3 (1.0-4.8) Monocytes # (Auto) 0.5 TH/MM3 (0-0.9) Eosinophils # (Auto) 0.2 TH/MM3 (0-0.4) Basophils # (Auto) 0.0 TH/MM3 (0-0.2) CBC Comment DIFF FINAL Differential Comment Blood Urea Nitrogen 7 MG/DL (7-18) Creatinine 1.06 MG/DL (0.50-1.00) Random Glucose 76 MG/DL (74-106) Calcium Level 7.9 MG/DL (8.5-10.1) Sodium Level 143 MEQ/L (136-145) Potassium Level 3.2 MEQ/L (3.5-5.1) Chloride Level 108 MEQ/L (98-107) Carbon Dioxide Level 25.8 MEQ/L (21.0-32.0) Anion Gap 9 MEQ/L (5-15) Estimat Glomerular Filtration Rate 54 ML/MIN (>89) Random Vancomycin Level 7.8 COMMENT Result Diagram: 01/16/18 0503 01/16/18 0503 Microbiology Microbiology Date/Time Source Procedure Growth Status 01/12/18 11:10 Blood Peripheral Aerobic Blood Culture - Preliminary NO GROWTH IN 4 DAYS Resulted 01/12/18 11:10 Blood Peripheral Anaerobic Blood Culture - Preliminary NO GROWTH IN 4 DAYS Resulted 01/12/18 18:20 Sputum Expectorated Sputum Gram Stain - Final Complete 01/12/18 18:20 Sputum Expectorated Sputum Sputum Culture - Final HEAVY GROWTH NORMAL RESPIRATORY HECTOR Complete 01/12/18 11:24 Urine Clean Catch Legionella Antigen - Final PRESUMPTIVE NEGATIVE FOR LEGIONELLA P... Complete 01/12/18 11:24 Urine Clean Catch Streptococcus pneumoniae Antigen (M - Final PRESUMPTIVE NEGATIVE FOR STREPTOCOCCU... Complete Imaging Last Impressions Chest X-Ray 01/14/18 0000 Signed Impressions: Service Date/Time: Sunday, January 14, 2018 10:11 - CONCLUSION: 1. Small pleural-based opacities bilaterally, left greater than right. Findings are consistent with small pleural effusions with mild atelectasis at the lung bases. 2. Multiple bilateral pulmonary nodules remain present characteristic of metastatic disease. Jim Lr MD Assessment and Plan Symptom Scale: (1) Decreased appetite 0-10 Scale: Unable to quantify Comment: eating bites of most meals, drinking fluids, Ensure with meals. (2) Diarrhea 0-10 Scale: 0 (3) Shortness of breath 0-10 Scale: Unable to quantify (4) Pain 0-10 Scale: 7 Comment: pain in bilateral sides, back and abdomen due to mets colon cancer to liver and bilateral lungs. Relieved with PRN Hydrocodone. Pertinent Non-Medical Issues Psychosocial: . Spiritual: Gnosticist elton. Legal: Designation of health care surrogate completed 06/02/15 names Gurjit Almaguer as primary HCS and Maicol Colbert Se. as alternate HCS. She wants her sons to work together to make decisions. Ethical issues impacting care: No known concerns at this time. . Important Contacts * Gurjit Almaguer II, son/ [facility]: [phone] * Maicol Colbert, son/ HCS: [phone] or work [phone] . Prognosis Overall prognosis is poor given metastatic colon cancer to lung and liver. Hospice appropriate if goals are comfort oriented. . Code Status: Full Code Plan * Designation of health care surrogate completed 06/02/15 names Gurjit Almaguer (son ) as primary HCS and Maicol Colbert Sr. as alternate HCS. She verbalizes she wants her sons to work together to make decisions. * FULL CODE * Met with patient: Goals remain aggressive. She tells me she will probably be DC home 01/16/18. She is ready to go home, but knows she is requiring more assistance and this frustrates her. She wants to go home with home health and hopes to restart oral chemo upon DC. Plan for follow up with Dr. Ventura next week. * SYMPTOMS: * Dr. Ventura also reports patient has adverse effects from many meds and treatments since she has been caring for patient.* Pain: reports pain in her abdomen intermittent since cancer diagnosis, bilateral sides and back due to underlying mets colon cancer to liver and lung, declining functional and nutritional status. Allergic to Morphine, hydromorphone and Oxycodone. Tolerates current Hydrocodone 7.5mg PO every 4 hours PRN pain, has had 6 doses in the past 24 hours. On dexamethasone 2 mg p.o. daily. Offered trial of long- acting pain medication, patient is concerned given her history of adverse medication effects. Shortness of breath: due to lung mets, pleural effusions, pneumonia. On Antibiotic. On oxygen via NC. Small pleural effusion, does not appear she would benefit from thoracentesis at this time. Has PRN Duoneb available. Decreased appetite: due to malignancy. Drinking Ensure with meals, Eating only bites of most meals. Drinking fluids. Diarrhea: resolved per pt. * Palliative care will continue to follow to assist with clarification of medical treatment goals and symptom management as needed. . Attestation To help prompt me to consider important information that might be impacting today's encounter and assessment, information from prior notes written by myself or my colleagues may have been "brought forward" into today's note. My signature on this note, however, is an attestation that I personally performed the exam, history, and/or decision-making noted today, and, unless otherwise indicated, the interactions with patient, family, and staff as well as the review of records all occurred today. I also attest that the listed assessment and stated plan reflect my best clinical judgment today based on the combination of historical information, prior notes, and today's exam/ interactions. When time spent is documented, it refers only to time spent today by the signer, or if indicated, combined time spent today by collaborating physician/nurse practitioner. Geena Diana January 16, 2018 17:32
[2018-01-16] MEDS: ENOXAPARIN SODIUM 40 MG/0.4 ML SYRINGE SQ SCH (18:13)
[2018-01-17] VITALS (11 sets, daily range): BP systolic 111–154; BP diastolic 56–99; PULSE 73–105; RESP 16–18; TEMP 97.6–98.8; O2SAT 96–100
[2018-01-17] MEDS: LOPERAMIDE HCL 2 MG CAP PO PRN (01:18)
[2018-01-17] MEDS: ACETAMINOPHEN/HYDROcodone 325 MG/7.5 MG TAB PO PRN ×3 (04:27→14:45)
--- NOTE | 2018-01-17 08:36 | RADRPT ---
EXAM DATE/TIME: 01/17/2018 08:22 [place] COMPARISON: CHEST PA & LAT, January 14, 2018, 10:11. INDICATIONS : Short of breath. MEDICAL HISTORY : Carcinoma, colon. Hypertension Metastatic liver CA SURGICAL HISTORY : None. ENCOUNTER: Initial ACUITY: 3 days PAIN SCORE: 0/10 LOCATION: Bilateral chest FINDINGS: Frontal and lateral views of the chest demonstrate a normal-sized cardiac silhouette. Left chest wall Lpzxfr-w-Cjyo is present. There are small bibasilar pleural-parenchymal opacities, left larger than right. These are stable. Multiple bilateral pulmonary nodules remain visualized. Bones demonstrate no acute finding. CONCLUSION: 1. Stable chest x-ray were small bilateral pleural effusions, left larger than right, with associated atelectasis at the lung bases. 2. Multiple bilateral pulmonary nodules remain present characteristic of metastatic lesions. Jim Lr MD on January 17, 2018 at 8:33 Board Certified Radiologist. This report was verified electronically.
[2018-01-17] MEDS: PANTOPRAZOLE SOD 40 MG DELAYED RELEASE TAB PO SCH (09:54)
[2018-01-17] MEDS: LACTOBACILLUS ACIDOPHILUS TAB PO SCH (09:54)
[2018-01-17] MEDS: SODIUM CHLORIDE 0.9% FLUSH 10 ML FLUSH IV FLUSH SCH (09:56)
[2018-01-17] MEDS: DEXAMETHASONE 0.5 MG TAB PO SCH (09:56)
[2018-01-17] MEDS: LISINOPRIL 10 MG TAB PO SCH (09:56)
[2018-01-17] MEDS: ONDANSETRON HCL 4 MG/2 ML VIAL IV PUSH PRN (10:08)
[2018-01-17] MEDS ORDERED: HYDR-3580 PO (11:41)
[2018-01-17] MEDS ORDERED: DEXA2TAB PO (11:41)
[2018-01-17] MEDS ORDERED: LACT PO (11:41)
--- NOTE | 2018-01-17 11:42 | HHI.DCPOC ---
Discharge Care Plan Diagnosis: (1) Abdominal pain (2) Primary colon cancer with metastasis to other site (3) Chemotherapy induced diarrhea (4) Shortness of breath (5) Sepsis (6) Pleural effusion Goals to Promote Your Health * To prevent worsening of your condition and complications * To maintain your health at the optimal level Directions to Meet Your Goals Take your medications as prescribed Follow your dietary instruction Follow activity as directed Keep your appointments as scheduled Take your immunizations and boosters as scheduled If your symptoms worsen call your PCP, if no PCP go to Urgent Care Center or Emergency Room Smoking is Dangerous to Your Health. Avoid second hand smoke Call the 24-hour hour crisis hotline for domestic abuse at Clinton Hinojosa MD R1 January 17, 2018 11:42
--- NOTE | 2018-01-17 11:43 | HHI.FF ---
Face to Face Verification Diagnosis: (1) Primary colon cancer with metastasis to other site (2) Chemotherapy induced diarrhea (3) Abdominal pain (4) Shortness of breath (5) Pleural effusion Home Health Nursing Order: Medical education Signs/symptoms of disease process Oxygen administration education Medication education-adverse effect Nursing assessment with vital signs I have seen patient Palma Flores on 01/17/18. My clinical findings support the need for the requested home health care services because: Ltd mobility - disease progression Patient has SOB Deconditioned w/ increased weakness Limited ability to care for self High risk of falls I certify that my clinical findings support that this patient is homebound because: Unsafe to leave home unassisted Clinton Hinojosa MD R1 January 17, 2018 11:43
--- NOTE | 2018-01-17 11:50 | HHI.FPPN ---
Subjective Remarks No acute events overnight. Patient states that the probiotics are helping with her diarrhea. She also states that she felt better yesterday after taking the dexamethasone. Patient feels safe for discharge today. She is requesting to have her prescriptions filled prior to discharge. Objective Vitals Vital Signs Date Time Temp Pulse Resp B/P (MAP) Pulse Ox O2 Delivery O2 Flow Rate FiO2 01/17/18 08:07 97.9 104 16 129/99 (109) 96 01/17/18 04:28 97.7 91 18 122/87 (99) 96 01/17/18 04:03 74 01/17/18 00:05 78 01/17/18 00:00 98.3 84 18 154/97 (116) 97 01/16/18 20:18 97.8 92 18 136/94 (108) 97 01/16/18 20:01 92 01/16/18 17:29 103 01/16/18 16:22 97.7 95 18 124/81 (95) 97 01/16/18 16:01 16 01/16/18 13:12 89 I/O 01/16/18 01/16/18 01/16/18 01/17/18 01/17/18 01/17/18 07:00 15:00 23:00 07:00 15:00 23:00 Intake Total 1180 ml Output Total 300 ml 600 ml 1200 ml Balance -300 ml 580 ml -1200 ml Intake Oral 1080 ml IV Total 100 ml Output Urine Total 300 ml 600 ml 1200 ml # Bowel Movements 1 3 Result Diagram: 01/16/18 0503 01/16/18 0503 Objective Remarks GENERAL: This is a well-nourished, well-developed patient, in no apparent distress. Nasal cannula in place. SKIN: Cool and dry. CARDIOVASCULAR: Regular rate and regular rhythm without murmurs, gallops, or rubs. RESPIRATORY: Crackles appreciated in bilateral basilar lung butcher -stable from prior exam. No wheezes appreciated. GASTROINTESTINAL: Abdomen soft, nondistended. MUSCULOSKELETAL: Extremities without clubbing, cyanosis, or edema. No joint tenderness, effusion, or edema noted. NEUROLOGICAL: Awake and alert. Motor and sensory grossly within normal limits. Normal speech. A/P Assessment and Plan 57 yo F with PMH of metastatic colon cancer, HTN, GERD presenting to the ED with multiple complaints including blood tinged sputum, fever, nausea, diarrhea. CXR findings of pleural effusions. Treatment as below. Discharge Planning Discharge today Problem List: (1) Sepsis ICD Codes: A41.9 - Sepsis, unspecified organism Status: Acute Plan: Currently resolved Suspected source of PNA in setting of pleural effusions on chest x-ray Has not shown signs of infection since admission. DC Abx on 01/16 Blood culture negative 5 day Sputum culture grew normal resp giancarlo Urine cultures: Mixed giancarlo (2) Pleural effusion ICD Codes: J90 - Pleural effusion, not elsewhere classified Status: Acute Plan: Chest x-ray on admission significant for bilateral effusions and left basilar airspace disease Of note, patient states that she recently had a thoracentesis for pleural effusions roughly 1 month ago Bibasilar crackles appreciated on exam on 01/14 Repeat chest x-ray on 01/14 and 01/16 showed stable effusions Legionella, pneumococcal urinary antigens negative Duo nebs as needed Currently requiring 2 L nasal cannula, which is baseline for her We will be cautious with IV fluids (3) Chemotherapy induced diarrhea ICD Codes: K52.1 - Toxic gastroenteritis and colitis; T45.1X5A - Adverse effect of antineoplastic and immunosuppressive drugs, initial encounter Status: Acute Plan: Continue home Imodium Probiotic, patient given instructions to obtain Kefir C diff PCR is negative Started Lactobacillus BID on 01/16 with some improvement of symptoms We will prescribe lactobacillus on discharge (4) Primary colon cancer with metastasis to other site ICD Codes: C18.9 - Malignant neoplasm of colon, unspecified Status: Chronic Plan: Known history of colon cancer with metastasis to liver and lungs Had CT of the abdomen/pelvis on 12/07/[address] Ventura Holding home Stivarga Patient may continue to have pleural effusions secondary to her cancer. Palliative care consulted on 01/14. Further note the patient is not ready to consider transition to comfort care at this time. I spoke with Dr. Ventura on 01/15 and she agreed with starting Dexamethasone, also advised to hold off on PO chemo while in hospital and follow up with her in 1 week. Dexamethasone 2 mg p.o. in the morning, early afternoon. Patient states that she felt better after starting this yesterday We will continue dexamethasone at discharge (5) Hypertension ICD Codes: I10 - Essential (primary) hypertension Status: Chronic Plan: Known history of hypertension Continue home lisinopril (6) GERD (gastroesophageal reflux disease) ICD Codes: K21.9 - Gastro-esophageal reflux disease without esophagitis Status: Chronic Plan: Known history of GERD Continue home pantoprazole (7) FEN Status: Acute Plan: F: Tolerating p.o. - careful with IV fluids given pleural effusions. We will replace electrolytes as needed Regular diet Lovenox for DVT prophylaxis, Zofran 4 nausea/vomiting, [place] pain scale Clinton Hinojosa MD R1 January 17, 2018 11:50
--- NOTE | 2018-01-17 11:51 | HHI.DS ---
Discharge Summary Admission Date Jan 12, 2018 at 13:58 Discharge Date: January 17, 2018 Admitting Diagnosis UTI, PNA, r/o sepsis (1) Sepsis ICD Codes: A41.9 - Sepsis, unspecified organism Status: Acute (2) Pleural effusion ICD Codes: J90 - Pleural effusion, not elsewhere classified Status: Acute (3) Chemotherapy induced diarrhea Plan: Continue home Imodium Probiotic, patient given instructions to obtain Kefir C diff PCR is negative Starting Lactobacillus BID ICD Codes: K52.1 - Toxic gastroenteritis and colitis; T45.1X5A - Adverse effect of antineoplastic and immunosuppressive drugs, initial encounter Status: Acute (4) Primary colon cancer with metastasis to other site Plan: Known history of colon cancer with metastasis to liver and lungs Had CT of the abdomen/pelvis on 12/07/[address] Ventura Continuing home Stivarga Patient may continue to have pleural effusions secondary to her cancer. Palliative care consulted on 01/14. Further note the patient is not ready to consider transition to comfort care at this time. I spoke with Dr. Ventura on 01/15 and she agreed with starting Dexamethasone 2mg daily, also advised to hold off on PO chemo while in hospital and follow up with her in 1 week. ICD Codes: C18.9 - Malignant neoplasm of colon, unspecified Status: Chronic (5) Hypertension Plan: Known history of hypertension Normotensive in the ED, has had systolics running in the 100's-110's Continue home lisinopril ICD Codes: I10 - Essential (primary) hypertension Status: Chronic (6) GERD (gastroesophageal reflux disease) Plan: Known history of GERD Continue home pantoprazole ICD Codes: K21.9 - Gastro-esophageal reflux disease without esophagitis Status: Chronic Brief History 57 yo F with PMH of metastatic colon cancer, HTN, GERD who woke up this morning "not feeling well." Had cough productive of bloody mucous on day of admission. Checked her HR and it was 148. Came by evac. Also endorses dizziness (happens when standing up), nausea, diarrhea (no blood in stool) for several days. Pain in R and L flank, middle of chest for 2 weeks. Improved with Tums. She also states her BP has been fluctuating. As high as 156/109 and as low as 101/93. Subjective fever, chills for last 2 days. Was told she had fever of 101 in ambulance. Generalized achiness. Of note, 1 month prior she had pleural effusions that required thoracentesis. CBC/BMP: 01/16/18 0503 01/16/18 0503 Significant Findings Laboratory Tests Test 01/15/18 06:16 01/15/18 15:30 01/16/18 05:03 Red Blood Count 3.48 MIL/MM3 (4.00-5.30) 3.42 MIL/MM3 (4.00-5.30) Hemoglobin 10.2 GM/DL (11.6-15.3) 10.1 GM/DL (11.6-15.3) Hematocrit 31.3 % (35.0-46.0) 30.9 % (35.0-46.0) Platelet Count 131 TH/MM3 (150-450) 127 TH/MM3 (150-450) Monocytes (%) (Auto) 11.0 % (0.0-8.0) 9.3 % (0.0-8.0) Lymphocytes # (Auto) 0.8 TH/MM3 (1.0-4.8) 0.9 TH/MM3 (1.0-4.8) Creatinine 1.28 MG/DL (0.50-1.00) 1.06 MG/DL (0.50-1.00) Calcium Level 8.0 MG/DL (8.5-10.1) 7.9 MG/DL (8.5-10.1) Potassium Level 3.4 MEQ/L (3.5-5.1) 3.2 MEQ/L (3.5-5.1) Chloride Level 109 MEQ/L (98-107) 108 MEQ/L (98-107) Estimat Glomerular Filtration Rate 43 ML/MIN (>89) 54 ML/MIN (>89) PE at Discharge GENERAL: This is a well-nourished, well-developed patient, in no apparent distress. Nasal cannula in place. Occasionally teary eyed during the encounter. SKIN: Cool and dry. CARDIOVASCULAR: Regular rate and regular rhythm without murmurs, gallops, or rubs. RESPIRATORY: Crackles appreciated in bilateral basilar lung butcher -improved from prior exam. No wheezes appreciated. GASTROINTESTINAL: Abdomen soft, nondistended. Mass appreciated in the epigastric region that is tender to palpation. Otherwise no significant tenderness in the abdominal exam MUSCULOSKELETAL: Extremities without clubbing, cyanosis, or edema. No joint tenderness, effusion, or edema noted. NEUROLOGICAL: Awake and alert. Motor and sensory grossly within normal limits. Normal speech. Hospital Course urrently resolved Suspected source of PNA in setting of pleural effusions on chest x-ray Has not shown signs of infection since admission. DCing Abx on 01/16 Blood culture negative 3 day Sputum culture grew normal resp giancarlo Urine cultures: Mixed giancarlo Chest x-ray on admission significant for bilateral effusions and left basilar airspace disease Of note, patient states that she recently had a thoracentesis for pleural effusions roughly 1 month ago Bibasilar crackles appreciated on exam on 01/14 Repeat chest x-ray on 01/14 showed stable effusions Legionella, pneumococcal urinary antigens negative Duo nebs as needed Currently requiring 2 L nasal cannula, which is baseline for her We will be cautious with IV fluids Pt Condition on Discharge: Good Discharge Disposition: Discharge Home Discharge Instructions DIET: Follow Instructions for: As Tolerated, No Restrictions Activities you can perform: Regular-No Restrictions Clinton Hinojosa MD R1 January 17, 2018 11:51
--- NOTE | 2018-01-17 13:20 | HHI.HCPN ---
Met with Mrs. Flores to provide additional support and ongoing conversation. She was sitting on bedside upon arrival, ambulated to bedside chair. Appears to be in better spirits today although does become tearful during some life review. She is ambivalent about going home today, while she is excited to get home she verbalizes she "is just tired" of psychosocial stressors. Allowed time for expressions, provided emotional support and active listening. Mrs. Flores is hopeful to continue her chemotherapy pill. Goals at this time remain the same. Understands she will be going home with home health care, desires [facility]. Notified CM. Palliative care will continue to follow throughout hospitalization. Liberty Pagan, PRE S[employer]OL MANAGER January 17, 2018 13:20
[2018-01-17] MEDS ORDERED: DEXAMETHASONE 0.5 MG TAB PO SCH (14:30)
== END 2018-01-17 18:13 | disposition home or self-care (01) | DRG 872 ==
LOC: NEPC 10:43 → NEDA 13:58 → N05B 15:45 → HCIN 01-14 12:23
PROVIDERS: ADMIT Family Medicine; ATTEND Family Medicine
DX: A41.9 Sepsis, unspecified organism (principal); J90 Pleural effusion, not elsewhere classified; C78.00 Secondary malignant neoplasm of unspecified lung; K52.1 Toxic gastroenteritis and colitis; T45.1X5A Adverse effect of antineoplastic and immunosuppressive drugs, initial encounter; C78.7 Secondary malignant neoplasm of liver and intrahepatic bile duct; Z68.41 Body mass index [BMI] 40.0-44.9, adult; E66.9 Obesity, unspecified; Z85.038 Personal history of other malignant neoplasm of large intestine; I10 Essential (primary) hypertension; K21.9 Gastro-esophageal reflux disease without esophagitis; F12.90 Cannabis use, unspecified, uncomplicated; Z87.891 Personal history of nicotine dependence; Z80.1 Family history of malignant neoplasm of trachea, bronchus and lung
CPT/HCPCS: 71045; 71046; 80048; 80053; 80202; 81001; 83605; 83690; 83735; 85007; 85025; 85027; 85610; 85730; 87040; 87070; 87086; 87205; 87449; 87493; 87804; 93005; 94150; 96361; 96365; 96368; 96375; J1650; J2405; J2543; J3370; J7030; J7040; J7050; J8540; Q0164

== ENCOUNTER 2018-02-17 10:27 | Inpatient (IN) | payer MEDICAID, OTHER ==
[~2018-02-17] VITALS: Ht 170.2 cm; Wt 117.6 kg
[2018-02-17] VITALS (8 sets, daily range): BP systolic 110–142; BP diastolic 71–99; PULSE 90–144; RESP 18–36; TEMP 97.4–98.3; O2SAT 97
[~2018-02-17 10:27] MED LIST changes: -ALEV220T14 PO; +DEXA2TAB PO; +HYDR-3580 PO; -HYDR-3583 PO; +LACT PO; +LISI10TA3 PO; +LOPE-1 PO; +NORC5TAB PO; +PROC10TA PO; +REGO40TA PO
--- NOTE | 2018-02-17 11:13 | RADRPT ---
EXAM DATE: 02/17/2018 11:05 AM EDT AGE/SEX: 57 years / Female INDICATIONS: Short of breath CLINICAL DATA: This is the patient's initial encounter. Patient reports that signs and symptoms have been present for 1 day and indicates a pain score of 0/10. MEDICAL/SURGICAL HISTORY: . stage IV colon cancer that mets to the lung and liver None. COMPARISON: [facility] [place], CHEST PA & LAT, 01/17/2018. . FINDINGS: A single AP view of the chest demonstrates multiple bilateral pulmonary nodules which were present pr eviously and are basically unchanged. These are concerning for metastatic disease. Left basilar atele ctasis or infiltrate may be slightly worse when compared to the prior. Some blunting of the right cos tophrenic angle possibly representing a small effusion. Heart size is normal. Left IJ Hhtdio-h-Brlf c atheter with the tip at the junction of the left and right brachiocephalic veins. Degenerative spurri ng of the dorsal spine. CONCLUSION: 1. Multiple bilateral pulmonary nodules concerning for metastatic disease. These are stable. 2. Left basilar airspace disease may be slightly worse when compared to the prior. This could repres ent atelectasis/scarring or infiltrate. 3. Probable small right-sided effusion. 4. Left IJ Eaospy-r-Ioyi with the tip at the junction of the left and right brachiocephalic veins Electronically signed by: Vernon Herrera MD 02/17/2018 11:11 AM EDT
[2018-02-17] MEDS ORDERED: HYDR-3583 PO (11:14)
[2018-02-17] MEDS ORDERED: ZOFR8TAB PO (11:14)
[2018-02-17] MEDS ORDERED: TYLETAB34 PO (11:14)
[2018-02-17] MEDS ORDERED: PROB1CHW4 PO (11:14)
[2018-02-17] MEDS ORDERED: TUMS500C PO (11:14)
[2018-02-17 11:18] LABS: BASOPHIL % 0.3 % (0.0-2.0); EOSINOPHIL # 0.1 TH/MM3 (0-0.4); EOSINOPHIL % 0.7 % (0.0-4.0); HEMATOCRIT 42.6 % (35.0-46.0); HEMOGLOBIN 13.6 GM/DL (11.6-15.3); LYMPH % 6.6 % (9.0-44.0); LYMPHOCYTE # 0.8 TH/MM3 (1.0-4.8); MEAN CORPUSCULAR HEMOGLOBIN 28.2 PG (27.0-34.0); MEAN PLATELET VOLUME 8.1 FL (7.0-11.0); MONO % 6.2 % (0.0-8.0); MONOCYTE # 0.8 TH/MM3 (0-0.9); NEUT % 86.2 % (16.0-70.0); PLATELET COUNT 142 TH/MM3 (150-450); RED BLOOD COUNT 4.84 MIL/MM3 (4.00-5.30); RED CELL DISTRIBUTION WIDTH 18.2 % (11.6-17.2); WHITE BLOOD COUNT 12.7 TH/MM3 (4.0-11.0)
[2018-02-17 11:28] LABS: PROTHROMBIN TIME - PATIENT 9.7 SEC (9.8-11.6)
--- NOTE | 2018-02-17 11:51 | PD ---
HPI Chief Complaint: Respiratory Symptoms Time Seen by Provider: 10:40 Travel History International Travel<30 days: No Contact w/Intl Traveler<30days: No Traveled to known affect area: No History of Present Illness HPI Patient has a history of colon cancer with metastases to the lungs and liver. Presented to the emergency department complaining of shortness of breath and pain. She has similar symptoms in the past and was diagnosed with UTI and pneumonia. At rest on exertion got worse yesterday but is been ongoing. Took hydrocodone 10/325 at 930 this morning. Initially had some pressure-like diffuse chest pain which resolved with O2 administration by EMS per patient. Patient complained of pain in her back as well. She denies lower extremity edema, fever, but reports chills and productive cough with [place] green and brown phlegm. PFSH Past Medical History Hx Anticoagulant Therapy: No ADHD: Yes Arthritis: Yes Asthma: No Autoimmune Disease: No Blood Disorders: No Anxiety: Yes Depression: Yes Heart Rhythm Problems: No Cancer: Yes Cardiomyopathy: Yes Cardiovascular Problems: No High Cholesterol: No Chemotherapy: Yes (ORAL) Chest Pain: No Congestive Heart Failure: No COPD: No Cerebrovascular Accident: No Diabetes: No Diminished Hearing: No Diverticulitis: Yes Deep Vein Thrombosis: Yes (RIGHT LEG) Endocrine: No Gastrointestinal Disorders: Yes (acute colotsis) GERD: Yes Glaucoma: No Genitourinary: No Headaches: Yes Hepatitis: No Hiatal Hernia: No Heparin Induced Thrombocytopen: No Hypertension: Yes Immune Disorder: No Implanted Vascular Access Dvce: No Kidney Stones: No Musculoskeletal: Yes (THORACIC, LUMBAR DISCOMFORT, JOINT PAIN) Neurologic: No Psychiatric: Yes Reproductive: No Respiratory: Yes Immunizations Current: No Migraines: Yes Myocardial Infarction: No Radiation Therapy: Yes Renal Failure: No Seizures: No Sickle Cell Disease: No Sleep Apnea: No Ulcer: No Influenza Vaccination: No PNEUMOCCOCAL Vaccine (Year): 2 ?: Not Menopausal: Yes : 9 Para: 5 Miscarriage: 1 : 3 Tubal Ligation: Yes Past Surgical History Abdominal Surgery: Yes (COLON RESECTION -REMOVE TUMOR WITH REPAIR HERNIA) AICD: No Appendectomy: No Arteriovenous Shunt: No Body Medical Devices: RIGHT IMPLANTED PORT Cardiac Surgery: No Cholecystectomy: Yes Ear Surgery: No Endocrine Surgery: No Eye Surgery: No Genitourinary Surgery: No Gynecologic Surgery: Yes (D&C, tubal ligation) Insulin Pump: No Joint Replacement: No Neurologic Surgery: No Oral Surgery: No Pacemaker: No Thoracic Surgery: Yes (RIGHT IMPLANTED PORT- RIGHT UPPER CHEST , removed Jul 23OVAL OF PORT) Other Surgery: Yes (tuibal ligation, DNC, Gallbaladder removal, colon resention ; liver resectio) Social History Alcohol Use: No Tobacco Use: No (QUIT 06/2015) Substance Use: Yes ("medical THC daily CBD daily) Allergies-Medications (Allergen,Severity, Reaction): Coded Allergies: hydromorphone (Unverified Allergy, Severe, Rash, 02/17/18) latex (Unverified Allergy, Severe, ITCHY,RASH, 02/17/18) morphine (Unverified Allergy, Severe, Rash, 02/17/18) strawberry (Unverified Allergy, Severe, HIVES, 02/17/18) erythromycin base (Unverified Allergy, Mild, RASH, 02/17/18) oxycodone (Verified Allergy, Unknown, 02/17/18) HEADACHE NAUSEA Uncoded Allergies: CARD BOARD (Allergy, Severe, CONTACT DERMATITIS, 05/08/16) Reported Meds & Prescriptions Reported Meds & Active Scripts Active Dexamethasone 2 Mg Tab 2 Mg PO BID Take one tab in the morning and another at 1-2 PM Oxygen (O2) Device Liter CARRILLO.CANULA CONTINUOUS Oxygen Concentrator Portable Gaseous 2 L/min via Nasal Canula Continuous For 99 months Pantoprazole (Pantoprazole Sodium) 40 Mg Tab 40 Mg PO DAILY Reported Digestive Advantage Probiotic (Lactobacillus Rhamnosus (GG)) 1 Chew 1 Tab PO DAILY Tums (Calcium Carbonate (Antacid)) 500 Mg Chew 500 Mg PO TID PRN Tylenol-Codeine #3 (Acetaminophen-Codeine) 300-30 mg Tab 1 Tab PO Q4-6H PRN Zofran (Ondansetron HCl) 8 Mg Tab 8 Mg PO TID PRN Hydrocodone-Acetaminophen 10-325 mg Tab 1 Tab PO Q6H PRN Lisinopril 10 Mg Tab 10 Mg PO DAILY Prochlorperazine Maleate 10 Mg Tab 10 Mg PO Q6H PRN Imodium A-D (Loperamide HCl) 2 Mg Capsule 2 Mg PO Q6H PRN Stivarga (Regorafenib) 40 Mg Tablet 40 Mg PO DAILY Review of Systems Except as stated in HPI: all other systems reviewed are Neg Physical Exam Narrative GENERAL: No acute distress. SKIN: Focused skin assessment warm/dry. HEAD: Atraumatic. Normocephalic. EYES: Pupils equal and round. No scleral icterus. No injection or drainage. ENT: No nasal bleeding or discharge. Mucous membranes pink and moist. NECK: Trachea midline. No JVD. CARDIOVASCULAR: Regular rate and rhythm. No murmur appreciated. RESPIRATORY: No accessory muscle use. Coarse breath sounds bilaterally. Tachypnea. GASTROINTESTINAL: Abdomen soft, obese. Hepatic and splenic margins not palpable. MUSCULOSKELETAL: No obvious deformities. No clubbing. No cyanosis. No edema. Lower L-spine TTP. NEUROLOGICAL: Awake and alert. No obvious cranial nerve deficits. Motor grossly within normal limits. Normal speech. PSYCHIATRIC: Appropriate mood and affect; insight and judgment normal. Data Data Last Documented VS Vital Signs Date Time Temp Pulse Resp B/P (MAP) Pulse Ox O2 Delivery O2 Flow Rate FiO2 02/17/18 11:53 132 20 119/87 (98) 97 Nasal Cannula 2.00 02/17/18 10:50 98.3 Orders Orders Electrocardiogram (02/17/18 10:48) B-Type Natriuretic Peptide (02/17/18 10:48) Ckmb (Isoenzyme) Profile (02/17/18 10:48) Complete Blood Count With Diff (02/17/18 10:48) Comprehensive Metabolic Panel (02/17/18 10:48) Magnesium (Mg) (02/17/18 10:48) Prothrombin Time / Inr (Pt) (02/17/18 10:48) Act Partial Throm Time (Ptt) (02/17/18 10:48) Troponin I (02/17/18 10:48) Chest, Single Ap (02/17/18 10:48) Ct Pulmonary Angiogram (02/17/18 10:48) Urinalysis - C+S If Indicated (02/17/18 10:48) Blood Culture (02/17/18 12:29) Ceftriaxone Inj (Rocephin Inj) (02/17/18 12:30) Azithromycin (Zithromax) (02/17/18 12:30) Iohexol 350 Inj (Omnipaque 350 Inj) (02/17/18 13:11) Lactic Acid (02/17/18 13:50) Sodium Chlor 0.9% 1000 Ml Inj (Ns 1000 M (02/17/18 14:00) Admit Order (Ed Use Only) (02/17/18 13:56) Labs Laboratory Tests Test 02/17/18 10:55 White Blood Count 12.7 TH/MM3 Red Blood Count 4.84 MIL/MM3 Hemoglobin 13.6 GM/DL Hematocrit 42.6 % Mean Corpuscular Volume 88.0 FL Mean Corpuscular Hemoglobin 28.2 PG Mean Corpuscular Hemoglobin Concent 32.0 % Red Cell Distribution Width 18.2 % Platelet Count 142 TH/MM3 Mean Platelet Volume 8.1 FL Neutrophils (%) (Auto) 86.2 % Lymphocytes (%) (Auto) 6.6 % Monocytes (%) (Auto) 6.2 % Eosinophils (%) (Auto) 0.7 % Basophils (%) (Auto) 0.3 % Neutrophils # (Auto) 11.0 TH/MM3 Lymphocytes # (Auto) 0.8 TH/MM3 Monocytes # (Auto) 0.8 TH/MM3 Eosinophils # (Auto) 0.1 TH/MM3 Basophils # (Auto) 0.0 TH/MM3 CBC Comment DIFF FINAL Differential Comment Prothrombin Time 9.7 SEC Prothromb Time International Ratio 1.0 RATIO Activated Partial Thromboplast Time 26.0 SEC Blood Urea Nitrogen 13 MG/DL Creatinine 0.94 MG/DL Random Glucose 114 MG/DL Total Protein 7.1 GM/DL Albumin 2.1 GM/DL Calcium Level 8.3 MG/DL Magnesium Level 1.6 MG/DL Alkaline Phosphatase 164 U/L Aspartate Amino Transf (AST/SGOT) 62 U/L Alanine Aminotransferase (ALT/SGPT) 83 U/L Total Bilirubin 2.2 MG/DL Sodium Level 137 MEQ/L Potassium Level 3.7 MEQ/L Chloride Level 102 MEQ/L Carbon Dioxide Level 18.9 MEQ/L Anion Gap 16 MEQ/L Estimat Glomerular Filtration Rate 62 ML/MIN Total Creatine Kinase 65 U/L Troponin I LESS THAN 0.02 NG/ML B-Type Natriuretic Peptide 55 PG/ML MDM Medical Decision Making Medical Screen Exam Complete: Yes Emergency Medical Condition: Yes Interpretation(s) ECG: Sinus tachycardia rate 136, normal axis, no ST elevation, T-wave inversion in lead III and V1 Labs: Elevated anion gap, leukocytosis, decreased platelets, elevated AST/ALT/ alkaline phosphatase/glucose/T bili Last Impressions Chest X-Ray 02/17/18 1048 Signed Impressions: CONCLUSION: 1. Multiple bilateral pulmonary nodules concerning for metastatic disease. The se are stable. 2. Left basilar airspace disease may be slightly worse when compared to the pr ior. This could represent atelectasis/scarring or infiltrate. 3. Probable small right-sided effusion. 4. Left IJ [id number] with the tip at the junction of the left and right br achiocephalic veins CT Angiography 02/17/181047 Signed Impressions: CONCLUSION: 1. Interval worsening of the patient's metastatic disease. Pulmonary nodules h ave increased in both size and number from the prior exam. 2. In addition, there is bihilar and subcarinal adenopathy as well as possible pericardial invasion from regional nodules. 3. No pulmonary embolus. 4. Small left with a tiny right pleural effusion. Regional concomitant atelect atic changes in the bases. Differential Diagnosis Pneumonia, ACS, PE, pleural effusion, pulmonary edema Narrative Course Patient presents emergency department complaining of productive cough and shortness of breath and resolved chest pain. Was placed on a balance staff inspector, IV access obtained, patient placed on O2, and labs/chest x-ray/EKG ordered. She also given 1L IV NS, which was started by EMS. Patient given 500 Zithromax p.o. and 1 g of Rocephin, patient given total 1/5L IV NS (1L in ER and 500cc via EMS) for pneumonia. Patient has been admitted and admit team to follow up on pending lactate. Sepsis Criteria SIRS Criteria (2 or more): Heart rate over 90, RR > 20 or PaCO2 < 32, WBC > 62431, < 4000 or > 10% bands Sepsis Criteria (SIRS+source): Infect source susp/known Diagnosis Primary Impression: Pneumonia Qualified Codes: J18.1 - Lobar pneumonia, unspecified organism Additional Impression: Sepsis Qualified Codes: A41.9 - Sepsis, unspecified organism Admitting Information Admitting Physician Requests: Admit Condition: Stable Pat Arredondo MD Feb 17, 2018 11:51
[2018-02-17 12:08] LABS: ALBUMIN 2.1 GM/DL (3.4-5.0); ALKALINE PHOSPHATASE 164 U/L (45-117); ALT (GPT) 83 U/L (10-53); AST (GOT) 62 U/L (15-37); BICARBONATE 18.9 MEQ/L (21.0-32.0); BLOOD UREA NITROGEN 13 MG/DL (7-18); CALCIUM 8.3 MG/DL (8.5-10.1); CHLORIDE 102 MEQ/L (98-107); CREATININE 0.94 MG/DL (0.50-1.00); GLOMERULAR FILTRATION RATE 62 ML/MIN (>89); GLUCOSE,RANDOM 114 MG/DL (74-106); MAGNESIUM 1.6 MG/DL (1.5-2.5); SODIUM (NA) 137 MEQ/L (136-145); TOTAL BILIRUBIN ADULT 2.2 MG/DL (0.2-1.0); TOTAL PROTEIN 7.1 GM/DL (6.4-8.2); TROPONIN I LESS THAN 0.02 NG/ML (0.02-0.05)
[2018-02-17] MEDS ORDERED: AZITHROMYCIN 250 MG TAB PO ONE (12:30)
[2018-02-17] MEDS ORDERED: cefTRIAXone INJ 1,000 MG in SODIUM CHLORIDE 0.9% INJ 100 ML IV ONE (12:30)
[2018-02-17] MEDS ORDERED: IOHEXOL 350 MG/ML 10 ML VIAL (for RAD DIAG) IVCONTRAST ONE (13:11)
--- NOTE | 2018-02-17 13:25 | RADRPT ---
EXAM DATE: 02/17/2018 1:09 PM EDT AGE/SEX: 57 years / Female INDICATIONS: Shortness of breath, cough. CLINICAL DATA: This is the patient's initial encounter. Patient reports that signs and symptoms have been present for 1 day and indicates a pain score of 2/10. MEDICAL/SURGICAL HISTORY: Hypertension. Deep venous thrombosis. Colon cancer with mets to lungs an d liver. Tubal ligation. RADIATION DOSE: 22.93 CTDI (mGy) COMPARISON: [facility] – [place], CT PULMONARY ANGIOGRAM, 12/05/2017. . TECHNIQUE: Volumetric scanning was performed using a multi-row detector CT scanner during bolus infu sussy of 75 ml Omnipaque 350 (iohexol) nonionic water-soluble contrast as a single exam dose. The katie a was post processed with a variety of visualization algorithms including full volume maximum intensi ty projection and sliding thin slab reformation. Using automated exposure control and adjustment of the mA and/or kV according to patient size, radiation dose was kept as low as reasonably achievable t o obtain optimal diagnostic quality images. FINDINGS: Pulmonary Arteries: No filling defects are seen in the pulmonary arteries out to the subsegmental ve ssels. The left and right pulmonary arteries are normal in diameter. Lung: Multiple bilateral pulmonary nodules characteristic of metastatic disease. These have increase d in both size and number from the prior exam. Increasing density in the left base on plain film is d ue to increasing nodules in the left base with adjacent atelectasis and a small associated effusion. Bibasilar atelectatic changes would explain the blunting of the costophrenic angles. Effusion: Small left with a tiny right pleural effusion. Mediastinum: Bihilar adenopathy. Prominent subcarinal lymph nodes as well. There may be pericardial nodular implants present as well. Other: Metastatic disease to the liver. CONCLUSION: 1. Interval worsening of the patient's metastatic disease. Pulmonary nodules have increased in both size and number from the prior exam. 2. In addition, there is bihilar and subcarinal adenopathy as well as possible pericardial invasion from regional nodules. 3. No pulmonary embolus. 4. Small left with a tiny right pleural effusion. Regional concomitant atelectatic changes in the ba ses. Electronically signed by: Vernon Herrera MD 02/17/2018 1:24 PM EDT
[2018-02-17] MEDS ORDERED: SODIUM CHLOR 0.9% 1000 ML INJ 1,000 ML IV ONE (14:00)
--- NOTE | 2018-02-17 14:29 | HHI.HP ---
[facility] Service Family Medicine Primary Care Physician Sophia Bryan MD Admission Diagnosis pneumonia, metastatic colon/lung ca, sepsis Diagnoses: International Travel<30 Days: No Contact w/Intl Traveler<30days: No Known Affected Area: No History of Present Illness Ms. Flores is a 57 y/o F with a history of metastatic colon cancer with pulmonary metastasis presents to the ED with shortness of breath. Patient states that over the last 24 hours she has had increased SOB. She states that she noticed she became more short of breath when going to the bathroom. Normally her breathing improves with rest, however yesterday she noticed her symptoms did not improve. She used her at home oxygen which improved her symptoms. However, this morning after walking from the bathroom her symptoms started again, but this time her oxygen did not help her SOB. She endorses having a green productive cough, subjective fevers, headaches, and rhinorrhea. Upon further questioning, she does endorse having chest pressure she indicates that starts at her sternum and stretches to the L side of her chest. The pressure is worsened with activity. These episodes are accompanied by diaphoresis and SOB. She does feel that her HR has been elevated over this time as well. Patient is on Stivarga for her metastatic colon cancer since December. She is a patient of Dr. Ventura who she saw approximately 2 weeks ago. She is unaware of her last PET scan or the results of her most recent exam. She is able to states that she has metastatic lesions to her liver and lungs. Per chart review , patient has had many issues with varying chemotherapies in the past. (Mike Bravo MD R2) History of Present Illness 57-year-old female presenting with shortness of breath and chest pain. She has a history of colon cancer with metastasis to the lungs and is undergoing oral chemotherapeutic treatment. Per the patient, she has had increasing and progressive shortness of breath over the last 24 hours that is causing anterior chest discomfort and chest tightness. She tried to lay down, but there is no improvement in her breathing. She tried her home oxygen, but there is no improvement in her breathing. She tried to walk and go to the bathroom, however her shortness of breath abruptly worsened and she decided to come to the emergency department for further evaluation of her shortness of breath and chest pressure/pain. She describes her chest pain/pressure as a substernal pressure/tightness that stretches across the left side of her chest and worsens with activity. She is currently undergoing chemotherapeutic treatment for metastatic colon cancer with metastasis to her liver and her lungs. She is followed by Dr. Ventura (Glen Davidson MD) Review of Systems ROS Limitations: Clinical Condition (Patient is very anxious ) Constitutional: COMPLAINS OF: Fever, Weight loss, Chills, Dizziness Eyes: COMPLAINS OF: Blurred vision, DENIES: Double Vision Ears, nose, mouth, throat: COMPLAINS OF: Throat pain, Running Nose Respiratory: COMPLAINS OF: Cough, Sputum production, Shortness of breath Cardiovascular: COMPLAINS OF: Chest pain, Palpitations Gastrointestinal: DENIES: Abdominal pain, Diarrhea, Nausea, Vomiting Genitourinary: DENIES: Hematuria, Dysuria Musculoskeletal: COMPLAINS OF: Joint pain, Muscle aches Integumentary: DENIES: Rash Hematologic/lymphatic: DENIES: Lymphadenopathy Neurologic: COMPLAINS OF: Headache Psychiatric: COMPLAINS OF: Depression, DENIES: Mood changes (Mike Bravo MD R2) Past Family Social History Past Medical History Metastatic colon cancer with liver, lung metastasis HTN Anxiety/Depression GERD History of colitis Past Surgical History Cholecystectomy Colon resection Tubal ligation Liver resection x 2 (Mike Bravo MD R2) Allergies: Coded Allergies: hydromorphone (Unverified Allergy, Severe, Rash, 02/17/18) latex (Unverified Allergy, Severe, ITCHY,RASH, 02/17/18) morphine (Unverified Allergy, Severe, Rash, 02/17/18) strawberry (Unverified Allergy, Severe, HIVES, 02/17/18) erythromycin base (Unverified Allergy, Mild, RASH, 02/17/18) oxycodone (Verified Allergy, Unknown, 02/17/18) HEADACHE NAUSEA Uncoded Allergies: CARD BOARD (Allergy, Severe, CONTACT DERMATITIS, 05/08/16) Family History AAA in mother lung cancer, CA in father DM in brother Social History , Lives with 2 children and in [place]. Previously smoked 0.5 ppd for 5 years, quit in 2014 No alcohol Medicinal marijuana "as much as possible" (3x per day) (Mike Bravo MD R2) Physical Exam Vital Signs Vital Signs Date Time Temp Pulse Resp B/P (MAP) Pulse Ox O2 Delivery O2 Flow Rate FiO2 02/17/18 11:53 132 20 119/87 (98) 97 Nasal Cannula 2.00 02/17/18 10:50 98.3 139 20 142/99 (113) 97 Nasal Cannula 2.00 02/17/18 10:49 143 20 97 Nasal Cannula 2.00 02/17/18 10:29 98.3 144 36 97 Physical Exam GENERAL: Obese female lying in bed in respiratory distress, but able to complete short sentences during interview. SKIN: Cold and dry. No rash. HEENT: Atraumatic, normocephalic with extraocular motions intact. No rhinorrhea. Oropharynx clear without erythema or exudate. No visible lymphadenopathy or jugulovenous distension appreciated. CARDIOVASCULAR: Tachycardic rate and regular rhythm. No obvious murmurs, gallops, or rubs. 2+ pulses in all four extremities. RESPIRATORY: Decreased aeration of the lungs bilaterally due to shallow breathing and tachypnea. Decreased aeration focally over the right lower lobe with fine crackles. Increased work of breathing with accessory muscle use and belly breathing intermittently. Patient only able to complete short sentences during interview. Chest nontender to palpation with chemotherapy port in place along the left chest without erythema, edema, or warmth. GASTROINTESTINAL: Abdomen soft, non-tender, nondistended with positive bowel sounds. No masses appreciated. MUSCULOSKELETAL: No cyanosis. Nonpitting edema bilaterally up to the midshin that is tender to palpation along the anterior ramos. No calf tenderness with a negative Homans sign. Patient ambulates well per report. NEURO/PSYCH: Afocal. Awake, alert, and oriented x3. Normal speech and judgement. Laboratory Laboratory Tests Test 02/17/18 10:55 White Blood Count 12.7 Red Blood Count 4.84 Hemoglobin 13.6 Hematocrit 42.6 Mean Corpuscular Volume 88.0 Mean Corpuscular Hemoglobin 28.2 Mean Corpuscular Hemoglobin Concent 32.0 Red Cell Distribution Width 18.2 Platelet Count 142 Mean Platelet Volume 8.1 Neutrophils (%) (Auto) 86.2 Lymphocytes (%) (Auto) 6.6 Monocytes (%) (Auto) 6.2 Eosinophils (%) (Auto) 0.7 Basophils (%) (Auto) 0.3 Neutrophils # (Auto) 11.0 Lymphocytes # (Auto) 0.8 Monocytes # (Auto) 0.8 Eosinophils # (Auto) 0.1 Basophils # (Auto) 0.0 CBC Comment DIFF FINAL Differential Comment Prothrombin Time 9.7 Prothromb Time International Ratio 1.0 Activated Partial Thromboplast Time 26.0 Blood Urea Nitrogen 13 Creatinine 0.94 Random Glucose 114 Total Protein 7.1 Albumin 2.1 Calcium Level 8.3 Magnesium Level 1.6 Alkaline Phosphatase 164 Aspartate Amino Transf (AST/SGOT) 62 Alanine Aminotransferase (ALT/SGPT) 83 Total Bilirubin 2.2 Sodium Level 137 Potassium Level 3.7 Chloride Level 102 Carbon Dioxide Level 18.9 Anion Gap 16 Estimat Glomerular Filtration Rate 62 Total Creatine Kinase 65 Troponin I LESS THAN 0.02 B-Type Natriuretic Peptide 55 Date/Time Source Procedure Growth Status 02/17/18 12:35 Blood Peripheral Aerobic Blood Culture Pending Received 02/17/18 12:35 Blood Peripheral Anaerobic Blood Culture Pending Received (Mike Bravo MD R2) Physical Exam General: Obese female, obviously anxious, appears to be labored in her breathing CV: Tachycardic with regular rhythm. No obvious murmurs. Pulmonary: Diminished breath sounds diffusely and patient appears to be labored in her breathing. No overt rhonchi or crackles. Patient does appear to be using accessory muscles and is unable to speak in complete sentences due to shortness of breath. GI: Soft, nontender, nondistended abdomen MSK: Bilateral lower extremities with nonpitting edema (Glen Davidson MD) Result Diagram: 02/17/18 1055 02/17/18 1055 Imaging Last 72 hours Impressions Chest X-Ray 02/17/18 1048 Signed Impressions: CONCLUSION: 1. Multiple bilateral pulmonary nodules concerning for metastatic disease. The se are stable. 2. Left basilar airspace disease may be slightly worse when compared to the pr ior. This could represent atelectasis/scarring or infiltrate. 3. Probable small right-sided effusion. 4. Left IJ [id number] with the tip at the junction of the left and right br achiocephalic veins CT Angiography 02/17/18 1048 Signed Impressions: CONCLUSION: 1. Interval worsening of the patient's metastatic disease. Pulmonary nodules h ave increased in both size and number from the prior exam. 2. In addition, there is bihilar and subcarinal adenopathy as well as possible pericardial invasion from regional nodules. 3. No pulmonary embolus. 4. Small left with a tiny right pleural effusion. Regional concomitant atelect atic changes in the bases. (Mike Bravo MD R2) Caprini VTE Risk Assessment Caprini VTE Risk Assessment: Mod/High Risk (score >= 2) Caprini Risk Assessment Model Point Value = 1 Point Value = 2 Point Value = 3 Point Value = 5 Age 41-60 Minor surgery BMI > 25 kg/m2 Swollen legs Varicose veins or History of unexplained or recurrent spontaneous Oral contraceptives or hormone replacement Sepsis (< 1 month) Serious lung disease, including pneumonia (< 1 month) Abnormal pulmonary function Acute myocardial infarction Congestive heart failure (< 1 month) History of inflammatory bowel disease Medical patient at bed rest Age 61-74 Arthroscopic surgery Major open surgery (> 45 min) Laparoscopic surgery (> 45 min) Malignancy Confined to bed (> 72 hours) Immobilizing plaster cast Central venous access Age >= 75 History of VTE Family history of VTE Factor V Leiden Prothrombin [id number] Lupus anticoagulant Anticardiolipin antibodies Elevated serum homocysteine Heparin-induced thrombocytopenia Other congenital or acquired thrombophilia Stroke (< 1 month) Elective arthroplasty Hip, pelvis, or leg fracture Acute spinal cord injury (< 1 month) Prophylaxis Regimen Total Risk Factor Score Risk Level Prophylaxis Regimen 0-1 Low Early ambulation 2 Moderate Order ONE of the following: *Sequential Compression Device (SCD) *Heparin 5000 units SQ BID 3-4 Higher Order ONE of the following medications: *Heparin 5000 units SQ TID *Enoxaparin/Lovenox 40 mg SQ daily (WT < 150 kg, CrCl > 30 mL/min) *Enoxaparin/Lovenox 30 mg SQ daily (WT < 150 kg, CrCl > 10-29 mL/min) *Enoxaparin/Lovenox 30 mg SQ BID (WT < 150 kg, CrCl > 30 mL/min) AND/OR *Sequential Compression Device (SCD) 5 or more Highest Order ONE of the following medications: *Heparin 5000 units SQ TID (Preferred with Epidurals) *Enoxaparin/Lovenox 40 mg SQ daily (WT < 150 kg, CrCl > 30 mL/min) *Enoxaparin/Lovenox 30 mg SQ daily (WT < 150 kg, CrCl > 10-29 mL/min) *Enoxaparin/Lovenox 30 mg SQ BID (WT < 150 kg, CrCl > 30 mL/min) AND *Sequential Compression Device (SCD) (Mike Bravo MD R2) Assessment and Plan Assessment and Plan Mrs. Flores is a 57-year-old female with history of metastatic colon cancer to the lungs and liver presenting with acute shortness secondary to possible broncho-obstructive pneumonia versus increasing tumor burden of the mediastinum. Code Status FULL CODE Discussed Condition With Dr. Arredondo, ED physician Dr. Narvaez (Mike Bravo MD R2) Attending Attestation THIS CASE WAS DISCUSSED WITH THE RESIDENT PHYSICIANS. I HAVE REVIEWED THE RECORD AND AGREE WITH THE ABOVE NOTE AND PLAN OF CARE WAS DISCUSSED. I HAVE AUTHORIZED THE ORDER FOR ADMISSION TO AN IN-PATIENT STATUS. Obstructive pulmonary process versus pneumonia versus metastatic progression: -Hospitalization 5 weeks ago for treatment for pneumonia, will cover for HCA P with vancomycin and Zosyn -Urine antigens -Sputum culture -Blood cultures CT a with progression of pulmonary metastasis -Oncology consulted for evaluation of management plan and progression of disease Pain associated with metastatic colon cancer: -Continue home hydrocodone -Fentanyl patch 25 mg -Decadron 8 mg IV 1 followed by 4 mg twice daily Consider palliative care consult she was seen by palliative care prior hospitalization but patient was not ready to transition to palliative care. We will discuss this with the patient given progression of disease found on CTA Glen Davidson MD (Glen Davidson MD) Problem List: (1) Pneumonia ICD Codes: J18.9 - Pneumonia, unspecified organism Status: Acute Plan: Patient with hospitalization from 01/12 to 01/17 presenting with sepsis secondary to possible pneumonia with pleural effusion. Therefore plan to treat as HCAP vs Broncho-Obstructive PNA based on tumor burden -Chest x-ray: Bilateral pulmonary nodules concerning for metastatic disease which are stable, left basilar airspace disease that may be slightly worse when compared to the prior exam representing possible infiltrate versus atelectasis. Small right sided effusion. Left IJ [id number] at the tip of the junction of the left and right brachiocephalic veins. -CTA: Interval worsening of the patient's metastatic disease. Pulmonary nodules have increased in both size and number from prior exam. By hilar and subcarinal adenopathy as well as possible pericardial invasion from regional nodes. No pulmonary embolus. Small left with a tiny right pleural effusion. Regional concomitant atelectatic changes and bases. -WBC: 12.7 with 86.2% neutrophils -Blood cultures 2 pending -Influenza, urinary Legionella/pneumococcal antigens, and sputum cultures ordered -Incentive spirometry, respiratory CPT, and Acapella ordered Medications: -Patient given ceftriaxone and azithromycin and ED -Patient to start vancomycin and Zosyn for antibiotic coverage, pharmacy consulted for dosing -Patient to start duo nebs every 6 hours with as needed treatments every 4 hours (2) Sepsis ICD Codes: A41.9 - Sepsis, unspecified organism Status: Acute Plan: -Patient presenting with tachycardia to 144 and respiratory rate 36 upon initial vital sign check -Suspected source of infection is pneumonia as documented above -Patient is not hypotensive and has a lactic acid of 1.9, therefore meeting sepsis criteria upon admission (3) Metastatic colon cancer in female ICD Codes: C18.9 - Malignant neoplasm of colon, unspecified Status: Chronic Plan: Patient with multiple complaints including shortness of breath/air hunger , headaches, abdominal pain likely related to metastatic disease and increased tumor burden. -Medial spinal imaging as above -Head CT: No acute intracranial abnormalities -CT abdomen and pelvis: Extensive metastatic disease to the lung bases with some consolidation and small left pleural effusion. Metastatic disease to the liver measuring up to 6.5 cm in diameter. Mass and transverse colon invading the anterior abdominal wall at the medial right rectus muscle. Supraumbilical ventral hernia containing a small bowel loop without evidence of obstruction. Progression of disease since prior CT from June 17, 2017 -CMP: Bilirubin 2.2, AST 62, ALT 83, alk phos 164 (likely due to tumor burden of hepatic system) -Medical oncology consulted, appreciate recommendations Medications: -Continue home Stivarga -Continue home hydrocodone 10 mg every 4 hours -Start fentanyl 25 mcg patch -Dexamethasone 8 mg given IV once, patient to start 4 mg twice daily tomorrow -Ativan 1 mg IV every 8 hours as needed for anxiety/shortness of breath -Continue home Zofran -Continue home loperamide (4) Hypertension ICD Codes: I10 - Hypertension Status: Acute Plan: Medications: -Continue home lisinopril -Clonidine 0.1 mg every 6 hours as needed for blood pressure greater than 180/ 110 (5) Acid reflux disease ICD Codes: K21.9 - Gastro-esophageal reflux disease without esophagitis Status: Chronic Plan: Medications: -Continue home pantoprazole and calcium carbonate (6) Diarrhea ICD Codes: R19.7 - Diarrhea, unspecified Status: Chronic Plan: Medications: -Continue home Imodium as needed and daily lactobacillus (7) Nutrition, metabolism, and development symptoms ICD Codes: R63.8 - Other symptoms and signs concerning food and fluid intake Status: Acute Plan: -Diet: Regular diet as tolerated -Fluids: Normal saline at 150 mL/h -Electrolytes: Glucose 114, continue to monitor -Prophylaxis: Clonidine 0.1 mg every 6 hours as needed for blood pressure greater than 180/110, DuoNeb as needed for shortness of breath/wheezing, calcium carbonate as needed for acid reflux, Imodium as needed for diarrhea, Zofran as needed for nausea/vomiting (8) DVT prophylaxis Status: Acute Plan: -Lovenox daily -SCDs (Mike Bravo MD R2) Physician Certification 2 Midnight Certification Type: Admission for Inpatient Services Order for Inpatient Services The services are ordered in accordance with Medicare regulations or non- Medicare payer requirements, as applicable. In the case of services not specified as inpatient-only, they are appropriately provided as inpatient services in accordance with the 2-midnight benchmark. Estimated LOS (days): 3 3 days is the estimated time the patient will need to remain in the hospital, assuming treatment plan goals are met and no additional complications. Post-Hospital Plan: Home (Mike Bravo MD R2) Problem Qualifiers (1) Pneumonia: Qualified Codes: J18.1 - Lobar pneumonia, unspecified organism (2) Sepsis: Qualified Codes: A41.9 - Sepsis, unspecified organism (3) Hypertension: Qualified Codes: I10 - Essential (primary) hypertension (4) Acid reflux disease: Qualified Codes: K21.9 - Gastro-esophageal reflux disease without esophagitis (5) Diarrhea: Qualified Codes: K59.1 - Functional diarrhea Mike Bravo MD R2 Feb 17, 2018 14:29 Glen Davidson MD Feb 17, 2018 21:13
[2018-02-17] MEDS ORDERED: PROCHLORPERAZINE MALEATE 10 MG TAB PO PRN (15:00)
[2018-02-17 15:26] LABS: BACTERIA, URINE RARE /hpf; BILIRUBIN, URINE NEG (NEG); BLOOD, URINE TRACE (NEG); GLUCOSE,URINE NEG (NEG); KETONE, URINE NEG (NEG); MUCUS URINE FEW /lpf (OCC); NITRITE,URINE NEG (NEG); SQUAMOUS EPITHELIAL CELL URINE 3 /hpf (0-5); URINE COLOR YELLOW (YELLW/STRAW); URINE LEUKOCYTE ESTERASE NEG (NEG)
[2018-02-17] MEDS ORDERED: SODIUM CHLORIDE 0.9% FLUSH 10 ML FLUSH IV FLUSH PRN (15:30)
[2018-02-17] MEDS ORDERED: ACETAMINOPHEN 1000 MG/100 ML 100 ML IV SCH (15:30)
[2018-02-17] MEDS ORDERED: RESP: ALBUTEROL 2.5 MG/IPRATROPIUM 0.5 MG NEB (PRN) INH (15:30)
[2018-02-17] MEDS ORDERED: ACETAMINOPHEN 325 MG TAB PO PRN (15:30)
[2018-02-17] MEDS ORDERED: NALOXONE HCL 0.4 MG/ML AMP IV PUSH PRN (15:30)
[2018-02-17] MEDS ORDERED: VANCOMYCIN INJ 1,000 MG in SODIUM CHLOR 0.9% 250 ML INJ 250 ML IV SCH (15:30)
[2018-02-17] MEDS ORDERED: Vancomycin Consult Pharmacy 1 EA OTHER SCH (15:30)
[2018-02-17] MEDS ORDERED: Custom Consult Pharmacy 1 EA OTHER SCH (16:15)
[2018-02-17] MEDS ORDERED: ACETAMINOPHEN/HYDROcodone 325 MG/5 MG TAB PO PRN (16:45)
[2018-02-17] MEDS ORDERED: DEXAMETHASONE SOD PHOS 4 MG/ML VIAL IM ONE (17:00)
[2018-02-17] MEDS ORDERED: DEXAMETHASONE SOD PHOS 4 MG/ML VIAL IV ONE (17:00)
[2018-02-17] MEDS: ACETAMINOPHEN/HYDROcodone 325 MG/10 MG TAB PO PRN ×2 (17:05→21:43)
[2018-02-17] MEDS: PANTOPRAZOLE SOD 40 MG DELAYED RELEASE TAB PO SCH (17:06)
[2018-02-17] MEDS: SODIUM CHLOR 0.9% 1000 ML INJ 1,000 ML IV SCH ×2 (17:06→21:44)
[2018-02-17] MEDS: ENOXAPARIN SODIUM 40 MG/0.4 ML SYRINGE SQ SCH (17:06)
[2018-02-17] MEDS: fentaNYL 25 MCG/HR PATCH T-DERMAL SCH (17:07)
[2018-02-17] MEDS: REMOVE OLD DURAGESIC (FENTANYL) PATCH T-DERMAL SCH (17:07)
[2018-02-17] MEDS: PIPERACIL-TAZO 3.375 GM PREMIX 50 ML IV SCH ×2 (17:53→23:53)
[2018-02-17 18:01] LABS: TROPONIN I LESS THAN 0.02 NG/ML (0.02-0.05)
[2018-02-17] MEDS: VANCOMYCIN INJ 1,250 MG in SODIUM CHLOR 0.9% 250 ML INJ 250 ML IV SCH (19:01)
[2018-02-17] MEDS: ONDANSETRON ODT 4 MG TAB PO PRN (19:46)
--- NOTE | 2018-02-17 20:39 | RADRPT ---
EXAM DATE: 02/17/2018 8:20 PM EDT AGE/SEX: 57 years / Female INDICATIONS: Cephalgia. CLINICAL DATA: This is the patient's initial encounter. Patient reports that signs and symptoms have been present for 1 day and indicates a pain score of 3/10. MEDICAL/SURGICAL HISTORY: Carcinoma, colon. Cardiovascular disease. Deep venous thrombosis. Unity static disease. Tubal ligation. RADIATION DOSE: 50.57 CTDI (mGy) COMPARISON: No prior [place] exams available for comparison. TECHNIQUE: CT of the head without contrast. Using automated exposure control and adjustment of the mA and/or kV according to patient size, radiation dose was kept as low as reasonably achievable to ob tain optimal diagnostic quality images. FINDINGS: Cerebrum: The ventricles are normal for age. No evidence of midline shift, mass lesion, hemorrhage or acute infarction. No extraaxial fluid collections are seen. Posterior Fossa: The cerebellum and brainstem are intact. The 4th ventricle is midline. The cerebe llopontine angle is unremarkable. Extracranial: The visualized portion of the orbits is intact. Skull: The calvaria is intact. No evidence of skull fracture. CONCLUSION: 1. No acute intracranial abnormalities. Electronically signed by: Gurjit Hastings MD 02/17/2018 8:38 PM EDT
[2018-02-17] MEDS: SODIUM CHLORIDE 0.9% FLUSH 10 ML FLUSH IV FLUSH SCH (21:00)
[2018-02-17] MEDS ORDERED: DEXAMETHASONE 4 MG TAB PO SCH (21:00)
[2018-02-17] MEDS: LOPERAMIDE HCL 2 MG CAP PO PRN (21:42)
--- NOTE | 2018-02-17 21:45 | RADRPT ---
EXAM DATE: 02/17/2018 8:20 PM EDT AGE/SEX: 57 years / Female INDICATIONS: Abdomen pain. CLINICAL DATA: This is the patient's initial encounter. Patient reports that signs and symptoms have been present for 1 day and indicates a pain score of 4/10. MEDICAL/SURGICAL HISTORY: Carcinoma, colon. Cardiovascular disease. Deep venous thrombosis. Metastatic disease. Tubal ligation. RADIATION DOSE: 13.59 CTDI (mGy) COMPARISON: [facility] – [place], [place], CT ABDOMEN & PELVIS W/O CONTRAST, 06/28/2017. . TECHNIQUE: Multiple contiguous axial images were obtained through the abdomen. Images were obtained using multiple row detector helical technique. Using dose reduction techniques, radiation dose was ke pt as low as reasonably achievable to obtain optimal diagnostic quality images. FINDINGS: There are numerous lung nodules at the bases characteristic of metastatic disease. There is also some confluent consolidation predominantly at the left lung base with small left-sided pleural effusion. Dominant liver mass right lobe measures up to 6.5 cm in diameter with other smaller lesions suspected . There is a mass in the transverse colon characteristic of colon carcinoma per history. The mass is in vading the anterior abdominal wall and medial right rectus muscle. No acute findings in the spleen, right adrenal, pancreas. Slight nodular enlargement of the left adre nal measuring just under centimeter in diameter. No hydronephrosis. There is a small supraumbilical ventral hernia containing a loop of small bowel and measuring about 4 cm in diameter. There is contrast within the bladder. No pelvic mass or pelvic adenopathy. CONCLUSION: 1. Extensive metastatic disease to the lung bases with some consolidation and a small left pleural e ffusion. 2. Metastatic disease to the liver measuring up to 6.5 cm in diameter. 3. Mass in transverse colon invading the anterior abdominal wall at the medial right rectus muscle. 4. Supraumbilical ventral hernia containing a small bowel loop without evidence for obstruction. 5. Progression of disease since prior CT from June 2017. Electronically signed by: Gurjit Hastings MD 02/17/2018 9:44 PM EDT
[2018-02-17] MEDS: RESP: ALBUTEROL 2.5 MG/IPRATROPIUM 0.5 MG NEB (SCH) INH (21:51)
[2018-02-17 23:51] LABS: TROPONIN I LESS THAN 0.02 NG/ML (0.02-0.05)
[2018-02-18] VITALS (10 sets, daily range): BP systolic 109–138; BP diastolic 71–87; PULSE 96–111; RESP 18–20; TEMP 97.1–97.9; O2SAT 94–99
[2018-02-18] MEDS: CALCIUM CARBONATE 500 MG CHEWABLE TAB PO PRN (00:30)
[2018-02-18] MEDS ORDERED: cloNIDine HCL 0.1 MG TAB PO PRN (03:15)
[2018-02-18] MEDS: ACETAMINOPHEN/HYDROcodone 325 MG/10 MG TAB PO PRN ×5 (04:07→22:11)
[2018-02-18] MEDS: SODIUM CHLOR 0.9% 1000 ML INJ 1,000 ML IV SCH ×3 (04:09→17:28)
[2018-02-18] MEDS: RESP: ALBUTEROL 2.5 MG/IPRATROPIUM 0.5 MG NEB (SCH) INH ×4 (04:22→21:47)
[2018-02-18] MEDS: PIPERACIL-TAZO 3.375 GM PREMIX 50 ML IV SCH ×4 (05:34→22:13)
[2018-02-18] MEDS: VANCOMYCIN INJ 1,250 MG in SODIUM CHLOR 0.9% 250 ML INJ 250 ML IV SCH ×2 (06:16→17:28)
[2018-02-18] MEDS: SODIUM CHLORIDE 0.9% FLUSH 10 ML FLUSH IV FLUSH SCH ×2 (08:03→20:03)
[2018-02-18] MEDS: PANTOPRAZOLE SOD 40 MG DELAYED RELEASE TAB PO SCH (08:06)
[2018-02-18] MEDS: DEXAMETHASONE SOD PHOS 4 MG/ML VIAL IV PUSH SCH ×2 (08:06→20:03)
[2018-02-18] MEDS: LISINOPRIL 10 MG TAB PO SCH (08:06)
[2018-02-18 08:16] LABS: BASOPHIL % 0.2 % (0.0-2.0); HEMATOCRIT 34.3 % (35.0-46.0); HEMOGLOBIN 11.1 GM/DL (11.6-15.3); LYMPH % 6.3 % (9.0-44.0); LYMPHOCYTE # 0.4 TH/MM3 (1.0-4.8); MEAN CELL VOLUME 88.7 FL (80.0-100.0); MEAN CORPUSCULAR HEMOGLOBIN 28.7 PG (27.0-34.0); MEAN CORPUSCULAR HGB CONC 32.3 % (32.0-36.0); MEAN PLATELET VOLUME 7.9 FL (7.0-11.0); MONO % 6.5 % (0.0-8.0); MONOCYTE # 0.4 TH/MM3 (0-0.9); PLATELET COUNT 94 TH/MM3 (150-450); RED BLOOD COUNT 3.86 MIL/MM3 (4.00-5.30); RED CELL DISTRIBUTION WIDTH 18.1 % (11.6-17.2); WHITE BLOOD COUNT 5.8 TH/MM3 (4.0-11.0)
[2018-02-18] MEDS ORDERED: REGORAFENIB 40 MG PO SCH (09:00)
[2018-02-18] MEDS ORDERED: LACTOBACILLUS RHAMNOSUS PO SCH (09:00)
--- NOTE | 2018-02-18 09:06 | MB ---
cc: Kiarra Ventura MD DATE: 02/17/2018 CHIEF COMPLAINT: 1. Shortness of breath. 2. Metastatic colon cancer. HISTORY OF PRESENT ILLNESS: Ms. Flores is a 57-year-old lady with a known metastatic colon cancer. She has had an aggressive and extensive course of treatment under the direction of Dr. Francisco, Dr. Rosas and Dr. Mendoza. She originally presented in 2004 with abdominal pain. A colonoscopy at that time showed obstructing lesion at 80 cm. She subsequently underwent hemicolectomy in 06/2015. At the time of surgery, 2 liver lesions were noted, which were biopsied and returned as mucinous adenocarcinoma. These lesions were not noted on the preoperative CT scan. She was subsequently started on FOLFOX chemotherapy and poorly tolerated this medicine. She has also had progressive disease, as well. She was switched to Xeloda and was on this from January to August of 2016. At that time, she underwent resection of liver lesions in 09/2016. The liver lesions extended to the resection margin. She was subsequently treated with irinotecan and Avastin. This kept her disease under control. However, she had poor tolerance to this medication regimen. At this point in time, she also developed disease in her lung. She received radiation therapy to her liver lesions. She has previously been on Lonsurf with progression of disease, which was stopped in 09/2017. She is most recently on regorafenib. She is admitted to the hospital with a several day history of progressively worsening shortness of breath and air hunger. REVIEW OF SYSTEMS: As above in the HPI and all other review of systems is negative. PAST MEDICAL HISTORY: 1. Metastatic colon cancer. 2. Obesity. 3. Migraine headaches. PAST SURGICAL HISTORY: Cholecystectomy, port placement, colon cancer resections. FAMILY HISTORY: The patient's parents are both . SOCIAL HISTORY: She has a past history of tobacco abuse. No current tobacco, alcohol or illegal drug use. PHYSICAL EXAMINATION: GENERAL: Well-developed, overweight lady in no distress, resting comfortably in bed. HEENT: Normocephalic, atraumatic. Eyes: PERRLA, EOMI. OP clear. NECK: Supple. No palpable lymphadenopathy. CARDIOVASCULAR EXAM: Regular rate and rhythm. No murmurs. RESPIRATORY: Clear to auscultation bilaterally. ABDOMEN: Soft, nontender, nondistended. Bowel sounds present. EXTREMITIES: No edema. IMAGING STUDIES: CT scan of the chest with concern for worsening metastatic disease. LABORATORY DATA: White blood cell count 12.7, hemoglobin 13.6, and platelet count is 142,000. Chemistry studies with a total bilirubin 2.2, slight elevation of AST and ALT. Creatinine is 0.94. ASSESSMENT AND PLAN: Metastatic colon cancer extensively treated with past intravenous and oral chemotherapy and most recently on regorafenib. Unfortunately, she has had progression of her disease on this therapy. The only other treatment option remaining for the patient is IV irinotecan and bevacizumab. She has been on irinotecan in the past and this appeared to have some control of her disease; however, this was very poorly tolerated. Long discussion with the patient that in order to receive IV chemotherapy that she would need to get stronger and uncertain if this would be feasible. Discussed hospice and palliative care consult with the patient. The patient reports that she is not ready to pass. She reports that she wants to try to live as long as she can to be able to provide support for her 2 youngest children. We will continue to readdress this issue. Oncology service will continue to follow. MD JACKI Dobbs/AAKASH , 07:38 AM , 09:06 AM MTDD
--- NOTE | 2018-02-18 15:28 | PD.CONS ---
Consult Service Palliative Care Consult Requested By Katy . Primary Care Physician Sophia Bryan MD . Reason for Consultation a. To assist with evaluation and management of symptoms including: Anxiety, depression, pain b. To assist medical decision maker(s) with: better understanding of current medical conditions; weighing benefits/burdens of medical treatment options; making medical treatment decisions. . HPI History of Present Illness This 57-year-old female developed flank pain in March 2015, and a CT scan at that time revealed a mass in the descending colon. She underwent hemicolectomy in June 2015 and was noted to have 2 liver lesions at that time, 1 of which was resected with a wedge resection. Pathology revealed mucinous adenocarcinoma , and the patient was noted to be T3 N0 M1 (Stage IV). She was initially begun on FOLFOX, but did not tolerate that and was changed to Xeloda. In 2015 she was noted to have a small lung nodule, and PET scan in August 2016 revealed new liver lesions. She was tried on innotecan and a Avastin, but had difficulty tolerating that. She was admitted here in December 2017 because of UTI , and chest x-ray at that time revealed multiple pulmonary nodules. In recent weeks, she has been on Stivarga. The patient presented to the hospital on 02/17/18 because of dyspnea and right chest pain. Findings in the emergency department included: * Moderate pain, some dyspnea * Temp 98.3, pulse 132, respirations 20, blood pressure 119/87, O2 saturation 97 % on 2 L * White count 12.7, hemoglobin 13.6 * Sodium 137, creatinine 0.94, albumin 2.1 * Chest x-ray with multiple nodules and possible left-sided airspace disease * CT angiogram revealed evidence of worsening metastatic disease compared to prior studies, with new nodules, larger nodules, and significant adenopathy. The patient has been seen in consultation by oncology, and chemotherapy was not felt to be an option at this time. Palliative Care was consulted to continue the assessment and management of symptoms. . Function/Cognitive Trajectory The patient has been declining steadily over the past several months. She says she has lost 66 pounds in the last 6 months, including a couple pounds in the last 2 weeks. She has difficulty ambulating because of weakness. . Review of Systems Constitutional: COMPLAINS OF: Fatigue, Weight loss Endocrine: DENIES: Polyuria Eyes: DENIES: Eye inflammation Ears, nose, mouth, throat: DENIES: Epistaxis Respiratory: COMPLAINS OF: Shortness of breath (Worse the past couple weeks) Cardiovascular: COMPLAINS OF: Chest pain (Right side for several weeks), Dyspnea on Exertion, DENIES: Syncope Gastrointestinal: DENIES: Constipation, Diarrhea, Vomiting, Vomiting blood Genitourinary: DENIES: Hematuria Musculoskeletal: COMPLAINS OF: Back pain (Chronic) Integumentary: DENIES: Rash Hematologic/Lymphatics: DENIES: Lymphadenopathy Immunologic/Allergic: DENIES: Urticaria Neurologic: DENIES: Localized weakness, Seizures Psychiatric: COMPLAINS OF: Anxiety, Depression, DENIES: Hallucinations, Agitation Past Family Social History Coded Allergies: hydromorphone (Unverified Allergy, Severe, Rash, 02/17/18) latex (Unverified Allergy, Severe, ITCHY,RASH, 02/17/18) morphine (Unverified Allergy, Severe, Rash, 02/17/18) strawberry (Unverified Allergy, Severe, HIVES, 02/17/18) erythromycin base (Unverified Allergy, Mild, RASH, 02/17/18) oxycodone (Verified Allergy, Unknown, 02/17/18) HEADACHE NAUSEA Uncoded Allergies: CARD BOARD (Allergy, Severe, CONTACT DERMATITIS, 05/08/16) Past Medical History * Stage IV colon cancer * History of back pain * History of cardiomyopathy * Migraine * Obesity * History of right leg DVT * History of ulcerative colitis 1976 . Past Surgical History * Cholecystectomy 2002 * Tubal ligation 2003 * Port 20/15 in the right chest, or removal later in 2015 * Hernia 2014 * Exploratory laparotomy with left hemicolectomy and wedge resection of the liver June 2015 * Placement of new port on the left 2016 * Exploratory laparotomy and wedge excisions of liver lesions September 2016 . Reported Medications Reported Meds & Active Scripts Active Dexamethasone 2 Mg Tab 2 Mg PO BID Take one tab in the morning and another at 1-2 PM Oxygen (O2) Device Liter CARRILLO.CANULA CONTINUOUS Oxygen Concentrator Portable Gaseous 2 L/min via Nasal Canula Continuous For 99 months Pantoprazole (Pantoprazole Sodium) 40 Mg Tab 40 Mg PO DAILY Reported Digestive Advantage Probiotic (Lactobacillus Rhamnosus (GG)) 1 Chew 1 Tab PO DAILY Tums (Calcium Carbonate (Antacid)) 500 Mg Chew 500 Mg PO TID PRN Zofran (Ondansetron HCl) 8 Mg Tab 8 Mg PO TID PRN Hydrocodone-Acetaminophen 10-325 mg Tab 1 Tab PO Q6H PRN Lisinopril 10 Mg Tab 10 Mg PO DAILY Prochlorperazine Maleate 10 Mg Tab 10 Mg PO Q6H PRN Imodium A-D (Loperamide HCl) 2 Mg Capsule 2 Mg PO Q6H PRN Stivarga (Regorafenib) 40 Mg Tablet 40 Mg PO DAILY . Current Medications Medications (Trade) Dose Ordered Sig/Lana Route Start Time Stop Time Status Last Admin (Tums Chew) 500 mg TID PRN PO 02/17/18 14:30 02/18/18 00:30 (Imodium) 2 mg Q6HR PRN PO 02/17/18 14:30 02/17/18 21:42 (Protonix) 40 mg DAILY PO 02/17/18 15:00 02/18/18 08:06 (Zofran Odt) 8 mg TID PRN PO 02/17/18 15:30 02/17/18 19:46 Non-Formulary Medication 40 mg DAILY PO 02/18/18 09:00 Future Hold Sodium Chloride 1,000 ml @ 150 mls/hr Q6H40M IV 02/17/18 16:00 02/18/18 11:12 (NS Flush) 2 ml UNSCH PRN IV FLUSH 02/17/18 15:30 (NS Flush) 2 ml BID IV FLUSH 02/17/18 21:00 (Tylenol) 650 mg Q4H PRN PO 02/17/18 15:30 (Duoneb Neb) 1 ampule Q6HR NEB INH 02/17/18 16:00 02/18/18 10:29 (Duoneb Neb) 1 ampule Q4HR NEB PRN INH 02/17/18 15:30 (Lovenox Inj) 40 mg Q24H SQ 02/17/18 17:00 02/17/18 17:06 (Decadron Inj) 4 mg Q12HR IV PUSH 02/18/18 09:00 02/18/18 08:06 Pharmacy Profile Note 0 ml @ 0 mls/hr UNSCH OTHER 02/17/18 15:30 Piperacillin Sod/ Tazobactam Sod 50 ml @ 100 mls/hr Q6H IV 02/17/18 17:00 02/18/18 11:08 (Narcan Inj) 0.4 mg UNSCH PRN IV PUSH 02/17/18 15:30 (Duragesic 25 Mcg Patch.72 Hr) 1 patch Q3D T-DERMAL 02/17/18 18:00 02/17/18 17:07 Pharmacy Profile Note 0 ml @ 0 mls/hr UNSCH OTHER 02/17/18 16:15 ([place] 5-325 Mg) 1 tab Q4H PRN PO 02/17/18 16:45 ([place] 10-325 Mg) 1 tab Q4H PRN PO 02/17/18 16:45 02/18/18 12:09 Miscellaneous Information 1 Q3D T-DERMAL 02/17/18 18:00 (Ativan Inj) 1 mg Q8HR PRN IV PUSH 02/17/18 17:00 Vancomycin HCl 1250 mg/Sodium Chloride 262.5 ml @ 250 mls/hr Q12H IV 02/17/18 18:00 02/18/18 06:16 ([facility] Ordered Lab Info) SPECIFIC LAB TO BE DRAWN:VANCO TROUGH DATE TO BE DRYaneth.. ONCE ONCE .XX 02/19/18 05:45 02/19/18 05:46 (Catapres) 0.1 mg Q6H PRN PO 02/18/18 03:15 (Prinivil) 10 mg DAILY PO 02/18/18 09:00 Family History The patient's mother had hypertension and AAA, and her father at age 66 with lung cancer and heart disease. 1 of her 2 brothers of drug issues, and her 18-year-old son has autism. . Substance Use Tobacco: Smoked for 5 years but quit several years ago Alcohol: None Prescription med abuse: None Illicits: None . Psychosocial History The patient is , and her is disabled. She has 4 sons and a daughter. Her youngest son is 18 years old, has autism, and the patient reports that he has "a 6-year-old mentality." Also living at home is the youngest child, the 14-year-old daughter. The patient is unemployed. . Spiritual/Cultural Factors Church background . Health Care Surrogate: Copy in medical record Durable Power of Hospital Staff Pharmacist: Never completed Date completed: 06/02/15 . Health Care Surrogate(s): Her son Gurjit Almaguer is designated as primary, and Maicol Valente Morris as secondary . Today's verbally stated goals: The patient tearfully tells me that she knows her time is limited, and she is ready to talk to hospice about transitioning to comfort care. She did not want to address CODE STATUS yet. . Ethical and Legal Issues There are no ethical issues that would impact her care were decision-making at this time. The patient has capacity for decision-making; she has designated her son Gurjit as HCS. . Physical Exam Vital Signs Date Time Temp Pulse Resp B/P (MAP) Pulse Ox O2 Delivery O2 Flow Rate FiO2 02/18/18 13:04 16 02/18/18 12:00 97.4 111 20 125/79 (94) 96 02/18/18 11:44 109 02/18/18 10:30 98 Nasal Cannula 2.50 02/18/18 07:46 101 02/18/18 07:44 97.2 105 18 123/81 (95) 99 02/18/18 04:00 97.1 96 18 132/83 (99) 97 02/18/18 00:00 97.2 105 18 109/71 (84) 98 02/17/18 21:53 97 Nasal Cannula 2.00 02/17/18 20:00 97.4 110 20 110/71 (84) 97 02/17/18 17:00 97.7 90 18 125/81 (96) 97 02/17/18 15:51 121 20 131/95 (107) 96 Nasal Cannula 2.00 02/18/18 02/19/18 19:00 07:00 # Voids 2 Exam CONSTITUTIONAL/GENERAL: This is an adequately nourished patient, in no apparent distress. TUBES/LINES/DRAINS: Peripheral IV SKIN: No jaundice, rashes, or lesions. Ecchymoses on upper extremities. No wounds seen anteriorly. Skin temperature appropriate. Not diaphoretic. HEAD: Atraumatic. Normocephalic. EYES: Pupils equal and round and reactive. Extraocular motions intact. No scleral icterus. No injection or drainage. Fundi not examined. ENT: Hearing grossly normal. Nose without bleeding or purulent drainage. Throat without visible erythema, exudates, masses, or lesions. NECK: Trachea midline. Supple, nontender. No palpable thyroid enlargement or nodularity. CARDIOVASCULAR: Regular rate and rhythm without murmurs, gallops, or rubs. No JVD. Peripheral pulses symmetric. RESPIRATORY/CHEST: Symmetric, unlabored respirations. Clear to auscultation. Breath sounds equal bilaterally. No wheezes, rales, or rhonchi. GASTROINTESTINAL: Abdomen soft, obese, non-tender, nondistended. No hepato- splenomegaly, or palpable masses. No guarding. Bowel sounds present. GENITOURINARY: Without palpable bladder distension. MUSCULOSKELETAL: Extremities without clubbing, cyanosis, but she does have 2+ chronic bilateral leg edema. No joint tenderness or effusion noted. No calf tenderness. No mottling or clubbing. LYMPHATICS: No palpable cervical or supraclavicular adenopathy. NEUROLOGICAL: Awake and alert. Motor and sensory grossly within normal limits. Follows commands. Cognitively sharp. Moves all extremities. PSYCHIATRIC: No obvious anxiety/depression. no apparent hallucinations or other psychotic thought process. Diagnostic Tests Laboratory Laboratory Tests Test 02/17/18 10:55 02/17/18 14:00 02/17/18 15:00 02/17/18 16:53 White Blood Count 12.7 TH/MM3 (4.0-11.0) Red Blood Count 4.84 MIL/MM3 (4.00-5.30) Hemoglobin 13.6 GM/DL (11.6-15.3) Hematocrit 42.6 % (35.0-46.0) Mean Corpuscular Volume 88.0 FL (80.0-100.0) Mean Corpuscular Hemoglobin 28.2 PG (27.0-34.0) Mean Corpuscular Hemoglobin Concent 32.0 % (32.0-36.0) Red Cell Distribution Width 18.2 % (11.6-17.2) Platelet Count 142 TH/MM3 (150-450) Mean Platelet Volume 8.1 FL (7.0-11.0) Neutrophils (%) (Auto) 86.2 % (16.0-70.0) Lymphocytes (%) (Auto) 6.6 % (9.0-44.0) Monocytes (%) (Auto) 6.2 % (0.0-8.0) Eosinophils (%) (Auto) 0.7 % (0.0-4.0) Basophils (%) (Auto) 0.3 % (0.0-2.0) Neutrophils # (Auto) 11.0 TH/MM3 (1.8-7.7) Lymphocytes # (Auto) 0.8 TH/MM3 (1.0-4.8) Monocytes # (Auto) 0.8 TH/MM3 (0-0.9) Eosinophils # (Auto) 0.1 TH/MM3 (0-0.4) Basophils # (Auto) 0.0 TH/MM3 (0-0.2) CBC Comment DIFF FINAL Differential Comment Prothrombin Time 9.7 SEC (9.8-11.6) Prothromb Time International Ratio 1.0 RATIO Activated Partial Thromboplast Time 26.0 SEC (24.3-30.1) Blood Urea Nitrogen 13 MG/DL (7-18) Creatinine 0.94 MG/DL (0.50-1.00) Random Glucose 114 MG/DL (74-106) Total Protein 7.1 GM/DL (6.4-8.2) Albumin 2.1 GM/DL (3.4-5.0) Calcium Level 8.3 MG/DL (8.5-10.1) Magnesium Level 1.6 MG/DL (1.5-2.5) Alkaline Phosphatase 164 U/L (45-117) Aspartate Amino Transf (AST/SGOT) 62 U/L (15-37) Alanine Aminotransferase (ALT/SGPT) 83 U/L (10-53) Total Bilirubin 2.2 MG/DL (0.2-1.0) Sodium Level 137 MEQ/L (136-145) Potassium Level 3.7 MEQ/L (3.5-5.1) Chloride Level 102 MEQ/L (98-107) Carbon Dioxide Level 18.9 MEQ/L (21.0-32.0) Anion Gap 16 MEQ/L (5-15) Estimat Glomerular Filtration Rate 62 ML/MIN (>89) Total Creatine Kinase 65 U/L (26-192) 49 U/L (26-192) Troponin I LESS THAN 0.02 NG/ML LESS THAN 0.02 NG/ML B-Type Natriuretic Peptide 55 PG/ML (0-100) 76 PG/ML (0-100) Lactic Acid Level 1.9 mmol/L (0.4-2.0) Urine Color YELLOW (YELLW/STRAW) Urine Turbidity CLEAR (CLEAR) Urine pH 6.0 (5.0-8.5) Urine Specific [place] GREATER THAN 1.050 Urine Protein 30 mg/dL (NEG-TRACE) Urine Glucose (UA) NEG mg/dL (NEG) Urine Ketones NEG mg/dL (NEG) Urine Occult Blood TRACE (NEG) Urine Nitrite NEG (NEG) Urine Bilirubin NEG (NEG) Urine Urobilinogen 2.0 MG/DL (LESS THAN Urine Leukocyte Esterase NEG (NEG) Urine RBC 1 /hpf (0-3) Urine WBC 4 /hpf (0-5) Urine Squamous Epithelial Cells 3 /hpf (0-5) Urine Bacteria RARE /hpf (NONE) Urine Mucus FEW /lpf (OCC) Microscopic Urinalysis Comment CULT NOT INDICATED Test 02/17/18 22:41 02/18/18 07:51 Total Creatine Kinase 43 U/L (26-192) Troponin I LESS THAN 0.02 NG/ML White Blood Count 5.8 TH/MM3 (4.0-11.0) Red Blood Count 3.86 MIL/MM3 (4.00-5.30) Hemoglobin 11.1 GM/DL (11.6-15.3) Hematocrit 34.3 % (35.0-46.0) Mean Corpuscular Volume 88.7 FL (80.0-100.0) Mean Corpuscular Hemoglobin 28.7 PG (27.0-34.0) Mean Corpuscular Hemoglobin Concent 32.3 % (32.0-36.0) Red Cell Distribution Width 18.1 % (11.6-17.2) Platelet Count 94 TH/MM3 (150-450) Mean Platelet Volume 7.9 FL (7.0-11.0) Neutrophils (%) (Auto) 87.0 % (16.0-70.0) Lymphocytes (%) (Auto) 6.3 % (9.0-44.0) Monocytes (%) (Auto) 6.5 % (0.0-8.0) Eosinophils (%) (Auto) 0.0 % (0.0-4.0) Basophils (%) (Auto) 0.2 % (0.0-2.0) Neutrophils # (Auto) 5.0 TH/MM3 (1.8-7.7) Lymphocytes # (Auto) 0.4 TH/MM3 (1.0-4.8) Monocytes # (Auto) 0.4 TH/MM3 (0-0.9) Eosinophils # (Auto) 0.0 TH/MM3 (0-0.4) Basophils # (Auto) 0.0 TH/MM3 (0-0.2) CBC Comment AUTO DIFF Differential Comment AUTO DIFF CONFIRMED Platelet Estimate LOW (NORMAL) Platelet Morphology Comment NORMAL (NORMAL) Result Diagram: 02/18/18 0751 02/17/18 1055 Microbiology Microbiology Date/Time Source Procedure Growth Status 02/17/18 12:35 Blood Peripheral Aerobic Blood Culture - Preliminary NO GROWTH IN 1 DAY Resulted 02/17/18 12:35 Blood Peripheral Anaerobic Blood Culture - Preliminary NO GROWTH IN 1 DAY Resulted 02/17/18 12:30 Blood Peripheral Aerobic Blood Culture - Preliminary NO GROWTH IN 1 DAY Resulted 02/17/18 12:30 Blood Peripheral Anaerobic Blood Culture - Preliminary NO GROWTH IN 1 DAY Resulted 02/18/18 08:00 Sputum Expectorated Sputum Gram Stain - Final Resulted 02/18/18 08:00 Sputum Expectorated Sputum Sputum Culture Pending Resulted Imaging Last Impressions Chest X-Ray 02/17/18 1048 Signed Impressions: CONCLUSION: 1. Multiple bilateral pulmonary nodules concerning for metastatic disease. The se are stable. 2. Left basilar airspace disease may be slightly worse when compared to the pr ior. This could represent atelectasis/scarring or infiltrate. 3. Probable small right-sided effusion. 4. Left IJ Ggyphq-[id number] with the tip at the junction of the left and right br achiocephalic veins CT Angiography 02/17/18 1048 Signed Impressions: CONCLUSION: 1. Interval worsening of the patient's metastatic disease. Pulmonary nodules h ave increased in both size and number from the prior exam. 2. In addition, there is bihilar and subcarinal adenopathy as well as possible pericardial invasion from regional nodules. 3. No pulmonary embolus. 4. Small left with a tiny right pleural effusion. Regional concomitant atelect atic changes in the bases. Head CT 02/17/18 0000 Signed Impressions: CONCLUSION: 1. No acute intracranial abnormalities. Abdomen/Pelvis CT 02/17/18 0000 Signed Impressions: CONCLUSION: 1. Extensive metastatic disease to the lung bases with some consolidation and a small left pleural effusion. 2. Metastatic disease to the liver measuring up to 6.5 cm in diameter. 3. Mass in transverse colon invading the anterior abdominal wall at the medial right rectus muscle. 4. Supraumbilical ventral hernia containing a small bowel loop without evidenc e for obstruction. 5. Progression of disease since prior CT from June 2017. Patient/Family Conference Present at Family Conference: I have telephoned the patient's son Gurjit and left a message . Family Conference Time (mins): 79 Family Conference Location: Bedside Issues Discussed: * Palliative care role, purpose, approach * Hospice care role, purpose, approach * Additional medical, psychosocial, and spiritual history * Patients general health, functional status, and cognitive changes in the months leading up to the current hospitalization * Patient/family understanding of the current medical problems * Patient/family understanding of prognosis * Patients goals of care as best understood from advance directives and/or conversations and/or values * Current medical treatment options and benefits/burdens of those options * Likely scenarios comparing ongoing aggressive care with a transition to comfort measures only * Questions answered to the best of my ability * Palliative care contact information provided . Assessment and Plan Disease Oriented Problem List: (1) Stage IV adenocarcinoma of colon, with progression on recent scans in spite of continued chemotherapy Comment: The patient is not a candidate for additional chemotherapy at this point in time (2) Worsening debility and malnutrition (3) History of anxiety and depression (4) History of DVT right leg Symptom Scale: (1) Pain 0-10 Scale: 2 (Primarily right lateral chest) (2) Anxiety 0-10 Scale: 3 (Chronic) (3) Depression 0-10 Scale: 4 (Chronic but worsening) Pertinent Non-Medical Issues Psychosocial: , lives with disabled , 14-year-old daughter, and autistic 18-year-old son Spiritual: Church background Legal: She has capacity for decision-making; son Gurjit is the designated [facility] Ethical issues impacting care: None . Important Contacts SonGurjit [phone] . Prognosis The patient is terminal. She likely has a couple or few months remaining, and is appropriate for hospice services. . Code Status: Full Code Plan * FULL CODE for now, we will readdress CODE STATUS with patient and son tomorrow * DECISION-MAKING: The patient has capacity for decision-making; her son Gurjit is the designated HCS * GOALS: The patient would like to speak with a hospice nurse about their services. Because of her situation at home with a 14-year-old daughter and 18- year-old autistic son, she feels strongly that she does not want to in the home. * Hospice consult placed. * SYMPTOMS: Her pain is not severe at this time. Her anxiety and depression will be managed with the help of hospice. * Palliative Care will continue to follow this patient during the hospitalization. Time Spent Total Floor Time (mins): 78 Face to Face Time (mins): 55 >50% Counseling/Coord of Care: Yes Thank you for the opportunity to participate in the care of Ms. Flores. Attestation To help prompt me to consider important information that might be impacting today's encounter and assessment, information from prior notes written by myself or my colleagues may have been "brought forward" into today's note. My signature on this note, however, is an attestation that I personally performed the exam, history, and/or decision-making noted today, and, unless otherwise indicated, the interactions with patient, family, and staff as well as the review of records all occurred today. I also attest that the listed assessment and stated plan reflect my best clinical judgment today based on the combination of historical information, prior notes, and today's exam/ interactions. When time spent is documented, it refers only to time spent today by the signer, or if indicated, combined time spent today by collaborating physician/nurse practitioner. Abbey Shannon MD Feb 18, 2018 15:28
--- NOTE | 2018-02-18 15:58 | EKG ---
Date Performed: 02/17/2018 Time Performed: 10:34:07 PTAGE: 57 years EKG: SINUS TACHYCARDIA WITH SHORT TN INTERVAL, POSSIBLE ATRIAL FLUTTER NONSPECIFIC T-WAVE ABNORM ALITY ABNORMAL RHYTHM ECG Since the PREVIOUS TRACING , no significant change noted PREVIOUS TRACIN01/12/2018 11.56 DOCTOR: Jessica Bay Interpretating Date/Time 02/18/2018 15:57:39
--- NOTE | 2018-02-18 16:00 | EKG ---
Date Performed: 02/17/2018 Time Performed: 16:56:31 PTAGE: 57 years EKG: SINUS TACHYCARDIA NONSPECIFIC T-WAVE ABNORMALITY ABNORMAL RHYTHM ECG Since the PREVIOUS TRACING , no significant change noted PREVIOUS TRACIN02/17/2018 11.04 DOCTOR: Jessica Bay Interpretating Date/Time 02/18/2018 15:58:35
--- NOTE | 2018-02-18 16:00 | EKG ---
Date Performed: 02/17/2018 Time Performed: 11:04:46 PTAGE: 57 years EKG: SINUS TACHYCARDIA ABNORMAL RHYTHM ECG Since the PREVIOUS TRACING , no significant change noted PREVIOUS TRACIN02/17/2018 @10.34 DOCTOR: Jessica Bay Interpretating Date/Time 02/18/2018 15:58:21
--- NOTE | 2018-02-18 16:00 | EKG ---
Date Performed: 02/17/2018 Time Performed: 22:07:01 PTAGE: 57 years EKG: SINUS TACHYCARDIA ABNORMAL RHYTHM ECG Since the PREVIOUS TRACING , no significant change noted PREVIOUS TRACIN02/17/2018 16.56 DOCTOR: Jessica Bay Interpretating Date/Time 02/18/2018 15:58:50
[2018-02-18] MEDS: ENOXAPARIN SODIUM 40 MG/0.4 ML SYRINGE SQ SCH (16:48)
[2018-02-18] MEDS: ONDANSETRON ODT 4 MG TAB PO PRN (16:48)
--- NOTE | 2018-02-18 17:22 | HHI.FPPN ---
Subjective Remarks Patient was seen and evaluated this morning. Patient reports 4/10 left-sided midback pain. She feels much better than yesterday. She notes that chest pressure felt yesterday was likely heartburn, improved by TUMS. She reports her shortness of breath to be unchanged. Patient denies chest pain, heart palpitations, nausea/vomiting, diarrhea and constipation. Her last bowel movement was yesterday. Patient tearful when discussing goals for treatment and end of life planning. All questions were answered. (Medina Burns MD R1) Objective Vitals Vital Signs Date Time Temp Pulse Resp B/P (MAP) Pulse Ox O2 Delivery O2 Flow Rate FiO2 02/18/18 15:47 99 Nasal Cannula 2.50 02/18/18 13:04 16 02/18/18 12:00 97.4 111 20 125/79 (94) 96 02/18/18 11:44 109 02/18/18 10:30 98 Nasal Cannula 2.50 02/18/18 07:46 101 02/18/18 07:44 97.2 105 18 123/81 (95) 99 02/18/18 04:00 97.1 96 18 132/83 (99) 97 02/18/18 00:00 97.2 105 18 109/71 (84) 98 02/17/18 21:53 97 Nasal Cannula 2.00 02/17/18 20:00 97.4 110 20 110/71 (84) 97 02/17/18 17:00 97.7 90 18 125/81 (96) 97 I/O 02/17/18 02/17/18 02/17/18 02/18/18 02/18/18 02/18/18 07:00 15:00 23:00 07:00 15:00 23:00 Intake Total 1482.5 ml 50 ml Output Total 300 ml Balance 1482.5 ml -250 ml Intake Oral 120 ml 0 ml IV Total 1362.5 ml 50 ml Output Urine Total 300 ml # Voids 1 2 # Bowel Movements 0 (Medina Burns MD R1) Result Diagram: 02/18/18 0751 02/17/18 1055 Imaging Last Impressions Chest X-Ray 02/17/18 1048 Signed Impressions: CONCLUSION: 1. Multiple bilateral pulmonary nodules concerning for metastatic disease. The se are stable. 2. Left basilar airspace disease may be slightly worse when compared to the pr ior. This could represent atelectasis/scarring or infiltrate. 3. Probable small right-sided effusion. 4. Left IJ Zfmrez-p-Eefm with the tip at the junction of the left and right br achiocephalic veins CT Angiography 02/17/18 1048 Signed Impressions: CONCLUSION: 1. Interval worsening of the patient's metastatic disease. Pulmonary nodules h ave increased in both size and number from the prior exam. 2. In addition, there is bihilar and subcarinal adenopathy as well as possible pericardial invasion from regional nodules. 3. No pulmonary embolus. 4. Small left with a tiny right pleural effusion. Regional concomitant atelect atic changes in the bases. Head CT 02/17/18 0000 Signed Impressions: CONCLUSION: 1. No acute intracranial abnormalities. Abdomen/Pelvis CT 02/17/18 0000 Signed Impressions: CONCLUSION: 1. Extensive metastatic disease to the lung bases with some consolidation and a small left pleural effusion. 2. Metastatic disease to the liver measuring up to 6.5 cm in diameter. 3. Mass in transverse colon invading the anterior abdominal wall at the medial right rectus muscle. 4. Supraumbilical ventral hernia containing a small bowel loop without evidenc e for obstruction. 5. Progression of disease since prior CT from June 2017. Objective Remarks GENERAL: Obese female lying in bed in no acute respiratory distress, able to complete sentences during interview. Tearful. SKIN: Cold and dry. No rash. HEENT: Atraumatic, normocephalic with extraocular motions intact. No rhinorrhea. No visible lymphadenopathy or JVD appreciated. CARDIOVASCULAR: Tachycardic rate and regular rhythm. No obvious murmurs, gallops, or rubs. RESPIRATORY: Clear to auscultation. Breath sounds equal bilaterally. GASTROINTESTINAL: Positive bowel sounds. Abdomen soft, nondistended. Tenderness upon palpation over right upper quadrant. No masses appreciated. MUSCULOSKELETAL: No cyanosis. No calf tenderness. NEURO/PSYCH: Awake, alert, and oriented x3. Normal speech and judgement. Medications and IVs Current Medications Medications (Trade) Dose Ordered Sig/Lana Route Start Time Stop Time Status Last Admin (Tums Chew) 500 mg TID PRN PO 02/17/18 14:30 02/18/18 00:30 (Imodium) 2 mg Q6HR PRN PO 02/17/18 14:30 02/17/18 21:42 (Protonix) 40 mg DAILY PO 02/17/18 15:00 02/18/18 08:06 (Zofran Odt) 8 mg TID PRN PO 02/17/18 15:30 02/18/18 16:48 Non-Formulary Medication 40 mg DAILY PO 02/18/18 09:00 Future Hold Sodium Chloride 1,000 ml @ 150 mls/hr Q6H40M IV 02/17/18 16:00 02/18/18 11:12 (NS Flush) 2 ml UNSCH PRN IV FLUSH 02/17/18 15:30 (NS Flush) 2 ml BID IV FLUSH 02/17/18 21:00 (Tylenol) 650 mg Q4H PRN PO 02/17/18 15:30 (Duoneb Neb) 1 ampule Q6HR NEB INH 02/17/18 16:00 02/18/18 15:47 (Duoneb Neb) 1 ampule Q4HR NEB PRN INH 02/17/18 15:30 (Lovenox Inj) 40 mg Q24H SQ 02/17/18 17:00 02/18/18 16:48 (Decadron Inj) 4 mg Q12HR IV PUSH 02/18/18 09:00 02/18/18 08:06 Pharmacy Profile Note 0 ml @ 0 mls/hr UNSCH OTHER 02/17/18 15:30 Piperacillin Sod/ Tazobactam Sod 50 ml @ 100 mls/hr Q6H IV 02/17/18 17:00 02/18/18 16:48 (Narcan Inj) 0.4 mg UNSCH PRN IV PUSH 02/17/18 15:30 (Duragesic 25 Mcg Patch.72 Hr) 1 patch Q3D T-DERMAL 02/17/18 18:00 02/17/18 17:07 Pharmacy Profile Note 0 ml @ 0 mls/hr UNSCH OTHER 02/17/18 16:15 ([place] 5-325 Mg) 1 tab Q4H PRN PO 02/17/18 16:45 ([place] 10-325 Mg) 1 tab Q4H PRN PO 02/17/18 16:45 02/18/18 16:49 Miscellaneous Information 1 Q3D T-DERMAL 02/17/18 18:00 (Ativan Inj) 1 mg Q8HR PRN IV PUSH 02/17/18 17:00 Vancomycin HCl 1250 mg/Sodium Chloride 262.5 ml @ 250 mls/hr Q12H IV 02/17/18 18:00 02/18/18 06:16 ([facility] [place] [facility] Ordered Lab Info) SPECIFIC LAB TO BE DRAWN:VANCO TROUGH DATE TO BE DR... ONCE ONCE .XX 02/19/18 05:45 02/19/18 05:46 (Catapres) 0.1 mg Q6H PRN PO 02/18/18 03:15 (Prinivil) 10 mg DAILY PO 02/18/18 09:00 (Medina Burns MD R1) Urinary Catheter: No (Medina Burns MD R1) Vascular Central Line Catheter: No (Medina uBrns MD R1) A/P Assessment and Plan Patient is a 57-year-old female with history of metastatic colon cancer to the lungs and liver presenting with acute shortness secondary to possible broncho- obstructive pneumonia versus increasing tumor burden of the mediastinum. (Medina Burns MD R1) Attending Attestation Pt. examined independently and case discussed with resident physicians. I have read the above note and agree with the assessment and plan as discussed with me. I was involved in all medical decision making for this patient. Hospice has been consulted to evaluate patient Glen Davidson MD (Glen Davidson MD) Problem List: (1) Pneumonia ICD Codes: J18.9 - Pneumonia, unspecified organism Status: Acute Plan: Patient with hospitalization from 01/12 to 01/17 presenting with sepsis secondary to possible pneumonia with pleural effusion. Therefore, plan to treat as HCAP vs Broncho-Obstructive PNA based on tumor burden. Labs: * On admission, WBC: 12.7 with 86.2% neutrophils. WBC downtrending to 5.8 today. Microbiology: * Blood cultures: no growth up to date. * Sputum culture: pending. * Influenza, urinary Legionella/pneumococcal antigens: pending. Imaging: * Chest x-ray: Bilateral pulmonary nodules concerning for metastatic disease which are stable, left basilar airspace disease that may be slightly worse when compared to the prior exam representing possible infiltrate versus atelectasis. Small right sided effusion. Left IJ Gaubtu-i-Zcvn at the tip of the junction of the left and right brachiocephalic veins. * CTA: Interval worsening of the patient's metastatic disease. Pulmonary nodules have increased in both size and number from prior exam. By hilar and subcarinal adenopathy as well as possible pericardial invasion from regional nodes. No pulmonary embolus. Small left with a tiny right pleural effusion. Regional concomitant atelectatic changes and bases. Orders: * Incentive spirometry, respiratory CPT, and Acapella ordered Medications: * Patient given ceftriaxone and azithromycin and ED. * Vancomycin and Zosyn for antibiotic coverage, pharmacy consulted for dosing. * Duonebs every 6 hours with as needed treatments every 4 hours. (2) Sepsis ICD Codes: A41.9 - Sepsis, unspecified organism Status: Acute Plan: On admission, patient presenting with tachycardia to 144 and respiratory rate 36 upon initial vital sign check. Suspected source of infection is pneumonia as documented above. * See plan above. (3) Metastatic colon cancer in female ICD Codes: C18.9 - Malignant neoplasm of colon, unspecified Status: Chronic Plan: Patient with multiple complaints including shortness of breath/air hunger , headaches, abdominal pain likely related to metastatic disease and increased tumor burden. Labs: * CMP /: Bilirubin 2.2, AST 62, ALT 83, alk phos 164 (likely due to tumor burden of hepatic system). Imaging: * Medial spinal imaging as above. * Head CT: No acute intracranial abnormalities. * CT abdomen and pelvis: Extensive metastatic disease to the lung bases with some consolidation and small left pleural effusion. Metastatic disease to the liver measuring up to 6.5 cm in diameter. Mass and transverse colon invading the anterior abdominal wall at the medial right rectus muscle. Supraumbilical ventral hernia containing a small bowel loop without evidence of obstruction. Progression of disease since prior CT from June 17, 2017. Consults: * Medical oncology: Metastatic colon cancer extensively treated with past intravenous chemotherapy and most recently on regorafenib. Unfortunately, she has had progression of her disease on this therapy. The only other treatment option remaining for the patient is IV irinotecan and bevacizumab. She has been on irinotecan in the past and this appeared to have some control of her disease; however, this was very poorly tolerated. Long discussion with the patient that in order to receive IV chemotherapy that she would need to get stronger and uncertain if this would be feasible. Medications: * Continue home hydrocodone 10 mg every 4 hours. * Fentanyl 25 mcg patch. * Dexamethasone 8 mg given IV once, patient started 4 mg twice daily 02/18. * Ativan 1 mg IV every 8 hours as needed for anxiety/shortness of breath. * Continue home Zofran. * Continue home loperamide. (4) Hypertension ICD Codes: I10 - Hypertension Status: Acute Plan: Patient with history of hypertension. Medications: * Continue home lisinopril. * Clonidine 0.1 mg every 6 hours as needed for blood pressure greater than 180/ 110. (5) Acid reflux disease ICD Codes: K21.9 - Gastro-esophageal reflux disease without esophagitis Status: Chronic Plan: Patient with history of GERD. Medications: * Continue home pantoprazole and calcium carbonate. (6) Diarrhea ICD Codes: R19.7 - Diarrhea, unspecified Status: Chronic Plan: Patient with diarrhea. Medications: * Continue home Imodium as needed and daily lactobacillus. (7) Nutrition, metabolism, and development symptoms ICD Codes: R63.8 - Other symptoms and signs concerning food and fluid intake Status: Acute Plan: Diet: * Regular diet as tolerated Fluids: * NS at 150 mL/h Electrolytes: * Monitor and replete as necessary. (8) DVT prophylaxis Status: Acute Plan: Lovenox daily SCDs (Medina Burns MD R1) Problem Qualifiers (1) Pneumonia: Qualified Codes: J18.1 - Lobar pneumonia, unspecified organism (2) Sepsis: Qualified Codes: A41.9 - Sepsis, unspecified organism (3) Hypertension: Qualified Codes: I10 - Essential (primary) hypertension (4) Acid reflux disease: Qualified Codes: K21.9 - Gastro-esophageal reflux disease without esophagitis (5) Diarrhea: Qualified Codes: K59.1 - Functional diarrhea Medina Burns MD R1 Feb 18, 2018 17:22 Glen Davidson MD Feb 18, 2018 21:17
--- NOTE | 2018-02-18 17:54 | PD.PN.STU ---
Subjective Remarks Patient found lying in bed, appearing more comfortable than prior examination. She reports right-sided pain has resolved but she now has left-sided mid-back rated 4/10 on pain scale. She expresses that her current pain level is the least it has been in a very long time. She still complains of shortness of breath and cough. However, her substernal chest pressure has resolved. She is tearful throughout encounter when discussing the progression of her metastatic cancer. She's interested in learning more about the services available through Palliative Care. She denies fever, chills, nausea, vomiting, constipation or diarrhea. Objective Vitals Vital Signs Date Time Temp Pulse Resp B/P (MAP) Pulse Ox O2 Delivery O2 Flow Rate FiO2 02/18/18 17:30 18 02/18/18 15:47 99 Nasal Cannula 2.50 02/18/18 12:00 97.4 111 20 125/79 (94) 96 02/18/18 11:44 109 02/18/18 10:30 98 Nasal Cannula 2.50 02/18/18 07:46 101 02/18/18 07:44 97.2 105 18 123/81 (95) 99 02/18/18 04:00 97.1 96 18 132/83 (99) 97 02/18/18 00:00 97.2 105 18 109/71 (84) 98 02/17/18 21:53 97 Nasal Cannula 2.00 02/17/18 20:00 97.4 110 20 110/71 (84) 97 I/O 02/17/18 02/17/18 02/17/18 02/18/18 02/18/18 02/18/18 06:59 14:59 22:59 06:59 14:59 22:59 Intake Total 1482.5 ml 50 ml Output Total 300 ml Balance 1482.5 ml -250 ml Intake Oral 120 ml 0 ml IV Total 1362.5 ml 50 ml Output Urine Total 300 ml # Voids 1 2 # Bowel Movements 0 Result Diagram: 02/18/18 0751 02/17/18 1055 Other Results GENERAL: Obese, well-developed female lying in bed in no acute distress. She is able to complete full sentences without problem, significant improvement from prior exam. Tearful throughout encounter. SKIN: Cold and dry. No rash. HEENT: Atraumatic, normocephalic with extraocular motions intact. No rhinorrhea. Oropharynx clear without erythema or exudate. No visible lymphadenopathy or jugulovenous distension appreciated. CARDIOVASCULAR: Tachycardic rate and regular rhythm. No obvious murmurs, gallops, or rubs. RESPIRATORY: Lungs clear to auscultation at all levels bilaterally. No crackles , rhonchi or rales appreciated. GASTROINTESTINAL: Abdomen soft, non-distended with positive bowel sounds in all four quadrants. Mild tenderness in RUQ on palpation. MUSCULOSKELETAL: No cyanosis. Nonpitting edema of lower extremities bilaterally. No calf tenderness. Dorsal pedis pulses 2+. NEURO/PSYCH: Awake, alert, and oriented x3. Normal speech and judgement. A/P Assessment and Plan Patient is a 57-year-old female with history of metastatic colon cancer to the lungs and liver that presented to the ED with worsening shortness of breath. Problem List: (1) Pneumonia ICD Codes: J18.9 - Pneumonia, unspecified organism Status: Acute Plan: Due to patient's recent hospitalization, will treat as hospital acquired pneumonia. Will also consider a bronchobstructive process from tumor burden due to known lung involvement. Labs: -On admission (02/17), WBC: 12.7. - (02/18) WBC 5.8 Studies -Blood cultures show no growth x 1 day -Sputum culture pending Imaging: -Chest x-ray: Bilateral pulmonary nodules concerning for metastatic disease which are stable, left basilar airspace disease that may be slightly worse when compared to the prior exam representing possible infiltrate versus atelectasis. Small right sided effusion. Left IJ Buprgc-a-Aulm at the tip of the junction of the left and right brachiocephalic veins. -CTA: Interval worsening of the patient's metastatic disease. Pulmonary nodules have increased in both size and number from prior exam. By hilar and subcarinal adenopathy as well as possible pericardial invasion from regional nodes. No pulmonary embolus. Small left with a tiny right pleural effusion. Regional concomitant atelectatic changes and bases. Orders: -Incentive spirometry, respiratory CPT, and Acapella ordered Medications: -Patient given ceftriaxone and azithromycin and ED. -Vancomycin and Zosyn for antibiotic coverage, pharmacy consulted for dosing. -Duonebs every 6 hours with as needed treatments every 4 hours. (2) Sepsis ICD Codes: A41.9 - Sepsis, unspecified organism Status: Acute Plan: On admission, patient presenting with tachycardia to 144 and tachypneic at 36. However she has been afebrile throughout entire hospital course. (3) Metastatic colon cancer in female ICD Codes: C18.9 - Malignant neoplasm of colon, unspecified Status: Chronic Plan: Patient with multiple diffuse complaints including shortness of breath, headaches, and abdominal pain likely related to increased tumor burden from progressive metastasis. Imaging: -Head CT: No acute intracranial abnormalities. -CT abdomen and pelvis: Extensive metastatic disease to the lung bases with some consolidation and small left pleural effusion. Metastatic disease to the liver measuring up to 6.5 cm in diameter. Mass and transverse colon invading the anterior abdominal wall at the medial right rectus muscle. Supraumbilical ventral hernia containing a small bowel loop without evidence of obstruction. Progression of disease since prior CT from June 17, 2017. -Chest x-ray: Bilateral pulmonary nodules concerning for metastatic disease which are stable, left basilar airspace disease that may be slightly worse when compared to the prior exam representing possible infiltrate versus atelectasis. Small right sided effusion. Left IJ Ijwqlo-v-Rvbq at the tip of the junction of the left and right brachiocephalic veins. -CTA: Interval worsening of the patient's metastatic disease. Pulmonary nodules have increased in both size and number from prior exam. By hilar and subcarinal adenopathy as well as possible pericardial invasion from regional nodes. No pulmonary embolus. Small left with a tiny right pleural effusion. Regional concomitant atelectatic changes and bases. She is currently on Stivarga for treatment of metastatic colon cancer, with little benefit as the cancer continues to progress. Medical Oncology is following. Palliative Care consulted place as patient has indicated interest in exploring palliative options. Medications: -Continue home hydrocodone 10 mg every 4 hours. -Continue fentanyl 25 mcg patch. -Dexamethasone 8 mg given IV once, patient started 4 mg twice daily 02/18. -Ativan 1 mg IV every 8 hours as needed for anxiety/shortness of breath. -Continue home Zofran. -Continue home loperamide. (4) Hypertension ICD Codes: I10 - Hypertension Status: Acute Plan: Patient with history of hypertension. Medications: -Continue home lisinopril. -Clonidine 0.1 mg every 6 hours as needed for blood pressure greater than 180/ 110. (5) Acid reflux disease ICD Codes: K21.9 - Gastro-esophageal reflux disease without esophagitis Status: Chronic Plan: Patient with history of GERD. Medications: -Continue home pantoprazole and calcium carbonate. (6) Diarrhea ICD Codes: R19.7 - Diarrhea, unspecified Status: Chronic Plan: Patient with diarrhea. Medications: -Continue home Imodium as needed and daily lactobacillus. (7) Nutrition, metabolism, and development symptoms ICD Codes: R63.8 - Other symptoms and signs concerning food and fluid intake Status: Acute Plan: Diet: -Regular diet as tolerated Fluids: -NS at 150 mL/h Electrolytes: -Monitor and replete as necessary. (8) DVT prophylaxis Status: Acute Plan: Lovenox daily SCDs Vilma Mars M3 Feb 18, 2018 17:54
[2018-02-18] MEDS: LOPERAMIDE HCL 2 MG CAP PO PRN (20:03)
[2018-02-19] VITALS (8 sets, daily range): BP systolic 131–137; BP diastolic 71–99; PULSE 82–115; RESP 15–19; TEMP 97.1–98.2; O2SAT 95–97
--- NOTE | 2018-02-19 00:14 | PD.ONC.PN ---
Subjective Subjective Remarks Resting comfortably in bed in no distress. S/p palliative care consult today. Patient is tearful during conversation. Late note entry. Patient seen at bedside on 02/18 at approximately 9 pm. Objective Data Date Time Temp Pulse Resp B/P (MAP) Pulse Ox O2 Delivery O2 Flow Rate FiO2 02/18/18 23:36 20 02/18/18 20:00 102 02/18/18 20:00 97.9 110 19 138/87 (104) 94 02/18/18 16:00 97.5 100 18 125/83 (97) 97 02/18/18 15:47 99 Nasal Cannula 2.50 02/18/18 12:00 97.4 111 20 125/79 (94) 96 02/18/18 11:44 109 02/18/18 10:30 98 Nasal Cannula 2.50 02/18/18 07:46 101 02/18/18 07:44 97.2 105 18 123/81 (95) 99 02/18/18 04:00 97.1 96 18 132/83 (99) 97 Result Diagram: 02/18/18 0751 02/17/18 1055 Laboratory Results Laboratory Tests Test 02/18/18 07:51 White Blood Count 5.8 TH/MM3 Red Blood Count 3.86 MIL/MM3 Hemoglobin 11.1 GM/DL Hematocrit 34.3 % Mean Corpuscular Volume 88.7 FL Mean Corpuscular Hemoglobin 28.7 PG Mean Corpuscular Hemoglobin Concent 32.3 % Red Cell Distribution Width 18.1 % Platelet Count 94 TH/MM3 Mean Platelet Volume 7.9 FL Neutrophils (%) (Auto) 87.0 % Lymphocytes (%) (Auto) 6.3 % Monocytes (%) (Auto) 6.5 % Eosinophils (%) (Auto) 0.0 % Basophils (%) (Auto) 0.2 % Neutrophils # (Auto) 5.0 TH/MM3 Lymphocytes # (Auto) 0.4 TH/MM3 Monocytes # (Auto) 0.4 TH/MM3 Eosinophils # (Auto) 0.0 TH/MM3 Basophils # (Auto) 0.0 TH/MM3 CBC Comment AUTO DIFF Differential Comment AUTO DIFF CONFIRMED Platelet Estimate LOW Platelet Morphology Comment NORMAL Culture Results Microbiology Date/Time Source Procedure Growth Status 02/17/18 12:35 Blood Peripheral Aerobic Blood Culture - Preliminary NO GROWTH IN 1 DAY Resulted 02/17/18 12:35 Blood Peripheral Anaerobic Blood Culture - Preliminary NO GROWTH IN 1 DAY Resulted 02/17/18 12:30 Blood Peripheral Aerobic Blood Culture - Preliminary NO GROWTH IN 1 DAY Resulted 02/17/18 12:30 Blood Peripheral Anaerobic Blood Culture - Preliminary NO GROWTH IN 1 DAY Resulted 02/18/18 08:00 Sputum Expectorated Sputum Gram Stain - Final Resulted 02/18/18 08:00 Sputum Expectorated Sputum Sputum Culture Pending Resulted Administered Medications Medications (Trade) Dose Ordered Sig/Lana Route PRN Reason Start Time Stop Time Status Last Admin Dose Admin Calcium Carbonate (Tums Chew) 500 mg TID PRN PO HEARTBURN 02/17/18 14:30 02/18/18 00:30 Loperamide HCl (Imodium) 2 mg Q6HR PRN PO DIARRHEA 02/17/18 14:30 02/18/18 20:03 Pantoprazole Sodium (Protonix) 40 mg DAILY PO 02/17/18 15:00 02/18/18 08:06 Ondansetron HCl (Zofran Odt) 8 mg TID PRN PO NAUSEA AND VOMITING 02/17/18 15:30 02/18/18 16:48 Sodium Chloride 1,000 ml @ 150 mls/hr Q6H40M IV 02/17/18 16:00 02/18/18 17:28 Sodium Chloride (NS Flush) 2 ml BID IV FLUSH 02/17/18 21:00 02/18/18 20:03 Albuterol/ Ipratropium (Duoneb Neb) 1 ampule Q6HR NEB INH 02/17/18 16:00 02/18/18 21:47 Enoxaparin Sodium (Lovenox Inj) 40 mg Q24H SQ 02/17/18 17:00 02/18/18 16:48 Dexamethasone Sodium Phosphate (Decadron Inj) 4 mg Q12HR IV PUSH 02/18/18 09:00 02/18/18 20:03 Piperacillin Sod/ Tazobactam Sod 50 ml @ 100 mls/hr Q6H IV 02/17/18 17:00 02/18/18 22:13 Fentanyl (Duragesic 25 Mcg Patch.72 Hr) 1 patch Q3D T-DERMAL 02/17/18 18:00 02/17/18 17:07 Acetaminophen/ Hydrocodone Bitart ([place] 10-325 Mg) 1 tab Q4H PRN PO PAIN SCALE 6 TO 10 02/17/18 16:45 02/18/18 22:11 Vancomycin HCl 1250 mg/Sodium Chloride 262.5 ml @ 250 mls/hr Q12H IV 02/17/18 18:00 02/18/18 17:28 Objective Remarks GENERAL: Well-nourished, well-developed patient. SKIN: Warm and dry. HEAD: Normocephalic. EYES: No scleral icterus. No injection or drainage. LYMPHATIC: No adenopathy. RESPIRATORY: No accessory muscle use. EXTREMITIES: No cyanosis, or edema. MUSCULOSKELETAL: Adequate muscle tone. NEUROLOGICAL: No obvious focal deficit. Awake, alert, and oriented x3. PSYCHIATRIC: tearful Assessment/Plan Assessment Metastatic colon cancer with worsneing disease on imaging. Discussed results with patient. Discussed that given declining performance status she would not be a candidate for further aggressive therapy. [facility]. She would like to pursue home hospice. Ultimately she would like to pass at a care facility and not at home due to her young children who live at home. She will discuss above with her family. Inpatient oncology service will continue to follow. Kiarra Ventura MD Feb 19, 2018 00:14
[2018-02-19] MEDS: SODIUM CHLOR 0.9% 1000 ML INJ 1,000 ML IV SCH ×4 (01:20→15:57)
[2018-02-19] MEDS: RESP: ALBUTEROL 2.5 MG/IPRATROPIUM 0.5 MG NEB (SCH) INH ×4 (02:58→20:52)
[2018-02-19] MEDS: ACETAMINOPHEN/HYDROcodone 325 MG/10 MG TAB PO PRN ×5 (03:31→23:21)
[2018-02-19] MEDS: PIPERACIL-TAZO 3.375 GM PREMIX 50 ML IV SCH ×4 (03:34→23:18)
[2018-02-19] MEDS ORDERED: PHARMACY ORDERED LAB ONE (05:45)
[2018-02-19] MEDS: VANCOMYCIN INJ 1,250 MG in SODIUM CHLOR 0.9% 250 ML INJ 250 ML IV SCH ×2 (06:09→17:01)
[2018-02-19 08:32] LABS: AUTOMATED NEUTROPHIL # 3.2 TH/MM3 (1.8-7.7); BASOPHIL % 0.2 % (0.0-2.0); EOSINOPHIL % 0.2 % (0.0-4.0); HEMATOCRIT 33.3 % (35.0-46.0); HEMOGLOBIN 10.5 GM/DL (11.6-15.3); LYMPH % 10.7 % (9.0-44.0); LYMPHOCYTE # 0.4 TH/MM3 (1.0-4.8); MEAN CELL VOLUME 90.5 FL (80.0-100.0); MEAN CORPUSCULAR HEMOGLOBIN 28.6 PG (27.0-34.0); MEAN CORPUSCULAR HGB CONC 31.6 % (32.0-36.0); MEAN PLATELET VOLUME 7.9 FL (7.0-11.0); MONO % 5.8 % (0.0-8.0); MONOCYTE # 0.2 TH/MM3 (0-0.9); NEUT % 83.1 % (16.0-70.0); PLATELET COUNT 88 TH/MM3 (150-450); RED BLOOD COUNT 3.68 MIL/MM3 (4.00-5.30); WHITE BLOOD COUNT 3.9 TH/MM3 (4.0-11.0)
[2018-02-19] MEDS: PANTOPRAZOLE SOD 40 MG DELAYED RELEASE TAB PO SCH (08:37)
[2018-02-19] MEDS: LISINOPRIL 10 MG TAB PO SCH (08:37)
[2018-02-19] MEDS: SODIUM CHLORIDE 0.9% FLUSH 10 ML FLUSH IV FLUSH SCH ×2 (08:38→21:17)
[2018-02-19] MEDS: DEXAMETHASONE SOD PHOS 4 MG/ML VIAL IV PUSH SCH ×2 (08:38→21:17)
[2018-02-19 09:12] LABS: ALBUMIN 1.8 GM/DL (3.4-5.0); ALKALINE PHOSPHATASE 108 U/L (45-117); ALT (GPT) 51 U/L (10-53); AST (GOT) 25 U/L (15-37); BICARBONATE 23.2 MEQ/L (21.0-32.0); BLOOD UREA NITROGEN 8 MG/DL (7-18); CHLORIDE 111 MEQ/L (98-107); CREATININE 0.61 MG/DL (0.50-1.00); GLOMERULAR FILTRATION RATE 102 ML/MIN (>89); GLUCOSE,RANDOM 99 MG/DL (74-106); SODIUM (NA) 145 MEQ/L (136-145); TOTAL BILIRUBIN ADULT 0.6 MG/DL (0.2-1.0); TOTAL PROTEIN 5.6 GM/DL (6.4-8.2)
--- NOTE | 2018-02-19 11:16 | HHI.HCPN ---
Reason for visit a. To assist with evaluation and management of symptoms including: Anxiety, depression, pain b. To assist medical decision maker(s) with: better understanding of current medical conditions; weighing benefits/burdens of medical treatment options; making medical treatment decisions. . Subjective/Interval History INTERVAL NOTE: The patient says her pain is better controlled. She has remained afebrile. White count is down to 3.9, and platelets have decreased to 88,000. . Family/friend interactions I have again tried to call son Gurjit. I also had the patient text Gurjit with my phone number and asked him to call me. . Advance Directives Health Care Surrogate: Copy in medical record Durable Power of Electric Stove Installer: Never completed Advance Directive Specifics Date completed: 06/02/15 . Health Care Surrogate(s): Her son Gurjit Almaguer is designated as primary, and Maicol Valente Morris as secondary . Significant change in goals: The patient has decided that she definitely would not want to be resuscitated or placed on life support, requesting DNR status. . Objective Vital Signs Date Time Temp Pulse Resp B/P (MAP) Pulse Ox O2 Delivery O2 Flow Rate FiO2 02/19/18 09:46 16 02/19/18 09:31 95 21 02/19/18 08:00 97.1 84 17 131/87 (102) 97 02/19/18 04:00 98.2 105 19 135/82 (99) 96 02/19/18 04:00 82 02/19/18 00:00 87 02/19/18 00:00 98.1 109 19 132/85 (101) 95 02/18/18 20:00 102 02/18/18 20:00 97.9 110 19 138/87 (104) 94 02/18/18 16:00 97.5 100 18 125/83 (97) 97 02/18/18 15:47 99 Nasal Cannula 2.50 02/18/18 12:00 97.4 111 20 125/79 (94) 96 02/18/18 11:44 109 Intake & Output 02/19/18 02/19/18 07:00 19:00 Intake Total 240 ml Balance 240 ml Intake Oral 240 ml # Voids 2 # Bowel Movements 0 Physical Exam CONSTITUTIONAL/GENERAL: This is an adequately nourished patient, in no apparent distress. NECK: Trachea midline. Supple, nontender. No palpable thyroid enlargement or nodularity. CARDIOVASCULAR: Regular rate and rhythm without murmurs, gallops, or rubs. No JVD. Peripheral pulses symmetric. RESPIRATORY/CHEST: Symmetric, unlabored respirations. Clear to auscultation. Breath sounds equal bilaterally. No wheezes, rales, or rhonchi. GASTROINTESTINAL: Abdomen soft, obese, non-tender, nondistended. No hepato- splenomegaly, or palpable masses. No guarding. Bowel sounds present. MUSCULOSKELETAL: Extremities without clubbing, cyanosis, but she does have 2+ chronic bilateral leg edema. No joint tenderness or effusion noted. No calf tenderness. No mottling or clubbing. NEUROLOGICAL: Awake and alert. Motor and sensory grossly within normal limits. Follows commands. Cognitively sharp. Moves all extremities. PSYCHIATRIC: No obvious anxiety/depression. no apparent hallucinations or other psychotic thought process. . Diagnostic Tests Laboratory Laboratory Tests Test 02/17/18 10:55 02/17/18 14:00 02/17/18 15:00 02/17/18 16:53 White Blood Count 12.7 TH/MM3 (4.0-11.0) Red Blood Count 4.84 MIL/MM3 (4.00-5.30) Hemoglobin 13.6 GM/DL (11.6-15.3) Hematocrit 42.6 % (35.0-46.0) Mean Corpuscular Volume 88.0 FL (80.0-100.0) Mean Corpuscular Hemoglobin 28.2 PG (27.0-34.0) Mean Corpuscular Hemoglobin Concent 32.0 % (32.0-36.0) Red Cell Distribution Width 18.2 % (11.6-17.2) Platelet Count 142 TH/MM3 (150-450) Mean Platelet Volume 8.1 FL (7.0-11.0) Neutrophils (%) (Auto) 86.2 % (16.0-70.0) Lymphocytes (%) (Auto) 6.6 % (9.0-44.0) Monocytes (%) (Auto) 6.2 % (0.0-8.0) Eosinophils (%) (Auto) 0.7 % (0.0-4.0) Basophils (%) (Auto) 0.3 % (0.0-2.0) Neutrophils # (Auto) 11.0 TH/MM3 (1.8-7.7) Lymphocytes # (Auto) 0.8 TH/MM3 (1.0-4.8) Monocytes # (Auto) 0.8 TH/MM3 (0-0.9) Eosinophils # (Auto) 0.1 TH/MM3 (0-0.4) Basophils # (Auto) 0.0 TH/MM3 (0-0.2) CBC Comment DIFF FINAL Differential Comment Prothrombin Time 9.7 SEC (9.8-11.6) Prothromb Time International Ratio 1.0 RATIO Activated Partial Thromboplast Time 26.0 SEC (24.3-30.1) Blood Urea Nitrogen 13 MG/DL (7-18) Creatinine 0.94 MG/DL (0.50-1.00) Random Glucose 114 MG/DL (74-106) Total Protein 7.1 GM/DL (6.4-8.2) Albumin 2.1 GM/DL (3.4-5.0) Calcium Level 8.3 MG/DL (8.5-10.1) Magnesium Level 1.6 MG/DL (1.5-2.5) Alkaline Phosphatase 164 U/L (45-117) Aspartate Amino Transf (AST/SGOT) 62 U/L (15-37) Alanine Aminotransferase (ALT/SGPT) 83 U/L (10-53) Total Bilirubin 2.2 MG/DL (0.2-1.0) Sodium Level 137 MEQ/L (136-145) Potassium Level 3.7 MEQ/L (3.5-5.1) Chloride Level 102 MEQ/L (98-107) Carbon Dioxide Level 18.9 MEQ/L (21.0-32.0) Anion Gap 16 MEQ/L (5-15) Estimat Glomerular Filtration Rate 62 ML/MIN (>89) Total Creatine Kinase 65 U/L (26-192) 49 U/L (26-192) Troponin I LESS THAN 0.02 NG/ML LESS THAN 0.02 NG/ML B-Type Natriuretic Peptide 55 PG/ML (0-100) 76 PG/ML (0-100) Lactic Acid Level 1.9 mmol/L (0.4-2.0) Urine Color YELLOW (YELLW/STRAW) Urine Turbidity CLEAR (CLEAR) Urine pH 6.0 (5.0-8.5) Urine Specific [place] GREATER THAN 1.050 Urine Protein 30 mg/dL (NEG-TRACE) Urine Glucose (UA) NEG mg/dL (NEG) Urine Ketones NEG mg/dL (NEG) Urine Occult Blood TRACE (NEG) Urine Nitrite NEG (NEG) Urine Bilirubin NEG (NEG) Urine Urobilinogen 2.0 MG/DL (LESS THAN Urine Leukocyte Esterase NEG (NEG) Urine RBC 1 /hpf (0-3) Urine WBC 4 /hpf (0-5) Urine Squamous Epithelial Cells 3 /hpf (0-5) Urine Bacteria RARE /hpf (NONE) Urine Mucus FEW /lpf (OCC) Microscopic Urinalysis Comment CULT NOT INDICATED Test 02/17/18 22:41 02/18/18 07:51 02/19/18 05:10 02/19/18 07:26 Total Creatine Kinase 43 U/L (26-192) Troponin I LESS THAN 0.02 NG/ML White Blood Count 5.8 TH/MM3 (4.0-11.0) 3.9 TH/MM3 (4.0-11.0) Red Blood Count 3.86 MIL/MM3 (4.00-5.30) 3.68 MIL/MM3 (4.00-5.30) Hemoglobin 11.1 GM/DL (11.6-15.3) 10.5 GM/DL (11.6-15.3) Hematocrit 34.3 % (35.0-46.0) 33.3 % (35.0-46.0) Mean Corpuscular Volume 88.7 FL (80.0-100.0) 90.5 FL (80.0-100.0) Mean Corpuscular Hemoglobin 28.7 PG (27.0-34.0) 28.6 PG (27.0-34.0) Mean Corpuscular Hemoglobin Concent 32.3 % (32.0-36.0) 31.6 % (32.0-36.0) Red Cell Distribution Width 18.1 % (11.6-17.2) 18.0 % (11.6-17.2) Platelet Count 94 TH/MM3 (150-450) 88 TH/MM3 (150-450) Mean Platelet Volume 7.9 FL (7.0-11.0) 7.9 FL (7.0-11.0) Neutrophils (%) (Auto) 87.0 % (16.0-70.0) 83.1 % (16.0-70.0) Lymphocytes (%) (Auto) 6.3 % (9.0-44.0) 10.7 % (9.0-44.0) Monocytes (%) (Auto) 6.5 % (0.0-8.0) 5.8 % (0.0-8.0) Eosinophils (%) (Auto) 0.0 % (0.0-4.0) 0.2 % (0.0-4.0) Basophils (%) (Auto) 0.2 % (0.0-2.0) 0.2 % (0.0-2.0) Neutrophils # (Auto) 5.0 TH/MM3 (1.8-7.7) 3.2 TH/MM3 (1.8-7.7) Lymphocytes # (Auto) 0.4 TH/MM3 (1.0-4.8) 0.4 TH/MM3 (1.0-4.8) Monocytes # (Auto) 0.4 TH/MM3 (0-0.9) 0.2 TH/MM3 (0-0.9) Eosinophils # (Auto) 0.0 TH/MM3 (0-0.4) 0.0 TH/MM3 (0-0.4) Basophils # (Auto) 0.0 TH/MM3 (0-0.2) 0.0 TH/MM3 (0-0.2) CBC Comment AUTO DIFF AUTO DIFF Differential Comment AUTO DIFF CONFIRMED AUTO DIFF CONFIRMED Platelet Estimate LOW (NORMAL) LOW (NORMAL) Platelet Morphology Comment NORMAL (NORMAL) NORMAL (NORMAL) Vancomycin Level Trough 14.9 MCG/ML (5.0-10.0) Blood Urea Nitrogen 8 MG/DL (7-18) Creatinine 0.61 MG/DL (0.50-1.00) Random Glucose 99 MG/DL (74-106) Total Protein 5.6 GM/DL (6.4-8.2) Albumin 1.8 GM/DL (3.4-5.0) Calcium Level 8.0 MG/DL (8.5-10.1) Alkaline Phosphatase 108 U/L (45-117) Aspartate Amino Transf (AST/SGOT) 25 U/L (15-37) Alanine Aminotransferase (ALT/SGPT) 51 U/L (10-53) Total Bilirubin 0.6 MG/DL (0.2-1.0) Sodium Level 145 MEQ/L (136-145) Potassium Level 3.3 MEQ/L (3.5-5.1) Chloride Level 111 MEQ/L (98-107) Carbon Dioxide Level 23.2 MEQ/L (21.0-32.0) Anion Gap 11 MEQ/L (5-15) Estimat Glomerular Filtration Rate 102 ML/MIN (>89) Result Diagram: 02/19/1826 02/19/18 0726 Microbiology Microbiology Date/Time Source Procedure Growth Status 02/17/18 12:35 Blood Peripheral Aerobic Blood Culture - Preliminary NO GROWTH IN 2 DAYS Resulted 02/17/18 12:35 Blood Peripheral Anaerobic Blood Culture - Preliminary NO GROWTH IN 2 DAYS Resulted 02/17/18 12:30 Blood Peripheral Aerobic Blood Culture - Preliminary NO GROWTH IN 2 DAYS Resulted 02/17/18 12:30 Blood Peripheral Anaerobic Blood Culture - Preliminary NO GROWTH IN 2 DAYS Resulted 02/18/18 08:00 Sputum Expectorated Sputum Gram Stain - Final Resulted 02/18/18 08:00 Sputum Expectorated Sputum Sputum Culture Pending Resulted Assessment and Plan Disease Oriented Problem List: (1) Stage IV adenocarcinoma of colon, with progression on recent scans in spite of continued chemotherapy Comment: The patient is not a candidate for additional chemotherapy at this point in time (2) Worsening debility and malnutrition (3) History of anxiety and depression (4) History of DVT right leg Symptom Scale: (1) Pain 0-10 Scale: 2 (Primarily right lateral chest) (2) Anxiety 0-10 Scale: 3 (Chronic) (3) Depression 0-10 Scale: 4 (Chronic but worsening) Pertinent Non-Medical Issues Psychosocial: , lives with disabled , 14-year-old daughter, and autistic 18-year-old son Spiritual: Je[employer] background Legal: She has capacity for decision-making; son Gurjit is the designated [facility] Ethical issues impacting care: None . Important Contacts SonGurjit [phone] . Prognosis The patient is terminal. She likely has a couple or few months remaining, and is appropriate for hospice services. . Code Status: No Code Plan * DO NOT RESUSCITATE, per request of patient 02/19/18 * DECISION-MAKING: The patient has capacity for decision-making; her son Gurjit is the designated HCS * GOALS: The patient would like to engage hospice services at the time of discharge. Because of her situation at home with a 14-year-old daughter and 18- year-old autistic son, she feels strongly that she does not want to in the home. * SYMPTOMS: Her pain is not severe at this time. Her anxiety and depression will be managed with the help of hospice. * Palliative Care will continue to follow this patient during the hospitalization. * I continue to wait on the phone call from the patient's son Gurjit; the patient has asked that I provide all the details about her illness and treatment plan to him. . Time Spent Total Floor Time (mins): 38 Face to Face Time (mins): 25 >50% Counseling/Coord of Care: Yes (d/w electric relay tester) Attestation To help prompt me to consider important information that might be impacting today's encounter and assessment, information from prior notes written by myself or my colleagues may have been "brought forward" into today's note. My signature on this note, however, is an attestation that I personally performed the exam, history, and/or decision-making noted today, and, unless otherwise indicated, the interactions with patient, family, and staff as well as the review of records all occurred today. I also attest that the listed assessment and stated plan reflect my best clinical judgment today based on the combination of historical information, prior notes, and today's exam/ interactions. When time spent is documented, it refers only to time spent today by the signer, or if indicated, combined time spent today by collaborating physician/nurse practitioner. Abbey Shannon MD Feb 19, 2018 11:16
[2018-02-19] MEDS: LOPERAMIDE HCL 2 MG CAP PO PRN ×2 (13:31→18:41)
[2018-02-19] MEDS: LORazepam 2 MG/ML VIAL IV PUSH PRN ×2 (14:19→23:21)
[2018-02-19] MEDS: CALCIUM CARBONATE 500 MG CHEWABLE TAB PO PRN (15:54)
[2018-02-19] MEDS: ENOXAPARIN SODIUM 40 MG/0.4 ML SYRINGE SQ SCH (15:58)
--- NOTE | 2018-02-19 17:38 | HHI.FPPN ---
Subjective Remarks Patient seen and examined this morning by medical team. No acute events overnight per nursing staff. Patient states that she is very thankful that her pain is now controlled with the addition of the fentanyl patch. She states that while she does feel improved, she feels worse than she did yesterday. She states that she "overextended herself" yesterday and this has left her feeling very "sore all over" scoring her pain at a 6/10. She does feel that her breathing has greatly improved, but does increase upon exertion. We again discussed the severity of progression of her disease. She is fearful that she might at home and would like to avoid this as she has young children. We thoroughly discussed the goals of hospice to which she is now agreeable to. Otherwise she has no current complaints and denies any fevers, chills, chest pain, NVD, or calf tenderness. (Mike Bravo MD R2) Objective Vitals Vital Signs Date Time Temp Pulse Resp B/P (MAP) Pulse Ox O2 Delivery O2 Flow Rate FiO2 02/19/18 16:00 97.3 93 17 137/84 (101) 96 02/19/18 14:21 16 02/19/18 12:00 97.1 104 17 135/71 (92) 95 02/19/18 09:31 95 21 02/19/18 08:00 97.1 84 17 131/87 (102) 97 02/19/18 04:00 98.2 105 19 135/82 (99) 96 02/19/18 04:00 82 02/19/18 00:00 87 02/19/18 00:00 98.1 109 19 132/85 (101) 95 02/18/18 20:00 102 02/18/18 20:00 97.9 110 19 138/87 (104) 94 I/O 02/18/18 02/18/18 02/18/18 02/19/18 02/19/18 02/19/18 07:00 15:00 23:00 07:00 15:00 23:00 Intake Total 50 ml 720 ml 240 ml Output Total 300 ml Balance -250 ml 720 ml 240 ml Intake Oral 0 ml 720 ml 240 ml IV Total 50 ml Output Urine Total 300 ml # Voids 2 3 2 # Bowel Movements 0 0 0 (Mike Bravo MD R2) Result Diagram: 02/19/18 0726 02/19/18 0726 Objective Remarks GENERAL: Obese female lying in bed in no acute distress. SKIN: Cool and dry. No rash. HEENT: Atraumatic, normocephalic with extraocular motions intact. No rhinorrhea. No visible lymphadenopathy or jugulovenous distension appreciated. CARDIOVASCULAR: Regular rate and rhythm without obvious murmurs, gallops, or rubs. 2+ pulses in all four extremities. RESPIRATORY: Clear to auscultation anteriorly with no crackles, wheezes, or rhonchi. No increased work of breathing. GASTROINTESTINAL: Abdomen soft, nondistended with positive bowel sounds. Patient tender to palpation along the midline and left abdominal quadrants likely secondary to tumor burden. Due to body habitus, no defined masses appreciated. MUSCULOSKELETAL: No cyanosis or edema. No calf tenderness. NEURO/PSYCH: Afocal. Awake, alert, and oriented x3. Normal speech and judgement. Patient becomes appropriately emotional when discussing the prognosis of her malignancy. (Mike Bravo MD R2) A/P Assessment and Plan Patient is a 57-year-old female with history of metastatic colon cancer to the lungs and liver presenting with acute shortness secondary to possible broncho- obstructive pneumonia versus increasing tumor burden of the mediastinum. Discharge Planning Patient to be discharged home with hospice pending improvement of respiratory status. (Mike Bravo MD R2) Attending Attestation Patient independently examined and case discussed with resident physician I have read the above note and agree with the assessment/plan as discussed with me I was involved in all medical decision making for this patient Glen Davidson MD (Glen Davidson MD) Problem List: (1) Pneumonia ICD Codes: J18.9 - Pneumonia, unspecified organism Status: Acute Plan: Patient with hospitalization from 01/12 to 01/17 presenting with sepsis secondary to possible pneumonia with pleural effusion. Therefore, plan to treat as HCAP vs Broncho-Obstructive PNA based on tumor burden. Labs: * On admission, WBC: 12.7 with 86.2% neutrophils. WBC downtrending to 5.8 today. Microbiology: * Blood cultures: no growth up to date. * Sputum culture: Heavy growth normal respiratory giancarlo * Influenza, urinary Legionella/pneumococcal antigens: Pending Imaging: * Chest x-ray: Bilateral pulmonary nodules concerning for metastatic disease which are stable, left basilar airspace disease that may be slightly worse when compared to the prior exam representing possible infiltrate versus atelectasis. Small right sided effusion. Left IJ [id number] at the tip of the junction of the left and right brachiocephalic veins. * CTA: Interval worsening of the patient's metastatic disease. Pulmonary nodules have increased in both size and number from prior exam. By hilar and subcarinal adenopathy as well as possible pericardial invasion from regional nodes. No pulmonary embolus. Small left with a tiny right pleural effusion. Regional concomitant atelectatic changes and bases. Orders: * Incentive spirometry, respiratory CPT, and Acapella ordered Medications: * Patient given ceftriaxone and azithromycin and ED. * Vancomycin and Zosyn for antibiotic coverage, pharmacy consulted for dosing. Plan to transition to oral antibiotics 02/20/18 to assist with discharge planning. * Duonebs every 6 hours with as needed treatments every 4 hours. (2) Sepsis ICD Codes: A41.9 - Sepsis, unspecified organism Status: Acute Plan: On admission, patient presenting with tachycardia to 144 and respiratory rate 36 upon initial vital sign check. Suspected source of infection is pneumonia as documented above. * See plan above. (3) Metastatic colon cancer in female ICD Codes: C18.9 - Malignant neoplasm of colon, unspecified Status: Chronic Plan: Patient with multiple complaints including shortness of breath/air hunger , headaches, abdominal pain likely related to metastatic disease and increased tumor burden. Labs: * CMP 02/17: Bilirubin 2.2, AST 62, ALT 83, alk phos 164 (likely due to tumor burden of hepatic system). Imaging: * Medial spinal imaging as above. * Head CT: No acute intracranial abnormalities. * CT abdomen and pelvis: Extensive metastatic disease to the lung bases with some consolidation and small left pleural effusion. Metastatic disease to the liver measuring up to 6.5 cm in diameter. Mass and transverse colon invading the anterior abdominal wall at the medial right rectus muscle. Supraumbilical ventral hernia containing a small bowel loop without evidence of obstruction. Progression of disease since prior CT from June 17, 2017. Consults: * Medical oncology: Metastatic colon cancer extensively treated with past intravenous chemotherapy and most recently on regorafenib. Unfortunately, she has had progression of her disease on this therapy. The only other treatment option remaining for the patient is IV irinotecan and bevacizumab. She has been on irinotecan in the past and this appeared to have some control of her disease; however, this was very poorly tolerated. Long discussion with the patient that in order to receive IV chemotherapy that she would need to get stronger and uncertain if this would be feasible. * Palliative/hospice: Patient has signed DO NOT RESUSCITATE order on 02/19/18. She has designated her son, Gurjit, her designated decision maker. Patient will be discharged home with home hospice services. Medications: * Continue home hydrocodone 10 mg every 4 hours. * Fentanyl 25 mcg patch. * Dexamethasone 8 mg given IV once, patient started 4 mg twice daily 02/18. * Ativan 1 mg IV every 8 hours as needed for anxiety/shortness of breath. * Continue home Zofran. * Continue home loperamide. (4) Hypertension ICD Codes: I10 - Hypertension Status: Acute Plan: Patient with history of hypertension. Medications: * Continue home lisinopril. * Clonidine 0.1 mg every 6 hours as needed for blood pressure greater than 180/ 110. (5) Acid reflux disease ICD Codes: K21.9 - Gastro-esophageal reflux disease without esophagitis Status: Chronic Plan: Patient with history of GERD. Medications: * Continue home pantoprazole and calcium carbonate. (6) Diarrhea ICD Codes: R19.7 - Diarrhea, unspecified Status: Chronic Plan: Patient with diarrhea. Medications: * Continue home Imodium as needed and daily lactobacillus. (7) Nutrition, metabolism, and development symptoms ICD Codes: R63.8 - Other symptoms and signs concerning food and fluid intake Status: Acute Plan: Diet: * Regular diet as tolerated Fluids: * NS decreased to 75 mL/h Electrolytes: * Monitor and replete as necessary. (8) DVT prophylaxis Status: Acute Plan: Lovenox daily SCDs (Mike Bravo MD R2) Problem Qualifiers (1) Pneumonia: Qualified Codes: J18.1 - Lobar pneumonia, unspecified organism (2) Sepsis: Qualified Codes: A41.9 - Sepsis, unspecified organism (3) Hypertension: Qualified Codes: I10 - Essential (primary) hypertension (4) Acid reflux disease: Qualified Codes: K21.9 - Gastro-esophageal reflux disease without esophagitis (5) Diarrhea: Qualified Codes: K59.1 - Functional diarrhea Mike Bravo MD R2 Feb 19, 2018 17:38 Glen Davidson MD Feb 19, 2018 17:55
--- NOTE | 2018-02-19 21:11 | PD.ONC.PN ---
Subjective Subjective Remarks Sitting comfortably in bedside chair. Patient reports that she is sad. She is worried about dying, life after . She is also concerned with who will care for her two youngest children after she passes. Objective Data Date Time Temp Pulse Resp B/P (MAP) Pulse Ox O2 Delivery O2 Flow Rate FiO2 02/19/18 20:52 95 02/19/18 20:00 98.1 115 15 132/99 (110) 97 02/19/18 16:00 97.3 93 17 137/84 (101) 96 02/19/18 14:21 16 02/19/18 12:00 97.1 104 17 135/71 (92) 95 02/19/18 09:31 95 21 02/19/18 08:00 97.1 84 17 131/87 (102) 97 02/19/18 04:00 98.2 105 19 135/82 (99) 96 02/19/18 04:00 82 02/19/18 00:00 87 02/19/18 00:00 98.1 109 19 132/85 (101) 95 02/19/18 02/19/18 02/19/18 07:00 15:00 23:00 Intake Total 240 ml 800 ml Balance 240 ml 800 ml Result Diagram: 02/19/18 0702/19/18 07 Laboratory Results Laboratory Tests Test 02/19/18 05:10 02/19/18 07:26 Vancomycin Level Trough 14.9 MCG/ML White Blood Count 3.9 TH/MM3 Red Blood Count 3.68 MIL/MM3 Hemoglobin 10.5 GM/DL Hematocrit 33.3 % Mean Corpuscular Volume 90.5 FL Mean Corpuscular Hemoglobin 28.6 PG Mean Corpuscular Hemoglobin Concent 31.6 % Red Cell Distribution Width 18.0 % Platelet Count 88 TH/MM3 Mean Platelet Volume 7.9 FL Neutrophils (%) (Auto) 83.1 % Lymphocytes (%) (Auto) 10.7 % Monocytes (%) (Auto) 5.8 % Eosinophils (%) (Auto) 0.2 % Basophils (%) (Auto) 0.2 % Neutrophils # (Auto) 3.2 TH/MM3 Lymphocytes # (Auto) 0.4 TH/MM3 Monocytes # (Auto) 0.2 TH/MM3 Eosinophils # (Auto) 0.0 TH/MM3 Basophils # (Auto) 0.0 TH/MM3 CBC Comment AUTO DIFF Differential Comment AUTO DIFF CONFIRMED Platelet Estimate LOW Platelet Morphology Comment NORMAL Blood Urea Nitrogen 8 MG/DL Creatinine 0.61 MG/DL Random Glucose 99 MG/DL Total Protein 5.6 GM/DL Albumin 1.8 GM/DL Calcium Level 8.0 MG/DL Alkaline Phosphatase 108 U/L Aspartate Amino Transf (AST/SGOT) 25 U/L Alanine Aminotransferase (ALT/SGPT) 51 U/L Total Bilirubin 0.6 MG/DL Sodium Level 145 MEQ/L Potassium Level 3.3 MEQ/L Chloride Level 111 MEQ/L Carbon Dioxide Level 23.2 MEQ/L Anion Gap 11 MEQ/L Estimat Glomerular Filtration Rate 102 ML/MIN Culture Results Microbiology Date/Time Source Procedure Growth Status 02/17/18 12:35 Blood Peripheral Aerobic Blood Culture - Preliminary NO GROWTH IN 2 DAYS Resulted 02/17/18 12:35 Blood Peripheral Anaerobic Blood Culture - Preliminary NO GROWTH IN 2 DAYS Resulted 02/17/18 12:30 Blood Peripheral Aerobic Blood Culture - Preliminary NO GROWTH IN 2 DAYS Resulted 02/17/18 12:30 Blood Peripheral Anaerobic Blood Culture - Preliminary NO GROWTH IN 2 DAYS Resulted 02/18/18 08:00 Sputum Expectorated Sputum Gram Stain - Final Resulted 02/18/18 08:00 Sputum Expectorated Sputum Sputum Culture - Preliminary HEAVY GROWTH NORMAL RESPIRATORY HECTOR... Resulted Administered Medications Medications (Trade) Dose Ordered Sig/Lana Route PRN Reason Start Time Stop Time Status Last Admin Dose Admin Calcium Carbonate (Tums Chew) 500 mg TID PRN PO HEARTBURN 02/17/18 14:30 02/19/18 15:54 Loperamide HCl (Imodium) 2 mg Q6HR PRN PO DIARRHEA 02/17/18 14:30 02/19/18 18:41 Pantoprazole Sodium (Protonix) 40 mg DAILY PO 02/17/18 15:00 02/19/18 08:37 Ondansetron HCl (Zofran Odt) 8 mg TID PRN PO NAUSEA AND VOMITING 02/17/18 15:30 02/18/18 16:48 Sodium Chloride 1,000 ml @ 75 mls/hr [id number] IV 02/17/18 16:00 02/19/18 15:57 Sodium Chloride (NS Flush) 2 ml BID IV FLUSH 02/17/18 21:00 02/19/18 08:38 Albuterol/ Ipratropium (Duoneb Neb) 1 ampule Q6HR NEB INH 02/17/18 16:00 02/19/18 20:52 Enoxaparin Sodium (Lovenox Inj) 40 mg Q24H SQ 02/17/18 17:00 02/19/18 15:58 Dexamethasone Sodium Phosphate (Decadron Inj) 4 mg Q12HR IV PUSH 02/18/18 09:00 02/19/18 08:38 Piperacillin Sod/ Tazobactam Sod 50 ml @ 100 mls/hr Q6H IV 02/17/18 17:00 02/19/18 15:56 Fentanyl (Duragesic 25 Mcg Patch.72 Hr) 1 patch Q3D T-DERMAL 02/17/18 18:00 02/17/18 17:07 Acetaminophen/ Hydrocodone Bitart ([place] 10-325 Mg) 1 tab Q4H PRN PO PAIN SCALE 6 TO 10 02/17/18 16:45 02/19/18 18:40 Lorazepam (Ativan Inj) 1 mg Q8HR PRN IV PUSH ANXIETY AND/OR SOB 02/17/18 17:00 02/19/18 14:19 Vancomycin HCl 1250 mg/Sodium Chloride 262.5 ml @ 250 mls/hr Q12H IV 02/17/18 18:00 02/19/18 17:01 Lisinopril (Prinivil) 10 mg DAILY PO 02/18/18 09:00 02/19/18 08:37 Objective Remarks GENERAL: overweight, chronically ill appearing SKIN: Warm and dry. HEAD: Normocephalic. EYES: No scleral icterus. No injection or drainage. NECK: Supple, trachea midline. No JVD or lymphadenopathy. RESPIRATORY: No accessory muscle use. Nasal cannula GASTROINTESTINAL: protuberent abdomen NEUROLOGICAL: No obvious focal deficit. Awake, alert, and oriented x3. PSYCHIATRIC: sad Assessment/Plan Assessment Metastatic colon cancer with progression of disease. She has had an aggressive treatment course with multiple treatments with intravenous and oral chemotherapy. Chemotherapy administration was complicated by side effects, poor tolerance and poor control of malignancy. She has declining performance status and decreased ability to care for herself at home. Palliative care and hospice teams have seen patient. She is very interested in home hospice and then ultimately being admitted to a care facility. She does not want to at home due to her two young children. She would like the support of her family, especially her older three sons during this time. One of her sons who lives up [place] is flying into town this weekend. Inpatient oncology service will continue to follow. Kiarra Ventura MD Feb 19, 2018 21:11
[2018-02-20] VITALS (8 sets, daily range): BP systolic 135–153; BP diastolic 88–102; PULSE 79–109; RESP 15–20; TEMP 97.6–98.3; O2SAT 92–100
[2018-02-20] MEDS: RESP: ALBUTEROL 2.5 MG/IPRATROPIUM 0.5 MG NEB (SCH) INH ×4 (03:42→22:00)
[2018-02-20] MEDS: ACETAMINOPHEN/HYDROcodone 325 MG/10 MG TAB PO PRN ×5 (04:19→23:45)
[2018-02-20] MEDS: CALCIUM CARBONATE 500 MG CHEWABLE TAB PO PRN ×2 (04:21→08:46)
[2018-02-20] MEDS: LOPERAMIDE HCL 2 MG CAP PO PRN ×4 (04:21→23:42)
[2018-02-20] MEDS: PIPERACIL-TAZO 3.375 GM PREMIX 50 ML IV SCH ×2 (05:07→10:03)
[2018-02-20] MEDS: VANCOMYCIN INJ 1,250 MG in SODIUM CHLOR 0.9% 250 ML INJ 250 ML IV SCH ×2 (06:20→18:01)
[2018-02-20] MEDS: LORazepam 2 MG/ML VIAL IV PUSH PRN ×2 (08:35→17:02)
[2018-02-20] MEDS: DEXAMETHASONE SOD PHOS 4 MG/ML VIAL IV PUSH SCH ×2 (08:35→20:49)
[2018-02-20] MEDS: PANTOPRAZOLE SOD 40 MG DELAYED RELEASE TAB PO SCH ×2 (08:36→20:50)
[2018-02-20] MEDS: LISINOPRIL 10 MG TAB PO SCH (08:36)
[2018-02-20] MEDS: SODIUM CHLORIDE 0.9% FLUSH 10 ML FLUSH IV FLUSH SCH ×2 (08:36→20:49)
--- NOTE | 2018-02-20 09:58 | HHI.FPPN ---
Subjective Remarks Patient seen and examined this morning by medical team. No acute events overnight per nursing staff. Patient continues to have body pain likely secondary to tumor burden focally in the abdomen. Patient's scores pain to be a 6/10. However, she states that pain is currently controlled on fentanyl patch and hydrocodone. Medical team offered increased pain control, however patient declines at this time. Patient continues to be appropriately upset about prognosis and is concerned today about 1 episode of incontinence overnight. We briefly discussed the plan for her care going forward with Hospice care. She is very anxious about proceeding for multiple reasons including finances, at home nursing help, and her family regarding her diagnosis. She states that the plan for today is for the hospice care team to communicate with her son to form a plan going forward. (Mike Bravo MD R2) Objective Vitals Vital Signs Date Time Temp Pulse Resp B/P (MAP) Pulse Ox O2 Delivery O2 Flow Rate FiO2 02/20/18 04:00 98.1 107 15 140/90 (107) 92 02/20/18 03:43 99 Nasal Cannula 2.00 02/20/18 00:00 98.3 109 15 135/92 (106) 95 02/19/18 20:52 95 02/19/18 20:00 98.1 115 15 132/99 (110) 97 02/19/18 16:00 97.3 93 17 137/84 (101) 96 02/19/18 14:21 16 02/19/18 12:00 97.1 104 17 135/71 (92) 95 I/O 02/19/18 02/19/18 02/19/18 02/20/18 02/20/18 02/20/18 07:00 15:00 23:00 07:00 15:00 23:00 Intake Total 240 ml 800 ml 240 ml Balance 240 ml 800 ml 240 ml Intake Oral 240 ml 800 ml 240 ml # Voids 2 3 3 # Bowel Movements 0 2 2 (Mike Bravo MD R2) Result Diagram: 02/19/1872502/19/18725 Objective Remarks GENERAL: Obese female lying in bed in no acute distress. SKIN: Cool and dry. No rash. HEENT: Atraumatic, normocephalic with extraocular motions intact. No rhinorrhea. No visible lymphadenopathy or jugulovenous distension appreciated. CARDIOVASCULAR: Regular rate and rhythm without obvious murmurs, gallops, or rubs. 2+ pulses in all four extremities. RESPIRATORY: Shallow breathing overall. Clear to auscultation BL without obvious CRW. No increased work of breathing at this time. GASTROINTESTINAL: Abdomen soft with positive bowel sounds. Patient tender to palpation along the midline and left abdominal quadrants likely secondary to tumor burden. Due to body habitus, no defined masses appreciated. MUSCULOSKELETAL: No cyanosis or edema. No calf tenderness. NEURO/PSYCH: Afocal. Awake, alert, and oriented x3. Normal speech and judgement. Patient becomes appropriately emotional when discussing the prognosis and care plan regarding her malignancy. (Mike Bravo MD R2) A/P Assessment and Plan Patient is a 57-year-old female with history of metastatic colon cancer to the lungs and liver presenting with acute shortness secondary to possible broncho- obstructive pneumonia versus increasing tumor burden of the mediastinum. Discharge Planning Patient to be discharged home with hospice pending improvement of respiratory status. (Mike Bravo MD R2) Attending Attestation Patient examined independently and case discussed with resident physicians I have read the above note and agree with the assessment/plan as discussed with me I was involved in all medical decision making for this patient Glen Davidson MD (Glen Davidson MD) Problem List: (1) Pneumonia ICD Codes: J18.9 - Pneumonia, unspecified organism Status: Acute Plan: Patient with hospitalization from 01/12 to 01/17 presenting with sepsis secondary to possible pneumonia with pleural effusion. Therefore, plan to treat as HCAP vs Broncho-Obstructive PNA based on tumor burden. Labs: * On admission, WBC: 12.7 with 86.2% neutrophils. * Microbiology: * Blood cultures: no growth to date. * Sputum culture: Rare growth Staph Aureus * Influenza, urinary Legionella/pneumococcal antigens: Pending Imaging: * Chest x-ray: Bilateral pulmonary nodules concerning for metastatic disease which are stable, left basilar airspace disease that may be slightly worse when compared to the prior exam representing possible infiltrate versus atelectasis. Small right sided effusion. Left IJ [id number] at the tip of the junction of the left and right brachiocephalic veins. * CTA: Interval worsening of the patient's metastatic disease. Pulmonary nodules have increased in both size and number from prior exam. By hilar and subcarinal adenopathy as well as possible pericardial invasion from regional nodes. No pulmonary embolus. Small left with a tiny right pleural effusion. Regional concomitant atelectatic changes and bases. Orders: * Incentive spirometry, respiratory CPT, and Acapella ordered Medications: * Patient given ceftriaxone and azithromycin and ED. * Vancomycin for antibiotic coverage on admission (02/17- ) * Zosyn for initial coverage (02/17-02/20) * Duonebs every 6 hours with as needed treatments every 4 hours. (2) Sepsis ICD Codes: A41.9 - Sepsis, unspecified organism Status: Acute Plan: On admission, patient presenting with tachycardia to 144 and respiratory rate 36 upon initial vital sign check. Suspected source of infection is pneumonia as documented above. * See plan above. (3) Metastatic colon cancer in female ICD Codes: C18.9 - Malignant neoplasm of colon, unspecified Status: Chronic Plan: Patient with multiple complaints including shortness of breath/air hunger , headaches, abdominal pain likely related to metastatic disease and increased tumor burden. Labs: * CMP 02/17: Bilirubin 2.2, AST 62, ALT 83, alk phos 164 (likely due to tumor burden of hepatic system). Imaging: * Medial spinal imaging as above. * Head CT: No acute intracranial abnormalities. * CT abdomen and pelvis: Extensive metastatic disease to the lung bases with some consolidation and small left pleural effusion. Metastatic disease to the liver measuring up to 6.5 cm in diameter. Mass and transverse colon invading the anterior abdominal wall at the medial right rectus muscle. Supraumbilical ventral hernia containing a small bowel loop without evidence of obstruction. Progression of disease since prior CT from June 17, 2017. Consults: * Medical oncology: Metastatic colon cancer extensively treated with past intravenous chemotherapy and most recently on regorafenib. Unfortunately, she has had progression of her disease on this therapy. The only other treatment option remaining for the patient is IV irinotecan and bevacizumab. She has been on irinotecan in the past and this appeared to have some control of her disease; however, this was very poorly tolerated. Long discussion with the patient that in order to receive IV chemotherapy that she would need to get stronger and uncertain if this would be feasible. * Palliative/hospice: Patient has signed DO NOT RESUSCITATE order on 02/19/18. She has designated her son, Gurjit, her designated decision maker. Patient will be discharged home with home hospice services. Medications: * Continue home hydrocodone 10 mg every 4 hours. * Fentanyl 25 mcg patch. * Dexamethasone 8 mg given IV once, patient started 4 mg twice daily 02/18. * Ativan 1 mg IV every 8 hours as needed for anxiety/shortness of breath. * Continue home Zofran. * Continue home loperamide. (4) Hypertension ICD Codes: I10 - Hypertension Status: Acute Plan: Patient with history of hypertension. Medications: * Continue home lisinopril. * Clonidine 0.1 mg every 6 hours as needed for blood pressure greater than 180/ 110. (5) Acid reflux disease ICD Codes: K21.9 - Gastro-esophageal reflux disease without esophagitis Status: Chronic Plan: Patient with history of GERD. Medications: * Continue home calcium carbonate. * Increase Pantoprazole to 40mg BID for short course (6) Diarrhea ICD Codes: R19.7 - Diarrhea, unspecified Status: Chronic Plan: Patient with diarrhea. Medications: * Continue home Imodium as needed and daily lactobacillus. (7) Hypokalemia ICD Codes: E87.6 - Hypokalemia Status: Acute Plan: BMP: Potassium 3.3 Medications: -Effervescent potassium 25 mEq ordered 2 -Repeat potassium and magnesium with BMP tomorrow a.m. (8) Nutrition, metabolism, and development symptoms ICD Codes: R63.8 - Other symptoms and signs concerning food and fluid intake Status: Acute Plan: Diet: * Regular diet as tolerated Fluids: * NS decreased to 75 mL/h Electrolytes: * Monitor and replete as necessary. (9) DVT prophylaxis Status: Acute Plan: Lovenox daily SCDs (Mike Bravo MD R2) Problem Qualifiers (1) Pneumonia: Qualified Codes: J18.1 - Lobar pneumonia, unspecified organism (2) Sepsis: Qualified Codes: A41.9 - Sepsis, unspecified organism (3) Hypertension: Qualified Codes: I10 - Essential (primary) hypertension (4) Acid reflux disease: Qualified Codes: K21.9 - Gastro-esophageal reflux disease without esophagitis (5) Diarrhea: Qualified Codes: K59.1 - Functional diarrhea Mike Bravo MD R2 Feb 20, 2018 09:58 Glen Davidson MD Feb 20, 2018 15:12
[2018-02-20] MEDS ORDERED: POTASSIUM CHLORIDE 25 MEQ EFFERVESCENT TAB PO ONE ×3 (10:00→21:00)
[2018-02-20] MEDS: SODIUM CHLOR 0.9% 1000 ML INJ 1,000 ML IV SCH (10:01)
[2018-02-20] MEDS: ENOXAPARIN SODIUM 40 MG/0.4 ML SYRINGE SQ SCH (17:02)
[2018-02-20] MEDS: REMOVE OLD DURAGESIC (FENTANYL) PATCH T-DERMAL SCH (18:00)
[2018-02-20] MEDS: fentaNYL 25 MCG/HR PATCH T-DERMAL SCH (18:01)
[2018-02-21] VITALS: BP 162/90; PULSE 82; PULSE 83; RESP 22; TEMP 97.6; O2SAT 98
[2018-02-21] MEDS: RESP: ALBUTEROL 2.5 MG/IPRATROPIUM 0.5 MG NEB (SCH) INH ×2 (00:14→10:11)
[2018-02-21] MEDS: SODIUM CHLOR 0.9% 1000 ML INJ 1,000 ML IV SCH (02:19)
[2018-02-21] MEDS: LORazepam 2 MG/ML VIAL IV PUSH PRN ×2 (03:07→11:55)
[2018-02-21 04:00] VITALS: BP 134/79; PULSE 89; RESP 22; TEMP 97; O2SAT 99
[2018-02-21 04:58] LABS: HEMATOCRIT 31.9 % (35.0-46.0); HEMOGLOBIN 10.2 GM/DL (11.6-15.3); MEAN CELL VOLUME 89.5 FL (80.0-100.0); MEAN CORPUSCULAR HEMOGLOBIN 28.6 PG (27.0-34.0); MEAN PLATELET VOLUME 7.7 FL (7.0-11.0); PLATELET COUNT 91 TH/MM3 (150-450); RED BLOOD COUNT 3.56 MIL/MM3 (4.00-5.30); RED CELL DISTRIBUTION WIDTH 17.8 % (11.6-17.2); WHITE BLOOD COUNT 5.1 TH/MM3 (4.0-11.0)
[2018-02-21 05:17] LABS: BICARBONATE 24.7 MEQ/L (21.0-32.0); CALCIUM 7.6 MG/DL (8.5-10.1); CREATININE 0.79 MG/DL (0.50-1.00); MAGNESIUM 1.5 MG/DL (1.5-2.5)
[2018-02-21] MEDS: VANCOMYCIN INJ 1,250 MG in SODIUM CHLOR 0.9% 250 ML INJ 250 ML IV SCH (06:06)
[2018-02-21 08:00] VITALS: BP 147/86; PULSE 93; PULSE 96; RESP 20; TEMP 97.2; O2SAT 95
[2018-02-21] MEDS: SODIUM CHLORIDE 0.9% FLUSH 10 ML FLUSH IV FLUSH SCH (08:02)
--- NOTE | 2018-02-21 08:04 | HHI.DCPOC ---
Discharge Care Plan Diagnosis: (1) Metastatic colorectal cancer (2) Intractable pain (3) Pneumonia Goals to Promote Your Health * To prevent worsening of your condition and complications * To maintain your health at the optimal level Directions to Meet Your Goals Take your medications as prescribed Follow your dietary instruction Follow activity as directed Keep your appointments as scheduled Take your immunizations and boosters as scheduled If your symptoms worsen call your PCP, if no PCP go to Urgent Care Center or Emergency Room Smoking is Dangerous to Your Health. Avoid second hand smoke Call the 24-hour hour crisis hotline for domestic abuse at Mike Bravo MD R2 Feb 21, 2018 08:04 Ramo Pace MD Feb 24, 2018 10:07
[2018-02-21] MEDS: DEXAMETHASONE SOD PHOS 4 MG/ML VIAL IV PUSH SCH (08:05)
[2018-02-21] MEDS: ACETAMINOPHEN/HYDROcodone 325 MG/10 MG TAB PO PRN ×2 (08:05→11:59)
[2018-02-21] MEDS: PANTOPRAZOLE SOD 40 MG DELAYED RELEASE TAB PO SCH (08:05)
[2018-02-21] MEDS: LOPERAMIDE HCL 2 MG CAP PO PRN (08:05)
[2018-02-21] MEDS: LISINOPRIL 10 MG TAB PO SCH (08:05)
[2018-02-21] MEDS: CALCIUM CARBONATE 500 MG CHEWABLE TAB PO PRN (08:14)
[2018-02-21 10:13] VITALS: O2SAT 99
[2018-02-21] MEDS ORDERED: GABAPENTIN 300 MG CAP PO SCH (10:30)
--- NOTE | 2018-02-21 10:37 | HHI.FPPN ---
Subjective Remarks Patient was seen and evaluated this morning. She is sad and angry about her condition/situation. She is hopeless and feels guilty about "abandoning" her children. The tentative plan today is for the patient to be discharged to a hospice care center in hopes that she will regain enough strength and improve her physical condition to go home before returning to the hospice care center to pass. Patient is satisfied with her current pain regimen; her pain has not been this well controlled since her cancer diagnosis. She reports a new burning pain shooting/radiating across her upper abdomen. Patient denies chest pain, heart palpitations, shortness of breath, nausea/vomiting, diarrhea and constipation. All questions were answered. (Medina Burns MD R1) Objective Vitals Vital Signs Date Time Temp Pulse Resp B/P (MAP) Pulse Ox O2 Delivery O2 Flow Rate FiO2 02/21/18 10:13 99 Nasal Cannula 2.00 02/21/18 08:00 97.2 93 20 147/86 (106) 95 02/21/18 04:00 97.0 89 22 134/79 (97) 99 02/21/18 00:00 82 02/21/18 00:00 97.6 83 22 162/90 (114) 98 02/20/18 20:00 97.6 82 18 153/92 (112) 99 02/20/18 20:00 89 02/20/18 12:00 97.9 104 20 147/102 (117) 98 02/20/18 11:34 107 I/O 02/20/18 02/20/18 02/20/18 02/21/18 02/21/18 02/21/18 06:59 14:59 22:59 06:59 14:59 22:59 Intake Total 240 ml 1050 ml 872.5 ml 1440 ml Output Total 800 ml Balance 240 ml 1050 ml 872.5 ml 640 ml Intake Oral 240 ml 610 ml 440 ml IV Total 1050 ml 262.5 ml 1000 ml Output Urine Total 800 ml # Voids 3 2 1 # Bowel Movements 2 2 1 (Medina Burns MD R1) Result Diagram: 02/21/18 0415 02/21/18 0415 Imaging Last Impressions Chest X-Ray 02/17/18 1048 Signed Impressions: CONCLUSION: 1. Multiple bilateral pulmonary nodules concerning for metastatic disease. The se are stable. 2. Left basilar airspace disease may be slightly worse when compared to the pr ior. This could represent atelectasis/scarring or infiltrate. 3. Probable small right-sided effusion. 4. Left IJ Psvygy-t-Nuab with the tip at the junction of the left and right br achiocephalic veins CT Angiography 02/17/18 1048 Signed Impressions: CONCLUSION: 1. Interval worsening of the patient's metastatic disease. Pulmonary nodules h ave increased in both size and number from the prior exam. 2. In addition, there is bihilar and subcarinal adenopathy as well as possible pericardial invasion from regional nodules. 3. No pulmonary embolus. 4. Small left with a tiny right pleural effusion. Regional concomitant atelect atic changes in the bases. Head CT 02/17/18 0000 Signed Impressions: CONCLUSION: 1. No acute intracranial abnormalities. Abdomen/Pelvis CT 02/17/18 0000 Signed Impressions: CONCLUSION: 1. Extensive metastatic disease to the lung bases with some consolidation and a small left pleural effusion. 2. Metastatic disease to the liver measuring up to 6.5 cm in diameter. 3. Mass in transverse colon invading the anterior abdominal wall at the medial right rectus muscle. 4. Supraumbilical ventral hernia containing a small bowel loop without evidenc e for obstruction. 5. Progression of disease since prior CT from June 2017. Objective Remarks GENERAL: Obese female sitting in chair, in no acute distress. SKIN: Cool and dry. No rash. HEENT: Atraumatic, normocephalic with extraocular motions intact. No rhinorrhea. No visible lymphadenopathy or JVD appreciated. CARDIOVASCULAR: Regular rate and rhythm without obvious murmurs, gallops, or rubs. RESPIRATORY: No increased work of breathing at this time. Shallow breathing. Clear to auscultation. GASTROINTESTINAL: Abdomen soft with positive bowel sounds. Patient tender to palpation along the midline and left abdominal quadrants. Due to body habitus, no defined masses appreciated. MUSCULOSKELETAL: No cyanosis or edema. No calf tenderness. NEURO/PSYCH: Awake, alert, and oriented x3. Normal speech and judgement. Patient becomes appropriately emotional when discussing the prognosis and care plan regarding her malignancy. Medications and IVs Current Medications Medications (Trade) Dose Ordered Sig/Lana Route Start Time Stop Time Status Last Admin (Tums Chew) 500 mg TID PRN PO 02/17/18 14:30 02/21/18 08:14 (Imodium) 2 mg Q6HR PRN PO 02/17/18 14:30 02/21/18 08:05 (Zofran Odt) 8 mg TID PRN PO 02/17/18 15:30 02/18/18 16:48 Non-Formulary Medication 40 mg DAILY PO 02/18/18 09:00 Future Hold Sodium Chloride 1,000 ml @ 75 mls/hr [id number] IV 02/17/18 16:00 02/21/18 02:19 (NS Flush) 2 ml UNSCH PRN IV FLUSH 02/17/18 15:30 (NS Flush) 2 ml BID IV FLUSH 02/17/18 21:00 02/20/18 20:49 (Tylenol) 650 mg Q4H PRN PO 02/17/18 15:30 (Duoneb Neb) 1 ampule Q6HR NEB INH 02/17/18 16:00 02/21/18 10:11 (Duoneb Neb) 1 ampule Q4HR NEB PRN INH 02/17/18 15:30 (Lovenox Inj) 40 mg Q24H SQ 02/17/18 17:00 02/20/18 17:02 (Decadron Inj) 4 mg Q12HR IV PUSH 02/18/18 09:00 02/21/18 08:05 Pharmacy Profile Note 0 ml @ 0 mls/hr UNSCH OTHER 02/17/18 15:30 (Narcan Inj) 0.4 mg UNSCH PRN IV PUSH 02/17/18 15:30 (Duragesic 25 Mcg Patch.72 Hr) 1 patch Q3D T-DERMAL 02/17/18 18:00 02/20/18 18:01 (Slinger 5-325 Mg) 1 tab Q4H PRN PO 02/17/18 16:45 (Slinger 10-325 Mg) 1 tab Q4H PRN PO 02/17/18 16:45 02/21/18 08:05 Miscellaneous Information 1 Q3D T-DERMAL 02/17/18 18:00 02/20/18 18:00 (Ativan Inj) 1 mg Q8HR PRN IV PUSH 02/17/18 17:00 02/21/18 03:07 Vancomycin HCl 1250 mg/Sodium Chloride 262.5 ml @ 250 mls/hr Q12H IV 02/17/18 18:00 02/21/18 06:06 (Catapres) 0.1 mg Q6H PRN PO 02/18/18 03:15 (Prinivil) 10 mg DAILY PO 02/18/18 09:00 02/21/18 08:05 (Protonix) 40 mg BID PO 02/20/18 21:00 02/21/18 08:05 (Neurontin) 300 mg DAILY PO 02/21/18 10:30 (Medina Burns MD R1) Urinary Catheter: No (Medina Burns MD R1) Vascular Central Line Catheter: No (Medina Burns MD R1) A/P Assessment and Plan Patient is a 57-year-old female with history of metastatic colon cancer to the lungs and liver presenting with acute shortness secondary to possible broncho- obstructive pneumonia versus increasing tumor burden of the mediastinum. (Medina Burns MD R1) Problem List: (1) Pneumonia ICD Codes: J18.9 - Pneumonia, unspecified organism Status: Acute Plan: Patient with hospitalization from 01/12 to 01/17 presenting with sepsis secondary to possible pneumonia with pleural effusion. Therefore, plan to treat as HCAP vs Broncho-Obstructive PNA based on tumor burden. Labs: * On admission, WBC: 12.7 with 86.2% neutrophils. Microbiology: * Blood cultures: no growth to date. * Sputum culture: Rare growth Staph Aureus. Imaging: * Chest x-ray: Bilateral pulmonary nodules concerning for metastatic disease which are stable, left basilar airspace disease that may be slightly worse when compared to the prior exam representing possible infiltrate versus atelectasis. Small right sided effusion. Left IJ [id number] at the tip of the junction of the left and right brachiocephalic veins. * CTA: Interval worsening of the patient's metastatic disease. Pulmonary nodules have increased in both size and number from prior exam. By hilar and subcarinal adenopathy as well as possible pericardial invasion from regional nodes. No pulmonary embolus. Small left with a tiny right pleural effusion. Regional concomitant atelectatic changes and bases. Orders: * Incentive spirometry, respiratory CPT, and Acapella ordered Medications: * Vancomycin for antibiotic coverage on admission (02/17- ) * Duonebs q6hr. (2) Sepsis ICD Codes: A41.9 - Sepsis, unspecified organism Status: Resolved Plan: On admission, patient presenting with tachycardia to 144 and respiratory rate 36 upon initial vital sign check. Suspected source of infection is pneumonia as documented above. * See plan above. (3) Metastatic colon cancer in female ICD Codes: C18.9 - Malignant neoplasm of colon, unspecified Status: Chronic Plan: Patient with multiple complaints including shortness of breath/air hunger , headaches, abdominal pain likely related to metastatic disease and increased tumor burden. Labs: * CMP on admission: Bilirubin 2.2, AST 62, ALT 83, alk phos 164 (likely due to tumor burden of hepatic system). Imaging: * CT abdomen and pelvis: Extensive metastatic disease to the lung bases with some consolidation and small left pleural effusion. Metastatic disease to the liver measuring up to 6.5 cm in diameter. Mass and transverse colon invading the anterior abdominal wall at the medial right rectus muscle. Supraumbilical ventral hernia containing a small bowel loop without evidence of obstruction. Progression of disease since prior CT from June 17, 2017. Consults: * Medical oncology: Metastatic colon cancer extensively treated with past intravenous chemotherapy and most recently on regorafenib. Unfortunately, she has had progression of her disease on this therapy. The only other treatment option remaining for the patient is IV irinotecan and bevacizumab. She has been on irinotecan in the past and this appeared to have some control of her disease; however, this was very poorly tolerated. Long discussion with the patient that in order to receive IV chemotherapy that she would need to get stronger and uncertain if this would be feasible. * Palliative/hospice: Patient has signed DO NOT RESUSCITATE order on 02/19/18. She has designated her son, Gurjit, her designated decision maker. Patient will be discharged to hospice care center. Medications: * Continue home hydrocodone 10 mg q4hr. * Continue home Zofran. * Continue home loperamide. * Fentanyl 25 mcg patch. * Dexamethasone 8 mg given IV once, patient started 4 mg twice daily 02/18. * Ativan 1 mg IV q8hr PRN for Anxiety/Shortness of breath. (4) Diarrhea ICD Codes: R19.7 - Diarrhea, unspecified Status: Chronic Plan: Patient with diarrhea. Medications: * Continue home Imodium as needed and daily lactobacillus. (5) Hypokalemia ICD Codes: E87.6 - Hypokalemia Status: Resolved Plan: Resolved as of 02/21. Potassium 3.7 Medications: * Effervescent potassium 25 mEq ordered 2. (6) Acid reflux disease ICD Codes: K21.9 - Gastro-esophageal reflux disease without esophagitis Status: Chronic Plan: Patient with history of GERD. Medications: * Continue home calcium carbonate. * Increased Pantoprazole to 40mg BID for short course. (7) Hypertension ICD Codes: I10 - Hypertension Status: Chronic Plan: Patient with history of hypertension. Medications: * Continue home lisinopril. * Clonidine 0.1 mg every 6 hours as needed for blood pressure greater than 180/ 110. (8) Nutrition, metabolism, and development symptoms ICD Codes: R63.8 - Other symptoms and signs concerning food and fluid intake Status: Acute Plan: Diet: * Regular diet as tolerated Fluids: * NS decreased to 75 mL/h Electrolytes: * Monitor and replete as necessary. (9) DVT prophylaxis Status: Acute Plan: Lovenox daily SCDs (Medina Burns MD R1) Problem List: (1) Pneumonia ICD Codes: J18.9 - Pneumonia, unspecified organism Status: Acute Plan: Patient with hospitalization from 01/12 to 01/17 presenting with sepsis secondary to possible pneumonia with pleural effusion. Therefore, plan to treat as HCAP vs Broncho-Obstructive PNA based on tumor burden. Labs: * On admission, WBC: 12.7 with 86.2% neutrophils. Microbiology: * Blood cultures: no growth to date. * Sputum culture: Rare growth Staph Aureus. Imaging: * Chest x-ray: Bilateral pulmonary nodules concerning for metastatic disease which are stable, left basilar airspace disease that may be slightly worse when compared to the prior exam representing possible infiltrate versus atelectasis. Small right sided effusion. Left IJ [id number] at the tip of the junction of the left and right brachiocephalic veins. * CTA: Interval worsening of the patient's metastatic disease. Pulmonary nodules have increased in both size and number from prior exam. By hilar and subcarinal adenopathy as well as possible pericardial invasion from regional nodes. No pulmonary embolus. Small left with a tiny right pleural effusion. Regional concomitant atelectatic changes and bases. Orders: * Incentive spirometry, respiratory CPT, and Acapella ordered Medications: * Vancomycin for antibiotic coverage on admission (02/17- ) * Duonebs q6hr. (2) Sepsis ICD Codes: A41.9 - Sepsis, unspecified organism Status: Resolved Plan: On admission, patient presenting with tachycardia to 144 and respiratory rate 36 upon initial vital sign check. Suspected source of infection is pneumonia as documented above. * See plan above. (3) Metastatic colon cancer in female ICD Codes: C18.9 - Malignant neoplasm of colon, unspecified Status: Chronic Plan: Patient with multiple complaints including shortness of breath/air hunger , headaches, abdominal pain likely related to metastatic disease and increased tumor burden. Labs: * CMP on admission: Bilirubin 2.2, AST 62, ALT 83, alk phos 164 (likely due to tumor burden of hepatic system). Imaging: * CT abdomen and pelvis: Extensive metastatic disease to the lung bases with some consolidation and small left pleural effusion. Metastatic disease to the liver measuring up to 6.5 cm in diameter. Mass and transverse colon invading the anterior abdominal wall at the medial right rectus muscle. Supraumbilical ventral hernia containing a small bowel loop without evidence of obstruction. Progression of disease since prior CT from June 17, 2017. Consults: * Medical oncology: Metastatic colon cancer extensively treated with past intravenous chemotherapy and most recently on regorafenib. Unfortunately, she has had progression of her disease on this therapy. The only other treatment option remaining for the patient is IV irinotecan and bevacizumab. She has been on irinotecan in the past and this appeared to have some control of her disease; however, this was very poorly tolerated. Long discussion with the patient that in order to receive IV chemotherapy that she would need to get stronger and uncertain if this would be feasible. * Palliative/hospice: Patient has signed DO NOT RESUSCITATE order on 02/19/18. She has designated her son, Gurjit, her designated decision maker. Patient will be discharged to hospice care center. Medications: * Continue home hydrocodone 10 mg q4hr. * Continue home Zofran. * Continue home loperamide. * Fentanyl 25 mcg patch. * Dexamethasone 8 mg given IV once, patient started 4 mg twice daily 02/18. * Ativan 1 mg IV q8hr PRN for Anxiety/Shortness of breath. (4) Diarrhea ICD Codes: R19.7 - Diarrhea, unspecified Status: Chronic Plan: Patient with diarrhea. Medications: * Continue home Imodium as needed and daily lactobacillus. (5) Hypokalemia ICD Codes: E87.6 - Hypokalemia Status: Resolved Plan: Resolved as of 02/21. Potassium 3.7 Medications: * Effervescent potassium 25 mEq ordered 2. (6) Acid reflux disease ICD Codes: K21.9 - Gastro-esophageal reflux disease without esophagitis Status: Chronic Plan: Patient with history of GERD. Medications: * Continue home calcium carbonate. * Increased Pantoprazole to 40mg BID for short course. (7) Hypertension ICD Codes: I10 - Hypertension Status: Chronic Plan: Patient with history of hypertension. Medications: * Continue home lisinopril. * Clonidine 0.1 mg every 6 hours as needed for blood pressure greater than 180/ 110. (8) Nutrition, metabolism, and development symptoms ICD Codes: R63.8 - Other symptoms and signs concerning food and fluid intake Status: Acute Plan: Diet: * Regular diet as tolerated Fluids: * NS decreased to 75 mL/h Electrolytes: * Monitor and replete as necessary. (9) DVT prophylaxis Status: Acute Plan: Lovenox daily SCDs See the residents documentation for details. I saw and evaluated the patient regarding the gutierrez portions of this evaluation and agree with the residents findings and plans as written. Parts of this note were created using [employer] voice recognition software program. While efforts were made to correct any mistakes made by this software, some mistakes, errors, and omissions may remain in the final note that were not caught when the note was originally created. Plan of care was discussed and agreed upon with the patient as specifically documented in the above note. An opportunity to ask questions with explanation was provided. Patient voiced understanding on all information reviewed and discussed. (Ramo Pace MD) Problem Qualifiers (1) Pneumonia: Qualified Codes: J18.1 - Lobar pneumonia, unspecified organism (2) Sepsis: Qualified Codes: A41.9 - Sepsis, unspecified organism (3) Diarrhea: Qualified Codes: K59.1 - Functional diarrhea (4) Acid reflux disease: Qualified Codes: K21.9 - Gastro-esophageal reflux disease without esophagitis (5) Hypertension: Qualified Codes: I10 - Essential (primary) hypertension Medina Burns MD R1 Feb 21, 2018 10:37 Ramo Pace MD Feb 24, 2018 11:13
[2018-02-21 12:00] VITALS: BP 140/85; PULSE 104; RESP 18; TEMP 97.5; O2SAT 99
[2018-02-22] MEDS ORDERED: PHARMACY ORDERED LAB ONE (05:45)
== END 2018-02-21 14:46 | disposition hospice, inpatient (51) | DRG 871 ==
LOC: NEPC 10:27 → NEDA 13:59 → OBSVTOIN 14:04 → N07B 15:47
PROVIDERS: ADMIT Family Medicine; ATTEND Family Medicine
DX: A41.9 Sepsis, unspecified organism (principal); J18.9 Pneumonia, unspecified organism; C78.01 Secondary malignant neoplasm of right lung; C78.02 Secondary malignant neoplasm of left lung; C78.7 Secondary malignant neoplasm of liver and intrahepatic bile duct; Z68.41 Body mass index [BMI] 40.0-44.9, adult; Z85.038 Personal history of other malignant neoplasm of large intestine; K43.9 Ventral hernia without obstruction or gangrene; Z92.21 Personal history of antineoplastic chemotherapy; Z66 Do not resuscitate; Z51.5 Encounter for palliative care; E87.6 Hypokalemia; G89.3 Neoplasm related pain (acute) (chronic); F12.90 Cannabis use, unspecified, uncomplicated; K59.1 Functional diarrhea; K21.9 Gastro-esophageal reflux disease without esophagitis; I10 Essential (primary) hypertension; F32.9 Major depressive disorder, single episode, unspecified; F41.9 Anxiety disorder, unspecified; E66.9 Obesity, unspecified; Z92.3 Personal history of irradiation; Z86.718 Personal history of other venous thrombosis and embolism; Z87.891 Personal history of nicotine dependence
CPT/HCPCS: 70450; 71045; 71275; 74176; 80048; 80053; 80202; 81001; 82550; 83605; 83735; 83880; 84484; 85025; 85027; 85610; 85730; 86403; 87040; 87070; 87147; 87186; 87205; 93005; 94150; 94640; 94664; 94667; 94668; J0696; J1100; J1650; J2060; J2543; J3370; J7030; J7050; Q9967